=== PATIENT | female | born 1945 | race Caucasian/White ===

== ENCOUNTER → 2017-03-06 | Outpatient (CLI) | payer BC ==
[~2017-03-06] MED LIST: ACET-1256 PO; ACTONEL PO; ANT125 PO; ASPEC81 PO; CLTP PO; CULTURELLE; FAMO20TA11 PO; GLC5 PO; HYDR-5688 PO; LEVO75TA36 PO; LISI5TAB3 PO; PRAV20TA PO; PRLSR20 PO; VANC5CAP PO; ZOLP5TAB PO
--- NOTE | 2017-03-06 16:06 | MAMMOGRAPHY REPORT ---
BILATERAL DIGITAL SCREENING MAMMOGRAM WITH CAD: 03/06/2017 CLINICAL HISTORY: Routine screening. TECHNIQUE: Bilateral CC and MLO views were obtained. Current study was also evaluated with a Compute r Aided Detection (CAD) system. COMPARISON: Comparison is made to exams dated: 06/03/2015 mammogram, 05/20/2014 mammogram, 05/04/2012 ma mmogram, 05/10/2013 mammogram, 10/06/2009 mammogram - [facility], and 08/13/2008. BREAST COMPOSITION: There are scattered areas of fibroglandular density in both breasts. FINDINGS: There is a stable circumscribed 5.5 mm oval mass in the subareolar left breast, unchanged d ating back to at least 2007, therefore likely benign. There are mild vascular calcifications and a f ew benign rim calcifications in the breasts. No suspicious mass, architectural distortion or cluster of microcalcifications is seen. IMPRESSION: ACR BI-RADS CATEGORY 1: NEGATIVE There is no mammographic evidence of malignancy. A 1 year screening mammogram is recommended. The pa tient will receive written notification of the results. Approximately 10% of breast cancers are not detected with mammography. A negative mammographic report should not delay biopsy if a clinically suggestive mass is present. Gabriela Haider M.D. ay/:03/06/2017 14:46:32 Personal Assistant: Raiza ROBERTS(R)(M), [facility] letter sent: Normal 1/2 BI-RADS Code: ACR BI-RADS Category 1: Negative
== END | disposition home or self-care (01) ==
LOC: C.MAMM 12:48
PROVIDERS: ATTEND Family Medicine
DX: Z12.31 Encounter for screening mammogram for malignant neoplasm of breast (principal)

== ENCOUNTER 2017-06-10 17:57 | Emergency (ER) | payer BC ==
[~2017-06-10] VITALS: Ht 154.9 cm; Wt 57.5 kg
[2017-06-10 18:02] VITALS: TEMP 36.7; Ht 154.9 cm; Wt 57.5 kg
[2017-06-10] MEDS ORDERED: SODIUM CHLORIDE 0.9% 1000ML 1,000 ML IV STA (18:15)
[2017-06-10] MEDS ORDERED: ONDANSETRON INJ 2 MG/ML 2 ML VIAL IV STA (18:15)
[2017-06-10] MEDS ORDERED: SODIUM CHLORIDE 0.9% 1000ML 1,000 ML IV ONE (18:15)
[2017-06-10 18:46] LABS: BASO % 0.3 %; BASO ABS # 0.03 K/uL (0-0.2); COMPLETE YES; EOS % 2.5 %; HEMATOCRIT 41.8 % (37-47); IG% 0.3 %; LYMPH % 26.4 %; LYMPH ABS # 2.57 K/uL (1.2-3.4); MEAN CELL VOLUME 91.1 fL (80-100); MEAN CORPUSCULAR HEMOGLOBIN 31.8 pg (25-34); MEAN CORPUSCULAR HGB CONC 34.9 g/dl (32-36); MEAN PLATELET VOLUME 10.1 fL (7.4-10.4); MONO % 8.1 %; NEUT % 62.4 %; PLATELET COUNT 221 K/uL (130-400); RED BLOOD COUNT 4.59 M/uL (4.2-5.4); WHITE BLOOD COUNT 9.75 K/uL (4.8-10.8)
--- NOTE | 2017-06-10 18:49 | DIAGNOSTIC IMAGING REPORT ---
CT SCAN OF THE BRAIN WITHOUT IV CONTRAST CLINICAL HISTORY: Dizziness. Fall. COMPARISON STUDY: CT of the brain dated 11/26/2011. TECHNIQUE: Unenhanced axial CT scan of the brain is performed from the vertex to the skull base. CT DOSE: 655.73 mGy.cm FINDINGS: Brain parenchyma: There are age-related involutional changes noting mild subcortical and periventricular microangiopathic change. A focus of right parietal encephalomalacia is unchanged and consistent with a remote insult. A chronic appearing lacunar infarct is noted in the left cerebellar hemisphere. Chronic lacunar infarcts are also seen in the left caudate head and the left basal ganglia. There is no hemorrhage, mass effect, or evidence of acute territorial ischemia by CT criteria. Christianson-white matter is preserved. No extra-axial fluid collection is seen. Ventricles, sulci, cisterns: Prominent secondary to involutional change. Intracranial vasculature: There is atherosclerotic calcification of the cavernous carotid arteries. Calvarium: Skeletal structures are osteopenic. There is no depressed femoral fracture. Sinuses and mastoids: The visualized paranasal sinuses are clear. The mastoid air cells are well pneumatized. Orbits: The bony orbits are grossly intact. IMPRESSION: There is no hemorrhage, mass effect, or evidence of acute territorial ischemia by CT criteria. Electronically signed by: Eric Robles M.D. 06/10/2017 6:47 PM Dictated Date/Time: 06/10/2017 6:44 PM
[2017-06-10] MEDS ORDERED: DOCU100C31 PO (18:58)
[2017-06-10] MEDS ORDERED: MECL1TAB40 (18:58)
[2017-06-10] MEDS ORDERED: CHOL100027 PO (18:58)
[2017-06-10] MEDS ORDERED: LISI-729 PO (18:58)
[2017-06-10] MEDS ORDERED: LACT10CA3 PO (18:58)
[2017-06-10] MEDS ORDERED: DICY10CA12 PO (18:58)
[2017-06-10] MEDS ORDERED: GLIP10TA3 PO (18:58)
[2017-06-10] MEDS ORDERED: ASPI81TA28 PO (18:58)
[2017-06-10] MEDS ORDERED: LEVO75TA PO (18:58)
[2017-06-10] MEDS ORDERED: MULT-513 PO (18:58)
[2017-06-10 19:02] LABS: ALT/SGPT 25 U/L (12-78); BLOOD UREA NITROGEN 22 mg/dl (7-18); BUN/CREATININE RATIO 20.1 (10-20); CALCIUM 8.9 mg/dl (8.5-10.1); CARBON DIOXIDE 26 mmol/L (21-32); CHLORIDE 107 mmol/L (98-107); GLUCOSE 151 mg/dl (70-99); SODIUM 139 mmol/L (136-145)
--- NOTE | 2017-06-10 19:07 | DIAGNOSTIC IMAGING REPORT ---
SINGLE VIEW CHEST CLINICAL HISTORY: Atypical chest pain. FINDINGS: An AP, portable, upright chest radiograph is compared to study dated 01/08/2012 and correlated with chest CT dated 02/06/2009. The examination is degraded by portable technique and patient rotation. The cardiomediastinal silhouette is unremarkable. There is atherosclerotic calcification of the thoracic aorta. Chronic interstitial thickening is unchanged. There are bibasilar airspace opacities. Trace pleural effusions are suspected. Apical scarring is observed. No pneumothorax is seen. The skeletal structures are osteopenic. There are healed left-sided rib fractures. IMPRESSION: There are bibasilar airspace opacities and trace pleural effusions are suspected. This could be related to chronic lung disease/atelectasis. Correlate clinically for evidence of superimposed pneumonia/aspiration pneumonitis. Radiographic follow-up to resolution is recommended. Electronically signed by: Eric Robles M.D. 06/10/2017 7:06 PM Dictated Date/Time: 06/10/2017 7:04 PM
[2017-06-10 19:13] LABS: ALKALINE PHOSPHATASE 64 U/L (45-117); AST/SGOT 22 U/L (15-37); CKMB/CK RATIO 1.4 (0-3.0)
[2017-06-10 19:20] LABS: URINE APPEARANCE CLEAR (CLEAR); URINE BILIRUBIN NEG (NEG); URINE COLOR YELLOW; URINE EPITHELIAL CELL AUTO 0-5 /lpf (0-5); URINE NITRITE POS (NEG); URINE SPECIFIC GRAVITY 1.018 (1.000-1.030); UROBILINOGEN NEG (NEG)
[2017-06-10 19:22] LABS: MANUAL MICROSCOPIC REQUIRED? NO; REVIEW REQ? NO
[2017-06-10] MEDS ORDERED: SODIUM CHLORIDE 0.9% 1000ML 500 ML IV STA (19:34)
[2017-06-10] MEDS ORDERED: ONDA4TAB10 SL (19:53)
[2017-06-10 20:00] VITALS: BP 169/75; PULSE 82; O2SAT 97
[2017-06-10] MEDS ORDERED: ONDANSETRON HOME PACK 4MG OD TAB PO ONE (20:00)
--- NOTE | 2017-06-10 20:05 | EMERGENCY ROOM VISIT NOTE ---
History Report prepared by Yimi: Maday Sheth Under the Supervision of: Dr. Michael Ga M.D. First contact with patient: 18:06 Chief Complaint: DIZZY Stated Complaint: DIZZINESS, FALLING DOWN, NAUSEA History of Present Illness The patient is a 71 year old female who presents to the Emergency Room with complaints of worsening dizziness starting 4 days ago. Her symptoms started with nausea and lightheadedness. Her dizziness worsens with standing. She has been having difficulty standing up because she is lightheaded with standing and her balance has been off. Her dizziness is more lightheadedness and not room spinning. Tonight, she fell down to the ground. She is unsure if she passed out. She is nauseous with moving her head. She denies any ear pain, ear ringing , headache, fever, diarrhea, vomiting, numbness, weakness, chest pain, SOB, urinary symptoms, hematochezia, melena, or abdominal pain. She notes she had sore throat and ear pain a couple weeks ago. She denies any recent injury. She has a history of vertigo and is on meclizine. Her vertigo usually involves more room spinning than lightheadedness. She has been taking her meclizine which seemed to be helping until she fell today. She is on aspirin. She had a stroke in 2004. She has a history of diabetes. Her blood sugar was 195 yesterday. Source of History: patient Onset: 4 days ago Position: other (global) Quality: other (dizziness) Timing: worsening Modifying Factors (Worsening): other (standing) Associated Symptoms: + nausea, No fevers, No headache, No chest pain, No SOB , No vomiting, No melena, No hematochezia, No diarrhea, No urinary symptoms, No weakness, No numbness Note: Pt denies ear pain/ringing. Review of Systems See HPI for pertinent positives & negatives. A total of 10 systems reviewed and were otherwise negative. Past Medical & Surgical Medical Problems: (1) Diabetes (2) Stroke Old medical records were reviewed. Nurse's notes were reviewed and I agree with. Family History No pertinent family history stated. Social History Smoking Status: Never Smoker Alcohol Use: none Current/Historical Medications Scheduled Aspirin (Aspirin Ec), 81 MG PO DAILY Cholecalciferol (Vitamin D 1000 Unit), 1,000 INTER.UNIT PO DAILY Dicyclomine Hcl (Dicyclomine Hcl), 1 CAP PO BID Docusate Sodium (Docusate Sodium), 1 CAP PO BID Glipizide (Glucotrol), 10 MG PO BID Lactobacillus-Inulin (Culturelle), 1 CAP PO DAILY Levothyroxine Sodium (Synthroid), 75 MCG PO DAILY Lisinopril (Zestril), 5 MG PO DAILY Multivitamins/Minerals (Mvi With Minerals), 1 TAB PO DAILY Omeprazole (Prilosec), 20 MG PO DAILY Ondasetron Odt (Zofran Odt), 4 MG SL Q6H Scheduled PRN Meclizine Hcl (Meclizine Hcl), 12.5 MG TID PRN for Dizziness or Vertigo Allergies Coded Allergies: Simvastatin (Verified Allergy, Intermediate, MUSCLE PAIN, 06/10/17) Sulfa Drugs (Verified Allergy, Intermediate, HIVES,NAUSEA, 11/26/11) Acetaminophen (Verified Allergy, Unknown, RASH, 06/10/17) Codeine (Verified Allergy, Unknown, RASH, 06/10/17) Gabapentin (Verified Allergy, Unknown, NAUSEA, 06/10/17) Pravastatin (Verified Allergy, Unknown, ABD PAIN, 06/10/17) Uncoded Allergies: CONTRASTMEDIA (Allergy, Intermediate, NAUSEA,HIVES, 10/02/09) Physical Exam Vital Signs Date Time Temp Pulse Resp B/P (MAP) Pulse Ox O2 Delivery O2 Flow Rate FiO2 06/10/17 20:00 82 16 169/75 97 Room Air 06/10/17 18:02 36.7 93 18 176/91 97 Room Air Physical Exam General: Non-ill appearing older female in no acute distress. Alert and oriented x3. Normal speech. HEENT: Normal cephalic atraumatic. Pupils are equal round and reactive to light. Extraocular movements are intact. Tympanic membranes are normal. Oropharynx is pink with moist mucous membranes. No swelling of the mouth lips or tongue. Neck: Supple with a midline trachea. No meningeal signs or stiffness, no JVD or bruits. No Stridor. Healed incision from previous CEA. Chest: Clear to auscultation bilaterally. No wheezes or rhonchi. No increased work of breathing. Heart: regular rate and rhythm. Abdomen: Soft nontender, nondistended without rebound guarding or rigidity. Extremities: No cyanosis clubbing or edema. No calf tenderness or assymetry Spine/Back. Non tender to palpation. No CVA tenderness Skin: Good turgor without rashes. Neurologic exam: Cranial nerves two through 12 are intact. Motor and sensation are intact and symmetrical throughout. Finger to nose intact. No tremor or pronator drift. Medical Decision & Procedures ER Provider Diagnostic Interpretation: X-ray results as stated below per interpretation by me and the radiologist. Radiology results as stated below per my review and radiologist interpretation: SINGLE VIEW CHEST CLINICAL HISTORY: Atypical chest pain. FINDINGS: An AP, portable, upright chest radiograph is compared to study dated 01/08/2012 and correlated with chest CT dated 02/06/2009. The examination is degraded by portable technique and patient rotation. The cardiomediastinal silhouette is unremarkable. There is atherosclerotic calcification of the thoracic aorta. Chronic interstitial thickening is unchanged. There are bibasilar airspace opacities. Trace pleural effusions are suspected. Apical scarring is observed. No pneumothorax is seen. The skeletal structures are osteopenic. There are healed left-sided rib fractures. IMPRESSION: There are bibasilar airspace opacities and trace pleural effusions are suspected. This could be related to chronic lung disease/atelectasis. Correlate clinically for evidence of superimposed pneumonia/aspiration pneumonitis. Radiographic follow-up to resolution is recommended. Electronically signed by: Eric Robles M.D. 06/10/2017 7:06 PM Dictated Date/Time: 06/10/2017 7:[address] SCAN OF THE BRAIN WITHOUT IV CONTRAST CLINICAL HISTORY: Dizziness. Fall. COMPARISON STUDY: CT of the brain dated 11/26/2011. TECHNIQUE: Unenhanced axial CT scan of the brain is performed from the vertex to the skull base. CT DOSE: 655.73 mGy.cm FINDINGS: Brain parenchyma: There are age-related involutional changes noting mild subcortical and periventricular microangiopathic change. A focus of right parietal encephalomalacia is unchanged and consistent with a remote insult. A chronic appearing lacunar infarct is noted in the left cerebellar hemisphere. Chronic lacunar infarcts are also seen in the left caudate head and the left basal ganglia. There is no hemorrhage, mass effect, or evidence of acute territorial ischemia by CT criteria. Christianson-white matter is preserved. No extra-axial fluid collection is seen. Ventricles, sulci, cisterns: Prominent secondary to involutional change. Intracranial vasculature: There is atherosclerotic calcification of the cavernous carotid arteries. Calvarium: Skeletal structures are osteopenic. There is no depressed femoral fracture. Sinuses and mastoids: The visualized paranasal sinuses are clear. The mastoid air cells are well pneumatized. Orbits: The bony orbits are grossly intact. IMPRESSION: There is no hemorrhage, mass effect, or evidence of acute territorial ischemia by CT criteria. Electronically signed by: Eric Robles M.D. 06/10/2017 6:47 PM Dictated Date/Time: 06/10/2017 6:44 PM Laboratory Results 06/10/17 18:25 Red Blood Count 4.59, Mean Corpuscular Volume 91.1, Mean Corpuscular Hemoglobin 31.8, Mean Corpuscular Hemoglobin Concent 34.9, Mean Platelet Volume 10.1, Neutrophils (%) (Auto) 62.4, Lymphocytes (%) (Auto) 26.4, Monocytes (%) (Auto) 8.1, Eosinophils (%) (Auto) 2.5, Basophils (%) (Auto) 0.3, Neutrophils # (Auto) 6.09, Lymphocytes # (Auto) 2.57, Monocytes # (Auto) 0.79, Eosinophils # (Auto) 0.24, Basophils # (Auto) 0.03 06/10/17 18:25 Test 06/10/17 18:15 06/10/17 18:25 06/10/17 18:32 Urine Color YELLOW Urine Appearance CLEAR (CLEAR) Urine pH 5.0 (4.5-7.5) Urine Specific [place] 1.018 (1.000-1.030) Urine Protein NEG (NEG) Urine Glucose (UA) NEG (NEG) Urine Ketones NEG (NEG) Urine Occult Blood NEG (NEG) Urine Nitrite POS (NEG) Urine Bilirubin NEG (NEG) Urine Urobilinogen NEG (NEG) Urine Leukocyte Esterase SMALL (NEG) Urine WBC (Auto) 10-30 /hpf (0-5) Urine RBC (Auto) 0-4 /hpf (0-4) Urine Hyaline Casts (Auto) 0 /lpf (0-5) Urine Epithelial Cells (Auto) 0-5 /lpf (0-5) Urine Bacteria (Auto) 4+ (NEG) White Blood Count 9.75 K/uL (4.8-10.8) Red Blood Count 4.59 M/uL (4.2-5.4) Hemoglobin 14.6 g/dL (12.0-16.0) Hematocrit 41.8 % (37-47) Mean Corpuscular Volume 91.1 fL (80-100) Mean Corpuscular Hemoglobin 31.8 pg (25-34) Mean Corpuscular Hemoglobin Concent 34.9 g/dl (32-36) Platelet Count 221 K/uL (130-400) Mean Platelet Volume 10.1 fL (7.4-10.4) Neutrophils (%) (Auto) 62.4 % Lymphocytes (%) (Auto) 26.4 % Monocytes (%) (Auto) 8.1 % Eosinophils (%) (Auto) 2.5 % Basophils (%) (Auto) 0.3 % Neutrophils # (Auto) 6.09 K/uL (1.4-6.5) Lymphocytes # (Auto) 2.57 K/uL (1.2-3.4) Monocytes # (Auto) 0.79 K/uL (0.11-0.59) Eosinophils # (Auto) 0.24 K/uL (0-0.5) Basophils # (Auto) 0.03 K/uL (0-0.2) RDW Standard Deviation 40.7 fL (36.4-46.3) RDW Coefficient of Variation 12.1 % (11.5-14.5) Immature Granulocyte % (Auto) 0.3 % Immature Granulocyte # (Auto) 0.03 K/uL (0.00-0.02) Anion Gap 7.0 mmol/L (3-11) Est Creatinine Clear Calc Drug Dose 37.7 ml/min Estimated GFR () 58.1 Estimated GFR (Non- 50.1 BUN/Creatinine Ratio 20.1 (10-20) Calcium Level 8.9 mg/dl (8.5-10.1) Total Bilirubin 0.3 mg/dl (0.2-1) Direct Bilirubin < 0.1 mg/dl (0-0.2) Aspartate Amino Transf (AST/SGOT) 22 U/L (15-37) Alanine Aminotransferase (ALT/SGPT) 25 U/L (12-78) Alkaline Phosphatase 64 U/L (45-117) Total Creatine Kinase 71 U/L (26-192) Creatine Kinase MB 1.0 ng/ml (0.5-3.6) Creatine Kinase MB Ratio 1.4 (0-3.0) Total Protein 7.8 gm/dl (6.4-8.2) Albumin 4.1 gm/dl (3.4-5.0) Lipase 306 U/L (73-393) Thyroid Stimulating Hormone (TSH) 2.810 uIu/ml (0.300-4.500) Bedside Troponin I < 0.030 ng/ml (0-0.045) Laboratory studies as stated above per my review. Medications Administered Medications (Trade) Dose Ordered Sig/Jesus Route Start Time Stop Time Status Last Admin Dose Admin Sodium Chloride 1,000 ml @ 999 mls/hr Q1H1M STAT IV 06/10/17 18:15 06/10/17 19:15 DC 06/10/17 18:15 999 MLS/HR Sodium Chloride 1,000 ml @ 150 mls/hr Q6H40M ONCE IV 06/10/17 18:15 06/10/17 21:19 DC 06/10/17 18:15 150 MLS/HR Ondansetron HCl (Zofran Inj) 4 mg NOW STAT IV 06/10/17 18:15 06/10/17 18:16 DC 06/10/17 18:29 4 MG Sodium Chloride 500 ml @ 999 mls/hr Q31M STAT IV 06/10/17 19:34 06/10/17 20:04 DC 06/10/17 19:59 999 MLS/HR Ondansetron HCl (ZOFRAN ODT 4MG Home Pack) 1 homepack UD ONCE PO 06/10/17 20:00 06/10/17 20:01 DC 06/10/17 19:59 1 HOMEPACK ECG Indication: other (dizziness) Rate (beats per minute): 91 Rhythm: normal sinus Findings: PVC (occasional), no acute ischemic change Comparison ECG Date: 30-Jul-2015 Change: PVC now present, otherwise no change. ED Course 1806: Past medical records reviewed. The patient was evaluated in room A10, and a complete history and physical examination were performed. 1814: Ondansetron HCl 4 mg IV, NSS 1000 ml @ 150 mls/hr IV, NSS 1000 ml @ 999 mls/hr IV. 1924: I reevaluated the patient. She feels better. As she does not have any significant urinary symptoms, she does not want antibiotics because she has had severe C diff before. 1933: NSS 500 ml @ 999 mls/hr IV. 1956: Upon reevaluation, the patient is resting comfortably. I discussed the results and treatment plan with her. She verbalized agreement of the treatment plan. The patient was discharged home. 1999: Ondansetron HCl 1 homepack PO. Medical Decision Differentials include, but are not limited to; vertigo, dehydration, arrhythmia , electrolyte or metabolic abnormality. This patient comes in as described above. She comes in complaining of feeling dizzy and nauseated. It is definitely positional when she stands. She has no neurologic deficits. She has no chest pain or shortness breath. She denies any significant urinary symptoms. She's had no fever. IV access established hydrated with IV normal saline and received a liter of IV normal saline while she was here is feeling much better. She also received 4 mg IV Zofran. CAT scan of her head was unremarkable shows no acute intracranial process. EKG was unremarkable and there is nothing on her workup to suggest acute cardiac event. She has no acute electrolyte or metabolic abnormalities with exception BUN being mildly elevated. She could be somewhat dehydrated. Her urinalysis does suggest a UTI talked to the patient about that she really does not have any symptoms to suggest UTI otherwise and is very hesitant to be placed on antibiotics that she has had significant C. difficile this been difficult to treat in the past. I did a culture and she declines antibiotics at this point it is reasonable to observe her I told her though if she has any urinary symptoms or fever or back pain. she may need treatment and return to the ER as she may need for antibiotics at that time. She will follow up with her doctor Monday for recheck and return to the ER if: Worsening of symptoms, not tolerating fluids, any new problems or concerns. she is going to continue meclizine can also use Zofran if needed for nausea or vomiting. Medication Reconcilliation Current Medication List: was personally reviewed by me Blood Pressure Screening Patient's blood pressure: Elevated blood pressure Blood pressure disposition: Elevated BP felt to be situational Impression Primary Impression: Dizziness Additional Impression: Dehydration Scribe Attestation The scribe's documentation has been prepared under my direction and personally reviewed by me in its entirety. I confirm that the note above accurately reflects all work, treatment, procedures, and medical decision making performed by me. Departure Information Dispostion Home / Self-Care Prescriptions Ondasetron Odt (ZOFRAN ODT) 4 Mg Tab 4 MG SL Q6H for Nausea, #10 TAB Prov: Michael Ga M.D. 06/10/17 Referrals Dianna Robb D.O. (PCP) Forms HOME CARE DOCUMENTATION FORM, IMPORTANT VISIT INFORMATION Patient Instructions My [facility] Additional Instructions Rest. Drink plenty of fluids. Continue your meclizine. It may make you drowsy. For nausea may try Zofran 4 mg under the tongue every 6 hours Keep a close eye out for urinary symptoms if you have frequency of urination, burning on urination, back pain, fever you should return and may need to be started on antibiotics. Follow-up with your doctor for recheck on Monday. Problem Qualifiers
--- NOTE | 2017-06-12 13:31 | Pharmacy Progress Note ---
ED Pharmacist Culture FollowUp Date of Service: Jun 12, 2017. Called patient regarding urine culture with E. coli. Informed of positive result. Patient hesitant to initiate antibiotics due to history of C. diff. Patient denied urinary symptoms at this time. Counseled that symptoms of a UTI are not always urinary (could be dizziness, etc) but that we could continue to monitor off of antibiotics as she has no urinary symptoms at this time. Strongly encouraged her to follow-up with outpatient provider [facility] and to call/ return to ED if symptoms change. Patient acknowledged understanding.
== END 2017-06-10 20:24 | disposition home or self-care (01) ==
LOC: C.EDB 17:59 → C.EDA 20:24
DX: R42 Dizziness and giddiness (principal); E86.0 Dehydration; E11.9 Type 2 diabetes mellitus without complications; Z86.73 Personal history of transient ischemic attack (TIA), and cerebral infarction without residual deficits; Z91.81 History of falling; Z79.82 Long term (current) use of aspirin; Z79.84 Long term (current) use of oral hypoglycemic drugs; Z79.899 Other long term (current) drug therapy

== ENCOUNTER → 2018-03-14 | Outpatient (CLI) | payer BC ==
[~2018-03-14] MED LIST changes: -ACET-1256 PO; -ACTONEL PO; -ANT125 PO; -ASPEC81 PO; +ASPI81TA28 PO; +CHOL100027 PO; -CLTP PO; -CULTURELLE; +DICY10CA12 PO; +DOCU100C31 PO; -FAMO20TA11 PO; -GLC5 PO; +GLIP10TA3 PO; -HYDR-5688 PO; +LACT10CA3 PO; +LEVO75TA PO; -LEVO75TA36 PO; +LISI-729 PO; -LISI5TAB3 PO; +MECL1TAB40; +MULT-513 PO; -PRAV20TA PO; -VANC5CAP PO; -ZOLP5TAB PO
--- NOTE | 2018-03-15 08:10 | MAMMOGRAPHY REPORT ---
BILATERAL DIGITAL SCREENING MAMMOGRAM TOMOSYNTHESIS WITH CAD: 03/14/2018 CLINICAL HISTORY: Routine screening. Patient has no complaints. TECHNIQUE: The study was acquired using full field digital technology and interpreted from soft copy. Tomosynthesis (3D imaging) was done in the CC and MLO projections. A C-view reconstruction was then done. Current study was also evaluated with a Computer Aided Detection (CAD) system. COMPARISON: Comparison is made to exams dated: 03/06/2017 mammogram, 06/03/2015 mammogram, 05/20/2014 m ammogram, 05/16/2013 mammogram, 05/10/2013 mammogram, and 05/04/2012 mammogram - [facility] nter. BREAST COMPOSITION: There are scattered areas of fibroglandular density in both breasts. FINDINGS: No suspicious masses, calcifications, or areas of architectural distortion are noted in either breast . There has been no significant interval change compared to prior exams. IMPRESSION: ACR BI-RADS CATEGORY 1: NEGATIVE There is no mammographic evidence of malignancy. A 1 year screening mammogram is recommended.( 019) The patient will receive written notification of the results. Approximately 10% of breast cancers are not detected with mammography. A negative mammographic report should not delay biopsy if a clinically suggestive mass is present. Marnie Do M.D. /:03/14/2018 12:12:14 Edger Technician: RT Toñito(Rodger)(M)(BD), [facility] letter sent: Normal 1/2 BI-RADS Code: ACR BI-RADS Category 1: Negative
== END | disposition home or self-care (01) ==
LOC: C.MAMM 10:27
PROVIDERS: ATTEND Family Medicine
DX: Z12.31 Encounter for screening mammogram for malignant neoplasm of breast (principal)

== ENCOUNTER 2020-07-20 17:03 | Inpatient (IN) ==
--- OUTSIDE RECORDS SUMMARY | 2020-07-20 17:05 | External Medical Summary | Continuity of Care Document ---
:1945 Author Name Tamiko Emanuel, Provider Address Unavailable Unavailable , Care Team Providers Name Role Phone Unavailable Unavailable Unavailable Deborah Emanuel, Jhonatan Frankel Unavailable [email or web address] Bruce ARGUETA Unavailable Unavailable Unavailable Unavailable Unavailable Problems Carotid stenosis, symptomatic w/o infarct (433.10) (I65.29) Senile osteoporosis (733.01) (M81.0) Irritable bowel syndrome (564.1) (K58.9) Type 2 diabetes mellitus with hemoglobin A1c goal of less than 7.0% (250.00) (E11.9) Hypothyroidism due to acquired atrophy of thyroid (244.8) (E 03.4) Diabetes mellitus with stage 3 chronic kidney disease (250.4 0) (E11.22) Hypertensive renal disease, stage 1 thro ugh stage 4 or unspecified chronic kidney disease (403.90) (I12.9) Type 2 diabetes mellitus with peripheral vascular disease (2 50.70) (E11.51) 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) Gastroesophageal reflux disease, esophag itis presence not specified (530.81) (K21.9) Status post stroke due to cerebrovascular disease (V12.54) ( Z86.73) PAC (premature atrial contraction) (427.61) (I49.1) Hyperlipidemia (272.4) (E78.5) Benign essential hypertension (401.1) (I10) Allergies and Adverse Reactions acetaminophen-codeine (Allergy) Reaction : Rash gabapentin (Allergy) Reaction: Nausea pravastatin (Allergy) Reaction: Abdomina l pain simvastatin (Allergy) Reaction: Myalgia sulfa (Allergy) Reaction: Nausea Intravenous Dye (Allergy) Reaction: Hive s Medications glipiZIDE XL 10 MG Oral Tablet Extended Release 24 Hour; take 1 tablet by mouth once daily , M.D. Refills: 0 Lisinopril 5 MG Oral Tablet; take 1 tablet by mouth once keagan ly , M.D. 45 Tablet Bottle Refills: 0 Meclizine HCl - 12.5 MG Oral Tablet; DANIELA E 1 TABLET BY MOUTH EVERY 8 HOURS NEEDED , M.D. Refills: 0 Levothyroxine Sodium 75 MCG Oral Tablet; take 1 tablet by mouth once daily , M.D. Refills: 0 Omeprazole 20 MG Oral Tablet Delayed Rel ease; take 1 capsule by mouth once daily , M.D. Refills: 0 Colace 100 MG Oral Capsule; TAKE 1 CAPSULE TWICE DAILY. , M. D. Refills: 0 MiraLax 17 GM/SCOOP Oral Powder , M.D. Refills: 0 Fluticasone Propionate 50 MCG/ACT Nasal Suspension; instill 2 sprays into each nostril twice daily , M.D. 9.9 ML Bottle Refills: 0 Vitamin D 1000 UNIT TABS; TAKE 1 TABLET DAILY. , M.D. Refills: 0 Multi-Vitamin TABS; TAKE 1 TABLET DAILY. , M.D. Refills: 0 Culturelle 10 B CELL CAPS; TAKE 1 CAPSULE Daily , M.D. Refills: 0 Aspirin 81 MG TABS; TAKE 1 TABLET DAILY. , M.D. Refills: 0 Atorvastatin Calcium 10 MG Oral Tablet; TAKE 1 TABLET AT BEDTIME. Adelfo Cabrera Start: 24-Oct-2018 Quantity: 30 Refills: 11 Procedures Procedures not documented Immunizations Immunizations not documented Family History Unknown Family Member Family history of hip fracture (V19.8) Status: Active C omments: Family History (Z84.89) Social History - Smoking Status Never smoked tobacco Plan of Treatment Planned Observations Planned Goals not documented Results No Known Results Results not documented Encounters Appointment; Jhonatan Cabrera M.D. 22-Nov-2018 11:00 Encounter Diagnosis: Problem not documented Appointment; Echo/Stress, Echo/Stress 05-Nov-2018 11:45 Encounter Diagnosis: Problem not documented Appointment; [facility], Nursing Station 29-Oct-2018 10:30 Encounter Diagnosis: Problem not documented Appointment; [place] [id number], Nursing Station 25-Oct-2018 8:30 Encounter Diagnosis: Problem not documented Appointment; Jhonatan Cabrera M.D. 24-Oct-2018 11:30 Encounter Diagnosis: Problem not documented
--- OUTSIDE RECORDS SUMMARY | 2020-07-20 17:05 | External Medical Summary | Continuity of Care Document ---
:1945 Author Name Tamiko Emanuel, Provider Address Unavailable Unavailable , Care Team Providers Name Role Phone Unavailable Unavailable Unavailable Deborah Emanuel, Jhonatan Frankel Unavailable [email or web address] Bruce ARGUETA Unavailable Unavailable Unavailable Unavailable Unavailable [...] Intravenous Dye (Allergy) Reaction: Hive s Medications Atorvastatin Calcium 10 MG Oral Tablet; TAKE 1 TABLET AT BEDTIME. Adelfo Cabrera Start: 24-Oct-2018 Quantity: 30 Refills: 11 glipiZIDE XL 10 MG Oral Tablet Extended [...] 1 TABLET DAILY. , M.D. Refills: 0 Procedures Procedures not documented Immunizations Immunizations not documented Family History Unknown Family Member Family history of hip fracture (V19.8) Status: Active C omments: Family History (Z84.89) Social History - Smoking Status Never smoked tobacco Plan of Treatment Planned Observations Planned Goals not documented Results No Known Results Results not documented Encounters Appointment; Jhonatan Cabrera M.D. 22-Nov-2018 11:00 Encounter Diagnosis: Problem not documented Appointment; Nina/StressNina/Stress 05-Nov-2018 11:45 Encounter Diagnosis: Problem not documented Appointment; [facility], Nursing Station 29-Oct-2018 10:30 Encounter Diagnosis: Problem not documented Appointment; [place] [id number], Nursing Station 25-Oct-2018 8:30 Encounter Diagnosis: Problem not documented Appointment; Jhonatan Cabrera M.D. 24-Oct-2018 11:30 Encounter Diagnosis: Problem not documented
[2020-07-20] MEDS ORDERED: SODIUM CHLORIDE 0.9% 1000ML 1,000 ML IV ONE ×3 (18:22→20:58)
[2020-07-20] MEDS ORDERED: ONDANSETRON INJ 2 MG/ML 2 ML VIAL IV STA ×2 (18:22→19:50)
[2020-07-20] MEDS ORDERED: fentaNYL citrate 100 MCG/2 ML VIAL IV STA ×2 (18:23→19:50)
--- NOTE | 2020-07-20 18:26 | Emergency Department Note ---
Impression & Plan Calculus of ureterovesical junction (UVJ), Sepsis, Renal colic on left side, Pyelonephritis ED Provider Note NAME: SUSAN CREWS AGE: 75 SEX: F : 1945 ARRIVES VIA: Walk-In INFORMANT: Patient, ED PROVIDER(S): Yvan Pastrana MD Chief Complaint: Abdominal pain HPI: Patient does present with concern for abdominal pain that began around 1:30 PM today. Patient describes it is over the left side and does radiate front to back. Patient denies any recent trauma to the area. Patient describes it as occasionally sharp and achy. Patient did have improvement her symptoms around 230. Patient did take Tylenol without any relief. Patient has been having diarrheal symptoms. Patient denies any changes in diet or antibiotic use. Patient has fevers, chills, chest pains or shortness of breath. Patient has had associated nausea and vomiting. Patient denies any alcohol or tobacco use. Patient denies Covid contacts or loss of taste or smell. Patient denies any recent surgeries or procedures. ROS: See HPI for pertinent positives and negatives. A total of 10 systems were reviewed and otherwise negative. Past medical history: See below Surgical history: See below Social history: See below Physical Exam: GENERAL: Uncomfortable in appearance, wearing glasses and a mask. Rigors present. EYE EXAM: Normal conjunctiva. PERRL, no anisocoria and EOM's grossly intact w/o pain. NECK: Supple, no nuchal rigidity, no adenopathy, non-tender. No signs of meningismus. LUNGS: Clear to auscultation. Normal chest wall mechanics. HEART: NSR, no MRG. ABDOMEN: Abdomen soft, left-sided abdominal discomfort without peritonitis, normo-active bowel sounds, no masses, no rebound or guarding. BACK: No CVA TTP. SKIN: No rashes and no bruising. UPPER EXTREMITIES: Upper extremities are grossly normal. LOWER EXTREMITIES: Grossly normal, no edema. NEURO EXAM: A&O x3, cranial nerves II-XII grossly intact, normal speech, moves all 4 extremities on command w/o issue. Differential diagnoses: Appendicitis, ovarian cyst, ovarian torsion, ectopic , TOA, PID, infections, diverticulitis, UTI, obstruction, mesenteric ischemia, aortic pathology, inflammatory bowel disease, renal colic, PUD, pancreatitis, biliary pathology, hernia, volvulus, constipation, as well as other pathologies. Course: Patient was seen and evaluated the bedside. Full history physical exam was performed. EKG: Indication: Nausea vomiting Sinus tachycardia, rate of 116 normal axis, T wave inversion with slight depress ions in the lateral leads. Patient's ST changes appear to be old from comparison EKG June 10, 2017. Imaging Studies: Radiology results as stated below per my review in the radiologist's interpreta tion: CT ANGIOGRAM OF THE ABDOMEN AND PELVIS CLINICAL HISTORY: Left lower quadrant abdominal pain. Back pain. COMPARISON STUDY: Abdominal radiographs dated 01/08/2012. Chest CT dated 02/06/2009. TECHNIQUE: Following the IV administration of 120 cc of Optiray 320, CT angiogram of the abdomen and pelvis was performed from the lung bases the proximal femora. Images are reviewed in the axial, sagittal, and coronal planes. 3-D MIPS images are created and assessed. IV contrast was administered without complication. A dose lowering technique was utilized adhering to the principles of ALARA. CT DOSE: 276.97 mGy.cm FINDINGS: Lower chest: The heart is normal in size and without pericardial effusion. Fibrotic an groundglass change at both lung bases is similar to the [address] There is no clear evidence of superimposed airspace consolidation or pleural effusion. There is a small hiatal hernia. Liver: The contrast-enhanced liver is normal in size, contour, and attenuation. There is no intrahepatic or ductal dilatation. The main portal veins appear patent. Gallbladder: Unremarkable. Spleen: Normal in size and attenuation noting heterogeneous arterial phase enhancement. Pancreas: Moderately atrophic and grossly unremarkable. Adrenal glands: Unremarkable. Kidneys: The contrast enhanced kidneys demonstrate cortical atrophy. There is a 3 mm obstructing calculus at the left vesicoureteral junction seen on image #365. This causes mild to moderate left hydroureteronephrosis. There is associated left-sided perinephric and periureteric stranding as well as left sided perinephric fluid. Mild urothelial thickening and enhancement is seen in the left ureter. No hydronephrosis is seen on the right. The kidneys enhance symmetrically. No additional calculi are identified in either kidney on this contrast-enhanced examination. Abdominal aorta and iliac arteries: There is advanced atherosclerotic calcification of the abdominal aorta which is normal in caliber. No luminal narrowing is identified. No dissection is seen. The arteries are patent bilaterally noting atherosclerotic plaque and irregularity. 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 The celiac artery is otherwise patent, as are the superior and inferior mesenteric arteries. Hepatic arterial anatomy is conventional. The splenic artery is patent. There are 2 left renal arteries and a single right renal artery. The renal arteries are patent. Bowel: There is moderate sigmoid diverticulosis without CT evidence of acute diverticulitis. No bowel obstruction is identified. The appendix is well- visualized and normal. Peritoneum: There is no intraperitoneal free air or abdominal ascites. There is a fat-containing umbilical hernia. Lymphadenopathy: None. Pelvic viscera: The bladder is normal as visualized. The uterus is surgically absent. No adnexal lesion is seen. Skeletal structures: The skeletal structures are osteopenic. There is mild to moderate lumbosacral spondylosis. No lytic or blastic bony lesions are seen. IMPRESSION: 1. There is a 3 mm obstructing calculus at the left vesicoureteral junction. This causes mild to moderate left hydroureteronephrosis. 2. There is associated urothelial thickening in the left ureter, as well as left-sided perinephric and periureteric stranding and fluid. 3. Fibrotic and groundglass change is seen at both lung bases, and is similar to a [address] This is likely chronic. Correlate clinically for evidence of a superimposed acute infectious/inflammatory pneumonitis. 4. Moderate sigmoid diverticulosis without CT evidence of acute diverticulitis. 5. Unremarkable CT angiogram of the abdominal aorta and iliac arteries. 6. 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 7. Additional findings as above. ACT 112: Negative or not required by law. Electronically signed by: Eric Robles M.D. 07/20/2020 8:32 PM Dictated: 07/20/202020 Transcribed: 07/20/202020 Cardiac monitoring: An order was placed for continuous cardiac monitoring. The monitor shows a rate of 100 with sinus rhythm. MDM: Patient did present with concerns for back pain. Patient did a bladder completed along with a CT angio of the abdomen and pelvis was given IV fluids. Patient has a very mild white count of 11 with normal H&H and platelet count. Patient's kidney function is fairly unchanged prior to prior. The patient did have 7 oh magnesium 1.7 troponin is undetectable. Lipase unremarkable. Urinalysis does appear to be positive for infection. Covid negative. CT abdomen pelvis does show a 3 mm UVJ stone and the possibility of pyelonephritis with associated perinephric stranding and fluid but without abscess. Cipro was ordered given the pyelonephritis and DONTAE Cox the patient was admitted to Dr. Lacey of [facility] service. Given the size and location of the stone do not believe this or require emergent stenting, but given the patient's pain believe the patient would benefit from inpatient treatment. The patient did eventually spike a fever to 39.4. Inpatient service did order additional medications including antipyretics. Past Med/Surg History Medical History CKD (chronic kidney disease), stage III DM type 2 (diabetes mellitus, type 2) GERD (gastroesophageal reflux disease) History of CVA (cerebrovascular accident) HLD (hyperlipidemia) HTN (hypertension) Hypothyroidism Surgical History H/O dilation and curettage History of carotid endarterectomy Right History of hysterectomy History of tonsillectomy Family History Father Diabetes Mother Diabetes Social History (Updated 07/20/20 @ 22:48 by DONTAE Brown) Smoking Status: Never smoker Hx Alcohol Use: No Feels Safe at Home: Yes Allergies Allergies Allergy/AdvReac Type Severity Reaction Status Date / Time simvastatin Allergy Intermediate MUSCLE PAIN Verified 07/20/20 22:26 codeine Allergy Unknown RASH Verified 07/20/20 22:26 Iodinated Contrast Media Allergy Unknown Hives Verified 07/20/20 22:26 Sulfa (Sulfonamide AdvReac Intermediate HIVES,NAUSE Verified 07/20/20 22:29 Antibiotics) A gabapentin AdvReac Unknown NAUSEA Verified 07/20/20 22:29 pravastatin AdvReac Unknown Abdominal Verified 07/20/20 22:29 Pain Home Meds Home Medications Medication Instructions Recorded Confirmed Lactobacillus rhamnosus GG 1 cap PO BID 07/20/20 07/20/20 [Culturelle] aspirin [Aspir-81] 81 mg PO DAILY 07/20/20 07/20/20 atorvastatin 10 mg PO DAILY 07/20/20 07/20/20 cholecalciferol (vitamin D3) 25 mcg PO DAILY 07/20/20 07/20/20 docusate sodium [DOK] 100 mg PO BID 07/20/20 07/20/20 famotidine 20 mg PO DAILY 07/20/20 07/20/20 fluticasone propionate [Flonase] 1 spray INTRANASAL DAILY PRN 07/20/20 07/20/20 glipizide 5 mg PO BID 07/20/20 07/20/20 levothyroxine 75 mcg PO DAILY 07/20/20 07/20/20 lisinopril 5 mg PO DAILY 07/20/20 07/20/20 loratadine 10 mg PO DAILY PRN 07/20/20 07/20/20 meclizine 12.5 mg PO TID PRN 07/20/20 07/20/20 multivitamin 1 tab PO DAILY 07/20/20 07/20/20 omeprazole 20 mg PO DAILY 07/20/20 07/20/20 Results & Data (ED) Vital Signs Vital Signs - 24 hr 07/20/20 17:11 07/20/20 18:22 07/20/20 18:59 Temperature 36.5 C Temperature Source Oral Pulse Rate 100 H 120 H Respiratory Rate 20 26 H Respiratory Effort / Characteristics Non-Labored Respiratory Depth Normal Blood Pressure 157/82 H 172/110 H Blood Pressure Mean 107 127 Pulse Oximetry 94 95 Oxygen Delivery Method Room Air Room Air Oxygen Flow Rate Sepsis Recent Fever Within 48 Hours No Sepsis New/Unexplained Change in Mental Status N/A Sepsis Action Taken by Nursing No Action Required 07/20/20 19:30 07/20/20 20:00 07/20/20 20:54 Temperature 37.3 C Temperature Source Pulse Rate 115 H 120 H 148 H Respiratory Rate 20 16 28 H Respiratory Effort / Characteristics Respiratory Depth Blood Pressure 178/92 H 158/80 H 179/114 H Blood Pressure Mean 99 112 125 Pulse Oximetry 92 93 93 Oxygen Delivery Method Room Air Oxygen Flow Rate Sepsis Recent Fever Within 48 Hours Sepsis New/Unexplained Change in Mental Status Sepsis Action Taken by Nursing 07/20/20 21:00 07/20/20 21:30 07/20/20 21:56 Temperature 39.4 C H Temperature Source Rectal Pulse Rate 141 H 132 H Respiratory Rate 28 H 28 H Respiratory Effort / Characteristics Respiratory Depth Blood Pressure 190/114 H 165/93 H Blood Pressure Mean 133 95 Pulse Oximetry 89 L 96 Oxygen Delivery Method Nasal Cannula Oxygen Flow Rate 2 Sepsis Recent Fever Within 48 Hours Sepsis New/Unexplained Change in Mental Status Sepsis Action Taken by Nursing 07/20/20 22:00 07/20/20 22:26 07/20/20 22:30 Temperature Temperature Source Pulse Rate 134 H 137 H 137 H Respiratory Rate 32 H 28 H 28 H Respiratory Effort / Characteristics Respiratory Depth Blood Pressure 152/75 H 158/77 H 162/80 H Blood Pressure Mean 119 123 104 Pulse Oximetry 96 97 93 Oxygen Delivery Method Oxygen Flow Rate Sepsis Recent Fever Within 48 Hours Sepsis New/Unexplained Change in Mental Status Sepsis Action Taken by [facility] Medications Current Medication List: was personally reviewed by me Laboratory Data Attestation: I reviewed the patient's lab results. Result diagrams: 07/20/20 18:42 07/20/20 18:42 Lab Results 07/20/20 07/20/20 07/20/20 Range/Units 18:07 18:42 18:42 WBC 11.06 H (4.8-10.8) K/uL RBC 4.13 L (4.2-5.4) M/uL Hgb 12.8 (12.0-16.0) g/dL Hct 38.6 (37-47) % MCV 93.5 (80-100) fL MCH 31.0 (25-34) pg MCHC 33.2 (32-36) g/dL RDW Std Deviation 40.5 (36.4-46.3) fL RDW Coeff of Abebe 12.0 (11.5-14.5) % Plt Count 211 (130-400) K/uL MPV 10.0 (7.4-10.4) fL Immature Gran % (Auto) 0.5 % Neut % (Auto) 92.0 % Lymph % (Auto) 6.0 % Hall % (Auto) 1.2 % Eos % (Auto) 0.2 % Baso % (Auto) 0.1 % Neut # (Auto) 10.19 H (1.4-6.5) K/uL Lymph # (Auto) 0.66 L (1.2-3.4) K/uL Hall # (Auto) 0.13 (0.11-0.59) K/uL Eos # (Auto) 0.02 (0-0.5) K/uL Baso # (Auto) 0.01 (0-0.2) K/uL Immature Gran # (Auto) 0.05 H (0.00-0.02) K/uL Sodium 136 (136-145) mmol/L Potassium 4.1 (3.5-5.1) mmol/L Chloride 105 (98-107) mmol/L Carbon Dioxide 23 (21-32) mmol/L Anion Gap 8.0 (3-11) BUN 29 H (7-18) mg/dl Creatinine 1.50 H (0.6-1.2) mg/dl Est Cr Clr Drug Dosing 24.1 ml/min Est GFR ( Amer) 38.8 Est GFR (Non-Af Amer) 33.5 BUN/Creatinine Ratio 19.0 (10-20) Glucose 236 H (70-99) mg/dl POC Glucose 161 H (70-99) mg/dl Calcium 9.2 (8.5-10.1) mg/dl Magnesium 1.7 L (1.8-2.4) mg/dl Total Bilirubin 0.7 (0.2-1) mg/dl AST 22 (15-37) U/L ALT 28 (12-78) U/L Alkaline Phosphatase 70 (45-117) U/L Troponin I < 0.015 (0-0.045) ng/ml Total Protein 8.2 (6.4-8.2) gm/dl Albumin 4.2 (3.4-5.0) gm/dl Globulin 4.0 (2.5-4.0) gm/dl Albumin/Globulin Ratio 1.1 (0.9-2) Lipase 309 (73-393) U/L Urine Color Urine Appearance (Clear) Urine pH (4.5-7.5) Ur Specific Gambell (1.000-1.030) Urine Protein (Negative) Urine Glucose (UA) (Negative) Urine Ketones (Negative) Urine Blood (Negative) Urine Nitrite (Negative) Urine Bilirubin (Negative) Urine Urobilinogen (Negative) Ur Leukocyte Esterase (Negative) Urine WBC (Auto) (0-5) /hpf Urine RBC (Auto) (0-4) /hpf U Hyaline Cast (Auto) (0-5) /lpf U Epithel Cells (Auto) (0-5) /lpf Urine Bacteria (Auto) (Negative) SARS-CoV-2 Ag (Rapid) (Negative) 07/20/20 07/20/20 Range/Units 19:30 Unknown WBC (4.8-10.8) K/uL RBC (4.2-5.4) M/uL Hgb (12.0-16.0) g/dL Hct (37-47) % MCV (80-100) fL MCH (25-34) pg MCHC (32-36) g/dL RDW Std Deviation (36.4-46.3) fL RDW Coeff of Abebe (11.5-14.5) % Plt Count (130-400) K/uL MPV (7.4-10.4) fL Immature Gran % (Auto) % Neut % (Auto) % Lymph % (Auto) % Hall % (Auto) % Eos % (Auto) % Baso % (Auto) % Neut # (Auto) (1.4-6.5) K/uL Lymph # (Auto) (1.2-3.4) K/uL Hall # (Auto) (0.11-0.59) K/uL Eos # (Auto) (0-0.5) K/uL Baso # (Auto) (0-0.2) K/uL Immature Gran # (Auto) (0.00-0.02) K/uL Sodium (136-145) mmol/L Potassium (3.5-5.1) mmol/L Chloride (98-107) mmol/L Carbon Dioxide (21-32) mmol/L Anion Gap (3-11) BUN (7-18) mg/dl Creatinine (0.6-1.2) mg/dl Est Cr Clr Drug Dosing ml/min Est GFR ( Amer) Est GFR (Non-Af Amer) BUN/Creatinine Ratio (10-20) Glucose (70-99) mg/dl POC Glucose (70-99) mg/dl Calcium (8.5-10.1) mg/dl Magnesium (1.8-2.4) mg/dl Total Bilirubin (0.2-1) mg/dl AST (15-37) U/L ALT (12-78) U/L Alkaline Phosphatase (45-117) U/L Troponin I (0-0.045) ng/ml Total Protein (6.4-8.2) gm/dl Albumin (3.4-5.0) gm/dl Globulin (2.5-4.0) gm/dl Albumin/Globulin Ratio (0.9-2) Lipase (73-393) U/L Urine Color Yellow Urine Appearance Clear (Clear) Urine pH 5.5 (4.5-7.5) Ur Specific Gambell 1.019 (1.000-1.030) Urine Protein 1+ H (Negative) Urine Glucose (UA) 2+ H (Negative) Urine Ketones 1+ H (Negative) Urine Blood 3+ H (Negative) Urine Nitrite Positive A (Negative) Urine Bilirubin Negative (Negative) Urine Urobilinogen Negative (Negative) Ur Leukocyte Esterase Trace H (Negative) Urine WBC (Auto) 5-10 H (0-5) /hpf Urine RBC (Auto) 5-10 H (0-4) /hpf U Hyaline Cast (Auto) 1-5 (0-5) /lpf U Epithel Cells (Auto) 5-10 H (0-5) /lpf Urine Bacteria (Auto) 4+ H (Negative) SARS-CoV-2 Ag (Rapid) Negative (Negative) Administered Medications Ceftriaxone Sodium 1,000 mg/ (Dextrose) 50 mls @ 100 mls/hr IV Q24H [facility]; Protocol Stop: 07/30/20 22:19 Last Admin: 07/20/20 22:27 Dose: 100 mls/hr Documented by: [id number] Discontinued Medications Acetaminophen (Acetaminophen 1000 Mg/100 Ml Iv) 1,000 mg IV ONE STA Stop: 07/20/20 22:30 Last Admin: 07/20/20 22:32 Dose: Not Given Documented by: [id number] Acetaminophen (Acetaminophen 1000 Mg/100 Ml Iv) Confirm Administered Dose 1,000 mg IV .STK-MED ONE Stop: 07/20/20 22:12 Last Admin: 07/20/20 22:29 Dose: 1,000 mg Documented by: [id number] Ceftriaxone Sodium (Ceftriaxone Sodium 1000mg/50ml D5w) Confirm Administered Dose 1,000 mg IV .STK-MED ONE Stop: 07/20/20 22:27 Last Admin: 07/20/20 22:32 Dose: Not Given Documented by: [id number] Diphenhydramine HCl (Diphenhydramine 50 Mg/Ml Vial) 12.5 mg IV NOW STA Stop: 07/20/20 18:30 Last Admin: 07/20/20 18:49 Dose: 12.5 mg Documented by: [id number] Fentanyl Citrate (Fentanyl Citrate 100 Mcg/2 Ml Vial) 50 mcg IV NOW STA Stop: 07/20/20 18:24 Last Admin: 07/20/20 18:50 Dose: 50 mcg Documented by: [id number] Fentanyl Citrate (Fentanyl Citrate 100 Mcg/2 Ml Vial) 75 mcg IV NOW STA Stop: 07/20/20 19:51 Last Admin: 07/20/20 19:56 Dose: 75 mcg Documented by: [id number] Sodium Chloride (Nss 1000ml) 1,000 mls @ 999 mls/hr IV .Q1H1M ONE Stop: 07/20/20 19:22 Last Infusion: 07/20/20 20:00 Dose: 0 mls/hr Documented by: [id number] Admin: 07/20/20 18:49 Dose: 999 mls/hr Documented by: [id number] Ciprofloxacin (Cipro / D5w) 400 mg in 200 mls @ 100 mls/hr IV NOW STA; Protocol Stop: 07/20/20 22:40 Last Admin: 07/20/20 21:09 Dose: 100 mls/hr Documented by: [id number] Sodium Chloride (Nss 1000ml) 1,000 mls @ 999 mls/hr IV .Q1H1M ONE Stop: 07/20/20 21:56 Last Admin: 07/20/20 21:07 Dose: 999 mls/hr Documented by: [id number] Lorazepam (Ativan) 0.5 mg in 1 mls @ 1 mls/min IV NOW STA Stop: 07/20/20 20:59 Last Admin: 07/20/20 21:06 Dose: 1 mls/min Documented by: [id number] Ioversol (Optiray 320 125ml) 120 ml IV ONCE ONE Stop: 07/20/20 20:13 Last Admin: 07/20/20 20:13 Dose: 120 ml Documented by: [id number] Methylprednisolone (Methylprednisolone 40 Mg/Ml Vial) 40 mg IV NOW STA Stop: 07/20/20 18:30 Last Admin: 07/20/20 18:49 Dose: 40 mg Documented by: [id number] Ondansetron HCl (Ondansetron Inj 2 Mg/Ml 2 Ml Vial) 4 mg IV NOW STA Stop: 07/20/20 18:23 Last Admin: 07/20/20 18:49 Dose: 4 mg Documented by: [id number] Ondansetron HCl (Ondansetron Inj 2 Mg/Ml 2 Ml Vial) 4 mg IV NOW STA Stop: 07/20/20 19:51 Last Admin: 07/20/20 19:55 Dose: 4 mg Documented by: [id number] Discharge Plan Visit Data Chief Complaint: Abdominal Pain Stated Complaint: PAIN, VOMITTING, ABD PAIN ED Provider: Yvan Pastrana Discharge Problem: Calculus of ureterovesical junction (UVJ), Sepsis, Renal colic on left side, Pyelonephritis Patient Disposition: Still a Patient Discharge Problem: Sepsis Qualifiers: Sepsis type: sepsis due to unspecified organism Sepsis acute organ dysfunction status: without acute organ dysfunction Qualified Code(s): A41.9 - Sepsis, unspecified organism
[2020-07-20] MEDS ORDERED: diphenhydrAMINE 50 MG/ML VIAL IV STA (18:29)
[2020-07-20 19:06] LABS: Basophils # (auto) 0.01 K/uL (0-0.2); Basophils % (auto) 0.1 %; Eosinophils # (auto) 0.02 K/uL (0-0.5); Eosinophils % (auto) 0.2 %; Hematocrit (blood only) 38.6 % (37-47); Hemoglobin 12.8 g/dL (12.0-16.0); Immature Granulocytes # (auto) 0.05 K/uL (0.00-0.02); Immature Granulocytes % (auto) 0.5 %; Lymphocytes # (auto) 0.66 K/uL (1.2-3.4); Mean Corpuscular Hgb Conc 33.2 g/dL (32-36); Mean Corpuscular Volume 93.5 fL (80-100); Monocytes # (auto) 0.13 K/uL (0.11-0.59); Monocytes % (auto) 1.2 %; Neutrophils # (auto) 10.19 K/uL (1.4-6.5); Platelet Count 211 K/uL (130-400); RDW Standard Deviation 40.5 fL (36.4-46.3); Red Blood Count 4.13 M/uL (4.2-5.4); White Blood Count 11.06 K/uL (4.8-10.8)
[2020-07-20 19:28] LABS: Alanine Aminotransferase 28 U/L (12-78); Albumin Level 4.2 gm/dl (3.4-5.0); Aspartate Aminotransferase 22 U/L (15-37); Blood Urea Nitrogen 29 mg/dl (7-18); Calcium 9.2 mg/dl (8.5-10.1); Carbon Dioxide 23 mmol/L (21-32); Chloride 105 mmol/L (98-107); Creatinine Clr Calc Pharmacy 24.1 ml/min; Est GFR (African American) 38.8; Est GFR (Non-African American) 33.5; Glucose 236 mg/dl (70-99); Lipase 309 U/L (73-393); Magnesium 1.7 mg/dl (1.8-2.4); Potassium 4.1 mmol/L (3.5-5.1); Sodium 136 mmol/L (136-145)
[2020-07-20 19:33] LABS: Albumin Globulin Ratio 1.1 (0.9-2); Alkaline Phosphatase 70 U/L (45-117); Bilirubin,Total 0.7 mg/dl (0.2-1); Total Protein 8.2 gm/dl (6.4-8.2); Troponin I < 0.015 ng/ml (0-0.045)
[2020-07-20 19:46] LABS: Appearance Urine Clear (Clear); Bacteria Urine Automated 4+ (Negative); Bilirubin Urine Negative (Negative); Blood Urine 3+ (Negative); Color Urine Yellow; Glucose Urine UA 2+ (Negative); Ketones Urine 1+ (Negative); Leukocyte Esterase Urine Trace (Negative); Nitrite Urine Positive (Negative); Protein Urine 1+ (Negative); Specific Gravity Urine 1.019 (1.000-1.030); Urobilinogen Urine Negative (Negative); pH Urine 5.5 (4.5-7.5)
[2020-07-20] MEDS ORDERED: OPTIRAY 320 125ml IV ONE (20:12)
--- NOTE | 2020-07-20 20:34 | CT Scan Report ---
CT ANGIOGRAM OF THE ABDOMEN AND PELVIS CLINICAL HISTORY: Left lower quadrant abdominal pain. Back pain. COMPARISON STUDY: Abdominal radiographs dated 01/08/2012. Chest CT dated 02/06/2009. TECHNIQUE: Following the IV administration of 120 cc of Optiray 320, CT angiogram of the abdomen and pelvis was performed from the lung bases the proximal femora. Images are reviewed in the axial, sagit mirta, and coronal planes. 3-D MIPS images are created and assessed. IV contrast was administered witho ut complication. A dose lowering technique was utilized adhering to the principles of ALARA. CT DOSE: 276.97 mGy.cm FINDINGS: Lower chest: The heart is normal in size and without pericardial effusion. Fibrotic an groundglass ch vanita at both lung bases is similar to the [address] There is no clear evidence of superimposed a irspace consolidation or pleural effusion. There is a small hiatal hernia. Liver: The contrast-enhanced liver is normal in size, contour, and attenuation. There is no intrahepa tic or ductal dilatation. The main portal veins appear patent. Gallbladder: Unremarkable. Spleen: Normal in size and attenuation noting heterogeneous arterial phase enhancement. Pancreas: Moderately atrophic and grossly unremarkable. Adrenal glands: Unremarkable. Kidneys: The contrast enhanced kidneys demonstrate cortical atrophy. There is a 3 mm obstructing calc ulus at the left vesicoureteral junction seen on image #365. This causes mild to moderate left hydrou reteronephrosis. There is associated left-sided perinephric and periureteric stranding as well as lef t sided perinephric fluid. Mild urothelial thickening and enhancement is seen in the left ureter. No hydronephrosis is seen on the right. The kidneys enhance symmetrically. No additional calculi are argelia ntified in either kidney on this contrast-enhanced examination. Abdominal aorta and iliac arteries: There is advanced atherosclerotic calcification of the abdominal aorta which is normal in caliber. No luminal narrowing is identified. No dissection is seen. The dulce eugene are patent bilaterally noting atherosclerotic plaque and irregularity. 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 The celiac artery is otherwise patent, as are the superior and inferior mesenteric arteries. Hepatic arterial anatomy is conventional. The splenic artery is patent. There are 2 left renal arteri es and a single right renal artery. The renal arteries are patent. Bowel: There is moderate sigmoid diverticulosis without CT evidence of acute diverticulitis. No bowel obstruction is identified. The appendix is well-visualized and normal. Peritoneum: There is no intraperitoneal free air or abdominal ascites. There is a fat-containing umbi lical hernia. Lymphadenopathy: None. Pelvic viscera: The bladder is normal as visualized. The uterus is surgically absent. No adnexal lesi on is seen. Skeletal structures: The skeletal structures are osteopenic. There is mild to moderate lumbosacral sp ondylosis. No lytic or blastic bony lesions are seen. IMPRESSION: 1. There is a 3 mm obstructing calculus at the left vesicoureteral junction. This causes mild to mode rate left hydroureteronephrosis. 2. There is associated urothelial thickening in the left ureter, as well as left-sided perinephric an d periureteric stranding and fluid. 3. Fibrotic and groundglass change is seen at both lung bases, and is similar to a [address] Thi s is likely chronic. Correlate clinically for evidence of a superimposed acute infectious/inflammator y pneumonitis. 4. Moderate sigmoid diverticulosis without CT evidence of acute diverticulitis. 5. Unremarkable CT angiogram of the abdominal aorta and iliac arteries. 6. 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 7. Additional findings as above. ACT 112: Negative or not required by law. Electronically signed by: Eric Robles M.D. 07/20/2020 8:32 PM
[2020-07-20] MEDS ORDERED: CIPROFLOXACIN / D5W 400 MG/200 ML BAG IV STA (20:41)
[2020-07-20] MEDS ORDERED: LORazepam 0.5 MG/1 ML VIAL IV STA (20:58)
[2020-07-20] MEDS ORDERED: ACETAMINOPHEN 325 MG TAB PO STA (22:04)
[2020-07-20] MEDS ORDERED: ACETAMINOPHEN 1000 MG/100 ML IV IV ONE (22:11)
[2020-07-20] MEDS ORDERED: cefTRIAXone SODIUM 1,000 MG in DEXTROSE 5% 50 ML IV SCH (22:20)
--- NOTE | 2020-07-20 22:22 | Urology Consultation ---
Date of Consultation July 20, 2020 Assessment & Plan (1) Nephrolithiasis: (2) Sepsis: diabetic 75y/o female with sepsis - urine culture pending, but UA nit pos - obstructing distal left ureteral calc - clinical signs of sepsis and encephalopathy - plan for immediate intervention in the form of cystoscopy and left ureteral stent placement - broad spectrum abx - - hx of c. diff - will have to consider this when determining appropriate agent and course - IV resuscitation - close monitoring History of Present Illness History of Present Illness Called for emergent consultation regarding fevers, and obstructing stone, and tachycardia/tachypnea (sepsis) - upon my initial eval in the ER she was awake, and loosely responding to commands, but not lucid enough for formed responses - she reports mild right lower quadrant pain, but little else - she is tachycardic (137), febrile (39.4), borderline tachypneic on eval - she has a UA consistent with infection and a CT showing a distal left ureteral stone with some dilation of the ureter and notable stranding of the entire left collecting system/kidney - she meets sepsis criteria and needs emergent intervention Given her poor mental state, I had a phone conversation with her son - helping bring him up to speed withe current situation and our need to intervene emergently - he is very understanding of the situation, and also explained a 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 diff is substantial but unavoidable - pending response to treatment and culture results, we can hope for a rapid abx taper when clinically appropriate Allergies Allergy/AdvReac Type Severity Reaction Status Date / Time simvastatin Allergy Intermediate MUSCLE PAIN Verified 07/20/20 22:26 codeine Allergy Unknown RASH Verified 07/20/20 22:26 Iodinated Contrast Media Allergy Unknown Hives Verified 07/20/20 22:26 Sulfa (Sulfonamide AdvReac Intermediate HIVES,NAUSE Verified 07/20/20 22:29 Antibiotics) A gabapentin AdvReac Unknown NAUSEA Verified 07/20/20 22:29 pravastatin AdvReac Unknown Abdominal Verified 07/20/20 22:29 Pain Home Medications Medication Instructions Recorded Confirmed Type Lactobacillus rhamnosus GG 1 cap PO BID 07/20/20 07/20/20 History [Culturelle] aspirin [Aspir-81] 81 mg PO DAILY 07/20/20 07/20/20 History atorvastatin 10 mg PO DAILY 07/20/20 07/20/20 History cholecalciferol (vitamin D3) 25 mcg PO DAILY 07/20/20 07/20/20 History docusate sodium [DOK] 100 mg PO BID 07/20/20 07/20/20 History famotidine 20 mg PO DAILY 07/20/20 07/20/20 History fluticasone propionate [Flonase] 1 spray INTRANASAL DAILY PRN 07/20/20 07/20/20 History glipizide 5 mg PO BID 07/20/20 07/20/20 History levothyroxine 75 mcg PO DAILY 07/20/20 07/20/20 History lisinopril 5 mg PO DAILY 07/20/20 07/20/20 History loratadine 10 mg PO DAILY PRN 07/20/20 07/20/20 History meclizine 12.5 mg PO TID PRN 07/20/20 07/20/20 History multivitamin 1 tab PO DAILY 07/20/20 07/20/20 History omeprazole 20 mg PO DAILY 07/20/20 07/20/20 History Patient History Medical History CKD (chronic kidney disease), stage III DM type 2 (diabetes mellitus, type 2) GERD (gastroesophageal reflux disease) History of CVA (cerebrovascular accident) HLD (hyperlipidemia) HTN (hypertension) Hypothyroidism Surgical History H/O dilation and curettage History of carotid endarterectomy Right History of hysterectomy History of tonsillectomy Family History Father Diabetes Mother Diabetes Social History (Updated 07/20/20 @ 22:48 by DONTAE Brown) Smoking Status: Never smoker Hx Alcohol Use: No Feels Safe at Home: Yes Review of Systems Review of Systems: Unobtainable due to cognitive status Constitutional: + fever and + malaise Cardiovascular: no chest pain Gastrointestinal: + abdominal pain Genitourinary: + problem reported Musculoskeletal: + back pain Integumentary: no rash Neurologic: + confusion Psychiatric: encephalopathic on eval Physical Exam Constitutional: well developed, well nourished, + thin, + altered mental status and + lethargic Neck: neck nontender Respiratory: normal respiratory effort and + tachypneic; no respiratory distress and does not use accessory muscles Cardiovascular: Rate/Rhythm: + tachycardic Vessels: radial pulses present Extremities: no edema Gastrointestinal (Abdomen): Inspection/Auscultation: abdomen normal to inspection Percussion/Palpation: abdomen soft; abdomen nontender and no guarding Musculoskeletal: Head/Neck/Chest: normocephalic and head atraumatic Extremities: extremities normal to inspection Skin: no rashes and no lesions Trauma: no evidence of skin trauma Neurologic: awake; not obtunded Speech / Cognition: normal speech Motor/Sensory: no tremor Psychiatric: Orientation: alert and oriented x 3 Lymphatic: no lymphadenopathy Results & Data ([facility]) Vital Signs (Past 12 Hours) Vital Signs Temp Pulse Resp BP Pulse Ox 07/20/20 21:56 39.4 C H 07/20/20 21:30 132 H 28 H 165/93 H 96 07/20/20 21:00 141 H 28 H 190/114 H 89 L 07/20/20 20:54 37.3 C 148 H 28 H 179/114 H 93 07/20/20 20:00 120 H 16 158/80 H 93 07/20/20 19:30 115 H 20 178/92 H 92 07/20/20 18:59 120 H 26 H 172/110 H 07/20/20 18:22 95 07/20/20 17:11 36.5 C 100 H 20 157/82 H 94 PG Care Time/CCT Total # of Minutes Spent Total Time Spent with Patient: Total time spent is greater than 50% in coordination of care (as documented) at patient's floor/unit and/or counseling patient: Coding Level of Care Code 72742 Office/Outpt Visit, New Diagnoses Nephrolithiasis N20.0 Sepsis A41.9
[2020-07-20] MEDS ORDERED: cefTRIAXone SODIUM 1000MG/50ML D5W IV ONE (22:26)
--- NOTE | 2020-07-20 22:28 | Anesthesiology Consultation ---
Date of Service July 20, 2020 Assessment & Plan (1) Encounter for pre-operative examination: Chart Review Chart Review: Acceptable Risk for Surgery Consults Requested none ASA [id number] Proposed Anesthesia Anesthesia Type: MAC Risk / Benefits Reviewed With: PT / POA / Parent / Guardian, Accepts Plan and Informed Consent Obtained History Height/Weight Height: 5 ft 1 in Weight: 53.5 kg Allergies Allergy/AdvReac Type Severity Reaction Status Date / Time simvastatin Allergy Intermediate MUSCLE PAIN Verified 07/20/20 22:26 codeine Allergy Unknown RASH Verified 07/20/20 22:26 Iodinated Contrast Media Allergy Unknown Hives Verified 07/20/20 22:26 Sulfa (Sulfonamide AdvReac Intermediate HIVES,NAUSE Verified 07/20/20 22:29 Antibiotics) A gabapentin AdvReac Unknown NAUSEA Verified 07/20/20 22:29 pravastatin AdvReac Unknown Abdominal Verified 07/20/20 22:29 Pain Medications Home Medications Medication Instructions Recorded Confirmed Last Taken Lactobacillus rhamnosus GG 1 cap PO BID 07/20/20 07/20/20 Unknown [Culturelle] aspirin [Aspir-81] 81 mg PO DAILY 07/20/20 07/20/20 Unknown atorvastatin 10 mg PO DAILY 07/20/20 07/20/20 Unknown cholecalciferol (vitamin D3) 25 mcg PO DAILY 07/20/20 07/20/20 Unknown docusate sodium [DOK] 100 mg PO BID 07/20/20 07/20/20 Unknown famotidine 20 mg PO DAILY 07/20/20 07/20/20 Unknown fluticasone propionate [Flonase] 1 spray INTRANASAL DAILY PRN 07/20/20 07/20/20 Unknown glipizide 5 mg PO BID 07/20/20 07/20/20 Unknown levothyroxine 75 mcg PO DAILY 07/20/20 07/20/20 Unknown lisinopril 5 mg PO DAILY 07/20/20 07/20/20 Unknown loratadine 10 mg PO DAILY PRN 07/20/20 07/20/20 Unknown meclizine 12.5 mg PO TID PRN 07/20/20 07/20/20 Unknown multivitamin 1 tab PO DAILY 07/20/20 07/20/20 Unknown omeprazole 20 mg PO DAILY 07/20/20 07/20/20 Unknown Active Medications Generic Name Dose Route Start Last Admin Trade Name Freq PRN Reason Stop Dose Admin Ceftriaxone Sodium 1,000 mg/ 50 mls @ 100 mls/hr 07/20/20 22:20 07/20/20 22:27 Dextrose IV 07/30/20 22:19 100 mls/hr Q24H BEAU Administration Protocol NPO Date Last Intake of Fluids: 07/20/20 Time Last Intake of Fluids: 12:00 Date Last Intake of Solids: 07/20/20 Time Last Intake of Solids: 12:00 Past Medical History Medical History GERD (gastroesophageal reflux disease) H/O: HTN (hypertension) HLD (hyperlipidemia) Exercise / Class Metabolic Activity II 4-5 Yardwork/Stairs/Walk up hill Past Family History Family History (Updated 07/20/20 @ 22:47 by DONTAE Brown) Father Diabetes Mother Diabetes Past Surgical History Surgical History (Updated 07/20/20 @ 22:41 by DONTAE Brown) H/O dilation and curettage History of carotid endarterectomy Right History of hysterectomy History of tonsillectomy Past Anesthesia History No Hx of Anesthesia Complications and No Family Hx of Anesthesia Complications History of PONV No Hx of PONV and No Hx of Motion Sickness Social History Smoking Status: Never smoker Physical Exam Vital Signs Last Vital Signs Temp 102.9 F H 07/20/20 21:56 Pulse 137 H 07/20/20 22:30 Resp 28 H 07/20/20 22:30 BP 162/80 H 07/20/20 22:30 Pulse Ox 93 07/20/20 22:30 ENMT Mouth: no dentition abnormality Thyromental Distance: > or= 3.5 Finger Breadths Mallampati Class: II Neck normal visual inspection Respiratory normal respiratory effort Auscultation: lungs clear to auscultation bilaterally Cardiovascular Rate/Rhythm: regular rhythm and + tachycardic Testing Laboratory Results 07/20/20 18:42 07/20/20 18:42 Urine Color Yellow 07/20/20 19:30 Urine Appearance Clear (Clear) 07/20/20 19:30 Urine pH 5.5 (4.5-7.5) 07/20/20 19:30 Ur Specific [place] 1.019 (1.000-1.030) 07/20/20 19:30 Urine Protein 1+ (Negative) H 07/20/20 19:30 Urine Glucose (UA) 2+ (Negative) H 07/20/20 19:30 Urine Ketones 1+ (Negative) H 07/20/20 19:30 Urine Nitrite Positive (Negative) A 07/20/20 19:30 Ur Leukocyte Esterase Trace (Negative) H 07/20/20 19:30 Urine WBC (Auto) 5-10 /hpf (0-5) H 07/20/20 19:30 Urine RBC (Auto) 5-10 /hpf (0-4) H 07/20/20 19:30 U Hyaline Cast (Auto) 1-5 /lpf (0-5) 07/20/20 19:30 U Epithel Cells (Auto) 5-10 /lpf (0-5) H 07/20/20 19:30 Urine Bacteria (Auto) 4+ (Negative) H 07/20/20 19:30 07/20/20 18:07 POC Glucose 161 H Laboratory Tests 07/20/20 Unknown SARS-CoV-2 Ag (Rapid) Negative Electrocardiogram Date: 07/20/20 Sinus tachycardia with Premature supraventricular complexes, rate [address] abnormality Abnormal ECG When compared with ECG of 10-JUN-2017 18:20, Premature ventricular complexes are no longer Present
[2020-07-20] MEDS ORDERED: ACETAMINOPHEN 1000 MG/100 ML IV IV STA (22:29)
--- NOTE | 2020-07-20 22:49 | History & Physical Report ---
Date of Service July 20, 2020 Assessment & Plan (1) Sepsis: (2) UTI (urinary tract infection): (3) Nephrolithiasis: -Admit to telemetry -Patient presenting from home with reports of sudden onset abdominal and back pain -In the ED, UA suggestive of UTI. CTA abdomen pelvis showing obstructing left distal ureteral stone. -During my exam, patient spiked fever of 39.4, tachycardic, altered mental status. BP stable. -Case discussed with Dr. Haider -patient will go for urgent cystoscopy tonight -Check lactate and blood cultures -Received IV Cipro in ED, will broaden to IV ceftriaxone, giving a dose now -Received 2 L NSS in ED, continue with maintenance fluids (4) Metabolic encephalopathy: -Likely multifactorial secondary to sepsis, medication induced from fentanyl, Benadryl, Ativan (5) Acute kidney injury superimposed on chronic kidney disease: (6) CKD (chronic kidney disease), stage III: -Baseline creatinine ~1.1 -Creatinine 1.5 today -Likely prerenal in nature secondary to sepsis -Hold lisinopril -IVF -Monitor renal functions (7) HTN (hypertension): -BP mildly elevated likely secondary to pain/anxiety -Holding lisinopril as above -Monitor BP, provide alternative agent if needed (8) DM type 2 (diabetes mellitus, type 2): -Hgb A1c 7.1 04/2020 -Hold oral agents and utilize NovoLog per protocol while hospitalized (9) History of CVA (cerebrovascular accident): -Continue aspirin and statin (10) Hypothyroidism: -Continue levothyroxine (11) DVT prophylaxis: -SQ heparin History of Present Illness Chief Complaint: Abdominal and back pain Primary Care Provider: Dianna Robb DO 75-year-old female with PMH DM type II, HTN, CKD stage III, history of CVA, hypothyroidism, and other problems listed below who presents to the ED for evaluation of sudden onset abdominal and back pain. History is currently unobtainable from the patient. Patient's son reports that the patient woke up this morning feeling in her usual state of health and then suddenly around 130, she developed severe, sudden onset abdominal and back pain. Patient was then brought to the ED for further evaluation. In the ED, UA suggest UTI. CTA ABD/pelvis shows a 3 mm obstructing calculus at the left vesicoureteral junction causing mild to moderate left hydroureteronephrosis. There is associated urothelial thickening in the left ureter, as well as left-sided perinephric and periureteric stranding and fluid. Patient received IV Cipro, IVF, IV fentanyl x2, IV lorazepam, IV Zofran x2, and IV Benadryl and IV methylprednisone for premedication for CTA. At the time my exam, patient spiked temperature 39.4. She is tachycardic and has altered mental status. Stat lactate and blood cultures were ordered. Broad-spectrum antibiotics including IV ceftriaxone was ordered as well. Dr. Haider with urology was notified and patient will be taken for urgent cystoscopy tonight. Allergies Allergy/AdvReac Type Severity Reaction Status Date / Time simvastatin Allergy Intermediate MUSCLE PAIN Verified 07/20/20 22:26 codeine Allergy Unknown RASH Verified 07/20/20 22:26 Iodinated Contrast Media Allergy Unknown Hives Verified 07/20/20 22:26 Sulfa (Sulfonamide AdvReac Intermediate HIVES,NAUSE Verified 07/20/20 22:29 Antibiotics) A gabapentin AdvReac Unknown NAUSEA Verified 07/20/20 22:29 pravastatin AdvReac Unknown Abdominal Verified 07/20/20 22:29 Pain Home Medications Medication Instructions Recorded Confirmed Type Lactobacillus rhamnosus GG 1 cap PO BID 07/20/20 07/20/20 History [Culturelle] aspirin [Aspir-81] 81 mg PO DAILY 07/20/20 07/20/20 History atorvastatin 10 mg PO DAILY 07/20/20 07/20/20 History cholecalciferol (vitamin D3) 25 mcg PO DAILY 07/20/20 07/20/20 History docusate sodium [DOK] 100 mg PO BID 07/20/20 07/20/20 History famotidine 20 mg PO DAILY 07/20/20 07/20/20 History fluticasone propionate [Flonase] 1 spray INTRANASAL DAILY PRN 07/20/20 07/20/20 History glipizide 5 mg PO BID 07/20/20 07/20/20 History levothyroxine 75 mcg PO DAILY 07/20/20 07/20/20 History lisinopril 5 mg PO DAILY 07/20/20 07/20/20 History loratadine 10 mg PO DAILY PRN 07/20/20 07/20/20 History meclizine 12.5 mg PO TID PRN 07/20/20 07/20/20 History multivitamin 1 tab PO DAILY 07/20/20 07/20/20 History omeprazole 20 mg PO DAILY 07/20/20 07/20/20 History Past Med/Surg History Medical History CKD (chronic kidney disease), stage III DM type 2 (diabetes mellitus, type 2) GERD (gastroesophageal reflux disease) History of CVA (cerebrovascular accident) HLD (hyperlipidemia) HTN (hypertension) Hypothyroidism Surgical History H/O dilation and curettage History of carotid endarterectomy Right History of hysterectomy History of tonsillectomy Family History Father Diabetes Mother Diabetes Social History (Updated 07/20/20 @ 22:48 by DONTAE Brown) Smoking Status: Never smoker Hx Alcohol Use: No Feels Safe at Home: Yes Review of Systems Review of Systems: Unobtainable due to reduced consciousness Physical Exam Physical Exam: please refer to Dr. Sanchez's addendum for physical exam Results & Data Results & Data ([facility]) Vital Signs (Past 12 Hours) Vital Signs Temp Pulse Resp BP Pulse Ox 07/20/20 22:30 137 H 28 H 162/80 H 93 07/20/20 22:26 137 H 28 H 158/77 H 97 07/20/20 22:00 134 H 32 H 152/75 H 96 07/20/20 21:56 39.4 C H 07/20/20 21:30 132 H 28 H 165/93 H 96 07/20/20 21:00 141 H 28 H 190/114 H 89 L 07/20/20 20:54 37.3 C 148 H 28 H 179/114 H 93 07/20/20 20:00 120 H 16 158/80 H 93 07/20/20 19:30 115 H 20 178/92 H 92 07/20/20 18:59 120 H 26 H 172/110 H 07/20/20 18:22 95 07/20/20 17:11 36.5 C 100 H 20 157/82 H 94 Laboratory Results Short CBC 07/20/20 Range/Units 18:42 WBC 11.06 H (4.8-10.8) K/uL Hgb 12.8 (12.0-16.0) g/dL Hct 38.6 (37-47) % Plt Count 211 (130-400) K/uL BMP 07/20/20 18:42 Sodium 136 Potassium 4.1 Chloride 105 Carbon Dioxide 23 BUN 29 H Creatinine 1.50 H Glucose 236 H Calcium 9.2 Cardiac Enzymes 07/20/20 Range/Units 18:42 Troponin I < 0.015 (0-0.045) ng/ml Liver Function 07/20/20 Range/Units 18:42 Total Bilirubin 0.7 (0.2-1) mg/dl AST 22 (15-37) U/L ALT 28 (12-78) U/L Alkaline Phosphatase 70 (45-117) U/L Albumin 4.2 (3.4-5.0) gm/dl Urine 07/20/20 Range/Units 19:30 Urine Color Yellow Urine Appearance Clear (Clear) Urine pH 5.5 (4.5-7.5) Ur Specific [place] 1.019 (1.000-1.030) Urine Protein 1+ H (Negative) Urine Glucose (UA) 2+ H (Negative) Diagnostic Findings CTA ABD/PELVIS IMPRESSION: 1. There is a 3 mm obstructing calculus at the left vesicoureteral junction. This causes mild to moderate left hydroureteronephrosis. 2. There is associated urothelial thickening in the left ureter, as well as left-sided perinephric and periureteric stranding and fluid. 3. Fibrotic and groundglass change is seen at both lung bases, and is similar to a [address] This is likely chronic. Correlate clinically for evidence of a superimposed acute infectious/inflammatory pneumonitis. 4. Moderate sigmoid diverticulosis without CT evidence of acute diverticulitis. 5. Unremarkable CT angiogram of the abdominal aorta and iliac arteries. 6. 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 7. Additional findings as above. Code Status & VTE Plan Code Status Patient is a DNR as per review of living will in patient's [facility] chart. This was also confirmed with patient's son via telephone. VTE Prophylaxis Plan VTE Prophylaxis will be ordered: Yes Supervising Physician Co-Signing Physician Notes Patient is a 75-year-old female with history of diabetes, hypertension CKD, CVA and other medical problems presents with history of sudden onset of abdominal, flank pain. Unable to obtain history as currently patient is very sedated secondary to pain medications. Please review HPI for complete details of presentation. CT abdomen showed 3 mm obstructing calculus at the left vesicoureteral junction, mild to moderate left hydroureteronephrosis. Also noted findings suggestive of urothelial thickening in the left ureter, left- sided perinephric and periureteral stranding. She was noted to be febrile, tachycardic, leukocytosis 11K. Urologist on-call was updated, patient is plan to get urgent ureteral stent. Physical Exam: Vitals signs as noted above General Appearance: Thin, ill-appearing, distress secondary to pain, drowsy Head: normocephalic, Atraumatic Eyes: normal inspection, EOMI Neck: supple, Trachea midline Respiratory/Chest: Coarse breath sounds, No accessory muscle use Cardiovascular: S1, S2, No murmur Abdomen/GI:Soft, left tender,, Left flank tender, Bowel sounds present Extremities/Musculoskelatal:normal inspection, Trace edema Neurologic/Psych:Sedates, drowsy, grossly moves all extremities Skin: normal color, warm Sepsis Obstructive uropathy Ureteral stone Complicated urinary tract infection ? Bacteremia Acute kidney injury Hypomagnesemia Lactic acidosis Acute metabolic encephalopathy Start on broad-spectrum IV antibiotics--Zosyn Agree with aggressive IV fluids Trend lactate levels Blood, urine cultures Urology consulted for stent placement Consider adding Flomax when patient more awake Agree with insulin therapy while hospitalized Replace magnesium Monitor electrolytes, renal function Chest x-ray currently pending Bladder Scan as needed I personally reviewed the record. Patient is interviewed and examined at bedside. Patient's care is coordinated with Freda Smith [employer]. Please refer to the documentation above for details of patient's presentation and for discussion of other issues.
[2020-07-20] MEDS ORDERED: PROPOFOL IV EMULSION 10 MG/ML 20 ML VIAL IV ONE (23:01)
--- NOTE | 2020-07-20 23:25 | Operative Report ---
PG Post Operative Report Pre & Post Diagnosis Operation Date: 07/20/20 23:15 <No data on this case meets the specified criteria> PreOp: Urosepsis with obstructing left ureteral stone PostOp: Urosepsis with obstructing left ureteral stone I identified the patient and participated in the time-out.: Yes Procedure Operation Date: 07/20/20 23:15 <No data on this case meets the specified criteria> Procedure: cystoscopy, left ureteral stent placement Surgeon Gurpreet Haider MD Cath Lab Tech none Estimated Blood Loss 0 Findings Consistent with Post-Op Diagnosis Specimens none Description of Procedure The patient was identified in the preoperative holding area, appropriate informed consents were reviewed and completed and the patient was transferred to the operative suite. Upon arrival, appropriate antibiotics and anesthesia were administered and the patient was placed in dorsal lithotomy position and prepped and draped in sterile fashion. To begin the case I passed a 22 Micronesian cystoscope per urethra. Inspection of the bladder was unremarkable. Mucosa was healthy. Ureteral orifices were in orthotopic position. I then cannulated the left UO with a sensor wire which was advanced to the kidney. Immediately after cannulating the UO there was a discharge of purulent urine. I subsequently placed a 6 Micronesian by 24 cm double-J ureteral stent seeing a good curl in the kidney as well as the bladder. A Yee catheter was replaced and she was reversed from anesthesia and taken to the recovery room in stable condition. There were no complications. I attest to the content of the Intraoperative Record and any orders documented therein. Any exceptions are noted below.
[2020-07-20] MEDS ORDERED: ePHEDrine sulfate 50 MG/ML AMP IV PRN (23:29)
[2020-07-20] MEDS ORDERED: ATROPINE SULFATE 0.1 MG/ML 10ML SYR IV PRN (23:29)
--- NOTE | 2020-07-20 23:33 | Anesthesiology Progress Note ---
Date of Service July 20, 2020 Anesthesia Post Procedure Vital Signs Vital Signs: Temp Pulse Resp BP Pulse Ox 07/20/20 22:49 24 140/75 96 07/20/20 22:30 137 H 28 H 162/80 H 93 07/20/20 22:26 137 H 28 H 158/77 H 97 07/20/20 22:00 134 H 32 H 152/75 H 96 07/20/20 21:56 102.9 F H 07/20/20 21:30 132 H 28 H 165/93 H 96 07/20/20 21:00 141 H 28 H 190/114 H 89 L 07/20/20 20:54 99.1 F 148 H 28 H 179/114 H 93 07/20/20 20:00 120 H 16 158/80 H 93 07/20/20 19:30 115 H 20 178/92 H 92 07/20/20 18:59 120 H 26 H 172/110 H 07/20/20 18:22 95 07/20/20 17:11 97.7 F 100 H 20 157/82 H 94 Transfer of Care Handoff Completed per policy Notes Mental Status: alert / awake / arousable and participated in evaluation Patient Amnestic to Procedure: Yes Nausea / Vomiting: adequately controlled Pain: adequately controlled Airway Patency, RR, SpO2: stable & adequate BP & HR: stable & adequate Hydration State: stable & adequate Anesthetic Complications: no major complications apparent and Pt Satisfied with anesthetic care
[2020-07-21] MEDS ORDERED: GLUCAGON FOR INJ 1 MG VIAL SQ PRN (00:50)
[2020-07-21] MEDS ORDERED: CARBOHYDRATES FOR HYPOGLYCEMIA PO PRN (00:50)
[2020-07-21] MEDS ORDERED: GLUCOSE 40% GEL 15 GM TUBE PO PRN (00:50)
[2020-07-21] MEDS ORDERED: DEXTROSE 50% 50 ML SYRINGE IV PRN (00:50)
[2020-07-21] MEDS ORDERED: GLUCOSE 10 TABS/TUBE PO PRN (00:50)
[2020-07-21] MEDS ORDERED: PIPERACILL/TAZOBAC CONSULT ACTIVE PRN (00:52)
[2020-07-21] MEDS ORDERED: SODIUM CHLORIDE 0.9% 1000ML 1,000 ML IV SCH (01:00)
[2020-07-21] MEDS ORDERED: MAGNESIUM SULFATE / D5W 1 GM/100 ML BAG IV SCH ×2 (01:00→03:00)
[2020-07-21] MEDS ORDERED: PIPERACILLIN/TAZOBACTAM 4.5 GM in DEXTROSE 5% 100 ML IV ONE (01:15)
[2020-07-21] MEDS: INSULIN ASPART 100 UNITS/ML 3 ML PEN SC SCH ×5 (01:29→19:57)
[2020-07-21] MEDS ORDERED: LACTATED RINGER'S 1,000 ML IV ONE ×2 (02:06→04:45)
[2020-07-21] MEDS ORDERED: ACETAMINOPHEN 1,000 MG/100 ML VIAL IV STA (02:37)
[2020-07-21] MEDS ORDERED: INSULIN GLARGINE SOLOSTAR 100 UNITS/ML 3 ML PEN SC STA (02:40)
[2020-07-21] MEDS ORDERED: ACETAMINOPHEN 1000 MG/100 ML IV IV ONE (02:41)
[2020-07-21] MEDS ORDERED: SODIUM CHLORIDE 0.9% 1000ML 1,000 ML IV ONE (04:59)
[2020-07-21] MEDS ORDERED: LACTATED RINGER'S 1,000 ML IV SCH ×3 (05:00→06:45)
[2020-07-21] MEDS ORDERED: traMADol HCL 50 MG TABLET ONE (05:21)
[2020-07-21] MEDS: LEVOTHYROXINE SODIUM 75 MCG TABLET PO SCH (05:32)
[2020-07-21] MEDS: HEPARIN SOD 5,000 UNIT/0.5 ML VIAL SQ SCH ×3 (05:32→21:27)
[2020-07-21] MEDS: PIPERACILLIN/TAZOBACTAM 4.5 GM in DEXTROSE 5% 100 ML IV SCH ×3 (05:32→21:29)
[2020-07-21 05:46] LABS: BUN Creatinine Ratio 13.8 (10-20); Calcium 6.8 mg/dl (8.5-10.1); Creatinine Clr Calc Pharmacy 20.3 ml/min; Est GFR (African American) 31.6; Est GFR (Non-African American) 27.2; Magnesium 2.1 mg/dl (1.8-2.4); Potassium 3.5 mmol/L (3.5-5.1)
[2020-07-21 05:55] LABS: Thyroid Stimulating Hormone 0.226 uIu/ml (0.300-4.500)
[2020-07-21] MEDS ORDERED: ICU PROTOCOL FOR HYPERGLYCEMIA PRN ×2 (05:57→06:04)
[2020-07-21] MEDS ORDERED: STAT IV Infusion **Titration per Protocol STA (05:57)
--- NOTE | 2020-07-21 06:06 | Communication Note ---
Date of Service: July 21, 2020 Persistent hypotension and worsening lactic acidosis despite multiple IVF boluses. AP Septic shock ICU transfer to facilitate pressor therapy. Will relay to AM provider.
[2020-07-21 06:09] LABS: Hematocrit (blood only) 30.1 % (37-47); Hemoglobin 9.6 g/dL (12.0-16.0); Mean Corpuscular Hemoglobin 30.2 pg (25-34); Mean Corpuscular Hgb Conc 31.9 g/dL (32-36); Mean Corpuscular Volume 94.7 fL (80-100); Mean Platelet Volume 9.7 fL (7.4-10.4); Platelet Count 90 K/uL (130-400); RDW Coefficient of Variation 12.2 % (11.5-14.5); RDW Standard Deviation 41.6 fL (36.4-46.3); Red Blood Count 3.18 M/uL (4.2-5.4); White Blood Count 16.59 K/uL (4.8-10.8)
[2020-07-21 06:10] LABS: Basophils # (auto) 0.01 K/uL (0-0.2); Basophils % (auto) 0.1 %; Immature Granulocytes # (auto) 0.14 K/uL (0.00-0.02); Immature Granulocytes % (auto) 0.8 %; Lymphocytes # (auto) 0.76 K/uL (1.2-3.4); Lymphocytes % (auto) 4.6 %; Monocytes # (auto) 0.76 K/uL (0.11-0.59); Monocytes % (auto) 4.6 %; Neutrophils # (auto) 14.92 K/uL (1.4-6.5); Neutrophils % (auto) 89.9 %; Platelet Estimate Decreased (Normal); Toxic Vacuolation 1+
[2020-07-21] MEDS: NOREPINEPHRINE/D5W 8 MG/508 ML BAG IV SCH (06:11)
--- NOTE | 2020-07-21 06:33 | Critical Care Consultation ---
Date of Consultation July 21, 2020 Assessment & Plan (1) S/P admission to ICU (intensive care unit): Reason Critically Ill: 75-year-old female here with a PMHx significant for Dm2, CVA, CKD 3, HTN, who presented with low back back, nausea and vomiting and who was admitted for refractory hypotension due to sepsis s/p ureteral stent placement 2/2 obstructing calculus and L hydronephrosis. Neuro - Metabolic Encephalopathy CAM ICU: NEGATIVE Sedation: none Analgesia: tramadol 25-50 PO Q4 PRN - mild confusion, doesn't remember anything after coming to ER - likely secondary to MAP being low for an extended period of time last night, sepsis - A&Ox3 - delirium precautions - expect to resolve with clearance of sepsis Cardiac - HTN - holding hypertensive medications at this time - initially hypertensive on admission, hypotensive after surgical intervention - No hx echo on records Hypotension secondary to sepsis - levo 0.1 mcg/kg/min - titrate to MAP >65 - s/p total of 4L in fluid boluses, mixture of NS and LR - CXR showing fluffy infiltrates, pt likely third spacing fluid - Hold maintenance fluid Respiratory - Acute hypoxic resp failure - desaturated to 89% yesterday, improved with 2L NC - not on oxygen at home - CT abd noted fibrotic and groundglass change at both lung bases is similar to the [address] no evidence of superimposing consolidation or pleural effusion GI - none, hx Cdiff Diet - NPO RENAL/LYTES - Lactic Acidosis - initial Lactate 4 - 5.7, likely secondary to ischemia with hypoperfusion overnight - trending lactates, repeat due at 10 AM EMILIE on CKD - baseline GFR in 2017 50.1 with Cr 1.1 - 33.5 on admission, down to 27.2 this AM - Cr 1.78 this am, up from 1.5 on admission. Likely secondary to stenting procedure, purulent urine, pylonephritis Pyelonephritis - ascending UTI with obstructing calculus, hydronephrosis, perinephric stranding on CT abd - UA : 3+ blood, +nitrite,trace LE, 5-10 WC, 4+ bacteria - zosyn for empiric extended spectrum gram negative coverage - Coelho in place ENDO - DM2 - on glipizide 2.5 mg at home - Lantus 5 U HS, SSI - increasing lantus today with sugars elevated in 200s multiple times - random cortisol check to assess cortical response HEME - Normocytic Anemia - Hg 12.8 on admission, likely concentrated. Down to 9.6 s/p fluid resuscitation - no evidence of bleeding on hx - recheck in PM ID - Sepsis secondary to Pyelonephritis - zosyn for empiric coverage - bcx pending - ucx pending Hx Cdiff - continue probiotic INTEGUMENTARY - no issues LINES/IV ACCESS - 3 PIVs intact, L IJ CVC DVT PROPHYLAXIS - Heparin 5000 Sq Thank you for allowing us to be part of this patient's care. Please refer to Dr. Bhardwaj's documentation for any further recommendations. (2) Calculus of ureterovesical junction (UVJ): (3) Pyelonephritis: (4) CKD (chronic kidney disease), stage III: (5) DM type 2 (diabetes mellitus, type 2): (6) Hypothyroidism: (7) HTN (hypertension): (8) History of CVA (cerebrovascular accident): (9) Acute kidney injury superimposed on chronic kidney disease: History of Present Illness Reason for Consultation: severe sepsis Attending Physician: Rickey Sanchez MD History of Present Illness 75 yo F hx of CDiff, Dm2, HTN, CKD3 CVA, hypothyroidism, brought to the ER for N, V, low back pain, diarrhea. ED workup revealed 3 mm obstructing calculus at left vesicoureteral junction causing mild to moderate L hydroureteronephrosis. Taken urgently to OR for ureteral stent placement. Continued to be hypotensive after multiple fluid boluses at which point ICU was consulted for assistance with management. Allergies Allergy/AdvReac Type Severity Reaction Status Date / Time simvastatin Allergy Intermediate MUSCLE PAIN Verified 07/20/20 22:26 codeine Allergy Unknown RASH Verified 07/20/20 22:26 Iodinated Contrast Media Allergy Unknown Hives Verified 07/20/20 22:26 Sulfa (Sulfonamide AdvReac Intermediate HIVES,NAUSE Verified 07/20/20 22:29 Antibiotics) A gabapentin AdvReac Unknown NAUSEA Verified 07/20/20 22:29 pravastatin AdvReac Unknown Abdominal Verified 07/20/20 22:29 Pain Home Medications Medication Instructions Recorded Confirmed Type Lactobacillus rhamnosus GG 1 cap PO BID 07/20/20 07/20/20 History [Culturelle] aspirin [Aspir-81] 81 mg PO DAILY 07/20/20 07/20/20 History atorvastatin 10 mg PO DAILY 07/20/20 07/20/20 History cholecalciferol (vitamin D3) 25 mcg PO DAILY 07/20/20 07/20/20 History docusate sodium [DOK] 100 mg PO BID 07/20/20 07/20/20 History famotidine 20 mg PO DAILY 07/20/20 07/20/20 History fluticasone propionate [Flonase] 1 spray INTRANASAL DAILY PRN 07/20/20 07/20/20 History glipizide 5 mg PO BID 07/20/20 07/20/20 History levothyroxine 75 mcg PO DAILY 07/20/20 07/20/20 History lisinopril 5 mg PO DAILY 07/20/20 07/20/20 History loratadine 10 mg PO DAILY PRN 07/20/20 07/20/20 History meclizine 12.5 mg PO TID PRN 07/20/20 07/20/20 History multivitamin 1 tab PO DAILY 07/20/20 07/20/20 History omeprazole 20 mg PO DAILY 07/20/20 07/20/20 History Patient History Medical History CKD (chronic kidney disease), stage III DM type 2 (diabetes mellitus, type 2) GERD (gastroesophageal reflux disease) History of CVA (cerebrovascular accident) HLD (hyperlipidemia) HTN (hypertension) Hypothyroidism Surgical History H/O dilation and curettage History of carotid endarterectomy Right History of hysterectomy History of tonsillectomy Family History Father Diabetes Mother Diabetes Social History (Updated 07/20/20 @ 22:48 by DONTAE Brown) Smoking Status: Never smoker Hx Alcohol Use: No Hx Substance Use: No Preferred Language: Kyrgyz Communication Ability: Effective Certified Addiction Counselor Required: No Beliefs That Will Affect Care: None Current Living Situation: Alone Feels Safe at Home: Yes Assistive Devices: Glasses Review of Systems Constitutional: + chills and + fatigue; no fever and no body aches Respiratory: no cough and no dyspnea Cardiovascular: no chest pain, no dyspnea and no edema Gastrointestinal: no abdominal pain, no nausea, no vomiting, no constipation and no diarrhea/loose stools Genitourinary: discomfort due to coelho Musculoskeletal: + back pain Physical Exam Physical Exam: VITAL SIGNS - Vital signs and nursing notes were reviewed. GENERAL - 75-year-old female, lethargic laying in bed SKIN - Without rashes. HEAD - NC/AT. EYES - PERRL. Sclera anicteric. Palpebral conjunctiva pink and moist with no injection noted. EARS - No deformities of external structures noted on gross examination bilaterally. NOSE - Midline and without cyanosis. No epistaxis or purulent drainage noted. MOUTH/OROPHARYNX - Without perioral cyanosis. NECK - Supple to palpation. No nuchal rigidity. LUNGS - CTA BL, no wheezes, rhonchi, rales CARDIAC - RRR. No murmur, rubs, or gallops appreciated. ABDOMEN -soft nontender nondistended with normal bowel sounds. BACK - no CVA tenderness BL EXTREMITIES - No clubbing or peripheral cyanosis. No pretibial edema present. radial and dorsalis pedis pulses palpated bilaterally. NEUROLOGIC - No focal neurological deficits noted on exam. Results & Data Results & Data ([facility]) Vital Signs (Past 12 Hours) Vital Signs Temp Pulse Pulse Resp BP BP BP 07/21/20 06:17 89/51 L 07/21/20 06:06 96 H 26 H 77/44 L 07/21/20 05:57 72/41 L 07/21/20 05:41 83/46 L 07/21/20 05:26 71/41 L 07/21/20 05:11 75/44 L 07/21/20 04:58 70/40 L 07/21/20 04:52 64/39 L 07/21/20 04:37 37.3 C 94 H 18 82/45 L 07/21/20 04:22 89 17 81/44 L 07/21/20 04:00 37.9 C H 101 H 23 76/42 L 07/21/20 03:10 37.9 C H 108 H 18 81/45 L 07/21/20 02:33 38.2 C H 101 H 22 85/48 L 07/21/20 02:02 35.8 C L 111 H 26 H 92/48 L 07/21/20 01:33 36.6 C 112 H 22 92/49 L 07/21/20 00:51 112 H 21 90/51 L 07/21/20 00:36 123 H 27 H 101/61 07/21/20 00:31 36.9 C 120 H 27 H 97/58 L 07/21/20 00:16 124 H 27 H 110/59 L 07/21/20 00:00 118 H 27 H 105/59 L 07/20/20 23:55 115 H 27 H 106/72 07/20/20 23:45 123 H 28 H 111/59 L 07/20/20 23:40 37.3 C 124 H 27 H 116/60 07/20/20 23:35 125 H 22 118/61 07/20/20 23:25 36.7 C 124 H 18 132/66 07/20/20 22:49 24 140/75 07/20/20 22:30 137 H 28 H 162/80 H 07/20/20 22:26 137 H 28 H 158/77 H 07/20/20 22:00 134 H 32 H 152/75 H 07/20/20 21:56 39.4 C H 07/20/20 21:30 132 H 28 H 165/93 H 07/20/20 21:00 141 H 28 H 190/114 H 07/20/20 20:54 37.3 C 148 H 28 H 179/114 H 07/20/20 20:00 120 H 16 158/80 H 07/20/20 19:30 115 H 20 178/92 H 07/20/20 18:59 120 H 26 H 172/110 H Pulse Ox 07/21/20 06:17 07/21/20 06:06 94 07/21/20 05:57 07/21/20 05:41 07/21/20 05:26 07/21/20 05:11 07/21/20 04:58 07/21/20 04:52 07/21/20 04:37 92 07/21/20 04:22 93 07/21/20 04:00 92 07/21/20 03:10 92 07/21/20 02:33 93 07/21/20 02:02 94 07/21/20 01:33 93 07/21/20 00:51 95 07/21/20 00:36 92 07/21/20 00:31 92 07/21/20 00:16 91 07/21/20 00:00 91 07/20/20 23:55 93 07/20/20 23:45 93 07/20/20 23:40 93 07/20/20 23:35 92 07/20/20 23:25 92 07/20/20 22:49 96 07/20/20 22:30 93 07/20/20 22:26 97 07/20/20 22:00 96 07/20/20 21:56 07/20/20 21:30 96 07/20/20 21:00 89 L 07/20/20 20:54 93 07/20/20 20:00 93 07/20/20 19:30 92 07/20/20 18:59 Laboratory Results WBC 16.59 K/uL (4.8-10.8) H 07/21/20 05:06 RBC 3.18 M/uL (4.2-5.4) L 07/21/20 05:06 Hgb 9.6 g/dL (12.0-16.0) L D 07/21/20 05:06 Hct 30.1 % (37-47) L 07/21/20 05:06 MCV 94.7 fL (80-100) 07/21/20 05:06 MCH 30.2 pg (25-34) 07/21/20 05:06 MCHC 31.9 g/dL (32-36) L 07/21/20 05:06 RDW Std Deviation 41.6 fL (36.4-46.3) 07/21/20 05:06 RDW Coeff of Abebe 12.2 % (11.5-14.5) 07/21/20 05:06 Plt Count 90 K/uL (130-400) L D 07/21/20 05:06 MPV 9.7 fL (7.4-10.4) 07/21/20 05:06 Immature Gran % (Auto) 0.8 % 07/21/20 05:06 Neut % (Auto) 89.9 % 07/21/20 05:06 Lymph % (Auto) 4.6 % 07/21/20 05:06 Hernando % (Auto) 4.6 % 07/21/20 05:06 Eos % (Auto) 0.0 % 07/21/20 05:06 Baso % (Auto) 0.1 % 07/21/20 05:06 Neut # (Auto) 14.92 K/uL (1.4-6.5) H 07/21/20 05:06 Lymph # (Auto) 0.76 K/uL (1.2-3.4) L 07/21/20 05:06 Hernando # (Auto) 0.76 K/uL (0.11-0.59) H 07/21/20 05:06 Eos # (Auto) 0.00 K/uL (0-0.5) 07/21/20 05:06 Baso # (Auto) 0.01 K/uL (0-0.2) 07/21/20 05:06 Immature Gran # (Auto) 0.14 K/uL (0.00-0.02) H 07/21/20 05:06 Toxic Vacuolation 1+ 07/21/20 05:06 Platelet Estimate Decreased (Normal) L 07/21/20 05:06 Sodium 140 mmol/L (136-145) 07/21/20 05:05 Potassium 3.5 mmol/L (3.5-5.1) 07/21/20 05:05 Chloride 112 mmol/L (98-107) H 07/21/20 05:05 Carbon Dioxide 18 mmol/L (21-32) L 07/21/20 05:05 Anion Gap 10.0 (3-11) 07/21/20 05:05 BUN 25 mg/dl (7-18) H 07/21/20 05:05 Creatinine 1.78 mg/dl (0.6-1.2) H 07/21/20 05:05 Est Cr Clr Drug Dosing 20.3 ml/min 07/21/20 05:05 Est GFR ( Amer) 31.6 07/21/20 05:05 Est GFR (Non-Af Amer) 27.2 07/21/20 05:05 BUN/Creatinine Ratio 13.8 (10-20) 07/21/20 05:05 Glucose 234 mg/dl (70-99) H 07/21/20 05:05 POC Glucose 226 mg/dl (70-99) H 07/21/20 05:29 Lactate 5.7 mmol/L (0.4-2.0) H* 07/21/20 05:06 Calcium 6.8 mg/dl (8.5-10.1) L D 07/21/20 05:05 Magnesium 2.1 mg/dl (1.8-2.4) 07/21/20 05:05 Total Bilirubin 0.7 mg/dl (0.2-1) 07/20/20 18:42 AST 22 U/L (15-37) 07/20/20 18:42 ALT 28 U/L (12-78) 07/20/20 18:42 Alkaline Phosphatase 70 U/L (45-117) 07/20/20 18:42 Troponin I < 0.015 ng/ml (0-0.045) 07/20/20 18:42 Total Protein 8.2 gm/dl (6.4-8.2) 07/20/20 18:42 Albumin 2.2 gm/dl (3.4-5.0) L 07/21/20 06:32 Globulin 4.0 gm/dl (2.5-4.0) 07/20/20 18:42 Albumin/Globulin Ratio 1.1 (0.9-2) 07/20/20 18:42 Lipase 309 U/L (73-393) 07/20/20 18:42 TSH 0.226 uIu/ml (0.300-4.500) L 07/21/20 05:05 Urine Color Yellow 07/20/20 19:30 Urine Appearance Clear (Clear) 07/20/20 19:30 Urine pH 5.5 (4.5-7.5) 07/20/20 19:30 Ur Specific [place] 1.019 (1.000-1.030) 07/20/20 19:30 Urine Protein 1+ (Negative) H 07/20/20 19:30 Urine Glucose (UA) 2+ (Negative) H 07/20/20 19:30 Urine Ketones 1+ (Negative) H 07/20/20 19: Urine Blood 3+ (Negative) H 07/20/20 19:30 Urine Nitrite Positive (Negative) A 07/20/20 19:30 Urine Bilirubin Negative (Negative) 07/20/20 19:30 Urine Urobilinogen Negative (Negative) 07/20/20 19: Ur Leukocyte Esterase Trace (Negative) H 07/20/20 19:30 Urine WBC (Auto) 5-10 /hpf (0-5) H 07/20/20 19:30 Urine RBC (Auto) 5-10 /hpf (0-4) H 07/20/20 19:30 U Hyaline Cast (Auto) 1-5 /lpf (0-5) 07/20/20 19:30 U Epithel Cells (Auto) 5-10 /lpf (0-5) H 07/20/20 19:30 Urine Bacteria (Auto) 4+ (Negative) H 07/20/20 19:30 Nasal Screen MRSA (PCR) Negative (Negative) 07/21/20 06:00 SARS-CoV-2 Ag (Rapid) Negative (Negative) 07/20/20 Unknown Resident Activity Tracking Resident Involvement: Resident Care Provided Care Provided: Adult Hospital Medicine
--- NOTE | 2020-07-21 06:41 | XRay Report ---
XR chest 1V portable HISTORY: 75 years-old Female shortness of breath acute shortness of breath COMPARISON: CTA abdomen and pelvis 07/20/2020, chest radiograph 06/10/2017 TECHNIQUE: Portable AP view of the chest FINDINGS: Cardiac silhouette is upper limits of normal in size. Mediastinal contours are unchanged. Blunting of the costophrenic angles. Pleural thickening of the lung apices. Bilateral reticular opacities are mo st pronounced in the lung bases and lateral aspect of the right midlung. No overt pulmonary edema or lobar airspace consolidation. Degenerative changes of the shoulders and spine. IMPRESSION: Bilateral reticular opacities, most pronounced in the lung bases and lateral right midlun g. These findings have progressively worsened from 2017 and may be secondary to progressively worsene d chronic interstitial lung disease. Correlate clinically to exclude superimposed pneumonitis. ACT 112: Negative or not required by law. The above report was generated using voice recognition software. It may contain grammatical, syntax o r spelling errors. Electronically signed by: Malik Javier M.D. 07/21/2020 6:39 AM
--- NOTE | 2020-07-21 07:44 | Fluoroscopy Report ---
FL KUB CLINICAL HISTORY: LT CYSTO/RETROGRADE/STENT PLACEMENT COMPARISON STUDY: CT scan dated 07/20/2020 FLUOROSCOPY TIME: 7 seconds. NUMBER OF FLUOROSCOPIC IMAGES: 2 FINDINGS: 2 intraprocedural fluoroscopic spot images demonstrating a double pigtail left sided nephro ureteral stent. IMPRESSION: A double pigtail left sided nephroureteral stent is visualized. There is only faint cont rast opacification of the left renal pelvis. ACT 112: Negative or not required by law. Electronically signed by: Subhash Rajput M.D. 07/21/2020 7:42 AM
--- NOTE | 2020-07-21 07:52 | XRay Report ---
XR chest 1V portable HISTORY: 75 years-old Female central line status post placement of a left IJ central venous catheter COMPARISON: Chest radiograph 07/20/2020, CT abdomen and pelvis 07/20/2020 TECHNIQUE: Portable AP view of the chest FINDINGS: Cardiac silhouette is upper limits of normal in size. Interval development of small pleural effusions with mild pulmonary edema on a background of bilateral reticular opacities. Pleural thickening of th e lung apices with pleural calcifications. No pneumothorax. Status post placement of a left IJ centra l venous catheter, distal tip terminating in the expected location of the brachiocephalic SVC conflue nce. Degenerative changes of the shoulders and spine. Left ureteral stent is partially imaged. IMPRESSION: 1. Interval development of pulmonary edema with small pleural effusions. 2. Status post placement of a left IJ central venous catheter distal tip terminating in the expected location of the brachiocephalic SVC confluence. No postprocedural pneumothorax. 3. Background chronic interstitial lung disease. ACT 112: Negative or not required by law. The above report was generated using voice recognition software. It may contain grammatical, syntax o r spelling errors. Electronically signed by: Malik Javier M.D. 07/21/2020 7:51 AM
--- NOTE | 2020-07-21 08:07 | Procedure Note ---
Procedure Note Date of Service July 21, 2020 Note INTERNAL JUGULAR CENTRAL LINE PROCEDURE NOTE: Procedure: Internal Jugular Central Line Placement Attending: Dr. Terrence Bhardwaj Provider: DONTAE Escalante Indication: Central Drug Administration Anesthesia: Lidocaine 1% Consent was signed and placed on the chart prior to procedure. Indication, risks, and benefits were explained at length. A time-out was completed verifying correct patient, procedure, site, positioning, and implants(s) or special equipment if applicable. Patients left neck was cleansed and draped in the typical sterile fashion using Chloraprep. The Internal Jugular Vein and Carotid Artery were identified using ultrasound. The superficial tissue was anesthetized using 3 mL of 1% lidocaine without epinephrine under direct visualization with the ultrasound. After adequate anesthetization was achieved, the Internal Jugular vein was cannulated under direct ultrasound guidance using an introducer needle on a syringe. Good venous blood return was maintained prior to removal of syringe from introducer needle. Using Seldinger Technique, a guide wire was advanced through the introducer needle without resistance. The introducer needle was removed and ultrasound images were obtained of the guide wire within the Internal Jugular Vein and saved to the patients medical record. A small incision was made in penetrating fashion at the guide wire insertion site utilizing an 11 blade scalpel. The dilator was advanced to the vessel without resistance. The dilator was exchanged for the triple lumen catheter which was advanced into the vessel without resistance. The guide wire was removed intact from the catheter without issue. Claves were placed on each catheter tip with confirmation of good blood flow from each lumen. Each port was easily flushed with sterile saline. The catheter was placed at 16 cm and sut[address] in place. BioPatch was applied to the catheter and a sterile Tegaderm dressing was applied over the catheter with careful attention to sterility. Patient tolerated procedure well. No immediate complications were met. Post procedure x-ray was completed, placement was appropriate and no pneumothorax was noted. Images obtained are saved for permanent record Procedural Ultrasound Guidance: Procedure Date: 07/21/2020 Indication: Central venous catheter insertion Attending: Dr. Terrence Bhardwaj Provider: DONTAE Escalante Artery AND Vein visualized: Yes Compressible Vein: Yes Guidewire or Short Catheter seen in vein prior to dilation: Yes Line confirmed in Vein with ultrasound: Yes Images obtained are saved for permanent record. Coding CPT Codes Tubes, Drains, and Vasc Access - Tubes, Drains, and Vasc Access: [id number] Place catheter in vein superior or inferior vena cava ([id number]) Tubes, Drains, and Vasc Access - Tubes, Drains, and Vasc Access: [id number] Ultrasound Guidance For Vascular ([id number]) [facility] [place]Charges) Tubes, Drains, and Vasc Access Procedure 1: Tubes, Drains, and Vasc Access: [id number] Place catheter in vein superior or inferior vena cava Procedure 2: Tubes, Drains, and Vasc Access: [id number] Ultrasound Guidance For Vascular
--- NOTE | 2020-07-21 08:07 | Procedure Note ---
Procedure Note Date of Service July 21, 2020 Note ARTERIAL LINE PROCEDURE NOTE: Procedure: Arterial Line Placement Attending: Dr. Terrence Bhardwaj Provider: DONTAE Escalante Indication: Monitoring on Pressors Anesthesia:Lidocaine 1% Consent was signed and placed on the chart prior to procedure. Indication, risks, and benefits were explained at length. A time-out was completed verifying correct patient, procedure, site, positioning, and implant(s) or special equipment if applicable. Allens test was performed to ensure adequate perfusion. Patients left wrist was prepped and draped in the usual sterile fashion. Ultrasound guidance was used to aid needle placement. A 20g Arrow arterial line was introduced into the left radial artery. Catheter was threaded, and the needle was removed with appropriate blood return. Good waveform was observed. The patient tolerated the procedure well. Confirmation of placement with ultrasound. Blood Loss: Minimal Complications: None Procedural Ultrasound Guidance: Procedure Date: 07/21/2020 Indication: Arterial line insertion Attending: Dr. Terrence Bhardwaj Provider: DONTAE Escalante Artery Identified: YES Line confirmed in Artery with ultrasound: Yes Complications: NONE Patient tolerated procedure: WELL Coding CPT Codes Tubes, Drains, and Vasc Access - Tubes, Drains, and Vasc Access: [id number] Place Catheter In Artery ([id number]) Tubes, Drains, and Vasc Access - Tubes, Drains, and Vasc Access: [id number] Ultrasound Guidance For Vascular ([id number]) [facility] [place] Procedure Codes (Charges) Tubes, Drains, and Vasc Access Procedure 1: Tubes, Drains, and Vasc Access: [id number] Place Catheter In Artery Procedure 2: Tubes, Drains, and Vasc Access: [id number] Ultrasound Guidance For Vascular
--- NOTE | 2020-07-21 08:49 | Urology Progress Note ---
Date of Service July 21, 2020 Assessment & Plan (1) Calculus of ureterovesical junction (UVJ): Urosepsis 2/2 distal left ureteral stone - stent placed emergently overnight - pressors cont this AM - overall, she does seem improved from last night (mentating better, more interactive) - broad spectrum abx now (zosyn) - hx of c. diff - no further interventions needed now, we will continue to follow from the periphery as she improves Admission and Anticipated Discharge Date Admission Date: July 20, 2020 Subjective more interactive this am than she was last night denies severe pain remains on norepinephrine zosyn now HR ~100 clear urine Physical Exam Physical Exam: Supplemental O2 norepinephrine running still borderline hypotensive (96 systolic) borderline tachy no resp distress abd soft urine clear (coelho) minimal/no edema Results & Data ([facility]) Vital Signs (Past 12 Hours) Vital Signs Temp Pulse Pulse Resp BP BP BP 07/21/20 06:42 89/51 L 07/21/20 06:32 100 H 21 82/47 L 07/21/20 06:17 89/51 L 07/21/20 06:06 96 H 26 H 77/44 L 07/21/20 05:57 72/41 L 07/21/20 05:41 83/46 L 07/21/20 05:26 71/41 L 07/21/20 05:11 75/44 L 07/21/20 04:58 70/40 L 07/21/20 04:52 64/39 L 07/21/20 04:37 37.3 C 94 H 18 82/45 L 07/21/20 04:22 89 17 81/44 L 07/21/20 04:00 37.9 C H 101 H 23 76/42 L 07/21/20 03:10 37.9 C H 108 H 18 81/45 L 07/21/20 02:33 38.2 C H 101 H 22 85/48 L 07/21/20 02:02 35.8 C L 111 H 26 H 92/48 L 07/21/20 01:33 36.6 C 112 H 22 92/49 L 07/21/20 00:51 112 H 21 90/51 L 07/21/20 00:36 123 H 27 H 101/61 07/21/20 00:31 36.9 C 120 H 27 H 97/58 L 07/21/20 00:16 124 H 27 H 110/59 L 07/21/20 00:00 118 H 27 H 105/59 L 07/20/20 23:55 115 H 27 H 106/72 07/20/20 23:45 123 H 28 H 111/59 L 07/20/20 23:40 37.3 C 124 H 27 H 116/60 07/20/20 23:35 125 H 22 118/61 07/20/20 23:25 36.7 C 124 H 18 132/66 07/20/20 22:49 24 140/75 07/20/20 22:30 137 H 28 H 162/80 H 07/20/20 22:26 137 H 28 H 158/77 H 07/20/20 22:00 134 H 32 H 152/75 H 07/20/20 21:56 39.4 C H 07/20/20 21:30 132 H 28 H 165/93 H 07/20/20 21:00 141 H 28 H 190/114 H 07/20/20 20:54 37.3 C 148 H 28 H 179/114 H Pulse Ox 07/21/20 06:42 07/21/20 06:32 91 07/21/20 06:17 07/21/20 06:06 94 07/21/20 05:57 07/21/20 05:41 07/21/20 05:26 07/21/20 05:11 07/21/20 04:58 07/21/20 04:52 07/21/20 04:37 92 07/21/20 04:22 93 07/21/20 04:00 92 07/21/20 03:10 92 07/21/20 02:33 93 07/21/20 02:02 94 07/21/20 01:33 93 07/21/20 00:51 95 07/21/20 00:36 92 07/21/20 00:31 92 07/21/20 00:16 91 07/21/20 00:00 91 07/20/20 23:55 93 07/20/20 23:45 93 07/20/20 23:40 93 07/20/20 23:35 92 07/20/20 23:25 92 07/20/20 22:49 96 07/20/20 22:30 93 07/20/20 22:26 97 07/20/20 22:00 96 07/20/20 21:56 07/20/20 21:30 96 07/20/20 21:00 89 L 07/20/20 20:54 93 PG Care Time/CCT Total # of Minutes Spent Total Time Spent with Patient: Total time spent is greater than 50% in coordination of care (as documented) at patient's floor/unit and/or counseling patient: Coding Level of Care Code 76777 Subseq Hosp Care Lvl 2 Diagnoses Calculus of ureterovesical junction (UVJ) N20.1
[2020-07-21] MEDS ORDERED: FAMOTIDINE 20 MG TAB PO SCH (09:00)
[2020-07-21] MEDS ORDERED: PANTOprazole 40 MG TAB PO SCH (09:00)
[2020-07-21] MEDS ORDERED: CALCIUM GLUCONATE 10% 2,000 MG in SODIUM CHLORIDE 0.9% 50 ML IV ONE (10:30)
[2020-07-21] MEDS: INSULIN GLARGINE SOLOSTAR 100 UNITS/ML 3 ML PEN SC SCH (10:46)
[2020-07-21] MEDS: ATORVASTATIN 10 MG TAB PO SCH (10:59)
[2020-07-21] MEDS: ADVANCED PROBIOTIC 1250 MG CAPSULE PO SCH (11:00)
[2020-07-21] MEDS ORDERED: PANTOprazole 40 MG in SYRINGE 0 ML IV SCH (11:00)
[2020-07-21] MEDS: ASPIRIN 81 MG ECTAB PO SCH (11:02)
[2020-07-21 11:56] LABS: iSTAT Art Bld Gas pCO2 Correct 35 mmHg (35-46); iSTAT Art Bld Gas pH Corrected 7.327 (7.35-7.45); iSTAT Arterial Blood Gas HCO3 18 meg/L (19-24); iSTAT Arterial Blood Gas pCO2 35 mmHg (35-46); iSTAT Arterial Blood Gas pH 7.32 (7.35-7.45); iSTAT Arterial Blood Gas pO2 80 mmHg (80-95); iSTAT Arterial Blood Gas pO2 C 77; iSTAT Carbon Dioxide 19 mmol/L (24-31); iSTAT Hematocrit 30 % (37-47); iSTAT Hemoglobin 10.2 g/dl (12.0-16.0); iSTAT Potassium 4.2 mmol/L (3.3-5.0); iSTAT Site Art Line; iSTAT Sodium 136 mmol/L (135-144)
--- NOTE | 2020-07-21 12:31 | Billing Data ---
Date of Service July 21, 2020 75-year-old female with urosepsis due to infected stone status post cystoscopy and stent placement. She is on broad-spectrum antibiotics but is remained hypotensive requiring initiation of pressors.Patient seen and examined. Discussed with critical care nurse at bedside as well as the overnight critical care ANA CRISTINA and with the family practice resident. Patient was reviewed on multidisciplinary rounds She is on broad-spectrum antibiotics. Central lines and arterial lines were placed this morning. Patient remains critically ill. Blood gas demonstrates metabolic acidosis and bicarb will be administered especially in light of the patient's renal failure. Her lactate had been increasing and will continue to be trended. Calcium will be repleted. Continue antibiotics pending culture results. Random cortisol appears appropriate at 32. Albumin may be beneficial. We will continue to monitor in ICU pending improvement in her hemodynamics. Coding Level of Care Code Critical Care 1st 30-74 mins Time Spent (min) 39 Comment 39 minutes critical care time exclusive of procedures managing critically ill patient with
[2020-07-21] MEDS: traMADol HCL 50 MG TABLET PO PRN ×2 (12:45→19:57)
[2020-07-21] MEDS ORDERED: SODIUM BICARB 8.4% INJ 50 MEQ/50 ML SYR IV ONE (12:45)
[2020-07-21] MEDS: ALBUMIN 25% 12.5 GM/50 ML VIAL IV SCH ×4 (12:46→16:16)
[2020-07-21 13:21] LABS: Hemoglobin 10.3 g/dL (12.0-16.0); Mean Corpuscular Hemoglobin 30.5 pg (25-34); Mean Corpuscular Hgb Conc 33.2 g/dL (32-36); Mean Corpuscular Volume 91.7 fL (80-100); Mean Platelet Volume 9.7 fL (7.4-10.4); Platelet Count 90 K/uL (130-400); RDW Coefficient of Variation 12.4 % (11.5-14.5); RDW Standard Deviation 41.8 fL (36.4-46.3); Red Blood Count 3.38 M/uL (4.2-5.4); White Blood Count 29.23 K/uL (4.8-10.8)
[2020-07-21 13:45] LABS: Basophils # (auto) 0.01 K/uL (0-0.2); Eosinophils # (auto) 0.01 K/uL (0-0.5); Immature Granulocytes # (auto) 1.46 K/uL (0.00-0.02); Lymphocytes # (auto) 1.64 K/uL (1.2-3.4); Lymphocytes % (auto) 5.6 %; Monocytes # (auto) 1.38 K/uL (0.11-0.59); Monocytes % (auto) 4.7 %; Neutrophils # (auto) 24.73 K/uL (1.4-6.5); Neutrophils % (auto) 84.7 %
--- NOTE | 2020-07-21 15:31 | Hospitalist Progress Note ---
Date of Service July 21, 2020 Assessment & Plan (1) Severe sepsis: Source was controlled with emergent cystoscopy by urology overnight and removal of the stone. Continue Zosyn and Levophed for blood pressure support. Continue IV fluids as needed. (2) UTI (urinary tract infection): Zosyn pending urine cultures. (3) Metabolic encephalopathy: -Likely multifactorial secondary to sepsis, medication induced from fentanyl, Benadryl, Ativan-resolved (4) Acute kidney injury superimposed on chronic kidney disease: Persistent, possibly secondary to EMILIE versus ATN and sepsis. Monitor daily BMP. (5) DM type 2 (diabetes mellitus, type 2): Chronic, stable, controlled-Hgb A1c 7.1 04/2020 -Hold oral agents and utilize NovoLog per protocol while hospitalized (6) History of CVA (cerebrovascular accident): -Continue aspirin and statin (7) Hypothyroidism: Chronic, stable, controlled,-Continue levothyroxine per home regimen. (8) DVT prophylaxis: -SQ heparin Admission and Anticipated Discharge Date Admission Date: July 20, 2020 Subjective cc: ureteral stone with obstruction and sepsis s/p emergent cystoscopy overnight. Urosepsis secondary to distal left ureteral stone. Stent placed emergently overnight with resulting need for pressors continued in the ICU. She has a known history of C. difficile and is emotional and tearful because she is on antibiotics despite understanding the necessity of this. Currently n.p.o. secondary to being on pressors. Continue Zosyn Review of Systems Review of Systems: All systems reviewed & are unremarkable except as noted in Subjective Physical Exam Physical Exam: CONSTITUTIONAL: WNWD, vitals as above, generally well- appearing, tearful EYES: normal conjunctivae, no scleral icterus ENT: external ear and nose normal, oropharynx clear,MMM RESPIRATORY: clear to auscultation bilaterally, no crackles, rales or wheezes, normal respiratory effort CARDIOVASCULAR: regular rate and rhythm, S1 and 2 heard without murmurs, gallops or rubs, no JVD, no peripheral edema GASTROINTESTINAL: soft, nontender, nondistended, no guarding. MUSCULOSKELETAL: strength 5/5 throughout, head is normocephalic and atraumatic, neck supple, normal palpation of chest wall without tenderness SKIN: warm and dry, no rashes NEUROLOGIC: No facial palsy, no dysarthria. CN 2-12 grossly intact, normal cognition, normal speech, no tremor Results & Data Results & Data ([facility]) Vital Signs (Past 12 Hours) Vital Signs Temp Pulse Pulse Resp BP BP BP 07/21/20 10:15 87 18 07/21/20 10:10 98 H 18 93/52 L 07/21/20 10:00 90 22 07/21/20 09:45 88 17 07/21/20 09:40 89 20 90/49 L 07/21/20 09:30 88 24 07/21/20 09:15 89 17 07/21/20 09:10 85 18 88/47 L 07/21/20 09:00 88 18 07/21/20 08:45 87 19 07/21/20 08:30 36.4 C L 86 16 07/21/20 08:15 86 18 07/21/20 08:09 92 H 23 92/50 L 07/21/20 08:00 91 H 24 07/21/20 07:52 93 H 23 75/45 L 07/21/20 07:45 98 H 20 07/21/20 07:37 87 21 84/46 L 07/21/20 07:30 90 23 07/21/20 07:22 90 20 91/47 L 07/21/20 07:15 93 H 23 07/21/20 06:42 89/51 L 07/21/20 06:32 100 H 21 82/47 L 07/21/20 06:17 89/51 L 07/21/20 06:06 96 H 26 H 77/44 L 07/21/20 05:57 72/41 L 07/21/20 05:41 83/46 L 07/21/20 05:26 71/41 L 07/21/20 05:11 75/44 L 07/21/20 04:58 70/40 L 07/21/20 04:52 64/39 L 07/21/20 04:37 37.3 C 94 H 18 82/45 L 07/21/20 04:22 89 17 81/44 L 07/21/20 04:00 37.9 C H 101 H 23 76/42 L Pulse Ox 07/21/20 10:15 95 07/21/20 10:10 95 07/21/20 10:00 95 07/21/20 09:45 95 07/21/20 09:40 95 07/21/20 09:30 95 07/21/20 09:15 95 07/21/20 09:10 95 07/21/20 09:00 95 07/21/20 08:45 95 07/21/20 08:30 96 07/21/20 08:15 94 07/21/20 08:09 95 07/21/20 08:00 95 07/21/20 07:52 94 07/21/20 07:45 94 07/21/20 07:37 95 07/21/20 07:30 96 07/21/20 07:22 93 07/21/20 07:15 92 07/21/20 06:42 07/21/20 06:32 91 07/21/20 06:17 07/21/20 06:06 94 07/21/20 05:57 07/21/20 05:41 07/21/20 05:26 07/21/20 05:11 07/21/20 04:58 07/21/20 04:52 07/21/20 04:37 92 07/21/20 04:22 93 07/21/20 04:00 92 Laboratory Results Short CBC 07/20/20 07/21/20 07/21/20 Range/Units 18:42 05:06 13:10 WBC 11.06 H 16.59 H 29.23 H D (4.8-10.8) K/uL Hgb 12.8 9.6 L D 10.3 L (12.0-16.0) g/dL Hct 38.6 30.1 L 31.0 L (37-47) % Plt Count 211 90 L D 90 L (130-400) K/uL BMP 07/20/20 07/21/20 18:42 05:05 Sodium 136 140 Potassium 4.1 3.5 Chloride 105 112 H Carbon Dioxide 23 18 L BUN 29 H 25 H Creatinine 1.50 H 1.78 H Glucose 236 H 234 H Calcium 9.2 6.8 L D Cardiac Enzymes 07/20/20 Range/Units 18:42 Troponin I < 0.015 (0-0.045) ng/ml Liver Function 07/20/20 07/21/20 Range/Units 18:42 06:32 Total Bilirubin 0.7 (0.2-1) mg/dl AST 22 (15-37) U/L ALT 28 (12-78) U/L Alkaline Phosphatase 70 (45-117) U/L Albumin 4.2 2.2 L (3.4-5.0) gm/dl Urine 07/20/20 Range/Units 19:30 Urine Color Yellow Urine Appearance Clear (Clear) Urine pH 5.5 (4.5-7.5) Ur Specific [place] 1.019 (1.000-1.030) Urine Protein 1+ H (Negative) Urine Glucose (UA) 2+ H (Negative) Medications Administered Current Inpatient Medications Acetaminophen (Acetaminophen 325 Mg Tab) 650 mg PO Q6H PRN PRN Reason: Fever Stop: 08/20/20 02:37 Aspirin (Aspirin 81 Mg Ectab) 81 mg PO DAILY [facility]AU Stop: 08/20/20 08:59 Last Admin: 07/21/20 11:02 Dose: Not Given Documented by: Atorvastatin Calcium (Atorvastatin 10 Mg Tab) 10 mg PO DAILY BEAU Stop: 08/20/20 08:59 Last Admin: 07/21/20 10:59 Dose: Not Given Documented by: Dextrose (Dextrose 50% 50 Ml Syringe) 25 - 50 ml IV UD PRN; Protocol PRN Reason: Hypoglycemia Protocol Stop: 08/20/20 00:49 Glucagon (Glucagon For Inj 1 Mg Vial) 1 mg SQ UD PRN; Protocol PRN Reason: Hypoglycemia Protocol Stop: 08/20/20 00:49 Glucose (Glucose 10 Tabs/Tube) 4 - 8 tabs PO UD PRN; Protocol PRN Reason: Hypoglycemia Protocol Stop: 08/20/20 00:49 Glucose (Glucose 40% Gel 15 Gm Tube) 15 - 30 gm PO UD PRN; Protocol PRN Reason: Hypoglycemia Protocol Stop: 08/20/20 00:49 Heparin Sodium (Porcine) (Heparin Sod 5,000 Unit/0.5 Ml Vial) 5,000 units SQ Q8 [facility] Stop: 08/20/20 05:59 Last Admin: 07/21/20 13:41 Dose: 5,000 units Documented by: Piperacillin Sod/Tazobactam (Sod 4.5 gm/ Dextrose) 120 mls @ 30 mls/hr IV Q8H BEAU; Protocol Stop: 07/31/20 05:59 Last Admin: 07/21/20 13:44 Dose: 30 mls/hr Documented by: Norepinephrine Bitartrate (Levophed/D5w) 8 mg in 508 mls @ 10.649 mls/hr IV .Q24H BEAU; Protocol Stop: 08/20/20 05:59 Last Titration: 07/21/20 13:51 Dose: 0.12 mcg/kg/min, 25.6 mls/hr Documented by: Pantoprazole Sodium 40 mg/ (Syringe) 10 mls @ 5 mls/min IV DAILY@1100 [facility] Stop: 08/20/20 10:59 Last Admin: 07/21/20 10:49 Dose: 5 mls/min Documented by: Albumin Human (Albumin 25%) 12.5 gm in 50 mls @ 50 mls/hr IV Q1H [facility] Stop: 07/21/20 16:59 Last Admin: 07/21/20 14:49 Dose: 50 mls/hr Documented by: Insulin Aspart (Insulin Aspart 100 Units/Ml 3 Ml Pen) 0 units SC Q4 [facility] Stop: 08/20/20 01:14 Last Admin: 07/21/20 12:40 Dose: 4 units Documented by: Insulin Glargine (Insulin Glargine Solostar 100 Units/Ml 3 Ml Pen) 10 units SC QAM [facility] Stop: 08/20/20 10:44 Last Admin: 07/21/20 10:46 Dose: 10 units Documented by: Insulin Glargine (Insulin Glargine Solostar 100 Units/Ml 3 Ml Pen) 0 units SC HS [facility]; Protocol Stop: 08/20/20 20:59 Lactobacillus Acidoph/Casei/Rhamnos (Advanced Probiotic 1250 Mg Capsule) 2 cap PO DAILY BEAU Stop: 08/20/20 08:59 Last Admin: 07/21/20 11:00 Dose: Not Given Documented by: Levothyroxine Sodium (Levothyroxine Sodium 75 Mcg Tablet) 75 mcg PO DAILYBB [facility] Stop: 08/20/20 06:29 Last Admin: 07/21/20 05:32 Dose: 75 mcg Documented by: Miscellaneous (Carbohydrates For Hypoglycemia ) 15 - 30 gm PO UD PRN PRN Reason: Hypoglycemia Protocol Stop: 08/20/20 00:49 Miscellaneous (Icu Protocol For Hyperglycemia) 1 ea N/A PRN PRN; Protocol PRN Reason: Hyperglycemia Protocol Stop: 07/23/20 05:56 Miscellaneous Information (Piperacill/Tazobac Consult Active) 1 ea N/A UD PRN PRN Reason: Consult Stop: 08/20/20 00:51 Tramadol HCl (Tramadol Hcl 50 Mg Tablet) 25 - 50 mg PO Q4H PRN PRN Reason: Pain Stop: 08/20/20 05:18 Last Admin: 07/21/20 12:45 Dose: 50 mg Documented by:
[2020-07-21 16:09] LABS: Potassium Random Urine 56.4 mmol/L
[2020-07-21] MEDS ORDERED: INSULIN GLARGINE SOLOSTAR 100 UNITS/ML 3 ML PEN SC SCH ×2 (21:00)
[2020-07-22] MEDS: INSULIN ASPART 100 UNITS/ML 3 ML PEN SC SCH ×6 (01:04→20:09)
--- NOTE | 2020-07-22 04:41 | Electrocardiogram Report ---
Test Reason : Blood Pressure : / mmHG Vent. Rate : 116 BPM Atrial Rate : 116 BPM P-R Int : 134 ms QRS Dur : 066 ms QT Int : 322 ms P-R-T Axes : 069 050 064 degrees QTc Int : 447 ms Poor data quality, interpretation may be adversely affected Sinus tachycardia with Premature supraventricular complexes Nonspecific ST abnormality Abnormal ECG When compared with ECG of 10-JUN-2017 18:20, Premature ventricular complexes are no longer Present Confirmed by Mannie Guerra ([id number]) on 07/22/2020 4:40:29 AM Referred By: REFERRED SELF Confirmed By:Mannie Guerra
--- NOTE | 2020-07-22 04:56 | Electrocardiogram Report ---
Test Reason : Blood Pressure : / mmHG Vent. Rate : 088 BPM Atrial Rate : 088 BPM P-R Int : 144 ms QRS Dur : 070 ms QT Int : 388 ms P-R-T Axes : 060 043 051 degrees QTc Int : 469 ms Normal sinus rhythm Nonspecific ST abnormality Abnormal ECG When compared with ECG of 20-JUL-2020 18:35, Premature supraventricular complexes are no longer Present Confirmed by Mannie Guerra ([id number]) on 07/22/2020 4:55:36 AM Referred By: REFERRED SELF Confirmed By:Mannie Guerra
[2020-07-22] MEDS: HEPARIN SOD 5,000 UNIT/0.5 ML VIAL SQ SCH ×2 (05:01→20:04)
[2020-07-22] MEDS: PIPERACILLIN/TAZOBACTAM 4.5 GM in DEXTROSE 5% 100 ML IV SCH (05:01)
[2020-07-22] MEDS: LEVOTHYROXINE SODIUM 75 MCG TABLET PO SCH (05:02)
[2020-07-22 05:07] LABS: Hematocrit (blood only) 28.4 % (37-47); Hemoglobin 9.3 g/dL (12.0-16.0); Mean Corpuscular Hemoglobin 30.5 pg (25-34); Mean Corpuscular Hgb Conc 32.7 g/dL (32-36); Mean Corpuscular Volume 93.1 fL (80-100); RDW Coefficient of Variation 12.7 % (11.5-14.5); RDW Standard Deviation 43.1 fL (36.4-46.3); Red Blood Count 3.05 M/uL (4.2-5.4); White Blood Count 20.69 K/uL (4.8-10.8)
[2020-07-22 05:14] LABS: Mean Platelet Volume 10.5 fL (7.4-10.4); Platelet Count 67 K/uL (130-400)
[2020-07-22 05:36] LABS: Basophils # (auto) 0.02 K/uL (0-0.2); Basophils % (auto) 0.1 %; Dohle Bodies 1+; Eosinophils # (auto) 0.01 K/uL (0-0.5); Immature Granulocytes # (auto) 1.62 K/uL (0.00-0.02); Immature Granulocytes % (auto) 7.8 %; Lymphocytes # (auto) 1.75 K/uL (1.2-3.4); Lymphocytes % (auto) 8.5 %; Monocytes # (auto) 1.14 K/uL (0.11-0.59); Monocytes % (auto) 5.5 %; Neutrophils # (auto) 16.15 K/uL (1.4-6.5); Neutrophils % (auto) 78.1 %; Toxic Vacuolation 1+
[2020-07-22 05:48] LABS: BUN Creatinine Ratio 17.9 (10-20); Bilirubin,Total 0.7 mg/dl (0.2-1); Calcium 7.9 mg/dl (8.5-10.1); Est GFR (African American) 34.8; Est GFR (Non-African American) 30.1; Magnesium 2.2 mg/dl (1.8-2.4); Phosphorus 3.9 mg/dl (2.5-4.9); Potassium 4.2 mmol/L (3.5-5.1)
[2020-07-22] MEDS: traMADol HCL 50 MG TABLET PO PRN (06:49)
[2020-07-22] MEDS ORDERED: CALCIUM GLUCONATE 10% 2,000 MG in SODIUM CHLORIDE 0.9% 50 ML IV ONE (07:45)
--- NOTE | 2020-07-22 08:14 | Critical Care Progress Note ---
Date of Service July 22, 2020 Assessment & Plan (1) S/P admission to ICU (intensive care unit): Reason Critically Ill: 75-year-old female here with a PMHx significant for Dm2, CVA, CKD 3, HTN, who presented with low back back, nausea and vomiting and who was admitted for refractory hypotension due to sepsis s/p ureteral stent placement 2/2 obstructing calculus and L hydronephrosis. Neuro - Metabolic Encephalopathy : Resolved CAM ICU: NEGATIVE Sedation: none Analgesia: tramadol 25-50 PO Q4 PRN - A&Ox3 - delirium precautions, avoid narcotics, benzos - expect to resolve with clearance of sepsis Cardiac - HTN - holding hypertensive medications at this time - initially hypertensive on admission, hypotensive after surgical intervention - No hx echo on records Hypotension secondary to sepsis : resolved - s/p total of 4L in fluid boluses, mixture of NS and LR - CXR showing fluffy infiltrates, pt likely third spacing fluid - Hold maintenance fluid, encourage PO fluid intake - off levophed Respiratory - Acute hypoxic resp failure - up to 5L NC satting 93% - likely secondary to third spaced fluid in chest - would hold on diuretics at this time given recent hypovolemia, can consider when BP is higher/more stable - not on oxygen at home - CT abd noted fibrotic and groundglass change at both lung bases is similar to the [address] no evidence of superimposing consolidation or pleural effusio n GI - none, hx Cdiff Diet - regular diet Zofran 4mg IV PRN Q6H for nausea IV protonix 40 mg for GI ppx, can be switched to PO when able to tolerate orals well RENAL/LYTES - Non-Anion Gap Metabolic Acidosis - ABG showing 7.2/35/80/18 - UAG: +64, RTA failure to appropriately excrete NH4+, however measured after bicarb given Lactic Acidosis : improving - 5.7 -> 2.4 EMILIE on CKD - baseline GFR in 2017 50.1 with Cr 1.1 - Cr down to 1.64 this am, up from 1.5 on admission. Likely secondary to stenting procedure, purulent urine, pylonephritis Pyelonephritis - ascending UTI with obstructing calculus, hydronephrosis, perinephric stranding on CT abd - UA : 3+ blood, +nitrite,trace LE, 5-10 WC, 4+ bacteria - WBC decreasing - zosyn stepped down to ceftriaxone today : See ID - urology following Electrolyte Abnormalities - Ca low at 7.9 after repletion of 2g Ca Gluc yesterday, 2g reordered today - Coelho in place - remove today vs. tomorrow when able to ambulate with assistance to toilet ENDO - DM2 - on glipizide 2.5 mg at home - Lantus 10 U AM, SSI - normal random cortisol, no concern for adrenal insufficiency HEME - Normocytic Anemia : stable - Hg ~ 9.5 - 10.5 - likely secondary to dilution + blood loss into urine + septic thrombocytopenia ID - Sepsis secondary to Pyelonephritis - decreasing WBC - zosyn stepped down to ceftriaxone - bcx negative at 24 hours - ucx gram negative bacilli, pansensitive Hx Cdiff - continue probiotic INTEGUMENTARY - no issues LINES/IV ACCESS - 3 PIVs intact, L IJ CVC, OK to pull CVC later today DVT PROPHYLAXIS - Heparin 5000 Sq BID Thank you for allowing us to be part of this patient's care. Please refer to Dr. Bhardwaj's documentation for any further recommendations. (2) Calculus of ureterovesical junction (UVJ): (3) Pyelonephritis: (4) CKD (chronic kidney disease), stage III: (5) DM type 2 (diabetes mellitus, type 2): (6) Hypothyroidism: (7) HTN (hypertension): (8) History of CVA (cerebrovascular accident): (9) Acute kidney injury superimposed on chronic kidney disease: Admission and Anticipated Discharge Date Admission Date: July 20, 2020 Supervising Physician Co-Signing Physician Notes Patient seen and examined. Discussed on multidisciplinary rounds and with bedside ICU nurse as well as with family practice resident. Agree with assessment and plan as noted. Patient is shown hemodynamic improvement and is now off vasopressor agents. Her mental status is appropriate. Her acute kidney injury is showing trend towards improvement. Her urine culture has grown a pansensitive E. coli and antibiotics have been deescalated to Rocephin. Okay to discontinue arterial line, central line, and Coelho catheter. PT and OT consultations and out of bed to chair as tolerated. Long-term management of stent per urology. The patient appears appropriate to transfer out of the ICU to the floor. We will sign off. Feel free to contact us if we can be of additional critical care assistance. Subjective No acute events overnight. Feeling globally weak and tired this morning. visibly teary from frustration of being weak. Mostly has pain in the L neck exacerbated when she tries to lean her neck forward. Spoke to her son Albert on the phone this morning, updated him on progress of care in the right direction, and that depending on PT/OT recommendations, patient may need home PT/rehab at discharge. Review of Systems Constitutional: + fatigue and + weakness; no fever and no chills Respiratory: no cough and no pain on inspiration Cardiovascular: no chest pain, no dyspnea, no palpitations and no lightheadedness Gastrointestinal: + nausea; no vomiting lack of appetite Musculoskeletal: + neck pain, + stiffness and + muscle weakness Physical Exam Physical Exam: VITAL SIGNS - Vital signs and nursing notes were reviewed. GENERAL - 75-year-old female,sitting up in bed, SKIN - Without rashes. HEAD - NC/AT. EYES - PERRL. Sclera anicteric. Palpebral conjunctiva pink and moist with no injection noted. EARS - No deformities of external structures noted on gross examination bilaterally. NOSE - Midline and without cyanosis. No epistaxis or purulent drainage noted. MOUTH/OROPHARYNX - Without perioral cyanosis. NECK - L IJ in place. LUNGS - CTA BL, mild crackles on mid and lower right lobe, CARDIAC - tachycardic. No murmur, rubs, or gallops appreciated. ABDOMEN -soft nontender nondistended with normal bowel sounds. : reddish brown output in coelho bag EXTREMITIES - No clubbing or peripheral cyanosis. No pretibial edema present. radial and dorsalis pedis pulses palpated bilaterally. NEUROLOGIC - No focal neurological deficits noted on exam. Results & Data Results & Data ([facility]) Vital Signs (Past 12 Hours) Vital Signs Temp Pulse Resp BP Pulse Ox 07/22/20 07:00 99 H 18 110/50 L 93 07/22/20 06:00 64 16 107/54 L 91 07/22/20 05:00 62 17 122/60 94 07/22/20 04:00 36.8 C 102 H 21 101/51 L 91 07/22/20 03:00 95 H 17 99/42 L 94 07/22/20 02:00 90 17 95/45 L 95 07/22/20 01:00 96 H 20 90/45 L 94 07/22/20 00:00 36.6 C 93 H 17 97/43 L 95 07/21/20 23:00 88 15 101/51 L 96 07/21/20 22:04 86 17 99/46 L 89 L 07/21/20 21:41 88 25 H 89/49 L 96 07/21/20 21:11 87 20 101/51 L 97 07/21/20 20:41 88 18 94/48 L 98 07/21/20 20:38 88 16 105/51 L 98 Laboratory Results WBC 20.69 K/uL (4.8-10.8) H 07/22/20 04:44 RBC 3.05 M/uL (4.2-5.4) L 07/22/20 04:44 Hgb 9.3 g/dL (12.0-16.0) L 07/22/20 04:44 POC Hgb 10.2 g/dl (12.0-16.0) L 07/21/20 11:43 Hct 28.4 % (37-47) L 07/22/20 04:44 POC Hct 30 % (37-47) L 07/21/20 11:43 MCV 93.1 fL (80-100) 07/22/20 04:44 MCH 30.5 pg (25-34) 07/22/20 04:44 MCHC 32.7 g/dL (32-36) 07/22/20 04:44 RDW Std Deviation 43.1 fL (36.4-46.3) 07/22/20 04:44 RDW Coeff of Abebe 12.7 % (11.5-14.5) 07/22/20 04:44 Plt Count 67 K/uL (130-400) L 07/22/20 04:44 MPV 10.5 fL (7.4-10.4) H 07/22/20 04:44 Immature Gran % (Auto) 7.8 % 07/22/20 04:44 Neut % (Auto) 78.1 % 07/22/20 04:44 Lymph % (Auto) 8.5 % 07/22/20 04:44 Sunflower % (Auto) 5.5 % 07/22/20 04:44 Eos % (Auto) 0.0 % 07/22/20 04:44 Baso % (Auto) 0.1 % 07/22/20 04:44 Neut # (Auto) 16.15 K/uL (1.4-6.5) H 07/22/20 04:44 Lymph # (Auto) 1.75 K/uL (1.2-3.4) 07/22/20 04:44 Sunflower # (Auto) 1.14 K/uL (0.11-0.59) H 07/22/20 04:44 Eos # (Auto) 0.01 K/uL (0-0.5) 07/22/20 04:44 Baso # (Auto) 0.02 K/uL (0-0.2) 07/22/20 04:44 Immature Gran # (Auto) 1.62 K/uL (0.00-0.02) H 07/22/20 04:44 Toxic Vacuolation 1+ 07/22/20 04:44 Dohle Bodies 1+ 07/22/20 04:44 Platelet Estimate Decreased (Normal) L 07/21/20 05:06 Sample Site Art Line 07/21/20 11:43 POC pH 7.32 (7.35-7.45) L 07/21/20 11:43 POC pCO2 35 mmHg (35-46) 07/21/20 11:43 POC pO2 80 mmHg (80-95) 07/21/20 11:43 POC HCO3 18 jaylin/L (19-24) L 07/21/20 11:43 POC Total CO2 19 mmol/L (24-31) L 07/21/20 11:43 POC Base Excess -8.0 jaylin/L (-9-1.8) 07/21/20 11:43 ABG pH (Temp Correct) 7.327 (7.35-7.45) L 07/21/20 11:43 ABG pCO2 (Temp Corrct 35 mmHg (35-46) 07/21/20 11:43 POC ABG pO2 at Pt Temp 77 07/21/20 11:43 POC ABG O2 Sat 95.0 % (90-95) 07/21/20 11:43 Warren Test NA 07/21/20 11:43 O2 Delivery Device Cannula 07/21/20 11:43 POC Sodium 136 mmol/L (135-144) 07/21/20 11:43 Sodium 139 mmol/L (136-145) 07/22/20 04:44 POC Potassium 4.2 mmol/L (3.3-5.0) 07/21/20 11:43 Potassium 4.2 mmol/L (3.5-5.1) D 07/22/20 04:44 Chloride 110 mmol/L (98-107) H 07/22/20 04:44 Carbon Dioxide 25 mmol/L (21-32) 07/22/20 04:44 Anion Gap 4.0 (3-11) 07/22/20 04:44 BUN 29 mg/dl (7-18) H 07/22/20 04:44 Creatinine 1.64 mg/dl (0.6-1.2) H 07/22/20 04:44 Est Cr Clr Drug Dosing 22.0 ml/min 07/22/20 04:44 Est GFR ( Amer) 34.8 07/22/20 04:44 Est GFR (Non-Af Amer) 30.1 07/22/20 04:44 BUN/Creatinine Ratio 17.9 (-20) 07/22/20 04:44 Glucose 75 mg/dl (70-99) 07/22/20 04:44 POC Glucose 90 mg/dl (70-99) 07/22/20 08:35 Lactate 2.4 mmol/L (0.4-2.0) H* 07/21/20 09:59 Calcium 7.9 mg/dl (8.5-10.1) L D 07/22/20 04:44 Phosphorus 3.9 mg/dl (2.5-4.9) 07/22/20 04:44 Magnesium 2.2 mg/dl (1.8-2.4) 07/22/20 04:44 Total Bilirubin 0.7 mg/dl (0.2-1) 07/22/20 04:44 AST 27 U/L (15-37) 07/22/20 04:44 ALT 32 U/L (12-78) 07/22/20 04:44 Alkaline Phosphatase 32 U/L (45-117) L 07/22/20 04:44 Lactate Dehydrogenase 171 U/L (84-246) 07/22/20 04:44 Troponin I < 0.015 ng/ml (0-0.045) 07/20/20 18:42 Total Protein 6.0 gm/dl (6.4-8.2) L D 07/22/20 04:44 Albumin 3.0 gm/dl (3.4-5.0) L 07/22/20 04:44 Globulin 3.0 gm/dl (2.5-4.0) 07/22/20 04:44 Albumin/Globulin Ratio 1.0 (0.9-2) 07/22/20 04:44 Lipase 309 U/L (73-393) 07/20/20 18:42 TSH 0.226 uIu/ml (0.300-4.500) L 07/21/20 05:05 Random Cortisol 32.35 mcg/dl 07/21/20 10:00 Urine Color Yellow 07/20/20 19:30 Urine Appearance Clear (Clear) 07/20/20 19:30 Urine pH 5.5 (4.5-7.5) 07/20/20 19:30 Ur Specific Concan 1.019 (1.000-1.030) 07/20/20 19:30 Urine Protein 1+ (Negative) H 07/20/20 19:30 Urine Glucose (UA) 2+ (Negative) H 07/20/20 19:30 Urine Ketones 1+ (Negative) H 07/20/20 19:30 Urine Blood 3+ (Negative) H 07/20/20 19:30 Urine Nitrite Positive (Negative) A 07/20/20 19:30 Urine Bilirubin Negative (Negative) 07/20/20 19:30 Urine Urobilinogen Negative (Negative) 07/20/20 19:30 Ur Leukocyte Esterase Trace (Negative) H 07/20/20 19:30 Urine WBC (Auto) 5-10 /hpf (0-5) H 07/20/20 19:30 Urine RBC (Auto) 5-10 /hpf (0-4) H 07/20/20 19:30 U Hyaline Cast (Auto) 1-5 /lpf (0-5) 07/20/20 19:30 U Epithel Cells (Auto) 5-10 /lpf (0-5) H 07/20/20 19:30 Urine Bacteria (Auto) 4+ (Negative) H 07/20/20 19:30 Ur Random Sodium 31 mmol/L 07/21/20 15:20 Ur Random Potassium 56.4 mmol/L 07/21/20 15:20 Ur Random Chloride 25 mmol/L 07/21/20 15:20 Nasal Screen MRSA (PCR) Negative (Negative) 07/21/20 06:00 SARS-CoV-2 Ag (Rapid) Negative (Negative) 07/20/20 Unknown cx: gram negative bacilli w/o specificities bcx: negative at 24 hours Coelho output: hematuria Urine lytes: Na 31, K 56.4, Cl 25 UAG: +62.4 Resident Activity Tracking Resident Involvement: Resident Care Provided Care Provided: Adult Hospital Medicine
[2020-07-22] MEDS: cefTRIAXone SODIUM 1,000 MG in DEXTROSE 5% 50 ML IV SCH (09:38)
[2020-07-22] MEDS: ADVANCED PROBIOTIC 1250 MG CAPSULE PO SCH (09:43)
[2020-07-22] MEDS: ATORVASTATIN 10 MG TAB PO SCH (09:46)
[2020-07-22] MEDS: ASPIRIN 81 MG ECTAB PO SCH (09:46)
[2020-07-22] MEDS: INSULIN GLARGINE SOLOSTAR 100 UNITS/ML 3 ML PEN SC SCH (10:34)
[2020-07-22] MEDS: PANTOprazole 40 MG TAB PO SCH (11:02)
--- NOTE | 2020-07-22 11:02 | Billing Data ---
Date of Service July 22, 2020 Coding Level of Care Code 56592 Subseq Hosp Care Lvl 3
--- NOTE | 2020-07-22 13:08 | Hospitalist Progress Note ---
Date of Service July 22, 2020 Assessment & Plan (1) Severe sepsis: Secondary to complicated UTI with left vesicoureteral stone with mild to moderate left hydroureteronephrosis Source was controlled with emergent cystoscopy by urology overnight and removal of the stone and placement of stent Started on intravenous Zosyn Zosyn and Levophed for blood pressure support and IV fluids as needed. Levophed has been stopped and the blood pressure is maintained systolic more than 100 since this morning Remains afebrile and her white count is improving (2) UTI (urinary tract infection): Zosyn pending urine cultures. Culture grew E. coli and is pansensitive Has been getting intravenous ceftriaxone which will be continued for now (3) Metabolic encephalopathy: -Likely multifactorial secondary to sepsis, medication induced from fentanyl, Benadryl, Ativan-resolved -Seems to be improving (4) Acute kidney injury superimposed on chronic kidney disease: Persistent, possibly secondary to EMILIE versus ATN and sepsis. Monitor daily BMP. Creatinine has gone down to 1.6 Advised more fluid intake and monitor PRP (5) DM type 2 (diabetes mellitus, type 2): Chronic, stable, controlled-Hgb A1c 7.1 04/2020 -Hold oral agents and utilize NovoLog per protocol while hospitalized (6) History of CVA (cerebrovascular accident): -Continue aspirin and statin (7) Hypothyroidism: Chronic, stable, controlled,-Continue levothyroxine per home regimen. (8) DVT prophylaxis: -SQ heparin We will discuss with the son Admission and Anticipated Discharge Date Admission Date: July 20, 2020 Subjective 07/22/2020 The patient was seen and examined in ICU She has been complaining of some neck pain specially at the site of central line Denies any fever and/or chills Complains to have nausea but no vomiting Review of Systems Review of Systems: All systems reviewed and are unremarkable except as noted below Respiratory: no dyspnea Cardiovascular: no chest pain and no palpitations Gastrointestinal: + nausea; no abdominal pain and no vomiting Neurologic: Alert, awake and oriented x3 Physical Exam Physical Exam: Lying in bed with some discomfort in the neck Constitutional: well developed, well nourished, + acute distress (Due to neck pain but no shortness of breath) and + ill appearing Eyes: PERRL, conjunctivae normal, anicteric sclerae ENMT: external ear and nose normal, oropharynx normal Neck: trachea midline, no thyromegaly Respiratory: no respiratory distress Auscultation: lungs clear to auscultation bilaterally Cardiovascular: Rate/Rhythm: regular rate and regular rhythm Heart Sounds: no murmur Gastrointestinal (Abdomen): Inspection/Auscultation: normal bowel sounds; abdomen not distended Percussion/Palpation: abdomen soft; abdomen nontender Musculoskeletal: No acute arthritis in any joint Neurologic: Alert, awake and oriented x3. Psychiatric: A+Ox3, euthymic affect Lymphatic: no cervical or axillary lymphadenopathy Results & Data Results & Data ([facility]) Vital Signs (Past 12 Hours) Vital Signs Temp Pulse Resp BP Pulse Ox 07/22/20 12:00 97 H 15 106/50 L 92 07/22/20 11:00 106 H 23 119/45 L 92 07/22/20 10:02 102 H 21 91 07/22/20 10:01 100 H 21 103/68 91 07/22/20 10:00 99 H 16 92 07/22/20 09:00 103 H 15 120/48 L 90 07/22/20 08:00 100 H 16 109/52 L 92 07/22/20 07:00 99 H 18 110/50 L 93 07/22/20 06:00 64 16 107/54 L 91 07/22/20 05:00 62 17 122/60 94 07/22/20 04:00 36.8 C 102 H 21 101/51 L 91 07/22/20 03:00 95 H 17 99/42 L 94 07/22/20 02:00 90 17 95/45 L 95 07/22/20 01:00 96 H 20 90/45 L 94 Laboratory Results Short CBC 07/21/20 07/22/20 Range/Units 13:10 04:44 WBC 29.23 H D 20.69 H (4.8-10.8) K/uL Hgb 10.3 L 9.3 L (12.0-16.0) g/dL Hct 31.0 L 28.4 L (37-47) % Plt Count 90 L 67 L (130-400) K/uL BMP 07/22/20 04:44 Sodium 139 Potassium 4.2 D Chloride 110 H Carbon Dioxide 25 BUN 29 H Creatinine 1.64 H Glucose 75 Calcium 7.9 L D Liver Function 07/22/20 Range/Units 04:44 Total Bilirubin 0.7 (0.2-1) mg/dl AST 27 (15-37) U/L ALT 32 (12-78) U/L Alkaline Phosphatase 32 L (45-117) U/L Albumin 3.0 L (3.4-5.0) gm/dl Medications Administered Current Inpatient Medications Acetaminophen (Acetaminophen 325 Mg Tab) 650 mg PO Q6H PRN PRN Reason: Fever Stop: 08/20/20 02:37 Aspirin (Aspirin 81 Mg Ectab) 81 mg PO DAILY BEAU Stop: 08/20/20 08:59 Last Admin: 07/22/20 09:46 Dose: 81 mg Documented by: Atorvastatin Calcium (Atorvastatin 10 Mg Tab) 10 mg PO DAILY BEAU Stop: 08/20/20 08:59 Last Admin: 07/22/20 09:46 Dose: 10 mg Documented by: Dextrose (Dextrose 50% 50 Ml Syringe) 25 - 50 ml IV UD PRN; Protocol PRN Reason: Hypoglycemia Protocol Stop: 08/20/20 00:49 Glucagon (Glucagon For Inj 1 Mg Vial) 1 mg SQ UD PRN; Protocol PRN Reason: Hypoglycemia Protocol Stop: 08/20/20 00:49 Glucose (Glucose 10 Tabs/Tube) 4 - 8 tabs PO UD PRN; Protocol PRN Reason: Hypoglycemia Protocol Stop: 08/20/20 00:49 Glucose (Glucose 40% Gel 15 Gm Tube) 15 - 30 gm PO UD PRN; Protocol PRN Reason: Hypoglycemia Protocol Stop: 08/20/20 00:49 Heparin Sodium (Beef Lung) (Heparin 10 Unit/Ml 5 Ml Flush) 5 ml FLUSH PRN PRN PRN Reason: Flush Stop: 08/21/20 00:01 Heparin Sodium (Porcine) (Heparin Sod 5,000 Unit/0.5 Ml Vial) 5,000 units SQ Q12 BEAU Stop: 08/21/20 20:59 Ceftriaxone Sodium 1,000 mg/ (Dextrose) 50 mls @ 100 mls/hr IV Q24H BEAU; Protocol Stop: 08/01/20 09:59 Last Admin: 07/22/20 09:38 Dose: 100 mls/hr Documented by: Insulin Aspart (Insulin Aspart 100 Units/Ml 3 Ml Pen) 0 units SC Q4 BEAU Stop: 08/20/20 01:14 Last Admin: 07/22/20 12:38 Dose: Not Given Documented by: Insulin Glargine (Insulin Glargine Solostar 100 Units/Ml 3 Ml Pen) 10 units SC QAM BEAU Stop: 08/20/20 10:44 Last Admin: 07/22/20 10:34 Dose: 10 units Documented by: Lactobacillus Acidoph/Casei/Rhamnos (Advanced Probiotic 1250 Mg Capsule) 2 cap PO DAILY BEAU Stop: 08/20/20 08:59 Last Admin: 07/22/20 09:43 Dose: 2 cap Documented by: Levothyroxine Sodium (Levothyroxine Sodium 75 Mcg Tablet) 75 mcg PO DAILYBB BEAU Stop: 08/20/20 06:29 Last Admin: 07/22/20 05:02 Dose: 75 mcg Documented by: Miscellaneous (Carbohydrates For Hypoglycemia ) 15 - 30 gm PO UD PRN PRN Reason: Hypoglycemia Protocol Stop: 08/20/20 00:49 Miscellaneous (Icu Protocol For Hyperglycemia) 1 ea N/A PRN PRN; Protocol PRN Reason: Hyperglycemia Protocol Stop: 07/23/20 05:56 Ondansetron HCl (Ondansetron Inj 2 Mg/Ml 2 Ml Vial) 4 mg IV Q6H PRN PRN Reason: Nausea Stop: 08/21/20 07:49 Pantoprazole Sodium (Pantoprazole 40 Mg Tab) 40 mg PO DAILY BEAU Stop: 08/21/20 10:59 Last Admin: 07/22/20 11:02 Dose: 40 mg Documented by:
[2020-07-22] MEDS: NOREPINEPHRINE/D5W 8 MG/508 ML BAG IV SCH (19:08)
[2020-07-22] MEDS: ACETAMINOPHEN 325 MG TAB PO PRN (20:03)
[2020-07-22] MEDS ORDERED: XOPENEX/ATROVENT 1.25mg/0.5MG NEB COMBO NEB PRN (20:23)
[2020-07-22] MEDS ORDERED: LEVALBUTEROL 1.25MG/0.5ML NEB INH PRN (20:30)
[2020-07-22] MEDS ORDERED: IPRATROPIUM BROMIDE NEB SOLN 0.02% 2.5 ML VIAL INH PRN (20:30)
--- NOTE | 2020-07-22 21:28 | Electrocardiogram Report ---
Test Reason : Blood Pressure : / mmHG Vent. Rate : 103 BPM Atrial Rate : 103 BPM P-R Int : 178 ms QRS Dur : 074 ms QT Int : 374 ms P-R-T Axes : 063 029 039 degrees QTc Int : 489 ms Sinus tachycardia with frequent Premature atrial complexes in a trigeminal pattern Low voltage QRS Borderline ECG When compared with ECG of 21-JUL-2020 08:52, Premature atrial complexes are now Present Confirmed by Mannie Guerra ([id number]) on 07/22/2020 9:27:50 PM Referred By: REFERRED SELF Confirmed By:Mannie Guerra
[2020-07-22] MEDS ORDERED: FUROSEMIDE 20 MG in SYRINGE 0 ML IV ONE (22:45)
[2020-07-22] MEDS: CHLORASEPTIC 1.4% SOLN 180 ML BTL MT PRN (23:01)
[2020-07-23] MEDS: INSULIN ASPART 100 UNITS/ML 3 ML PEN SC SCH ×6 (00:42→21:24)
[2020-07-23] MEDS: CHLORASEPTIC 1.4% SOLN 180 ML BTL MT PRN ×3 (02:00→15:52)
[2020-07-23] MEDS: ACETAMINOPHEN 325 MG TAB PO PRN ×3 (05:06→21:27)
[2020-07-23] MEDS ORDERED: PHARMACY GLYCEMIC MGMT CONSULT PRN (05:52)
[2020-07-23] MEDS: LEVOTHYROXINE SODIUM 75 MCG TABLET PO SCH (06:35)
[2020-07-23] MEDS: ATORVASTATIN 10 MG TAB PO SCH (07:33)
[2020-07-23] MEDS: ASPIRIN 81 MG ECTAB PO SCH (07:33)
[2020-07-23] MEDS: ADVANCED PROBIOTIC 1250 MG CAPSULE PO SCH (07:33)
[2020-07-23] MEDS: PANTOprazole 40 MG TAB PO SCH (07:34)
--- NOTE | 2020-07-23 07:53 | XRay Report ---
XR chest 1V portable CLINICAL HISTORY: hypoxia COMPARISON STUDY: 07/21/2020 FINDINGS: The cardiac and mediastinal contours remain stable. There are persistent bilateral pleural effusions with slight interval increase in the size the right pleural effusion. There is radiographic evidence of congestive failure/fluid overload. There are bibasilar opacities, atelectatic versus inf ectious/inflammatory. The left internal jugular central venous catheter has been removed.[ IMPRESSION: 1. Interval removal of the left internal jugular central venous catheter 2. Radiographic evidence of persistent congestive failure/fluid overload with bilateral pleural effus ions, slightly increased on the right. There are associated bibasilar opacities, atelectatic versus i nfectious/inflammatory ACT 112: Negative or not required by law. Electronically signed by: Subhash Rajput M.D. 07/23/2020 7:52 AM
[2020-07-23 09:01] LABS: Hematocrit (blood only) 32.7 % (37-47); Hemoglobin 10.6 g/dL (12.0-16.0); Mean Corpuscular Hemoglobin 30.3 pg (25-34); Mean Corpuscular Hgb Conc 32.4 g/dL (32-36); Mean Corpuscular Volume 93.4 fL (80-100); Mean Platelet Volume 11.7 fL (7.4-10.4); Platelet Count 87 K/uL (130-400); RDW Coefficient of Variation 12.9 % (11.5-14.5); RDW Standard Deviation 43.9 fL (36.4-46.3)
[2020-07-23 09:26] LABS: BUN Creatinine Ratio 19.1 (10-20); Calcium 9.1 mg/dl (8.5-10.1); Creatinine Clr Calc Pharmacy 20.1 ml/min; Est GFR (African American) 31.1; Est GFR (Non-African American) 26.9; Magnesium 2.3 mg/dl (1.8-2.4)
[2020-07-23 09:30] LABS: Basophils # (auto) 0.02 K/uL (0-0.2); Basophils % (auto) 0.1 %; Dohle Bodies 1+; Eosinophils # (auto) 0.01 K/uL (0-0.5); Immature Granulocytes % (auto) 0.6 %; Lymphocytes # (auto) 1.55 K/uL (1.2-3.4); Lymphocytes % (auto) 4.9 %; Monocytes # (auto) 1.09 K/uL (0.11-0.59); Monocytes % (auto) 3.4 %; Neutrophils # (auto) 28.93 K/uL (1.4-6.5)
[2020-07-23 09:40] LABS: Phosphorus 2.8 mg/dl (2.5-4.9)
[2020-07-23] MEDS: HEPARIN SOD 5,000 UNIT/0.5 ML VIAL SQ SCH ×2 (10:22→21:24)
[2020-07-23] MEDS: cefTRIAXone SODIUM 1,000 MG in DEXTROSE 5% 50 ML IV SCH (10:23)
--- NOTE | 2020-07-23 13:10 | Hospitalist Progress Note ---
Date of Service July 23, 2020 Assessment & Plan (1) Severe sepsis: Secondary to complicated UTI with left vesicoureteral stone with mild to moderate left hydroureteronephrosis Source was controlled with emergent cystoscopy by urology overnight and removal of the stone and placement of stent Started on intravenous Zosyn Zosyn and Levophed for blood pressure support and IV fluids as needed. Levophed has been stopped and the blood pressure is maintained systolic more than 100 since this morning Remains afebrile but white count went up to 30 K today-will monitor Remains weak and lethargic and complains of neck pain Congestive heart failure with a bilateral pleural effusion Likely secondary to administration of fluid due to hypotension Got short of breath last night Received 20 mg of Lasix intravenously Condition has been improving since this morning (2) UTI (urinary tract infection): Zosyn pending urine cultures. Culture grew E. coli and is pansensitive Has been getting intravenous ceftriaxone which will be continued for now We will continue ceftriaxone for now Increasing white count likely secondary to ongoing infection and is contributed by hemoconcentration (3) Metabolic encephalopathy: -Likely multifactorial secondary to sepsis, medication induced from fentanyl, Benadryl, Ativan-resolved -Seems to be improving (4) Acute kidney injury superimposed on chronic kidney disease: Persistent, possibly secondary to EMILIE versus ATN and sepsis. Monitor daily BMP. Creatinine has gone down to 1.6 Advised more fluid intake and monitor PRP Kidney function is slightly worse with creatinine went up to 1.80 (5) DM type 2 (diabetes mellitus, type 2): Chronic, stable, controlled-Hgb A1c 7.1 04/2020 -Hold oral agents and utilize NovoLog per protocol while hospitalized (6) History of CVA (cerebrovascular accident): -Continue aspirin and statin (7) Hypothyroidism: Chronic, stable, controlled,-Continue levothyroxine per home regimen. (8) DVT prophylaxis: -SQ heparin We will discuss with the son Admission and Anticipated Discharge Date Admission Date: July 20, 2020 Subjective 07/22/2020 The patient was seen and examined in ICU She has been complaining of some neck pain specially at the site of central line Denies any fever and/or chills Complains to have nausea but no vomiting 07/23/2020 The patient was seen and examined in medical telemetry unit She was noted to have some shortness of breath last night and received a small dose of Lasix She has been feeling a lot better this morning Complains today of some neck pain mostly on the left side where she had that intravenous line Denies any fever and/or chills Review of Systems Review of Systems: All systems reviewed and are unremarkable except as noted below Gastrointestinal: + nausea; no abdominal pain and no vomiting Neurologic: Alert, awake and oriented x3 Physical Exam Physical Exam: Lying in bed with some discomfort in the neck Constitutional: well developed, well nourished, + acute distress (Due to neck pain but no shortness of breath) and + ill appearing Eyes: PERRL, conjunctivae normal, anicteric sclerae ENMT: external ear and nose normal, oropharynx normal Neck: trachea midline, no thyromegaly Respiratory: no respiratory distress Auscultation: lungs clear to auscultation bilaterally Cardiovascular: Rate/Rhythm: regular rate and regular rhythm Heart Sounds: no murmur Gastrointestinal (Abdomen): Inspection/Auscultation: normal bowel sounds; abdomen not distended Percussion/Palpation: abdomen soft; abdomen nontender Musculoskeletal: No acute arthritis in any joints Neurologic: Alert, awake and oriented x3. Generally very weak and lethargic Psychiatric: A+Ox3, euthymic affect Lymphatic: no cervical or axillary lymphadenopathy Results & Data Results & Data ([facility]) Vital Signs (Past 12 Hours) Vital Signs Temp Pulse Pulse Resp BP Pulse Ox 07/23/20 12:00 97 H 07/23/20 10:50 36.8 C 89 20 148/74 H 91 07/23/20 07:11 36.7 C 95 H 20 128/64 93 07/23/20 04:00 36.6 C 86 18 140/73 92 Laboratory Results Short CBC 07/23/20 Range/Units 08:26 WBC 31.80 H* (4.8-10.8) K/uL Hgb 10.6 L (12.0-16.0) g/dL Hct 32.7 L (37-47) % Plt Count 87 L (130-400) K/uL BMP 07/23/20 08:26 Sodium 139 Potassium 4.0 Chloride 110 H Carbon Dioxide 24 BUN 34 H Creatinine 1.80 H Glucose 102 H Calcium 9.1 D Medications Administered Current Inpatient Medications Acetaminophen (Acetaminophen 325 Mg Tab) 650 mg PO Q6H PRN PRN Reason: Fever Stop: 08/20/20 02:37 Last Admin: 07/23/20 11:05 Dose: 650 mg Documented by: Aspirin (Aspirin 81 Mg Ectab) 81 mg PO DAILY [facility] Stop: 08/20/20 08:59 Last Admin: 07/23/20 07:33 Dose: 81 mg Documented by: Atorvastatin Calcium (Atorvastatin 10 Mg Tab) 10 mg PO DAILY [facility] Stop: 08/20/20 08:59 Last Admin: 07/23/20 07:33 Dose: 10 mg Documented by: Dextrose (Dextrose 50% 50 Ml Syringe) 25 - 50 ml IV UD PRN; Protocol PRN Reason: Hypoglycemia Protocol Stop: 08/20/20 00:49 Glucagon (Glucagon For Inj 1 Mg Vial) 1 mg SQ UD PRN; Protocol PRN Reason: Hypoglycemia Protocol Stop: 08/20/20 00:49 Glucose (Glucose 10 Tabs/Tube) 4 - 8 tabs PO UD PRN; Protocol PRN Reason: Hypoglycemia Protocol Stop: 08/20/20 00:49 Glucose (Glucose 40% Gel 15 Gm Tube) 15 - 30 gm PO UD PRN; Protocol PRN Reason: Hypoglycemia Protocol Stop: 08/20/20 00:49 Heparin Sodium (Beef Lung) (Heparin 10 Unit/Ml 5 Ml Flush) 5 ml FLUSH PRN PRN PRN Reason: Flush Stop: 08/21/20 00:01 Heparin Sodium (Porcine) (Heparin Sod 5,000 Unit/0.5 Ml Vial) 5,000 units SQ Q12 [facility] Stop: 08/21/20 20:59 Last Admin: 07/23/20 10:22 Dose: 5,000 units Documented by: Ceftriaxone Sodium 1,000 mg/ (Dextrose) 50 mls @ 100 mls/hr IV Q24H [facility]; Protocol Stop: 08/01/20 09:59 Last Infusion: 07/23/20 11:01 Dose: Infused Documented by: Insulin Aspart (Insulin Aspart 100 Units/Ml 3 Ml Pen) 0 units SC Q4 [facility] Stop: 08/20/20 01:14 Last Admin: 07/23/20 12:55 Dose: Not Given Documented by: Ipratropium [place] (Ipratropium [place] Neb Soln 0.02% 2.5 Ml Vial) 0.5 mg INH Q4H PRN PRN Reason: Shortness Of Breath Or Wheezing Stop: 08/21/20 20:29 Lactobacillus Acidoph/Casei/Rhamnos (Advanced Probiotic 1250 Mg Capsule) 2 cap PO DAILY [facility] Stop: 08/20/20 08:59 Last Admin: 07/23/20 07:33 Dose: 2 cap Documented by: Levalbuterol HCl (Levalbuterol 1.25mg/0.5ml Neb) 1.25 mg INH Q4H PRN PRN Reason: Shortness Of Breath Or Wheezing Stop: 08/21/20 20:29 Levothyroxine Sodium (Levothyroxine Sodium 75 Mcg Tablet) 75 mcg PO DAILYBB [facility] Stop: 08/20/20 06:29 Last Admin: 07/23/20 06:35 Dose: 75 mcg Documented by: Miscellaneous (Carbohydrates For Hypoglycemia ) 15 - 30 gm PO UD PRN PRN Reason: Hypoglycemia Protocol Stop: 08/20/20 00:49 Miscellaneous Information (Pharmacy Glycemic Mgmt Consult) 1 ea N/A UD PRN PRN Reason: Consult Stop: 08/22/20 05:51 Ondansetron HCl (Ondansetron Inj 2 Mg/Ml 2 Ml Vial) 4 mg IV Q6H PRN PRN Reason: Nausea Stop: 08/21/20 07:49 Pantoprazole Sodium (Pantoprazole 40 Mg Tab) 40 mg PO DAILY [facility] Stop: 08/21/20 10:59 Last Admin: 07/23/20 07:34 Dose: 40 mg Documented by: Phenol (Chloraseptic 1.4% Soln 180 Ml Btl) 1 sprays MT Q2H PRN PRN Reason: Sore Throat Stop: 08/21/20 20:23 Last Admin: 07/23/20 05:07 Dose: 1 sprays Documented by:
--- NOTE | 2020-07-23 14:21 | Pharmacy Report ---
Pharmacy Glycemic Short Note 2 - Date of Service July 23, 2020 - Glycemic Short BSG Results (Last 24 hours): 07/22/20 07/22/20 07/22/20 16:41 20:08 23:58 Glucose POC Glucose 82 101 H 91 07/23/20 07/23/20 07/23/20 05:08 05:08 05:34 Glucose POC Glucose 59 L* 58 L* 102 H 07/23/20 07/23/20 07/23/20 07:36 08:26 11:45 Glucose 102 H POC Glucose 96 127 H OUTPATIENT ANTIDIABETIC REGIMEN: * glipizide 5mg PO BIDM * A1c = ? ordered for 07/24/20 ASSESSMENT: * 75yo T2DM female with unknown degree of outpatient control - A1c ordered for tomorrow with AM labs * Pt is maintained on oral antidiabetic agents as an outpatient * Oral agents are not recommended for inpatient use d/t drug interactions, changing PO intake, and difficulty titrating for acute hyper/hypoglycemia. ADA recommends re-initiating outpatient oral agents 1-2 days prior to discharge if/when appropriate if they were held on admission. * Will hold oral agents for admission and utilize SQ basal bolus insulin regimen which is the recommended regimen for inpatient glycemic control. * Will initiate weight based insulin dosing for insulin mirella patient and titrate based on BSG trends. * Pt with LOW BSG this AM after receiving 10 units of Lantus yesterday. Will dc basal insulin and just utilize bolus insulin monotherapy. PLAN FOR INPATIENT GLYCEMIC CONTROL: * Hold outpatient oral diabetes medications * Basal insulin * DC Lantus secondary to hypo * Bolus insulin * NovoLog per scale ACHS or Q6hrs while NPO * Goal Range: Low 110 mg/dL - High 140 mg/dL * Correction Factor: 30 mg/dL/unit * Nutritional / Prandial insulin per carb ratio of 1 unit per 14 grams CHO consumed PLAN FOR DISCHARGE: * pending based on A1c
[2020-07-23] MEDS ORDERED: NURSING DECISION MEDICATION ONE (16:49)
[2020-07-23] MEDS ORDERED: COUGH DROP (SUGAR FREE) LOZ 24 LOZ/1 BOX BUCCAL PRN (16:59)
[2020-07-24] MEDS: LEVOTHYROXINE SODIUM 75 MCG TABLET PO SCH (06:05)
[2020-07-24 06:44] LABS: Hematocrit (blood only) 31.8 % (37-47); Hemoglobin 10.5 g/dL (12.0-16.0); Mean Corpuscular Hemoglobin 30.8 pg (25-34); Mean Corpuscular Volume 93.3 fL (80-100); Mean Platelet Volume 11.7 fL (7.4-10.4); Platelet Count 121 K/uL (130-400); RDW Coefficient of Variation 12.7 % (11.5-14.5); RDW Standard Deviation 43.4 fL (36.4-46.3); Red Blood Count 3.41 M/uL (4.2-5.4); White Blood Count 32.02 K/uL (4.8-10.8)
[2020-07-24 06:59] LABS: Estimated Average Glucose 169 mg/dl; Hemoglobin A1C 7.5 % (4.5-5.6)
[2020-07-24 07:04] LABS: Basophils # (auto) 0.02 K/uL (0-0.2); Basophils % (auto) 0.1 %; Dohle Bodies 1+; Immature Granulocytes # (auto) 0.26 K/uL (0.00-0.02); Immature Granulocytes % (auto) 0.8 %; Lymphocytes # (auto) 1.26 K/uL (1.2-3.4); Lymphocytes % (auto) 3.9 %; Monocytes # (auto) 1.49 K/uL (0.11-0.59); Monocytes % (auto) 4.7 %; Neutrophils # (auto) 28.99 K/uL (1.4-6.5); Neutrophils % (auto) 90.5 %
[2020-07-24 07:19] LABS: BUN Creatinine Ratio 24.8 (10-20); Calcium 9.1 mg/dl (8.5-10.1); Creatinine Clr Calc Pharmacy 32.2 ml/min; Est GFR (African American) 55.3; Est GFR (Non-African American) 47.7; Magnesium 1.9 mg/dl (1.8-2.4); Potassium 3.6 mmol/L (3.5-5.1)
[2020-07-24] MEDS ORDERED: PIPERACILL/TAZOBAC CONSULT ACTIVE PRN (07:59)
[2020-07-24] MEDS: HEPARIN SOD 5,000 UNIT/0.5 ML VIAL SQ SCH ×2 (08:01→19:41)
[2020-07-24] MEDS: ACETAMINOPHEN 325 MG TAB PO PRN ×3 (08:01→22:26)
[2020-07-24] MEDS: ASPIRIN 81 MG ECTAB PO SCH (08:02)
[2020-07-24] MEDS: CHLORASEPTIC 1.4% SOLN 180 ML BTL MT PRN (08:02)
[2020-07-24] MEDS: ATORVASTATIN 10 MG TAB PO SCH (08:02)
[2020-07-24] MEDS: ADVANCED PROBIOTIC 1250 MG CAPSULE PO SCH (08:02)
[2020-07-24] MEDS: PANTOprazole 40 MG TAB PO SCH (08:02)
[2020-07-24] MEDS ORDERED: PIPERACILLIN/TAZOBACTAM 4.5 GM in DEXTROSE 5% 100 ML IV ONE (08:30)
[2020-07-24] MEDS: INSULIN ASPART 100 UNITS/ML 3 ML PEN SC SCH ×4 (08:57→21:12)
[2020-07-24] MEDS: DOXYCYCLINE HYCLATE 100 MG in DEXTROSE 5% 100 ML IV SCH ×2 (09:05→21:10)
[2020-07-24] MEDS ORDERED: POTASSIUM PHOS 3 MMOL/1 ML INFUSION IV STA (11:24)
--- NOTE | 2020-07-24 11:24 | Hospitalist Progress Note ---
Date of Service July 24, 2020 Assessment & Plan (1) Severe sepsis: Secondary to complicated UTI with left vesicoureteral stone with mild to moderate left hydroureteronephrosis Source was controlled with emergent cystoscopy by urology overnight and removal of the stone and placement of stent Started on intravenous Zosyn Zosyn and Levophed for blood pressure support and IV fluids as needed. Levophed has been stopped and the blood pressure is maintained systolic more than 100 since this morning Remains afebrile but white count went up to 30 K today-will monitor Remains weak and lethargic and complains of pain at the infusion site Leukocytosis Has been going up Has UTI with E. coli which is pansensitive Chest x-ray showed bibasilar atelectasis/infiltration with pleural effusion We will discontinue IV ceftriaxone Add intravenous Zosyn and IV doxycycline for now Congestive heart failure with a bilateral pleural effusion Likely secondary to administration of fluid due to hypotension Got short of breath last night Received 20 mg of Lasix intravenously Condition has been improving since this morning (2) UTI (urinary tract infection): Zosyn pending urine cultures. Culture grew E. coli and is pansensitive Has been getting intravenous ceftriaxone which will be continued for now We will continue ceftriaxone for now Increasing white count likely secondary to ongoing infection and is contributed by hemoconcentration We will discontinue intravenous ceftriaxone and add Zosyn to cover respiratory pathogens as well (3) Metabolic encephalopathy: -Likely multifactorial secondary to sepsis, medication induced from fentanyl, Benadryl, Ativan-resolved -Seems to be improving (4) Acute kidney injury superimposed on chronic kidney disease: Persistent, possibly secondary to EMILIE versus ATN and sepsis. Monitor daily BMP. Creatinine has gone down to 1.6 Advised more fluid intake and monitor PRP Kidney function is slightly worse with creatinine went up to 1.80 Creatinine has been normalized (5) DM type 2 (diabetes mellitus, type 2): Chronic, stable, controlled-Hgb A1c 7.1 04/2020 -Hold oral agents and utilize NovoLog per protocol while hospitalized (6) History of CVA (cerebrovascular accident): -Continue aspirin and statin (7) Hypothyroidism: Chronic, stable, controlled,-Continue levothyroxine per home regimen. (8) DVT prophylaxis: -SQ heparin We will discuss with the son Admission and Anticipated Discharge Date Admission Date: July 20, 2020 Subjective 07/22/2020 The patient was seen and examined in ICU She has been complaining of some neck pain specially at the site of central line Denies any fever and/or chills Complains to have nausea but no vomiting 07/23/2020 The patient was seen and examined in medical telemetry unit She was noted to have some shortness of breath last night and received a small dose of Lasix She has been feeling a lot better this morning Complains today of some neck pain mostly on the left side where she had that intravenous line Denies any fever and/or chills 07/24/2020 The patient was seen and examined in medical telemetry unit She has been very lethargic and complains of pain at the infusion site Her neck pain is better Complains today of some nausea but no fever and/or chills Review of Systems Review of Systems: All systems reviewed and are unremarkable except as noted below Constitutional: + fatigue and + weakness Gastrointestinal: + nausea; no abdominal pain and no vomiting Neurologic: Alert, awake and oriented x3. Remains very lethargic Physical Exam Physical Exam: Lying in bed with some discomfort in the neck Constitutional: well developed, well nourished, + acute distress (Due to neck pain but no shortness of breath) and + ill appearing Eyes: PERRL, conjunctivae normal, anicteric sclerae ENMT: external ear and nose normal, oropharynx normal Neck: trachea midline, no thyromegaly Respiratory: no respiratory distress Auscultation: + diminished lung sounds and + crackles (Minimal bibasilar crackles) Cardiovascular: Rate/Rhythm: regular rate and regular rhythm Heart Sounds: no murmur Gastrointestinal (Abdomen): Inspection/Auscultation: normal bowel sounds; abdomen not distended Percussion/Palpation: abdomen soft; abdomen nontender Musculoskeletal: No acute arthritis in any joint Psychiatric: A+Ox3, euthymic affect Lymphatic: no cervical or axillary lymphadenopathy Results & Data Results & Data ([facility]) Vital Signs (Past 12 Hours) Vital Signs Temp Pulse Pulse Pulse Resp BP Pulse Ox 07/24/20 07:38 102 H 07/24/20 07:10 36.8 C 108 H 16 171/73 H 96 07/24/20 03:15 36.8 C 102 H 20 162/72 H 94 07/23/20 23:43 36.8 C 107 H 20 162/64 H 92 Laboratory Results Short CBC 07/24/20 Range/Units 06:03 WBC 32.02 H* (4.8-10.8) K/uL Hgb 10.5 L (12.0-16.0) g/dL Hct 31.8 L (37-47) % Plt Count 121 L (130-400) K/uL BMP 07/24/20 06:03 Sodium 139 Potassium 3.6 Chloride 109 H Carbon Dioxide 22 BUN 28 H Creatinine 1.12 D Glucose 133 H Calcium 9.1 Medications Administered Current Inpatient Medications Acetaminophen (Acetaminophen 325 Mg Tab) 650 mg PO Q6H PRN PRN Reason: Fever Stop: 08/20/20 02:37 Last Admin: 07/24/20 08:01 Dose: 650 mg Documented by: Aspirin (Aspirin 81 Mg Ectab) 81 mg PO DAILY [facility] Stop: 08/20/20 08:59 Last Admin: 07/24/20 08:02 Dose: 81 mg Documented by: Atorvastatin Calcium (Atorvastatin 10 Mg Tab) 10 mg PO DAILY [facility] Stop: 08/20/20 08:59 Last Admin: 07/24/20 08:02 Dose: 10 mg Documented by: Dextrose (Dextrose 50% 50 Ml Syringe) 25 - 50 ml IV UD PRN; Protocol PRN Reason: Hypoglycemia Protocol Stop: 08/20/20 00:49 Glucagon (Glucagon For Inj 1 Mg Vial) 1 mg SQ UD PRN; Protocol PRN Reason: Hypoglycemia Protocol Stop: 08/20/20 00:49 Glucose (Glucose 10 Tabs/Tube) 4 - 8 tabs PO UD PRN; Protocol PRN Reason: Hypoglycemia Protocol Stop: 08/20/20 00:49 Glucose (Glucose 40% Gel 15 Gm Tube) 15 - 30 gm PO UD PRN; Protocol PRN Reason: Hypoglycemia Protocol Stop: 08/20/20 00:49 Heparin Sodium (Beef Lung) (Heparin 10 Unit/Ml 5 Ml Flush) 5 ml FLUSH PRN PRN PRN Reason: Flush Stop: 08/21/20 00:01 Heparin Sodium (Porcine) (Heparin Sod 5,000 Unit/0.5 Ml Vial) 5,000 units SQ Q12 [facility] Stop: 08/21/20 20:59 Last Admin: 07/24/20 08:01 Dose: 5,000 units Documented by: Piperacillin Sod/Tazobactam (Sod 3.375 gm/ Dextrose) 115 mls @ 28.75 mls/hr IV Q8H [facility]; Protocol Stop: 08/03/20 13:59 Doxycycline Hyclate 100 mg/ (Dextrose) 110 mls @ 50 mls/hr IV Q12H [facility] Stop: 07/31/20 08:59 Last Infusion: 07/24/20 11:13 Dose: Infused Documented by: Insulin Aspart (Insulin Aspart 100 Units/Ml 3 Ml Pen) 0 units SC ACHS [facility] Stop: 08/22/20 16:29 Last Admin: 07/24/20 08:57 Dose: Not Given Documented by: Ipratropium [place] (Ipratropium [place] Neb Soln 0.02% 2.5 Ml Vial) 0.5 mg INH Q4H PRN PRN Reason: Shortness Of Breath Or Wheezing Stop: 08/21/20 20:29 Lactobacillus Acidoph/Casei/Rhamnos (Advanced Probiotic 1250 Mg Capsule) 2 cap PO DAILY [facility] Stop: 08/20/20 08:59 Last Admin: 07/24/20 08:02 Dose: 2 cap Documented by: Levalbuterol HCl (Levalbuterol 1.25mg/0.5ml Neb) 1.25 mg INH Q4H PRN PRN Reason: Shortness Of Breath Or Wheezing Stop: 08/21/20 20:29 Levothyroxine Sodium (Levothyroxine Sodium 75 Mcg Tablet) 75 mcg PO DAILYBB [facility] Stop: 08/20/20 06:29 Last Admin: 07/24/20 06:05 Dose: 75 mcg Documented by: Menthol (Cough Drop (Sugar Free) Teresita 24 Teresita/1 Box) 1 teresita [place] Q1H PRN PRN Reason: SORE THROAT Stop: 08/22/20 16:58 Last Admin: 07/23/20 17:38 Dose: 1 teresita Documented by: Miscellaneous (Carbohydrates For Hypoglycemia ) 15 - 30 gm PO UD PRN PRN Reason: Hypoglycemia Protocol Stop: 08/20/20 00:49 Miscellaneous Information (Pharmacy Glycemic Mgmt Consult) 1 ea N/A UD PRN PRN Reason: Consult Stop: 08/22/20 05:51 Miscellaneous Information (Piperacill/Tazobac Consult Active) 1 ea N/A UD PRN PRN Reason: Consult Stop: 08/23/20 07:58 Ondansetron HCl (Ondansetron Inj 2 Mg/Ml 2 Ml Vial) 4 mg IV Q6H PRN PRN Reason: Nausea Stop: 08/21/20 07:49 Pantoprazole Sodium (Pantoprazole 40 Mg Tab) 40 mg PO DAILY [facility] Stop: 08/21/20 10:59 Last Admin: 07/24/20 08:02 Dose: 40 mg Documented by: Phenol (Chloraseptic 1.4% Soln 180 Ml Btl) 1 sprays MT Q2H PRN PRN Reason: Sore Throat Stop: 08/21/20 20:23 Last Admin: 07/24/20 08:02 Dose: 1 sprays Documented by:
[2020-07-24] MEDS ORDERED: POTASSIUM PHOSPHATE 21 MMOL in SODIUM CHLORIDE 0.9% 500 ML IV ONE (12:00)
[2020-07-24] MEDS: NYSTATIN SUSP 500,000 U/5 ML UDC PO SCH ×2 (16:02→19:39)
[2020-07-24] MEDS: PIPERACILLIN/TAZOBACTAM 3.375 GM in DEXTROSE 5% 100 ML IV SCH (16:03)
[2020-07-24] MEDS ORDERED: ZOLPIDEM TARTRATE 5 MG TAB PO STA (21:15)
[2020-07-25] MEDS: PIPERACILLIN/TAZOBACTAM 3.375 GM in DEXTROSE 5% 100 ML IV SCH ×4 (00:35→23:59)
[2020-07-25 06:19] LABS: Basophils # (auto) 0.03 K/uL (0-0.2); Basophils % (auto) 0.2 %; Eosinophils # (auto) 0.06 K/uL (0-0.5); Eosinophils % (auto) 0.3 %; Hematocrit (blood only) 35.8 % (37-47); Hemoglobin 11.8 g/dL (12.0-16.0); Immature Granulocytes # (auto) 0.46 K/uL (0.00-0.02); Immature Granulocytes % (auto) 2.4 %; Lymphocytes # (auto) 1.59 K/uL (1.2-3.4); Lymphocytes % (auto) 8.4 %; Mean Corpuscular Hemoglobin 30.4 pg (25-34); Mean Corpuscular Volume 92.3 fL (80-100); Mean Platelet Volume 11.2 fL (7.4-10.4); Monocytes # (auto) 2.34 K/uL (0.11-0.59); Monocytes % (auto) 12.4 %; Neutrophils # (auto) 14.43 K/uL (1.4-6.5); Neutrophils % (auto) 76.3 %; Platelet Count 143 K/uL (130-400); RDW Coefficient of Variation 12.8 % (11.5-14.5); RDW Standard Deviation 43.2 fL (36.4-46.3); Red Blood Count 3.88 M/uL (4.2-5.4); White Blood Count 18.91 K/uL (4.8-10.8)
[2020-07-25 06:45] LABS: BUN Creatinine Ratio 18.2 (10-20); Calcium 8.8 mg/dl (8.5-10.1); Creatinine Clr Calc Pharmacy 32.5 ml/min; Est GFR (African American) 55.9; Est GFR (Non-African American) 48.2; Phosphorus 1.9 mg/dl (2.5-4.9); Potassium 3.4 mmol/L (3.5-5.1)
[2020-07-25] MEDS: LEVOTHYROXINE SODIUM 75 MCG TABLET PO SCH (07:15)
[2020-07-25] MEDS ORDERED: POTASSIUM PHOS 3 MMOL/1 ML INFUSION IV STA (08:04)
[2020-07-25] MEDS: LOPERAMIDE HCL 2 MG CAP PO PRN ×2 (08:12→17:43)
[2020-07-25] MEDS: ACETAMINOPHEN 325 MG TAB PO PRN ×2 (08:12→17:43)
[2020-07-25] MEDS: DOXYCYCLINE HYCLATE 100 MG in DEXTROSE 5% 100 ML IV SCH ×2 (08:12→20:46)
[2020-07-25] MEDS: ATORVASTATIN 10 MG TAB PO SCH (08:14)
[2020-07-25] MEDS: INSULIN ASPART 100 UNITS/ML 3 ML PEN SC SCH ×4 (08:14→20:43)
[2020-07-25] MEDS: ADVANCED PROBIOTIC 1250 MG CAPSULE PO SCH (08:15)
[2020-07-25] MEDS: HEPARIN SOD 5,000 UNIT/0.5 ML VIAL SQ SCH (08:15)
[2020-07-25] MEDS: ASPIRIN 81 MG ECTAB PO SCH (08:15)
[2020-07-25] MEDS: PANTOprazole 40 MG TAB PO SCH (08:15)
[2020-07-25] MEDS: NYSTATIN SUSP 500,000 U/5 ML UDC PO SCH ×3 (08:16→20:44)
[2020-07-25] MEDS ORDERED: POTASSIUM PHOSPHATE 24 MMOL in SODIUM CHLORIDE 0.9% 500 ML IV ONE (08:30)
--- NOTE | 2020-07-25 10:19 | CT Scan Report ---
ABDOMEN AND PELVIS CT WITHOUT CONTRAST CT DOSE: 269.50 mGy.cm HISTORY: Acute generalized abdominal pain R/O obstruction/bleed TECHNIQUE: Multiaxial CT images of the abdomen and pelvis were performed without contrast. A dose lo wering technique was utilized adhering to the principles of ALARA. COMPARISON STUDY: CTA abdomen and pelvis 07/20/2020 FINDINGS: Cardiomegaly. Increased size of the bilateral pleural effusions, now [id number] in s ize. 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 There is no pneumatosis or pneumoperitoneum. The spleen, mildly atrophic pancreas, and adrenal glands are unremarkable. Hepatic steatosis. Increas ed attenuation layering within the gallbladder lumen is suggestive of vicarious excretion of IV contr ast. Mild gallbladder wall thickening. Unremarkable right kidney. Mild left-sided hydroureteronephrosis. Satisfactory positioning of a left ureteral stent. Previously noted 3 mm calculus of the left ureterovesicular junction is no longer argelia ntified. Yee catheter noted within the decompressed urinary bladder. Air within the bladder lumen i s likely secondary to instrumentation. Hysterectomy. Calcified plaque of the abdominal aorta without aneurysm. No adenopathy or retroperitoneal hematoma. No bowel obstruction. Trace dependent free fluid within the pelvis, likely secondary to fluid overloa d. Colonic diverticulosis without acute diverticulitis. Scattered colonic air-fluid levels. The visua lized appendix is noninflamed. There is mild generalized body wall edema. Degenerative changes of the spine, pelvis and hips. Demineralized appearance of the bones. IMPRESSION: 1. No bowel obstruction or bowel wall thickening. 2. Mild persistent left-sided hydroureteronephrosis with satisfactory positioning of the left uretera l stent. The previously noted 3 mm calculus of the left ureterovesicular junction is no longer identi fied. 3. Colonic diverticulosis without acute diverticulitis. 4. Fluid overload with small to moderate pleural effusions, trace free fluid within the pelvis and mi ld generalized body wall edema. 5. Mild gallbladder wall thickening is likely secondary to fluid overload. 6. Progressively worsened bilateral alveolar and groundglass opacities of the lung bases may be relat ed to pulmonary edema and atelectasis however a superimposed pneumonia would be impossible to exclude . 7. Additional findings as above. ACT 112: Negative or not required by law. The above report was generated using voice recognition software. It may contain grammatical, syntax o r spelling errors. Electronically signed by: Malik Javier M.D. 07/25/2020 10:17 AM
[2020-07-25] MEDS ORDERED: SUCRALFATE 1 GM TAB PO STA (15:12)
--- NOTE | 2020-07-25 16:59 | Hospitalist Progress Note ---
Date of Service July 25, 2020 Assessment & Plan (1) Severe sepsis: Secondary to complicated UTI with left vesicoureteral stone with mild to moderate left hydroureteronephrosis Source was controlled with emergent cystoscopy by urology overnight and removal of the stone and placement of stent Started on intravenous Zosyn Zosyn and Levophed for blood pressure support and IV fluids as needed. Levophed has been stopped and the blood pressure is maintained systolic more than 100 since this morning Remains afebrile but white count went up to 30 K today-will monitor Remains weak and lethargic and complains of pain at the infusion site Has a CT of the abdomen and pelvis which was unremarkable except possible gastritis We will try sucralfate twice daily Clinically a little better today Leukocytosis Has been going up Has UTI with E. coli which is pansensitive Chest x-ray showed bibasilar atelectasis/infiltration with pleural effusion We will discontinue IV ceftriaxone Add intravenous Zosyn and IV doxycycline for now Leukocytosis has been improving with white count down to 18 K Congestive heart failure with a bilateral pleural effusion Likely secondary to administration of fluid due to hypotension Got short of breath last night Received 20 mg of Lasix intravenously Condition has been improving since this morning (2) UTI (urinary tract infection): Zosyn pending urine cultures. Culture grew E. coli and is pansensitive Has been getting intravenous ceftriaxone which will be continued for now We will continue ceftriaxone for now Increasing white count likely secondary to ongoing infection and is contributed by hemoconcentration We will discontinue intravenous ceftriaxone and add Zosyn to cover respiratory pathogens as well (3) Metabolic encephalopathy: -Likely multifactorial secondary to sepsis, medication induced from fentanyl, Benadryl, Ativan-resolved -Seems to be improving (4) Acute kidney injury superimposed on chronic kidney disease: Persistent, possibly secondary to EMILIE versus ATN and sepsis. Monitor daily BMP. Creatinine has gone down to 1.6 Advised more fluid intake and monitor PRP Kidney function is slightly worse with creatinine went up to 1.80 Creatinine has been normalized We will monitor kidney function (5) DM type 2 (diabetes mellitus, type 2): Chronic, stable, controlled-Hgb A1c 7.1 04/2020 -Hold oral agents and utilize NovoLog per protocol while hospitalized (6) History of CVA (cerebrovascular accident): -Continue aspirin and statin (7) Hypothyroidism: Chronic, stable, controlled,-Continue levothyroxine per home regimen. (8) DVT prophylaxis: -SQ heparin We will discuss with the son Admission and Anticipated Discharge Date Admission Date: July 20, 2020 Subjective 07/22/2020 The patient was seen and examined in ICU She has been complaining of some neck pain specially at the site of central line Denies any fever and/or chills Complains to have nausea but no vomiting 07/23/2020 The patient was seen and examined in medical telemetry unit She was noted to have some shortness of breath last night and received a small dose of Lasix She has been feeling a lot better this morning Complains today of some neck pain mostly on the left side where she had that intravenous line Denies any fever and/or chills 07/24/2020 The patient was seen and examined in medical telemetry unit She has been very lethargic and complains of pain at the infusion site Her neck pain is better Complains today of some nausea but no fever and/or chills 07/25/2020 The patient was seen and examined in medical telemetry unit She complains today of some throat pain and pain in the epigastrium with some nausea Has been feeling a little better compared to yesterday Review of Systems Review of Systems: All systems reviewed and are unremarkable except as noted below Gastrointestinal: + abdominal pain and + nausea Genitourinary: Fullness of the urinary bladder Physical Exam Physical Exam: Lying in bed with some discomfort in the neck Constitutional: well developed, well nourished, + acute distress (Due to neck pain but no shortness of breath) and + ill appearing Eyes: PERRL, conjunctivae normal, anicteric sclerae ENMT: external ear and nose normal, oropharynx normal Neck: trachea midline, no thyromegaly Respiratory: no respiratory distress Auscultation: + diminished lung sounds and + crackles (Minimal bibasilar crackles) Cardiovascular: Rate/Rhythm: regular rate and regular rhythm Heart Sounds: no murmur Gastrointestinal (Abdomen): Inspection/Auscultation: normal bowel sounds; abdomen not distended Percussion/Palpation: + abdomen tender (In the epigastrium) and abdomen soft Musculoskeletal: No acute arthritis in any joint Psychiatric: A+Ox3, euthymic affect Lymphatic: no cervical or axillary lymphadenopathy Results & Data Results & Data ([facility]) Vital Signs (Past 12 Hours) Vital Signs Temp Pulse Pulse Resp BP Pulse Ox 07/25/20 16:00 88 07/25/20 15:19 36.8 C 79 18 148/71 H 96 07/25/20 11:23 36.6 C 87 18 139/69 94 07/25/20 07:21 90 07/25/20 07:10 36.9 C 80 18 164/87 H 92 Laboratory Results Short CBC 07/25/20 Range/Units 05:57 WBC 18.91 H D (4.8-10.8) K/uL Hgb 11.8 L (12.0-16.0) g/dL Hct 35.8 L (37-47) % Plt Count 143 (130-400) K/uL BMP 07/25/20 05:57 Sodium 141 Potassium 3.4 L Chloride 110 H Carbon Dioxide 24 BUN 20 H Creatinine 1.11 Glucose 157 H Calcium 8.8 Medications Administered Current Inpatient Medications Acetaminophen (Acetaminophen 325 Mg Tab) 650 mg PO Q6H PRN PRN Reason: Fever Stop: 08/20/20 02:37 Last Admin: 07/25/20 08:12 Dose: 650 mg Documented by: Aspirin (Aspirin 81 Mg Ectab) 81 mg PO DAILY [facility] Stop: 08/20/20 08:59 Last Admin: 07/25/20 08:15 Dose: 81 mg Documented by: Atorvastatin Calcium (Atorvastatin 10 Mg Tab) 10 mg PO DAILY [facility] Stop: 08/20/20 08:59 Last Admin: 07/25/20 08:14 Dose: 10 mg Documented by: Nystatin 30 ml/ Dexamethasone 3.75 mg/ Diphenhydramine HCl 300 mg/ Sucrose 45 ml/Microcrystalline Cellulose 45 ml/ BARCODE IDENTIFIER 1 ea 0 ml PO Q4H PRN PRN Reason: Dyspepsia Stop: 08/23/20 16:22 Last Admin: 07/25/20 08:13 Dose: 5 ml Documented by: Dextrose (Dextrose 50% 50 Ml Syringe) 25 - 50 ml IV UD PRN; Protocol PRN Reason: Hypoglycemia Protocol Stop: 08/20/20 00:49 Glucagon (Glucagon For Inj 1 Mg Vial) 1 mg SQ UD PRN; Protocol PRN Reason: Hypoglycemia Protocol Stop: 08/20/20 00:49 Glucose (Glucose 10 Tabs/Tube) 4 - 8 tabs PO UD PRN; Protocol PRN Reason: Hypoglycemia Protocol Stop: 08/20/20 00:49 Glucose (Glucose 40% Gel 15 Gm Tube) 15 - 30 gm PO UD PRN; Protocol PRN Reason: Hypoglycemia Protocol Stop: 08/20/20 00:49 Heparin Sodium (Beef Lung) (Heparin 10 Unit/Ml 5 Ml Flush) 5 ml FLUSH PRN PRN PRN Reason: Flush Stop: 08/21/20 00:01 Heparin Sodium (Porcine) (Heparin Sod 5,000 Unit/0.5 Ml Vial) 5,000 units SQ Q12 [facility] Stop: 08/21/20 20:59 Last Admin: 07/25/20 08:15 Dose: 5,000 units Documented by: Piperacillin Sod/Tazobactam (Sod 3.375 gm/ Dextrose) 115 mls @ 28.75 mls/hr IV Q8H [facility]; Protocol Stop: 08/03/20 13:59 Last Admin: 07/25/20 13:59 Dose: 28.8 mls/hr Documented by: Doxycycline Hyclate 100 mg/ (Dextrose) 110 mls @ 50 mls/hr IV Q12H [facility] Stop: 07/31/20 08:59 Last Infusion: 07/25/20 10:27 Dose: Infused Documented by: Insulin Aspart (Insulin Aspart 100 Units/Ml 3 Ml Pen) 0 units SC ACHS [facility] Stop: 08/22/20 16:29 Last Admin: 07/25/20 13:54 Dose: 2 units Documented by: Ipratropium [place] (Ipratropium [place] Neb Soln 0.02% 2.5 Ml Vial) 0.5 mg INH Q4H PRN PRN Reason: Shortness Of Breath Or Wheezing Stop: 08/21/20 20:29 Lactobacillus Acidoph/Casei/Rhamnos (Advanced Probiotic 1250 Mg Capsule) 2 cap PO DAILY [facility] Stop: 08/20/20 08:59 Last Admin: 07/25/20 08:15 Dose: 2 cap Documented by: Levalbuterol HCl (Levalbuterol 1.25mg/0.5ml Neb) 1.25 mg INH Q4H PRN PRN Reason: Shortness Of Breath Or Wheezing Stop: 08/21/20 20:29 Levothyroxine Sodium (Levothyroxine Sodium 75 Mcg Tablet) 75 mcg PO DAILYBB [facility] Stop: 08/20/20 06:29 Last Admin: 07/25/20 07:15 Dose: 75 mcg Documented by: Loperamide HCl (Loperamide Hcl 2 Mg Cap) 2 mg PO Q2H PRN PRN Reason: Diarrhea Stop: 08/23/20 16:24 Last Admin: 07/25/20 08:12 Dose: 2 mg Documented by: Menthol (Cough Drop (Sugar Free) Teresita 24 Teresita/1 Box) 1 teresita BUCCAL Q1H PRN PRN Reason: SORE THROAT Stop: 08/22/20 16:58 Last Admin: 07/23/20 17:38 Dose: 1 teresita Documented by: Miscellaneous (Carbohydrates For Hypoglycemia ) 15 - 30 gm PO UD PRN PRN Reason: Hypoglycemia Protocol Stop: 08/20/20 00:49 Miscellaneous Information (Pharmacy Glycemic Mgmt Consult) 1 ea N/A UD PRN PRN Reason: Consult Stop: 08/22/20 05:51 Miscellaneous Information (Piperacill/Tazobac Consult Active) 1 ea N/A UD PRN PRN Reason: Consult Stop: 08/23/20 07:58 Nystatin (Nystatin Susp 500,000 U/5 Ml Udc) 10 ml PO TID [facility] Stop: 08/23/20 13:59 Last Admin: 07/25/20 13:54 Dose: 10 ml Documented by: Ondansetron HCl (Ondansetron Inj 2 Mg/Ml 2 Ml Vial) 4 mg IV Q6H PRN PRN Reason: Nausea Stop: 08/21/20 07:49 Pantoprazole Sodium (Pantoprazole 40 Mg Tab) 40 mg PO DAILY [facility] Stop: 08/21/20 10:59 Last Admin: 07/25/20 08:15 Dose: 40 mg Documented by: Phenol (Chloraseptic 1.4% Soln 180 Ml Btl) 1 sprays MT Q2H PRN PRN Reason: Sore Throat Stop: 08/21/20 20:23 Last Admin: 07/24/20 08:02 Dose: 1 sprays Documented by: Sucralfate (Sucralfate 1 Gm Tab) 1 gm PO BID@9830,4730 [facility] Stop: 08/25/20 07:29
[2020-07-25] MEDS: ZOLPIDEM TARTRATE 5 MG TAB PO PRN (21:10)
[2020-07-26] MEDS: LEVOTHYROXINE SODIUM 75 MCG TABLET PO SCH (06:41)
[2020-07-26] MEDS: PIPERACILLIN/TAZOBACTAM 3.375 GM in DEXTROSE 5% 100 ML IV SCH ×3 (06:41→23:08)
[2020-07-26 07:01] LABS: Hematocrit (blood only) 32.8 % (37-47); Hemoglobin 10.8 g/dL (12.0-16.0); Mean Corpuscular Hemoglobin 30.8 pg (25-34); Mean Corpuscular Hgb Conc 32.9 g/dL (32-36); Mean Corpuscular Volume 93.4 fL (80-100); Mean Platelet Volume 11.2 fL (7.4-10.4); Platelet Count 167 K/uL (130-400); RDW Coefficient of Variation 13.2 % (11.5-14.5); RDW Standard Deviation 45.2 fL (36.4-46.3); Red Blood Count 3.51 M/uL (4.2-5.4)
[2020-07-26 07:32] LABS: BUN Creatinine Ratio 16.4 (10-20); Calcium 8.2 mg/dl (8.5-10.1); Creatinine Clr Calc Pharmacy 35.8 ml/min; Est GFR (African American) 62.6; Magnesium 1.7 mg/dl (1.8-2.4); Potassium 3.5 mmol/L (3.5-5.1)
[2020-07-26 07:36] LABS: Phosphorus 2.6 mg/dl (2.5-4.9)
[2020-07-26 07:41] LABS: Basophils # (auto) 0.04 K/uL (0-0.2); Basophils % (auto) 0.2 %; Eosinophils # (auto) 0.14 K/uL (0-0.5); Eosinophils % (auto) 0.8 %; Immature Granulocytes % (auto) 4.2 %; Lymphocytes # (auto) 2.12 K/uL (1.2-3.4); Lymphocytes % (auto) 12.8 %; Monocytes # (auto) 1.39 K/uL (0.11-0.59); Monocytes % (auto) 8.4 %; Neutrophils # (auto) 12.11 K/uL (1.4-6.5); Neutrophils % (auto) 73.6 %
[2020-07-26] MEDS: LOPERAMIDE HCL 2 MG CAP PO PRN (09:08)
[2020-07-26] MEDS: ACETAMINOPHEN 325 MG TAB PO PRN ×2 (09:08→21:14)
[2020-07-26] MEDS: ATORVASTATIN 10 MG TAB PO SCH (09:09)
[2020-07-26] MEDS: DOXYCYCLINE HYCLATE 100 MG in DEXTROSE 5% 100 ML IV SCH ×2 (09:09→20:55)
[2020-07-26] MEDS: NYSTATIN SUSP 500,000 U/5 ML UDC PO SCH ×3 (09:09→20:55)
[2020-07-26] MEDS: SUCRALFATE 1 GM TAB PO SCH ×2 (09:09→17:18)
[2020-07-26] MEDS: INSULIN ASPART 100 UNITS/ML 3 ML PEN SC SCH ×4 (09:10→20:54)
[2020-07-26] MEDS: ADVANCED PROBIOTIC 1250 MG CAPSULE PO SCH (09:10)
[2020-07-26] MEDS: ASPIRIN 81 MG ECTAB PO SCH (09:10)
[2020-07-26] MEDS: PANTOprazole 40 MG TAB PO SCH (09:10)
--- NOTE | 2020-07-26 12:53 | Hospitalist Progress Note ---
Date of Service July 26, 2020 Assessment & Plan (1) Severe sepsis: Secondary to complicated UTI with left vesicoureteral stone with mild to moderate left hydroureteronephrosis Source was controlled with emergent cystoscopy by urology overnight and removal of the stone and placement of stent Started on intravenous Zosyn Zosyn and Levophed for blood pressure support and IV fluids as needed. Levophed has been stopped and the blood pressure is maintained systolic more than 100 since this morning Remains afebrile but white count went up to 30 K today-will monitor Remains weak and lethargic and complains of pain at the infusion site Has a CT of the abdomen and pelvis which was unremarkable except possible gastritis We will try sucralfate twice daily Clinically much better today Has been in eating a little bit and drinking enough Leukocytosis Has been going up Has UTI with E. coli which is pansensitive Chest x-ray showed bibasilar atelectasis/infiltration with pleural effusion We will discontinue IV ceftriaxone Add intravenous Zosyn and IV doxycycline for now Leukocytosis has been improving with white count down to 18 K White count has improved Congestive heart failure with a bilateral pleural effusion Likely secondary to administration of fluid due to hypotension Got short of breath last night Received 20 mg of Lasix intravenously on the other day Denies any acute symptoms (2) UTI (urinary tract infection): Zosyn pending urine cultures. Culture grew E. coli and is pansensitive Has been getting intravenous ceftriaxone which will be continued for now We will continue ceftriaxone for now Increasing white count likely secondary to ongoing infection and is contributed by hemoconcentration We will discontinue intravenous ceftriaxone and add Zosyn to cover respiratory pathogens as well (3) Metabolic encephalopathy: -Likely multifactorial secondary to sepsis, medication induced from fentanyl, Benadryl, Ativan-resolved -Seems to be improving (4) Acute kidney injury superimposed on chronic kidney disease: Persistent, possibly secondary to EMILIE versus ATN and sepsis. Monitor daily BMP. Creatinine has gone down to 1.6 Advised more fluid intake and monitor PRP Kidney function is slightly worse with creatinine went up to 1.80 Creatinine has been normalized We will monitor kidney function-kidney function has been normalized (5) DM type 2 (diabetes mellitus, type 2): Chronic, stable, controlled-Hgb A1c 7.1 04/2020 -Hold oral agents and utilize NovoLog per protocol while hospitalized (6) History of CVA (cerebrovascular accident): -Continue aspirin and statin (7) Hypothyroidism: Chronic, stable, controlled,-Continue levothyroxine per home regimen. (8) DVT prophylaxis: -SQ heparin We will discuss with the son Continue PT and OT Likely discharge on Monday Admission and Anticipated Discharge Date Admission Date: July 20, 2020 Subjective 07/22/2020 The patient was seen and examined in ICU She has been complaining of some neck pain specially at the site of central line Denies any fever and/or chills Complains to have nausea but no vomiting 07/23/2020 The patient was seen and examined in medical telemetry unit She was noted to have some shortness of breath last night and received a small dose of Lasix She has been feeling a lot better this morning Complains today of some neck pain mostly on the left side where she had that intravenous line Denies any fever and/or chills 07/24/2020 The patient was seen and examined in medical telemetry unit She has been very lethargic and complains of pain at the infusion site Her neck pain is better Complains today of some nausea but no fever and/or chills 07/25/2020 The patient was seen and examined in medical telemetry unit She complains today of some throat pain and pain in the epigastrium with some nausea Has been feeling a little better compared to yesterday 07/26/2020 The patient was seen and examined in medical telemetry unit She has been feeling a little bit better today Complains to have some back pain and she was on lidocaine patch at the back at home Denies any abdominal discomfort, nausea and/or vomiting Review of Systems Review of Systems: All systems reviewed and are unremarkable except as noted below Constitutional: + fatigue and + weakness Gastrointestinal: + nausea; no abdominal pain Genitourinary: Fullness of the urinary bladder Neurologic: Alert, awake and oriented x3. Remains very lethargic Physical Exam Physical Exam: Lying in bed with minimal discomfort due to back pain Constitutional: well developed, well nourished, + acute distress (Due to neck pain but no shortness of breath) and + ill appearing Eyes: PERRL, conjunctivae normal, anicteric sclerae ENMT: external ear and nose normal, oropharynx normal Neck: trachea midline, no thyromegaly Respiratory: no respiratory distress Auscultation: + diminished lung sounds and + crackles (Minimal bibasilar crackles) Cardiovascular: Rate/Rhythm: regular rate and regular rhythm Heart Sounds: no murmur Gastrointestinal (Abdomen): Inspection/Auscultation: normal bowel sounds; abdomen not distended Percussion/Palpation: + abdomen tender (In the epigastrium) and abdomen soft Musculoskeletal: No acute arthritis in any joint Neurologic: Alert, awake and oriented x3. Generally very weak and lethargic Psychiatric: A+Ox3, euthymic affect Lymphatic: no cervical or axillary lymphadenopathy Results & Data Results & Data ([facility]) Vital Signs (Past 12 Hours) Vital Signs Temp Pulse Pulse Resp BP Pulse Ox 07/26/20 11:16 37 C 100 H 18 126/71 97 07/26/20 08:00 106 H 07/26/20 06:33 36.8 C 102 H 18 176/69 H 91 Laboratory Results Short CBC 07/26/20 Range/Units 06:48 WBC 16.50 H (4.8-10.8) K/uL Hgb 10.8 L (12.0-16.0) g/dL Hct 32.8 L (37-47) % Plt Count 167 (130-400) K/uL BMP 07/26/20 06:48 Sodium 140 Potassium 3.5 Chloride 110 H Carbon Dioxide 25 BUN 17 Creatinine 1.01 Glucose 136 H Calcium 8.2 L Medications Administered Current Inpatient Medications Acetaminophen (Acetaminophen 325 Mg Tab) 650 mg PO Q6H PRN PRN Reason: Fever Stop: 08/20/20 02:37 Last Admin: 07/26/20 09:08 Dose: 650 mg Documented by: Aspirin (Aspirin 81 Mg Ectab) 81 mg PO DAILY [facility] Stop: 08/20/20 08:59 Last Admin: 07/26/20 09:10 Dose: 81 mg Documented by: Atorvastatin Calcium (Atorvastatin 10 Mg Tab) 10 mg PO DAILY [facility] Stop: 08/20/20 08:59 Last Admin: 07/26/20 09:09 Dose: 10 mg Documented by: Nystatin 30 ml/ Dexamethasone 3.75 mg/ Diphenhydramine HCl 300 mg/ Sucrose 45 ml/Microcrystalline Cellulose 45 ml/ BARCODE IDENTIFIER 1 ea 0 ml PO Q4H PRN PRN Reason: Dyspepsia Stop: 08/23/20 16:22 Last Admin: 07/26/20 09:09 Dose: 5 ml Documented by: Dextrose (Dextrose 50% 50 Ml Syringe) 25 - 50 ml IV UD PRN; Protocol PRN Reason: Hypoglycemia Protocol Stop: 08/20/20 00:49 Glucagon (Glucagon For Inj 1 Mg Vial) 1 mg SQ UD PRN; Protocol PRN Reason: Hypoglycemia Protocol Stop: 08/20/20 00:49 Glucose (Glucose 10 Tabs/Tube) 4 - 8 tabs PO UD PRN; Protocol PRN Reason: Hypoglycemia Protocol Stop: 08/20/20 00:49 Glucose (Glucose 40% Gel 15 Gm Tube) 15 - 30 gm PO UD PRN; Protocol PRN Reason: Hypoglycemia Protocol Stop: 08/20/20 00:49 Heparin Sodium (Beef Lung) (Heparin 10 Unit/Ml 5 Ml Flush) 5 ml FLUSH PRN PRN PRN Reason: Flush Stop: 08/21/20 00:01 Heparin Sodium (Porcine) (Heparin Sod 5,000 Unit/0.5 Ml Vial) 5,000 units SQ Q12 [facility] Stop: 08/21/20 20:59 Last Admin: 07/25/20 08:15 Dose: 5,000 units Documented by: Piperacillin Sod/Tazobactam (Sod 3.375 gm/ Dextrose) 115 mls @ 28.75 mls/hr IV Q8H [facility]; Protocol Stop: 08/03/20 13:59 Last Infusion: 07/26/20 11:13 Dose: Infused Documented by: Doxycycline Hyclate 100 mg/ (Dextrose) 110 mls @ 50 mls/hr IV Q12H [facility] Stop: 07/31/20 08:59 Last Infusion: 07/26/20 11:13 Dose: Infused Documented by: Insulin Aspart (Insulin Aspart 100 Units/Ml 3 Ml Pen) 0 units SC ACHS [facility] Stop: 08/22/20 16:29 Last Admin: 07/26/20 09:10 Dose: 2 units Documented by: Ipratropium [place] (Ipratropium [place] Neb Soln 0.02% 2.5 Ml Vial) 0.5 mg INH Q4H PRN PRN Reason: Shortness Of Breath Or Wheezing Stop: 08/21/20 20:29 Lactobacillus Acidoph/Casei/Rhamnos (Advanced Probiotic 1250 Mg Capsule) 2 cap PO DAILY [facility] Stop: 08/20/20 08:59 Last Admin: 07/26/20 09:10 Dose: 2 cap Documented by: Levalbuterol HCl (Levalbuterol 1.25mg/0.5ml Neb) 1.25 mg INH Q4H PRN PRN Reason: Shortness Of Breath Or Wheezing Stop: 08/21/20 20:29 Levothyroxine Sodium (Levothyroxine Sodium 75 Mcg Tablet) 75 mcg PO DAILYBB [facility] Stop: 08/20/20 06:29 Last Admin: 07/26/20 06:41 Dose: 75 mcg Documented by: Lidocaine (Lidocaine 5% 1 Patch) 1 patch TD QAM [facility] Stop: 08/25/20 08:59 Loperamide HCl (Loperamide Hcl 2 Mg Cap) 2 mg PO Q2H PRN PRN Reason: Diarrhea Stop: 08/23/20 16:24 Last Admin: 07/26/20 09:08 Dose: 2 mg Documented by: Menthol (Cough Drop (Sugar Free) Teresita 24 Teresita/1 Box) 1 teresita BUCCAL Q1H PRN PRN Reason: SORE THROAT Stop: 08/22/20 16:58 Last Admin: 07/23/20 17:38 Dose: 1 teresita Documented by: Miscellaneous (Carbohydrates For Hypoglycemia ) 15 - 30 gm PO UD PRN PRN Reason: Hypoglycemia Protocol Stop: 08/20/20 00:49 Miscellaneous (Remove Lidoderm Patch) 1 ea N/A DAILY@2100 [facility] Stop: 08/25/20 20:59 Miscellaneous Information (Pharmacy Glycemic Mgmt Consult) 1 ea N/A UD PRN PRN Reason: Consult Stop: 08/22/20 05:51 Miscellaneous Information (Piperacill/Tazobac Consult Active) 1 ea N/A UD PRN PRN Reason: Consult Stop: 08/23/20 07:58 Nystatin (Nystatin Susp 500,000 U/5 Ml Udc) 10 ml PO TID [facility] Stop: 08/23/20 13:59 Last Admin: 07/26/20 09:09 Dose: 10 ml Documented by: Ondansetron HCl (Ondansetron Inj 2 Mg/Ml 2 Ml Vial) 4 mg IV Q6H PRN PRN Reason: Nausea Stop: 08/21/20 07:49 Pantoprazole Sodium (Pantoprazole 40 Mg Tab) 40 mg PO DAILY [facility] Stop: 08/21/20 10:59 Last Admin: 07/26/20 09:10 Dose: 40 mg Documented by: Phenol (Chloraseptic 1.4% Soln 180 Ml Btl) 1 sprays MT Q2H PRN PRN Reason: Sore Throat Stop: 08/21/20 20:23 Last Admin: 07/24/20 08:02 Dose: 1 sprays Documented by: Sucralfate (Sucralfate 1 Gm Tab) 1 gm PO BID@4530,9780 [facility] Stop: 08/25/20 07:29 Last Admin: 07/26/20 09:09 Dose: 1 gm Documented by: Zolpidem Tartrate (Zolpidem Tartrate 5 Mg Tab) 5 mg PO HS PRN PRN Reason: Sleep Stop: 08/24/20 20:44 Last Admin: 07/25/20 21:10 Dose: 5 mg Documented by:
[2020-07-26] MEDS: LIDOCAINE 5% 1 PATCH TD SCH (12:54)
[2020-07-26] MEDS ORDERED: POTASSIUM CHLORIDE CRTAB 20 MEQ TABCR PO STA (12:59)
[2020-07-26] MEDS: ZOLPIDEM TARTRATE 5 MG TAB PO PRN (20:54)
[2020-07-27] MEDS: PIPERACILLIN/TAZOBACTAM 3.375 GM in DEXTROSE 5% 100 ML IV SCH ×3 (06:22→21:00)
[2020-07-27] MEDS: LEVOTHYROXINE SODIUM 75 MCG TABLET PO SCH (06:23)
[2020-07-27 08:47] LABS: Basophils # (auto) 0.02 K/uL (0-0.2); Basophils % (auto) 0.1 %; Eosinophils # (auto) 0.21 K/uL (0-0.5); Eosinophils % (auto) 1.3 %; Hematocrit (blood only) 32.3 % (37-47); Hemoglobin 10.6 g/dL (12.0-16.0); Immature Granulocytes # (auto) 0.61 K/uL (0.00-0.02); Immature Granulocytes % (auto) 3.8 %; Lymphocytes # (auto) 2.04 K/uL (1.2-3.4); Lymphocytes % (auto) 12.8 %; Mean Corpuscular Hemoglobin 30.6 pg (25-34); Mean Corpuscular Hgb Conc 32.8 g/dL (32-36); Mean Corpuscular Volume 93.4 fL (80-100); Mean Platelet Volume 10.9 fL (7.4-10.4); Monocytes # (auto) 1.11 K/uL (0.11-0.59); Neutrophils # (auto) 11.96 K/uL (1.4-6.5); Platelet Count 197 K/uL (130-400); RDW Standard Deviation 43.8 fL (36.4-46.3); Red Blood Count 3.46 M/uL (4.2-5.4); White Blood Count 15.95 K/uL (4.8-10.8)
[2020-07-27 09:05] LABS: BUN Creatinine Ratio 16.5 (10-20); Calcium 8.8 mg/dl (8.5-10.1); Est GFR (African American) 70.1; Est GFR (Non-African American) 60.5; Potassium 3.8 mmol/L (3.5-5.1)
[2020-07-27] MEDS: ACETAMINOPHEN 325 MG TAB PO PRN (09:08)
[2020-07-27] MEDS: ASPIRIN 81 MG ECTAB PO SCH (09:09)
[2020-07-27] MEDS: SUCRALFATE 1 GM TAB PO SCH ×2 (09:09→17:40)
[2020-07-27] MEDS: ADVANCED PROBIOTIC 1250 MG CAPSULE PO SCH (09:09)
[2020-07-27] MEDS: ATORVASTATIN 10 MG TAB PO SCH (09:09)
--- NOTE | 2020-07-27 09:09 | Pharmacy Report ---
Pharmacy Glycemic Short Note 2 - Date of Service July 27, 2020 - Glycemic Short BSG Results (Last 24 hours): 07/26/20 07/26/20 07/26/20 11:30 16:49 20:35 POC Glucose 165 H 121 H 158 H 07/27/20 07:11 POC Glucose 164 H OUTPATIENT ANTIDIABETIC REGIMEN: * glipizide 5mg PO BIDM * A1c = 7.5% (07/24/20) ASSESSMENT: 07/27: * BSGs of 154, 165, 121, and 158 mg/dL * Patient received 5 units of prandial/correctional insulin yesterday (no basal) * Fasting BSG this morning of 164 mg/dL * Will initiate Lantus 5 units SC daily (patient previously had hypoglycemic episode following 10 units of basal) * Continues on Zosyn and doxycycline for UTI/pneumonia * EMILIE has resolved (SCr now 0.92 mg/dL) 07/23: * 75yo T2DM female with unknown degree of outpatient control - A1c ordered for tomorrow with AM labs * Pt is maintained on oral antidiabetic agents as an outpatient * Oral agents are not recommended for inpatient use d/t drug interactions, changing PO intake, and difficulty titrating for acute hyper/hypoglycemia. ADA recommends re-initiating outpatient oral agents 1-2 days prior to discharge if/when appropriate if they were held on admission. * Will hold oral agents for admission and utilize SQ basal bolus insulin regimen which is the recommended regimen for inpatient glycemic control. * Will initiate weight based insulin dosing for insulin mirella patient and titrate based on BSG trends. * Pt with LOW BSG this AM after receiving 10 units of Lantus yesterday. Will dc basal insulin and just utilize bolus insulin monotherapy. PLAN FOR INPATIENT GLYCEMIC CONTROL: * Hold outpatient oral diabetes medications * Basal insulin - initiate basal * Initiate Lantus 5 units SC daily * Bolus insulin - continue * NovoLog per scale ACHS or Q6hrs while NPO * Goal Range: Low 110 mg/dL - High 140 mg/dL * Correction Factor: 30 mg/dL/unit * Nutritional / Prandial insulin per carb ratio of 1 unit per 14 grams CHO consumed PLAN FOR DISCHARGE: * A reasonable A1C goal for many non- adults is A1c less than 7% * Current HbA1c of 7.5% * Reasonable to initiate metformin in this patient. Metformin is effective and safe, is inexpensive, and may reduce risk of cardiovascular events and . * B12 supplementation may be necessary with long term acute care registered nurse metformin use * FDA has revised the label for metformin to reflect its safety in patients with eGFR 30 mL/min or above * Recommend starting: Metformin XR 500mg PO daily with evening meal. Typically the XR formulation of metformin is better tolerated than the immediate release formulation. Continue to titrate metformin dosing upwards as recommended. Dosage increases should be made in increments of 500 mg weekly. Would exercise caution with dose increases given borderline renal function. * Support Patient Self-Management * Healthy Lifestyle (diet, exercise, and smoking cessation) * Disease self-management (SMBG) * Prevention of complications (BP, Lipid goals, Immunizations) * Consider outpatient Diabetes Self-Management Education & Support
[2020-07-27] MEDS: NYSTATIN SUSP 500,000 U/5 ML UDC PO SCH ×3 (09:10→20:49)
[2020-07-27] MEDS: PANTOprazole 40 MG TAB PO SCH (09:10)
[2020-07-27] MEDS: LIDOCAINE 5% 1 PATCH TD SCH (09:10)
[2020-07-27] MEDS: INSULIN GLARGINE SOLOSTAR 100 UNITS/ML 3 ML PEN SC SCH (09:11)
[2020-07-27] MEDS: INSULIN ASPART 100 UNITS/ML 3 ML PEN SC SCH ×4 (09:13→21:20)
[2020-07-27] MEDS: DOXYCYCLINE HYCLATE 100 MG in DEXTROSE 5% 100 ML IV SCH ×2 (09:14→20:57)
--- NOTE | 2020-07-27 13:13 | Hospitalist Progress Note ---
Date of Service July 27, 2020 Assessment & Plan (1) Severe sepsis: Secondary to complicated UTI with left vesicoureteral stone with mild to moderate left hydroureteronephrosis Source was controlled with emergent cystoscopy by urology overnight and removal of the stone and placement of stent Started on intravenous Zosyn Zosyn and Levophed for blood pressure support and IV fluids as needed. Levophed has been stopped and the blood pressure is maintained systolic more than 100 since this morning Remains afebrile but white count went up to 30 K today-will monitor Remains weak and lethargic and complains of pain at the infusion site Has a CT of the abdomen and pelvis which was unremarkable except possible gastritis We will try sucralfate twice daily Has been feeling much better today and trying to eat and drink No more fever and no chills Leukocytosis Has been going up Has UTI with E. coli which is pansensitive Chest x-ray showed bibasilar atelectasis/infiltration with pleural effusion We will discontinue IV ceftriaxone Add intravenous Zosyn and IV doxycycline for now Leukocytosis has been improving with white count down to 18 K White count has improved Remains afebrile Congestive heart failure with a bilateral pleural effusion Likely secondary to administration of fluid due to hypotension Got short of breath last night Received 20 mg of Lasix intravenously on the other day Denies any acute symptoms (2) UTI (urinary tract infection): Zosyn pending urine cultures. Culture grew E. coli and is pansensitive Has been getting intravenous ceftriaxone which will be continued for now We will continue ceftriaxone for now Increasing white count likely secondary to ongoing infection and is contributed by hemoconcentration We will discontinue intravenous ceftriaxone and add Zosyn to cover respiratory pathogens as well We will continue current intravenous medications (3) Metabolic encephalopathy: -Likely multifactorial secondary to sepsis, medication induced from fentanyl, Benadryl, Ativan-resolved -Seems to be improving (4) Acute kidney injury superimposed on chronic kidney disease: Persistent, possibly secondary to EMILIE versus ATN and sepsis. Monitor daily BMP. Creatinine has gone down to 1.6 Advised more fluid intake and monitor PRP Kidney function is slightly worse with creatinine went up to 1.80 Creatinine has been normalized We will monitor kidney function-kidney function has been normalized (5) DM type 2 (diabetes mellitus, type 2): Chronic, stable, controlled-Hgb A1c 7.1 04/2020 -Hold oral agents and utilize NovoLog per protocol while hospitalized (6) History of CVA (cerebrovascular accident): -Continue aspirin and statin (7) Hypothyroidism: Chronic, stable, controlled,-Continue levothyroxine per home regimen. (8) DVT prophylaxis: -SQ heparin We will discuss with the son Continue PT and OT Likely discharge on Monday Admission and Anticipated Discharge Date Admission Date: July 20, 2020 Subjective 07/22/2020 The patient was seen and examined in ICU She has been complaining of some neck pain specially at the site of central line Denies any fever and/or chills Complains to have nausea but no vomiting 07/23/2020 The patient was seen and examined in medical telemetry unit She was noted to have some shortness of breath last night and received a small dose of Lasix She has been feeling a lot better this morning Complains today of some neck pain mostly on the left side where she had that intravenous line Denies any fever and/or chills 07/24/2020 The patient was seen and examined in medical telemetry unit She has been very lethargic and complains of pain at the infusion site Her neck pain is better Complains today of some nausea but no fever and/or chills 07/25/2020 The patient was seen and examined in medical telemetry unit She complains today of some throat pain and pain in the epigastrium with some nausea Has been feeling a little better compared to yesterday 07/26/2020 The patient was seen and examined in medical telemetry unit She has been feeling a little bit better today Complains to have some back pain and she was on lidocaine patch at the back at home Denies any abdominal discomfort, nausea and/or vomiting 07/27/2020 The patient was seen and examined in medical telemetry unit She remains generally weak and lethargic with some aches and pains involving multiple areas No fever and/or chills Has been eating and drinking more Review of Systems Review of Systems: All systems reviewed and are unremarkable except as noted below Constitutional: + fatigue and + weakness Gastrointestinal: + nausea; no abdominal pain Genitourinary: Fullness of the urinary bladder Neurologic: Alert, awake and oriented x3. Remains very lethargic Physical Exam Physical Exam: Lying in bed with minimal discomfort Constitutional: well developed, well nourished, + acute distress (Due to neck pain but no shortness of breath) and + ill appearing Eyes: PERRL, conjunctivae normal, anicteric sclerae ENMT: external ear and nose normal, oropharynx normal Neck: trachea midline, no thyromegaly Respiratory: no respiratory distress Auscultation: + diminished lung sounds and + crackles (Minimal bibasilar crackles) Cardiovascular: Rate/Rhythm: regular rate and regular rhythm Heart Sounds: no murmur Extremities: + edema (Trace edema bilaterally) Gastrointestinal (Abdomen): Inspection/Auscultation: normal bowel sounds; abdomen not distended Percussion/Palpation: + abdomen tender (In the epigastrium) and abdomen soft Musculoskeletal: No acute arthritis involving any joint Neurologic: Alert, awake and oriented. Generally weak and lethargic without any focal sensory and motor deficit Psychiatric: A+Ox3, euthymic affect Affect: + depressed affect Mood: + depressed mood Lymphatic: no cervical or axillary lymphadenopathy Results & Data Results & Data ([facility]) Vital Signs (Past 12 Hours) Vital Signs Temp Pulse Pulse Resp BP Pulse Ox 07/27/20 11:40 36.9 C 93 H 20 165/96 H 97 07/27/20 08:12 37.1 C 96 H 20 162/72 H 96 07/27/20 07:47 103 H 07/27/20 04:00 36.7 C 96 H 20 137/71 91 Laboratory Results Short CBC 07/27/20 Range/Units 08:13 WBC 15.95 H (4.8-10.8) K/uL Hgb 10.6 L (12.0-16.0) g/dL Hct 32.3 L (37-47) % Plt Count 197 (130-400) K/uL [facility] 07/27/20 08:13 Sodium 141 Potassium 3.8 Chloride 109 H Carbon Dioxide 24 BUN 15 Creatinine 0.92 Glucose 143 H Calcium 8.8 Medications Administered Current Inpatient Medications Acetaminophen (Acetaminophen 325 Mg Tab) 650 mg PO Q6H PRN PRN Reason: Fever Stop: 08/20/20 02:37 Last Admin: 07/27/20 09:08 Dose: 650 mg Documented by: Aspirin (Aspirin 81 Mg Ectab) 81 mg PO DAILY BEAU Stop: 08/20/20 08:59 Last Admin: 07/27/20 09:09 Dose: 81 mg Documented by: Atorvastatin Calcium (Atorvastatin 10 Mg Tab) 10 mg PO DAILY BEAU Stop: 08/20/20 08:59 Last Admin: 07/27/20 09:09 Dose: 10 mg Documented by: Nystatin 30 ml/ Dexamethasone 3.75 mg/ Diphenhydramine HCl 300 mg/ Sucrose 45 ml/Microcrystalline Cellulose 45 ml/ [employer]IER 1 ea 0 ml PO Q4H PRN PRN Reason: Dyspepsia Stop: 08/23/20 16:22 Last Admin: 07/27/20 05:03 Dose: 5 ml Documented by: Dextrose (Dextrose 50% 50 Ml Syringe) 25 - 50 ml IV UD PRN; Protocol PRN Reason: Hypoglycemia Protocol Stop: 08/20/20 00:49 Glucagon (Glucagon For Inj 1 Mg Vial) 1 mg SQ UD PRN; Protocol PRN Reason: Hypoglycemia Protocol Stop: 08/20/20 00:49 Glucose (Glucose 10 Tabs/Tube) 4 - 8 tabs PO UD PRN; Protocol PRN Reason: Hypoglycemia Protocol Stop: 08/20/20 00:49 Glucose (Glucose 40% Gel 15 Gm Tube) 15 - 30 gm PO UD PRN; Protocol PRN Reason: Hypoglycemia Protocol Stop: 08/20/20 00:49 Heparin Sodium (Beef Lung) (Heparin 10 Unit/Ml 5 Ml Flush) 5 ml FLUSH PRN PRN PRN Reason: Flush Stop: 08/21/20 00:01 Heparin Sodium (Porcine) (Heparin Sod 5,000 Unit/0.5 Ml Vial) 5,000 units SQ Q12 BEAU Stop: 08/21/20 20:59 Last Admin: 07/25/20 08:15 Dose: 5,000 units Documented by: Piperacillin Sod/Tazobactam (Sod 3.375 gm/ Dextrose) 115 mls @ 28.75 mls/hr IV Q8H [facility]; Protocol Stop: 08/03/20 13:59 Last Infusion: 07/27/20 10:34 Dose: Infused Documented by: Doxycycline Hyclate 100 mg/ (Dextrose) 110 mls @ 50 mls/hr IV Q12H [facility] Stop: 07/31/20 08:59 Last Infusion: 07/27/20 11:30 Dose: Infused Documented by: Insulin Aspart (Insulin Aspart 100 Units/Ml 3 Ml Pen) 0 units SC ACHS [facility] Stop: 08/22/20 16:29 Last Admin: 07/27/20 12:30 Dose: 4 units Documented by: Insulin Glargine (Insulin Glargine Solostar 100 Units/Ml 3 Ml Pen) 5 units SC DAILY [facility] Stop: 08/26/20 08:59 Last Admin: 07/27/20 09:11 Dose: 5 units Documented by: Ipratropium [place] (Ipratropium [place] Neb Soln 0.02% 2.5 Ml Vial) 0.5 mg INH Q4H PRN PRN Reason: Shortness Of Breath Or Wheezing Stop: 08/21/20 20:29 Lactobacillus Acidoph/Casei/Rhamnos (Advanced Probiotic 1250 Mg Capsule) 2 cap PO DAILY BEAU Stop: 08/20/20 08:59 Last Admin: 07/27/20 09:09 Dose: 2 cap Documented by: Levalbuterol HCl (Levalbuterol 1.25mg/0.5ml Neb) 1.25 mg INH Q4H PRN PRN Reason: Shortness Of Breath Or Wheezing Stop: 08/21/20 20:29 Levothyroxine Sodium (Levothyroxine Sodium 75 Mcg Tablet) 75 mcg PO DAILYBB [facility] Stop: 08/20/20 06:29 Last Admin: 07/27/20 06:23 Dose: 75 mcg Documented by: Lidocaine (Lidocaine 5% 1 Patch) 1 patch TD QAM [facility] Stop: 08/25/20 08:59 Last Admin: 07/27/20 09:10 Dose: 1 patch Documented by: Loperamide HCl (Loperamide Hcl 2 Mg Cap) 2 mg PO Q2H PRN PRN Reason: Diarrhea Stop: 08/23/20 16:24 Last Admin: 07/26/20 09:08 Dose: 2 mg Documented by: Menthol (Cough Drop (Sugar Free) Teresita 24 Teresita/1 Box) 1 teresita BUCCAL Q1H PRN PRN Reason: SORE THROAT Stop: 08/22/20 16:58 Last Admin: 07/23/20 17:38 Dose: 1 teresita Documented by: Miscellaneous (Carbohydrates For Hypoglycemia ) 15 - 30 gm PO UD PRN PRN Reason: Hypoglycemia Protocol Stop: 08/20/20 00:49 Miscellaneous (Remove Lidoderm Patch) 1 ea N/A DAILY@2100 [facility] Stop: 08/25/20 20:59 Last Admin: 07/26/20 20:55 Dose: 1 ea Documented by: Miscellaneous Information (Pharmacy Glycemic Mgmt Consult) 1 ea N/A UD PRN PRN Reason: Consult Stop: 08/22/20 05:51 Miscellaneous Information (Piperacill/Tazobac Consult Active) 1 ea N/A UD PRN PRN Reason: Consult Stop: 08/23/20 07:58 Nystatin (Nystatin Susp 500,000 U/5 Ml Ud) 10 ml PO TID [facility] Stop: 08/23/20 13:59 Last Admin: 07/27/20 09:10 Dose: 10 ml Documented by: Ondansetron HCl (Ondansetron Inj 2 Mg/Ml 2 Ml Vial) 4 mg IV Q6H PRN PRN Reason: Nausea Stop: 08/21/20 07:49 Pantoprazole Sodium (Pantoprazole 40 Mg Tab) 40 mg PO DAILY [facility] Stop: 08/21/20 10:59 Last Admin: 07/27/20 09:10 Dose: 40 mg Documented by: Phenol (Chloraseptic 1.4% Soln 180 Ml Btl) 1 sprays MT Q2H PRN PRN Reason: Sore Throat Stop: 08/21/20 20:23 Last Admin: 07/24/20 08:02 Dose: 1 sprays Documented by: Sucralfate (Sucralfate 1 Gm Tab) 1 gm PO BID@6330,6760 [facility] Stop: 08/25/20 07:29 Last Admin: 07/27/20 09:09 Dose: 1 gm Documented by: Zolpidem Tartrate (Zolpidem Tartrate 5 Mg Tab) 5 mg PO HS PRN PRN Reason: Sleep Stop: 08/24/20 20:44 Last Admin: 07/26/20 20:54 Dose: 5 mg Documented by:
[2020-07-27] MEDS: ZOLPIDEM TARTRATE 5 MG TAB PO PRN (20:51)
[2020-07-28] MEDS: ACETAMINOPHEN 325 MG TAB PO PRN ×3 (02:19→21:37)
[2020-07-28] MEDS: LEVOTHYROXINE SODIUM 75 MCG TABLET PO SCH (05:51)
[2020-07-28] MEDS: PIPERACILLIN/TAZOBACTAM 3.375 GM in DEXTROSE 5% 100 ML IV SCH ×3 (05:54→22:14)
[2020-07-28 08:02] LABS: Basophils # (auto) 0.05 K/uL (0-0.2); Basophils % (auto) 0.3 %; Eosinophils # (auto) 0.39 K/uL (0-0.5); Eosinophils % (auto) 2.4 %; Hematocrit (blood only) 34.4 % (37-47); Hemoglobin 11.4 g/dL (12.0-16.0); Immature Granulocytes # (auto) 0.46 K/uL (0.00-0.02); Immature Granulocytes % (auto) 2.8 %; Lymphocytes # (auto) 2.78 K/uL (1.2-3.4); Lymphocytes % (auto) 16.9 %; Mean Corpuscular Hemoglobin 30.4 pg (25-34); Mean Corpuscular Hgb Conc 33.1 g/dL (32-36); Mean Corpuscular Volume 91.7 fL (80-100); Mean Platelet Volume 10.7 fL (7.4-10.4); Monocytes # (auto) 0.79 K/uL (0.11-0.59); Monocytes % (auto) 4.8 %; Neutrophils # (auto) 11.97 K/uL (1.4-6.5); Neutrophils % (auto) 72.8 %; Platelet Count 271 K/uL (130-400); RDW Coefficient of Variation 12.8 % (11.5-14.5); RDW Standard Deviation 42.9 fL (36.4-46.3); Red Blood Count 3.75 M/uL (4.2-5.4); White Blood Count 16.44 K/uL (4.8-10.8)
[2020-07-28 08:38] LABS: BUN Creatinine Ratio 11.8 (10-20); Calcium 9.1 mg/dl (8.5-10.1); Creatinine Clr Calc Pharmacy 36.5 ml/min; Est GFR (African American) 64.2; Est GFR (Non-African American) 55.4; Magnesium 1.7 mg/dl (1.8-2.4); Phosphorus 2.4 mg/dl (2.5-4.9); Potassium 3.6 mmol/L (3.5-5.1)
[2020-07-28] MEDS: ATORVASTATIN 10 MG TAB PO SCH ×2 (08:53→09:55)
[2020-07-28] MEDS: SUCRALFATE 1 GM TAB PO SCH ×2 (08:53→16:11)
[2020-07-28] MEDS: PANTOprazole 40 MG TAB PO SCH (08:54)
[2020-07-28] MEDS: NYSTATIN SUSP 500,000 U/5 ML UDC PO SCH ×3 (08:55→20:52)
[2020-07-28] MEDS: ADVANCED PROBIOTIC 1250 MG CAPSULE PO SCH (08:55)
[2020-07-28] MEDS: ASPIRIN 81 MG ECTAB PO SCH (08:55)
[2020-07-28] MEDS: LIDOCAINE 5% 1 PATCH TD SCH ×2 (08:56→09:56)
[2020-07-28] MEDS: INSULIN GLARGINE SOLOSTAR 100 UNITS/ML 3 ML PEN SC SCH (08:57)
[2020-07-28] MEDS: INSULIN ASPART 100 UNITS/ML 3 ML PEN SC SCH ×4 (08:58→20:51)
[2020-07-28] MEDS: DOXYCYCLINE HYCLATE 100 MG in DEXTROSE 5% 100 ML IV SCH ×2 (08:59→21:44)
[2020-07-28] MEDS: HEPARIN SOD 5,000 UNIT/0.5 ML VIAL SQ SCH ×2 (09:56→20:53)
[2020-07-28] MEDS: MECLIZINE 12.5 MG TAB PO PRN ×2 (11:52→21:44)
--- NOTE | 2020-07-28 13:18 | XRay Report ---
TWO VIEW CHEST CLINICAL HISTORY: Pneumonia. CHF.. FINDINGS: PA and lateral chest radiographs are compared to study dated 07/22/2020. Correlation is mad e with chest CT dated 02/06/[address] dated 07/25/2020. The cardiomediastinal silhouette i s unremarkable. Chronic interstitial thickening is similar to previous. Foci of peripheral groundglas s consolidation are seen throughout both lungs, right greater than left. There are small pleural effu sions with bibasilar consolidation. These have decreased from 07/22/2020. Apical scarring is observed . There is no pneumothorax. The bony skeletal structures are osteopenic. The thorax appears intact. A ureteral stent is partially visualized in the left upper quadrant. IMPRESSION: 1. There are bilateral pleural effusions with dependent consolidation. These have decreased in size a s compared to 07/22/2020. 2. The pulmonary vasculature is noncongested. 3. Foci of subpleural groundglass consolidation are seen throughout both lungs. This is similar to pr ior examinations and may be chronic. Clinical correlation will be required.. ACT 112: Negative or not required by law. Electronically signed by: Eric Robles M.D. 07/28/2020 1:16 PM
[2020-07-28] MEDS: lisinopril 5 MG TAB PO SCH (14:32)
--- NOTE | 2020-07-28 15:42 | Hospitalist Progress Note ---
Date of Service July 28, 2020 Assessment & Plan (1) Severe sepsis: Secondary to complicated UTI with left vesicoureteral stone with mild to moderate left hydroureteronephrosis Source was controlled with emergent cystoscopy by urology overnight and removal of the stone and placement of stent Started on intravenous Zosyn Required Levophed for blood pressure support and IV fluids as needed. Levophed has been stopped and the blood pressure is maintained systolic more than 100 Remains afebrile but white count went up to 30 K -will monitor Remains weak and lethargic and complains of pain at the infusion site Has a CT of the abdomen and pelvis which was unremarkable except possible gas tritis We will try sucralfate twice daily Has been feeling much better today and trying to eat and drink No more fever and no chills Has been getting PT and OT Leukocytosis Has been going up Has UTI with E. coli which is pansensitive Chest x-ray showed bibasilar atelectasis/infiltration with pleural effusion We will discontinue IV ceftriaxone Add intravenous Zosyn and IV doxycycline Leukocytosis has been improving with white count down to 18 K White count has been improving Remains afebrile Repeat chest x-ray did show improvement Congestive heart failure with a bilateral pleural effusion Likely secondary to administration of fluid due to hypotension Got short of breath last night Received 20 mg of Lasix intravenously on the other day Denies any acute symptoms Repeat chest x-ray did not show any CHF (2) UTI (urinary tract infection): Zosyn pending urine cultures. Culture grew E. coli and is pansensitive Has been getting intravenous ceftriaxone which will be continued for now We will continue ceftriaxone for now Increasing white count likely secondary to ongoing infection and is contributed by hemoconcentration We will discontinue intravenous ceftriaxone and add Zosyn to cover respiratory pathogens as well We will continue current intravenous medications Has had minimal hematuria following catheter administration-cleared later on Yee catheter has been discontinued (3) Metabolic encephalopathy: -Likely multifactorial secondary to sepsis, medication induced from fentanyl, Benadryl, Ativan-resolved -Seems to be improving (4) Acute kidney injury superimposed on chronic kidney disease: Persistent, possibly secondary to EMILIE versus ATN and sepsis. Monitor daily BMP. Creatinine has gone down to 1.6 Advised more fluid intake and monitor PRP Kidney function is slightly worse with creatinine went up to 1.80 Creatinine has been normalized We will monitor kidney function-kidney function has been normalized (5) DM type 2 (diabetes mellitus, type 2): Chronic, stable, controlled-Hgb A1c 7.1 04/2020 -Hold oral agents and utilize NovoLog per protocol while hospitalized (6) History of CVA (cerebrovascular accident): -Continue aspirin and statin (7) Hypothyroidism: Chronic, stable, controlled,-Continue levothyroxine per home regimen. (8) DVT prophylaxis: -SQ heparin We will discuss with the son Continue PT and OT Likely discharge in a day or 2 Admission and Anticipated Discharge Date Admission Date: July 20, 2020 Subjective 07/22/2020 The patient was seen and examined in ICU She has been complaining of some neck pain specially at the site of central line Denies any fever and/or chills Complains to have nausea but no vomiting 07/23/2020 The patient was seen and examined in medical telemetry unit She was noted to have some shortness of breath last night and received a small dose of Lasix She has been feeling a lot better this morning Complains today of some neck pain mostly on the left side where she had that intravenous line Denies any fever and/or chills 07/24/2020 The patient was seen and examined in medical telemetry unit She has been very lethargic and complains of pain at the infusion site Her neck pain is better Complains today of some nausea but no fever and/or chills 07/25/2020 The patient was seen and examined in medical telemetry unit She complains today of some throat pain and pain in the epigastrium with some nausea Has been feeling a little better compared to yesterday 07/26/2020 The patient was seen and examined in medical telemetry unit She has been feeling a little bit better today Complains to have some back pain and she was on lidocaine patch at the back at home Denies any abdominal discomfort, nausea and/or vomiting 07/27/2020 The patient was seen and examined in medical telemetry unit She remains generally weak and lethargic with some aches and pains involving multiple areas No fever and/or chills Has been eating and drinking more 07/28/2020 The patient was seen and examined in medical telemetry unit She has been feeling much better today She has had an assisted fall this morning without any injury Her only complaint always weakness Review of Systems Review of Systems: All systems reviewed and are unremarkable except as noted below Constitutional: + fatigue and + weakness Gastrointestinal: no abdominal pain Neurologic: Alert, awake and oriented x3. Remains very lethargic Physical Exam Physical Exam: Lying in bed without any distress Constitutional: well developed, well nourished, + acute distress (Due to neck pain but no shortness of breath) and + ill appearing Eyes: PERRL, conjunctivae normal, anicteric sclerae ENMT: external ear and nose normal, oropharynx normal Neck: trachea midline, no thyromegaly Respiratory: no respiratory distress Auscultation: + diminished lung sounds and + crackles (Minimal bibasilar crackles) Cardiovascular: Rate/Rhythm: regular rate and regular rhythm Heart Sounds: no murmur Extremities: + edema (Trace edema bilaterally) Gastrointestinal (Abdomen): Inspection/Auscultation: normal bowel sounds; abdomen not distended Percussion/Palpation: abdomen soft; abdomen nontender Musculoskeletal: No acute arthritis in any joint Neurologic: Alert, awake and oriented x3. Generally weak and lethargic Psychiatric: A+Ox3, euthymic affect Affect: + depressed affect Mood: + depressed mood Lymphatic: no cervical or axillary lymphadenopathy Results & Data Results & Data ([facility]) Vital Signs (Past 12 Hours) Vital Signs Temp Pulse Pulse Resp BP BP Pulse Ox 07/28/20 11:13 36.6 C 74 20 178/64 H 91 07/28/20 08:11 36.7 C 99 H 20 173/75 H 92 07/28/20 07:40 84 07/28/20 04:00 36.7 C 79 18 170/61 H 90 Laboratory Results Short CBC 07/28/20 Range/Units 07:40 WBC 16.44 H (4.8-10.8) K/uL Hgb 11.4 L (12.0-16.0) g/dL Hct 34.4 L (37-47) % Plt Count 271 (130-400) K/uL BMP 07/28/20 07:40 Sodium 141 Potassium 3.6 Chloride 108 H Carbon Dioxide 23 BUN 12 Creatinine 0.99 Glucose 143 H Calcium 9.1 Medications Administered Current Inpatient Medications Acetaminophen (Acetaminophen 325 Mg Tab) 650 mg PO Q6H PRN PRN Reason: Fever Stop: 08/20/20 02:37 Last Admin: 07/28/20 08:52 Dose: 650 mg Documented by: Aspirin (Aspirin 81 Mg Ectab) 81 mg PO DAILY BEAU Stop: 08/20/20 08:59 Last Admin: 07/28/20 08:55 Dose: 81 mg Documented by: Atorvastatin Calcium (Atorvastatin 10 Mg Tab) 10 mg PO DAILY BEAU Stop: 08/20/20 08:59 Last Admin: 07/28/20 09:55 Dose: 10 mg Documented by: Nystatin 30 ml/ Dexamethasone 3.75 mg/ Diphenhydramine HCl 300 mg/ Sucrose 45 ml/Microcrystalline Cellulose 45 ml/ BARCODE IDENTIFIER 1 ea 0 ml PO Q4H PRN PRN Reason: Dyspepsia Stop: 08/23/20 16:22 Last Admin: 07/27/20 17:45 Dose: 5 ml Documented by: Dextrose (Dextrose 50% 50 Ml Syringe) 25 - 50 ml IV UD PRN; Protocol PRN Reason: Hypoglycemia Protocol Stop: 08/20/20 00:49 Glucagon (Glucagon For Inj 1 Mg Vial) 1 mg SQ UD PRN; Protocol PRN Reason: Hypoglycemia Protocol Stop: 08/20/20 00:49 Glucose (Glucose 10 Tabs/Tube) 4 - 8 tabs PO UD PRN; Protocol PRN Reason: Hypoglycemia Protocol Stop: 08/20/20 00:49 Glucose (Glucose 40% Gel 15 Gm Tube) 15 - 30 gm PO UD PRN; Protocol PRN Reason: Hypoglycemia Protocol Stop: 08/20/20 00:49 Heparin Sodium (Beef Lung) (Heparin 10 Unit/Ml 5 Ml Flush) 5 ml FLUSH PRN PRN PRN Reason: Flush Stop: 08/21/20 00:01 Heparin Sodium (Porcine) (Heparin Sod 5,000 Unit/0.5 Ml Vial) 5,000 units SQ Q12 BEAU Stop: 08/21/20 20:59 Last Admin: 07/28/20 09:56 Dose: 5,000 units Documented by: Piperacillin Sod/Tazobactam (Sod 3.375 gm/ Dextrose) 115 mls @ 28.75 mls/hr IV Q8H BEAU; Protocol Stop: 08/03/20 13:59 Last Admin: 07/28/20 14:32 Dose: 28.8 mls/hr Documented by: Doxycycline Hyclate 100 mg/ (Dextrose) 110 mls @ 50 mls/hr IV Q12H BEAU Stop: 07/31/20 08:59 Last Infusion: 07/28/20 10:54 Dose: Infused Documented by: Insulin Aspart (Insulin Aspart 100 Units/Ml 3 Ml Pen) 0 units SC ACHS [facility] Stop: 08/22/20 16:29 Last Admin: 07/28/20 12:11 Dose: 1 units Documented by: Insulin Glargine (Insulin Glargine Solostar 100 Units/Ml 3 Ml Pen) 5 units SC DAILY [facility] Stop: 08/26/20 08:59 Last Admin: 07/28/20 08:57 Dose: 5 units Documented by: Ipratropium Hadley (Ipratropium Hadley Neb Soln 0.02% 2.5 Ml Vial) 0.5 mg INH Q4H PRN PRN Reason: Shortness Of Breath Or Wheezing Stop: 08/21/20 20:29 Lactobacillus Acidoph/Casei/Rhamnos (Advanced Probiotic 1250 Mg Capsule) 2 cap PO DAILY [facility] Stop: 08/20/20 08:59 Last Admin: 07/28/20 08:55 Dose: 2 cap Documented by: Levalbuterol HCl (Levalbuterol 1.25mg/0.5ml Neb) 1.25 mg INH Q4H PRN PRN Reason: Shortness Of Breath Or Wheezing Stop: 08/21/20 20:29 Levothyroxine Sodium (Levothyroxine Sodium 75 Mcg Tablet) 75 mcg PO DAILYBB [facility] Stop: 08/20/20 06:29 Last Admin: 07/28/20 05:51 Dose: 75 mcg Documented by: Lidocaine (Lidocaine 5% 1 Patch) 1 patch TD QAM [facility] Stop: 08/25/20 08:59 Last Admin: 07/28/20 09:56 Dose: Not Given Documented by: Lisinopril (Lisinopril 5 Mg Tab) 5 mg PO QAM [facility] Stop: 08/27/20 12:44 Last Admin: 07/28/20 14:32 Dose: 5 mg Documented by: Loperamide HCl (Loperamide Hcl 2 Mg Cap) 2 mg PO Q2H PRN PRN Reason: Diarrhea Stop: 08/23/20 16:24 Last Admin: 07/26/20 09:08 Dose: 2 mg Documented by: Meclizine HCl (Meclizine 12.5 Mg Tab) 12.5 mg PO TID PRN PRN Reason: Dizziness or Vertigo Stop: 08/27/20 11:06 Last Admin: 07/28/20 11:52 Dose: 12.5 mg Documented by: Menthol (Cough Drop (Sugar Free) Teresita 24 Teresita/1 Box) 1 teresita BUCCAL Q1H PRN PRN Reason: SORE THROAT Stop: 08/22/20 16:58 Last Admin: 07/23/20 17:38 Dose: 1 teresita Documented by: Miscellaneous (Carbohydrates For Hypoglycemia ) 15 - 30 gm PO UD PRN PRN Reason: Hypoglycemia Protocol Stop: 08/20/20 00:49 Miscellaneous (Remove Lidoderm Patch) 1 ea N/A DAILY@2100 [facility] Stop: 08/25/20 20:59 Last Admin: 07/27/20 20:50 Dose: 1 ea Documented by: Miscellaneous Information (Pharmacy Glycemic Mgmt Consult) 1 ea N/A UD PRN PRN Reason: Consult Stop: 08/22/20 05:51 Miscellaneous Information (Piperacill/Tazobac Consult Active) 1 ea N/A UD PRN PRN Reason: Consult Stop: 08/23/20 07:58 Nystatin (Nystatin Susp 500,000 U/5 Ml Udc) 10 ml PO TID [facility] Stop: 08/23/20 13:59 Last Admin: 07/28/20 14:32 Dose: Not Given Documented by: Ondansetron HCl (Ondansetron Inj 2 Mg/Ml 2 Ml Vial) 4 mg IV Q6H PRN PRN Reason: Nausea Stop: 08/21/20 07:49 Pantoprazole Sodium (Pantoprazole 40 Mg Tab) 40 mg PO DAILY [facility] Stop: 08/21/20 10:59 Last Admin: 07/28/20 08:54 Dose: 40 mg Documented by: Phenol (Chloraseptic 1.4% Soln 180 Ml Btl) 1 sprays MT Q2H PRN PRN Reason: Sore Throat Stop: 08/21/20 20:23 Last Admin: 07/24/20 08:02 Dose: 1 sprays Documented by: Sucralfate (Sucralfate 1 Gm Tab) 1 gm PO BID@7530,1630 [facility] Stop: 08/25/20 07:29 Last Admin: 07/28/20 08:53 Dose: 1 gm Documented by: Zolpidem Tartrate (Zolpidem Tartrate 5 Mg Tab) 5 mg PO HS PRN PRN Reason: Sleep Stop: 08/24/20 20:44 Last Admin: 07/27/20 20:51 Dose: 5 mg Documented by:
[2020-07-28] MEDS ORDERED: POTASSIUM PHOS 3 MMOL/1 ML INFUSION IV STA (15:57)
[2020-07-28] MEDS: ONDANSETRON INJ 2 MG/ML 2 ML VIAL IV PRN (16:10)
[2020-07-28] MEDS ORDERED: MAGNESIUM SULFATE / D5W 1 GM/100 ML BAG IV ONE (16:15)
[2020-07-28] MEDS ORDERED: POTASSIUM PHOSPHATE 21 MMOL in SODIUM CHLORIDE 0.9% 500 ML IV ONE (16:30)
[2020-07-28] MEDS: ZOLPIDEM TARTRATE 5 MG TAB PO PRN (21:44)
[2020-07-29] MEDS: PIPERACILLIN/TAZOBACTAM 3.375 GM in DEXTROSE 5% 100 ML IV SCH ×2 (05:33→13:49)
[2020-07-29] MEDS: LEVOTHYROXINE SODIUM 75 MCG TABLET PO SCH (05:35)
[2020-07-29] MEDS: NYSTATIN SUSP 500,000 U/5 ML UDC PO SCH ×3 (08:09→21:15)
[2020-07-29] MEDS: lisinopril 5 MG TAB PO SCH (08:09)
[2020-07-29] MEDS: PANTOprazole 40 MG TAB PO SCH (08:10)
[2020-07-29] MEDS: ASPIRIN 81 MG ECTAB PO SCH (08:10)
[2020-07-29] MEDS: ADVANCED PROBIOTIC 1250 MG CAPSULE PO SCH (08:10)
[2020-07-29] MEDS: ATORVASTATIN 10 MG TAB PO SCH (08:10)
[2020-07-29] MEDS: SUCRALFATE 1 GM TAB PO SCH ×2 (08:11→16:59)
[2020-07-29] MEDS: INSULIN ASPART 100 UNITS/ML 3 ML PEN SC SCH ×4 (08:11→21:00)
[2020-07-29] MEDS: HEPARIN SOD 5,000 UNIT/0.5 ML VIAL SQ SCH ×2 (08:13→21:17)
[2020-07-29] MEDS: INSULIN GLARGINE SOLOSTAR 100 UNITS/ML 3 ML PEN SC SCH ×2 (08:13→08:16)
[2020-07-29] MEDS: LIDOCAINE 5% 1 PATCH TD SCH (08:15)
--- NOTE | 2020-07-29 08:33 | Pharmacy Report ---
Pharmacy Glycemic Short Note 2 - Date of Service July 29, 2020 - Glycemic Short BSG Results (Last 24 hours): 07/28/20 07/28/20 07/28/20 07:40 11:19 16:31 Glucose 143 H POC Glucose 161 H 129 H 07/28/20 07/29/20 20:41 07:38 Glucose POC Glucose 141 H 148 H OUTPATIENT ANTIDIABETIC REGIMEN: * glipizide 5mg PO BIDM * A1c = 7.5% (07/24/20) ASSESSMENT: 07/29/20: * BSGs well-controlled yesterday at 132, 161, 129, and 141 mg/dL * Patient received 8 units of insulin (5 units of Lantus and 3 units of prandial/correctional) * Fasting BSG of 148 mg/dL this morning * Will increase Lantus this morning to 7 units SC daily 07/27: * BSGs of 154, 165, 121, and 158 mg/dL * Patient received 5 units of prandial/correctional insulin yesterday (no basal) * Fasting BSG this morning of 164 mg/dL * Will initiate Lantus 5 units SC daily (patient previously had hypoglycemic episode following 10 units of basal) * Continues on Zosyn and doxycycline for UTI/pneumonia * EMILIE has resolved (SCr now 0.92 mg/dL) 07/23: * 75yo T2DM female with unknown degree of outpatient control - A1c ordered for tomorrow with AM labs * Pt is maintained on oral antidiabetic agents as an outpatient * Oral agents are not recommended for inpatient use d/t drug interactions, changing PO intake, and difficulty titrating for acute hyper/hypoglycemia. ADA recommends re-initiating outpatient oral agents 1-2 days prior to discharge if/when appropriate if they were held on admission. * Will hold oral agents for admission and utilize SQ basal bolus insulin regimen which is the recommended regimen for inpatient glycemic control. * Will initiate weight based insulin dosing for insulin mirella patient and titrate based on BSG trends. * Pt with LOW BSG this AM after receiving 10 units of Lantus yesterday. Will dc basal insulin and just utilize bolus insulin monotherapy. PLAN FOR INPATIENT GLYCEMIC CONTROL: * Hold outpatient oral diabetes medications * Basal insulin - increase * Lantus 7 units SC daily * Bolus insulin - continue * NovoLog per scale ACHS or Q6hrs while NPO * Goal Range: Low 110 mg/dL - High 140 mg/dL * Correction Factor: 30 mg/dL/unit * Nutritional / Prandial insulin per carb ratio of 1 unit per 14 grams CHO consumed PLAN FOR DISCHARGE: * A reasonable A1C goal for many non- adults is A1c less than 7% * Current HbA1c of 7.5% * Patient should probably be started on oral medication at discharge. Unfortunately, patient is not an ideal candidate for metformin given worsening renal function and borderline at baseline. * Could consider addition of glipizide 2.5 mg PO daily 30 minutes before breakfast * Preferred sulfonylurea in patient's with renal impairment * Subsequent upward titration in 2.5 mg increments at ~weekly intervals as tolerated * Support Patient Self-Management * Healthy Lifestyle (diet, exercise, and smoking cessation) * Disease self-management (SMBG) * Prevention of complications (BP, Lipid goals, Immunizations) * Consider outpatient Diabetes Self-Management Education & Support
[2020-07-29 08:35] LABS: Basophils # (auto) 0.03 K/uL (0-0.2); Basophils % (auto) 0.3 %; Eosinophils # (auto) 0.45 K/uL (0-0.5); Eosinophils % (auto) 3.8 %; Hematocrit (blood only) 33.3 % (37-47); Hemoglobin 10.8 g/dL (12.0-16.0); Immature Granulocytes # (auto) 0.38 K/uL (0.00-0.02); Immature Granulocytes % (auto) 3.2 %; Lymphocytes # (auto) 2.26 K/uL (1.2-3.4); Lymphocytes % (auto) 19.1 %; Mean Corpuscular Hemoglobin 30.3 pg (25-34); Mean Corpuscular Hgb Conc 32.4 g/dL (32-36); Mean Corpuscular Volume 93.3 fL (80-100); Mean Platelet Volume 10.7 fL (7.4-10.4); Monocytes % (auto) 4.2 %; Neutrophils # (auto) 8.24 K/uL (1.4-6.5); Neutrophils % (auto) 69.4 %; Platelet Count 297 K/uL (130-400); RDW Coefficient of Variation 12.9 % (11.5-14.5); RDW Standard Deviation 43.5 fL (36.4-46.3); Red Blood Count 3.57 M/uL (4.2-5.4); White Blood Count 11.86 K/uL (4.8-10.8)
[2020-07-29] MEDS: DOXYCYCLINE HYCLATE 100 MG in DEXTROSE 5% 100 ML IV SCH (08:36)
[2020-07-29] MEDS ORDERED: INSULIN GLARGINE SOLOSTAR 100 UNITS/ML 3 ML PEN SC SCH (09:00)
[2020-07-29 09:02] LABS: BUN Creatinine Ratio 9.7 (10-20); Calcium 8.7 mg/dl (8.5-10.1); Creatinine Clr Calc Pharmacy 35.8 ml/min; Est GFR (African American) 62.6; Phosphorus 2.8 mg/dl (2.5-4.9); Potassium 3.6 mmol/L (3.5-5.1)
[2020-07-29] MEDS: ACETAMINOPHEN 325 MG TAB PO PRN ×2 (10:52→19:14)
[2020-07-29] MEDS: ONDANSETRON INJ 2 MG/ML 2 ML VIAL IV PRN (13:49)
--- NOTE | 2020-07-29 16:29 | Hospitalist Progress Note ---
Date of Service July 29, 2020 Assessment & Plan (1) Severe sepsis: Presented with severe sepsis 2/2/ ureteral stone s/p stent placement. Required pressor support for one day in the ICU. Resuscitated. (2) Calculus of ureterovesical junction (UVJ): Followup with Urology as outpatient for ureteral stent removal. (3) Pneumonia: Sepsis may have also been related to a pneumonia as leukocytosis and clin ical picture worsened on ceftriaxone monotherapy and she improved once treatment was expanded to Zosyn and doxycycline. Although she can't recall coughing or other tim respiratory symptoms, imaging suggested worsening infiltrates and possible interstitial lung disease. At this point she has been clinically improving for several days, and has been afebrile with leukocytosis resolving. As she is describing some nausea and soft stools and has a h/o c-diff, will stop abx at this time. Repeat CXR yesterday shows improvement. She also had some volume overload after resuscitation which was improved with one dose of intravenous Lasix. (4) UTI (urinary tract infection): She has received a complete antibiotic course and will need urology followup for stent removal as outpatient. (5) CKD (chronic kidney disease), stage III: At her baseline. Acute renal failure 2/2 sepsis and obstructive uropathy has resolved. (6) Metabolic encephalopathy: Initially had acute metabolic encephalopathy that is now resolved. (7) DM type 2 (diabetes mellitus, type 2): Chronic, stable, controlled-Hgb A1c 7.1 04/2020 -Hold oral agents and utilize NovoLog per protocol while hospitalized (8) History of CVA (cerebrovascular accident): -Continue aspirin and statin (9) Hypothyroidism: Chronic, stable, controlled,-Continue levothyroxine per home regimen (10) DVT prophylaxis: Heparin DNR/DNI Dispo-pt states that she is going home. May be good to do this tomorrow. Will need to touch base with CM and son. Marissa Donis DO [facility] Hospitalist Admission and Anticipated Discharge Date Admission Date: July 20, 2020 Subjective 75-year-old female who presented with severe sepsis secondary to a distal left ureteral stone status post stent placed emergently overnight initially on admission, requiring pressors in the ICU postoperatively. She was placed on Zosyn which was later deescalated to ceftriaxone for acute pyelonephritis secondary to pansensitive E. coli. 2 days later this was switched back to Zosyn and IV doxycycline based on an elevated white blood cell count that was trending up and a chest x-ray revealing bibasilar atelectasis/infiltration with pleural effusion. Some nausea reported she thinks secondary to antibiotic use Still tolerating p.o. Soft stool reported but no tim diarrhea, noted history of C. difficile No fevers or chills No coughing noted the entire hospitalization by patient Patient denies any shortness of breath, chest pain or other issues. Patient does report she had total body muscle aches from the time she was admitted that gradually improved Review of Systems Review of Systems: All systems reviewed & are unremarkable except as noted in Subjective Physical Exam Physical Exam: CONSTITUTIONAL: WNWD, vitals as above, generally well- appearing EYES: normal conjunctivae, no scleral icterus ENT: external ear and nose normal, oropharynx clear, MMM RESPIRATORY: crackles at right base+, no rales or wheezes, normal respiratory effort CARDIOVASCULAR: regular rate and rhythm, S1 and 2 heard without murmurs, gallops or rubs, no JVD, no peripheral edema GASTROINTESTINAL: soft, nontender, nondistended, no guarding MUSCULOSKELETAL: strength 5/5 throughout, head is normocephalic and atraumatic, neck supple, normal palpation of chest wall without tenderness SKIN: warm and dry NEUROLOGIC: No facial palsy, no dysarthria. CN 2-12 grossly intact, no sensory deficit, normal cognition, normal speech, no tremor. PSYCHIATRIC: alert cooperative and oriented Results & Data Results & Data ([facility]) Vital Signs (Past 12 Hours) Vital Signs Temp Pulse Pulse Resp BP BP Pulse Ox 07/29/20 15:22 36.5 C 82 18 137/66 92 07/29/20 11:36 36.5 C 83 18 149/76 H 93 07/29/20 07:20 36.8 C 91 H 20 132/67 98 07/29/20 07:19 80 Laboratory Results Short CBC 07/29/20 Range/Units 08:08 WBC 11.86 H (4.8-10.8) K/uL Hgb 10.8 L (12.0-16.0) g/dL Hct 33.3 L (37-47) % Plt Count 297 (130-400) K/uL BMP 07/29/20 08:08 Sodium 140 Potassium 3.6 Chloride 108 H Carbon Dioxide 27 BUN 10 Creatinine 1.01 Glucose 147 H Calcium 8.7 Medications Administered Current Inpatient Medications Acetaminophen (Acetaminophen 325 Mg Tab) 650 mg PO Q6H PRN PRN Reason: Fever Stop: 08/20/20 02:37 Last Admin: 07/29/20 10:52 Dose: 650 mg Documented by: Aspirin (Aspirin 81 Mg Ectab) 81 mg PO DAILY BEAU Stop: 08/20/20 08:59 Last Admin: 07/29/20 08:10 Dose: 81 mg Documented by: Atorvastatin Calcium (Atorvastatin 10 Mg Tab) 10 mg PO DAILY BEAU Stop: 08/20/20 08:59 Last Admin: 07/29/20 08:10 Dose: 10 mg Documented by: Nystatin 30 ml/ Dexamethasone 3.75 mg/ Diphenhydramine HCl 300 mg/ Sucrose 45 ml/Microcrystalline Cellulose 45 ml/ BARCODE IDENTIFIER 1 ea 0 ml PO Q4H PRN PRN Reason: Dyspepsia Stop: 08/23/20 16:22 Last Admin: 07/27/20 17:45 Dose: 5 ml Documented by: Dextrose (Dextrose 50% 50 Ml Syringe) 25 - 50 ml IV UD PRN; Protocol PRN Reason: Hypoglycemia Protocol Stop: 08/20/20 00:49 Glucagon (Glucagon For Inj 1 Mg Vial) 1 mg SQ UD PRN; Protocol PRN Reason: Hypoglycemia Protocol Stop: 08/20/20 00:49 Glucose (Glucose 10 Tabs/Tube) 4 - 8 tabs PO UD PRN; Protocol PRN Reason: Hypoglycemia Protocol Stop: 08/20/20 00:49 Glucose (Glucose 40% Gel 15 Gm Tube) 15 - 30 gm PO UD PRN; Protocol PRN Reason: Hypoglycemia Protocol Stop: 08/20/20 00:49 Heparin Sodium (Beef Lung) (Heparin 10 Unit/Ml 5 Ml Flush) 5 ml FLUSH PRN PRN PRN Reason: Flush Stop: 08/21/20 00:01 Heparin Sodium (Porcine) (Heparin Sod 5,000 Unit/0.5 Ml Vial) 5,000 units SQ Q12 [facility] Stop: 08/21/20 20:59 Last Admin: 07/29/20 08:13 Dose: 5,000 units Documented by: Piperacillin Sod/Tazobactam (Sod 3.375 gm/ Dextrose) 115 mls @ 28.75 mls/hr IV Q8H [facility]; Protocol Stop: 08/03/20 13:59 Last Admin: 07/29/20 13:49 Dose: 28.8 mls/hr Documented by: Doxycycline Hyclate 100 mg/ (Dextrose) 110 mls @ 50 mls/hr IV Q12H [facility] Stop: 07/31/20 08:59 Last Infusion: 07/29/20 10:48 Dose: Infused Documented by: Insulin Aspart (Insulin Aspart 100 Units/Ml 3 Ml Pen) 0 units SC ACHS [facility] Stop: 08/22/20 16:29 Last Admin: 07/29/20 12:30 Dose: 2 units Documented by: Insulin Glargine (Insulin Glargine Solostar 100 Units/Ml 3 Ml Pen) 7 units SC DAILY [facility] Stop: 08/26/20 08:59 Last Admin: 07/29/20 08:16 Dose: 7 units Documented by: Ipratropium Bomont (Ipratropium Bomont Neb Soln 0.02% 2.5 Ml Vial) 0.5 mg INH Q4H PRN PRN Reason: Shortness Of Breath Or Wheezing Stop: 08/21/20 20:29 Lactobacillus Acidoph/Casei/Rhamnos (Advanced Probiotic 1250 Mg Capsule) 2 cap PO DAILY [facility] Stop: 08/20/20 08:59 Last Admin: 07/29/20 08:10 Dose: 2 cap Documented by: Levalbuterol HCl (Levalbuterol 1.25mg/0.5ml Neb) 1.25 mg INH Q4H PRN PRN Reason: Shortness Of Breath Or Wheezing Stop: 08/21/20 20:29 Levothyroxine Sodium (Levothyroxine Sodium 75 Mcg Tablet) 75 mcg PO DAILYBB [facility] Stop: 08/20/20 06:29 Last Admin: 07/29/20 05:35 Dose: 75 mcg Documented by: Lidocaine (Lidocaine 5% 1 Patch) [facility] Stop: 08/25/20 08:59 Last Admin: 07/29/20 08:15 Dose: Not Given Documented by: Lisinopril (Lisinopril 5 Mg Tab) 5 mg PO QAM [facility] Stop: 08/27/20 12:44 Last Admin: 07/29/20 08:09 Dose: 5 mg Documented by: Loperamide HCl (Loperamide Hcl 2 Mg Cap) 2 mg PO Q2H PRN PRN Reason: Diarrhea Stop: 08/23/20 16:24 Last Admin: 07/26/20 09:08 Dose: 2 mg Documented by: Meclizine HCl (Meclizine 12.5 Mg Tab) 12.5 mg PO TID PRN PRN Reason: Dizziness or Vertigo Stop: 08/27/20 11:06 Last Admin: 07/28/20 21:44 Dose: 12.5 mg Documented by: Menthol (Cough Drop (Sugar Free) Teresita 24 Teresita/1 Box) 1 teresita BUCCAL Q1H PRN PRN Reason: SORE THROAT Stop: 08/22/20 16:58 Last Admin: 07/23/20 17:38 Dose: 1 teresita Documented by: Miscellaneous (Carbohydrates For Hypoglycemia ) 15 - 30 gm PO UD PRN PRN Reason: Hypoglycemia Protocol Stop: 08/20/20 00:49 Miscellaneous (Remove Lidoderm Patch) 1 ea N/A DAILY@2100 [facility] Stop: 08/25/20 20:59 Last Admin: 07/28/20 20:35 Dose: Not Given Documented by: Miscellaneous Information (Pharmacy Glycemic Mgmt Consult) 1 ea N/A UD PRN PRN Reason: Consult Stop: 08/22/20 05:51 Miscellaneous Information (Piperacill/Tazobac Consult Active) 1 ea N/A UD PRN PRN Reason: Consult Stop: 08/23/20 07:58 Nystatin (Nystatin Susp 500,000 U/5 Ml Ud) 10 ml PO TID [facility] Stop: 08/23/20 13:59 Last Admin: 07/29/20 14:58 Dose: 10 ml Documented by: Ondansetron HCl (Ondansetron Inj 2 Mg/Ml 2 Ml Vial) 4 mg IV Q6H PRN PRN Reason: Nausea Stop: 08/21/20 07:49 Last Admin: 07/29/20 13:49 Dose: 4 mg Documented by: Pantoprazole Sodium (Pantoprazole 40 Mg Tab) 40 mg PO DAILY [facility] Stop: 08/21/20 10:59 Last Admin: 07/29/20 08:10 Dose: 40 mg Documented by: Phenol (Chloraseptic 1.4% Soln 180 Ml Btl) 1 sprays MT Q2H PRN PRN Reason: Sore Throat Stop: 08/21/20 20:23 Last Admin: 07/24/20 08:02 Dose: 1 sprays Documented by: Sucralfate (Sucralfate 1 Gm Tab) 1 gm PO BID@7130,6840 [facility] Stop: 08/25/20 07:29 Last Admin: 07/29/20 08:11 Dose: 1 gm Documented by: Zolpidem Tartrate (Zolpidem Tartrate 5 Mg Tab) 5 mg PO HS PRN PRN Reason: Sleep Stop: 08/24/20 20:44 Last Admin: 07/28/20 21:44 Dose: 5 mg Documented by:
[2020-07-29] MEDS: ZOLPIDEM TARTRATE 5 MG TAB PO PRN (21:15)
[2020-07-30] MEDS: ACETAMINOPHEN 325 MG TAB PO PRN ×2 (05:07→14:18)
[2020-07-30] MEDS: LEVOTHYROXINE SODIUM 75 MCG TABLET PO SCH (05:36)
[2020-07-30 07:34] LABS: Hematocrit (blood only) 33.4 % (37-47); Hemoglobin 10.7 g/dL (12.0-16.0); Mean Corpuscular Volume 93.6 fL (80-100); Mean Platelet Volume 10.6 fL (7.4-10.4); Platelet Count 345 K/uL (130-400); RDW Coefficient of Variation 12.9 % (11.5-14.5); RDW Standard Deviation 43.3 fL (36.4-46.3); Red Blood Count 3.57 M/uL (4.2-5.4)
[2020-07-30 08:02] LABS: BUN Creatinine Ratio 9.5 (10-20); Calcium 8.8 mg/dl (8.5-10.1); Creatinine Clr Calc Pharmacy 37.6 ml/min; Est GFR (African American) 66.6; Est GFR (Non-African American) 57.4; Potassium 3.5 mmol/L (3.5-5.1)
[2020-07-30] MEDS: lisinopril 5 MG TAB PO SCH (08:14)
[2020-07-30] MEDS: ASPIRIN 81 MG ECTAB PO SCH (08:14)
[2020-07-30] MEDS: PANTOprazole 40 MG TAB PO SCH (08:14)
[2020-07-30] MEDS: ADVANCED PROBIOTIC 1250 MG CAPSULE PO SCH (08:14)
[2020-07-30] MEDS: INSULIN GLARGINE SOLOSTAR 100 UNITS/ML 3 ML PEN SC SCH (08:15)
[2020-07-30] MEDS: LIDOCAINE 5% 1 PATCH TD SCH (08:15)
[2020-07-30] MEDS: ATORVASTATIN 10 MG TAB PO SCH (08:15)
[2020-07-30] MEDS: INSULIN ASPART 100 UNITS/ML 3 ML PEN SC SCH ×2 (08:16→12:46)
[2020-07-30] MEDS: HEPARIN SOD 5,000 UNIT/0.5 ML VIAL SQ SCH (08:19)
[2020-07-30] MEDS ORDERED: CHOLECALCIFEROL 1,000 UNITS 25 MCG TAB PO SCH (09:00)
[2020-07-30] MEDS: NYSTATIN SUSP 500,000 U/5 ML UDC PO SCH ×2 (12:46→14:15)
--- NOTE | 2020-07-30 14:40 | Discharge Summary ---
Date of Service July 30, 2020 Admission HPI Per Admitting Provider 75-year-old female with PMH DM type II, HTN, CKD stage III, history of CVA, hypothyroidism, and other problems listed below who presents to the ED for evaluation of sudden onset abdominal and back pain. History is currently unobtainable from the patient. Patient's son reports that the patient woke up this morning feeling in her usual state of health and then suddenly around 130, she developed severe, sudden onset abdominal and back pain. Patient was then brought to the ED for further evaluation. In the ED, UA suggest UTI. CTA ABD/pelvis shows a 3 mm obstructing calculus at the left vesicoureteral junction causing mild to moderate left hydroureteronephrosis. There is associated urothelial thickening in the left ureter, as well as left-sided perinephric and periureteric stranding and fluid. Patient received IV Cipro, IVF, IV fentanyl x2, IV lorazepam, IV Zofran x2, and IV Benadryl and IV methylprednisone for premedication for CTA. At the time my exam, patient spiked temperature 39.4. She is tachycardic and has altered mental status. Stat lactate and blood cultures were ordered. Broad-spectrum antibiotics including IV ceftriaxone was ordered as well. Dr. Haider with urology was notified and patient will be taken for urgent cystoscopy tonight. Principal Diagnosis Severe sepsis Complicated UTI 2/2 pansensitive E coli Ureteral calculus s/p L ureteral stent placement Pneumonia Discharge Data Allergies Allergy/AdvReac Type Severity Reaction Status Date / Time simvastatin Allergy Intermediate MUSCLE PAIN Verified 07/20/20 22:26 codeine Allergy Unknown RASH Verified 07/20/20 22:26 Iodinated Contrast Media Allergy Unknown Hives Verified 07/20/20 22:26 Sulfa (Sulfonamide AdvReac Intermediate HIVES,NAUSE Verified 07/20/20 22:29 Antibiotics) A gabapentin AdvReac Unknown NAUSEA Verified 07/20/20 22:29 pravastatin AdvReac Unknown Abdominal Verified 07/20/20 22:29 Pain Consultations 07/20/20 20:52 ED Decision to Admit Stat 07/21/20 00:50 Consult Urology Routine 07/21/20 05:57 Consult Case Management - Discharge Planning Routine 07/21/20 06:04 Consult Electronic [employer]sembler [employer] Leader Routine Procedures Performed Operation Date: 11/23/20 23:15 Actual Procedures p Cystoscopy, Left Ureteral Stent Placement(Left) - Benson Haider MD Ordered Studies 07/20/20 FL KUB Routine FL fluoroscopy <1hr Routine 07/20/20 19:46 CT angio abdomen pelvis w con Stat 07/21/20 07:29 US point of care ultrasound Stat 07/25/20 08:44 CT abd pelvis wo con Routine Hospital Course (1) Severe sepsis: Presented with severe sepsis 2/2/ ureteral stone s/p stent placement. Required pressor support for one day in the ICU. Resuscitated. (2) Calculus of ureterovesical junction (UVJ): Followup with Urology as outpatient for ureteral stent removal. (3) Pneumonia: Sepsis may have also been related to a pneumonia as leukocytosis and clinical picture worsened on ceftriaxone monotherapy and she improved once treatment was expanded to Zosyn and doxycycline. Although she can't recall coughing or other tim respiratory symptoms, imaging suggested worsening infiltrates and possible interstitial lung disease. At this point she has been clinically improving for several days, and has been afebrile with leukocytosis resolving. As she is describing some nausea and soft stools and has a h/o c- diff, will stop abx at this time. Repeat CXR yesterday shows improvement. She also had some volume overload after resuscitation which was improved with one dose of intravenous Lasix. (4) UTI (urinary tract infection): She has received a complete antibiotic course and will need urology followup for stent removal as outpatient. (5) CKD (chronic kidney disease), stage III: At her baseline. Acute renal failure 2/2 sepsis and obstructive uropathy has resolved. (6) Metabolic encephalopathy: Initially had acute metabolic encephalopathy that is now resolved. (7) DM type 2 (diabetes mellitus, type 2): Chronic, stable, controlled-Hgb A1c 7.1 04/2020 -Hold oral agents and utilize NovoLog per protocol while hospitalized (8) History of CVA (cerebrovascular accident): -Continue aspirin and statin (9) Hypothyroidism: Chronic, stable, controlled,-Continue levothyroxine per home regimen (10) DVT prophylaxis: Heparin DNR/DNI Dispo-pt states that she is going home. May be good to do this tomorrow. Will need to touch base with CM and son. Marissa Donis DO [facility] Hospitalist Discharge Plan Discharge Items Patient Disposition: Home - Home Health Services Reason For Visit: UTI, RENAL CALCULI Discharge Diagnosis: Severe sepsis Complicated UTI 2/2 pansensitive E coli Ureteral calculus s/p L ureteral stent placement Pneumonia Condition on Discharge: Good Activity: Resume your previous activity Non-emergency contact: Primary Care Provider Call non-emergency contact if: you have any medication questions, your symptoms worsen, your pain is not controlled, your pain is worsening, your pain is unusual for you, your pain is concerning for you and you have a fever Follow-up/Referrals: Angela Cheek DO [Outside Practitioners] - (Date & Time 08/04/2020 11:00 AM Provider Angela Cheek DO Department [facility] ) Diet: Carb Consistent or DM2 Addtl Attending Provider Instructions: Please take all medications as instructed on discharge list below. Staff at [facility] will be contacting you to schedule your stent removal. It you don't hear from someone please contact the office at . It appears you had not only a urinary tract infection with a stone, but also a case of pneumonia. You have completed a course of antibiotics in the hospital. Please monitor closely for any signs/symptoms of c-diff infection per your history. It is fine to continue probiotics. A repeat chest x-ray is recommended in 4 weeks time to ensure complete resolution of your pneumonia. Of note, the radiology reading considered the possibility of interstitial lung disease. A referral to a automotive instructor to investigate this further is recommended over the next couple of months. It was a pleasure taking care of you! Please call if you have any questions or problems. You can reach a [facility] hospitalist on duty at [facility] 24 hours a day by calling [phone]. Take care of yourself. Marissa Donis DO [facility] Hospitalist Pending Studies at Discharge: No Stand-Alone Forms: My [facility] Medications and DC Order Prescriptions: Continued multivitamin Tablet 1 tab PO DAILY RF: 0 atorvastatin 10 mg tablet 10 mg PO DAILY RF: 0 glipizide 5 mg tablet extended release 24hr 5 mg PO BID RF: 0 meclizine 12.5 mg tablet 12.5 mg PO TID PRN (Reason: Dizziness) RF: 0 aspirin [Aspir-81] 81 mg Tablet,Delayed Release (Dr/Ec) 81 mg PO DAILY RF: 0 levothyroxine 75 mcg tablet 75 mcg PO DAILY RF: 0 famotidine 20 mg tablet 20 mg PO DAILY RF: 0 docusate sodium [DOK] 100 mg capsule 100 mg PO BID RF: 0 omeprazole 20 mg capsule,delayed release(DR/EC) 20 mg PO DAILY RF: 0 lisinopril 5 mg tablet 5 mg PO DAILY RF: 0 Culturelle 10 billion cell Capsule 1 cap PO BID RF: 0 fluticasone propionate [Flonase] 50 mcg/actuation [place],Suspension 1 spray INTRANASAL DAILY PRN (Reason: Nasal Congestion) RF: 0 cholecalciferol (vitamin D3) 25 mcg (1,000 unit) Tablet 25 mcg PO DAILY RF: 0 loratadine 10 mg Capsule 10 mg PO DAILY PRN (Reason: Allergic Symptoms) RF: 0 Discharge Orders: Discharge Order (Routine); Ordered 07/30/20 Ordered By: Marissa Ferrera/Other Patient Handouts: High Blood Sugar (Hyperglycemia), Hypoglycemia (Low Blood Sugar), Managing Type 2 Diabetes Admission Data Admit Date/Time: 07/20/20 21:50 Attending Provider: Marissa Donis Admit Provider: Rickey Sanchez Primary Care Provider: Dianna Robb Other Providers: Marissa Donis ; Michael Lacey ; Benson Haider ; Lyndon Bhardwaj ; Leon[facility] Other Interventions: Discharge Summary Assessment (RN) Last Done: 07/30/20 13:40
== END 2020-07-30 17:17 | disposition home health service (06) | DRG 853 ==
LOC: ED 17:03 → SUATTDRO 21:50 → ASU 22:53 → SUATTDRO 22:54 → 1E 22:54 → 2N 07-22 16:32

== ENCOUNTER 2021-07-23 07:10 | Inpatient (IN) ==
[2021-07-23] MEDS ORDERED: SODIUM CHLORIDE 0.9% 1000ML 500 ML IV ONE (07:27)
--- NOTE | 2021-07-23 07:30 | Emergency Department Note ---
Impression & Plan Acute kidney injury superimposed on chronic kidney disease, Hypertension, Elevated troponin, Metabolic acidosis with normal anion gap and bicarbonate losses ED Provider Note NAME: SUSAN CREWS AGE: 76 SEX: F : 1945 ARRIVES VIA: Ambulance INFORMANT: Patient ED PROVIDER(S): Jay Felix DO CHIEF COMPLAINT: Weakness HPI: Patient is a 76-year-old female who presents the ER for weakness. She notes that this started about 3 days ago with diffuse myalgias and arthralgias. She feels very weak. She does have some nausea. She admits to a headache which has been present since May when she had her right tooth pulled. The headache is still present on that side and unchanged in any way. Is worse when the dental pain gets worse. No recorded fevers above 100.4. She denies any chest pain or shortness of breath. She does have some nausea. No dysuria, urgency, or frequency. No other exacerbating or remitting factors. ROS: See above HPI for pertinent positives & negatives. A total of 10 systems reviewed and were otherwise negative. PAST MEDICAL HISTORY:See Below PAST SURGICAL HISTORY:See Below FAMILY HISTORY:See Below SOCIAL HISTORY:See Below HOME MEDICATIONS:See Below ALLERGIES:See Below VITALS:See Below PHYSICAL EXAMINATION: GENERAL: Sitting up in bed, alert, malnourished and cachectic, no acute distress EYE EXAM: normal conjunctiva. PERRL and EOM's grossly intact. OROPHARYNX: no exudate, no erythema, lips, buccal mucosa, and tongue normal and mucous membranes are moist NECK: supple, no nuchal rigidity, no adenopathy, non-tender LUNGS: Clear to auscultation. Normal chest wall mechanics HEART: no murmurs, S1 normal and S2 normal ABDOMEN: abdomen soft, non-tender, normo-active bowel sounds, no masses, no rebound or guarding. UPPER EXTREMITIES: upper extremities are grossly normal. LOWER EXTREMITIES: No pitting edema. NEURO EXAM: Normal sensorium, cranial nerves II-XII grossly intact, normal speech, no gross weakness of arms, no gross weakness of legs. MEDICAL DECISION MAKING: Patient is a 76-year-old female who presents ER for weakness, chills as well as diffuse myalgias and arthralgias and some nausea and one episode of vomiting. IV was established blood was obtained. Labs show mild leukocytosis 12,000. Mild anemia 11.1. Patient has mild hyperkalemia 5.3 with metabolic acidosis which is nongapped likely secondary to the uremia with a creatinine of 2.8 up from a baseline of 1. LFTs bilirubin was unremarkable. Troponin was 4. Lipase was slightly elevated at 582. TSH was unremarkable. UA was contaminated but not consistent with infection with only 1-5 whites[address] Cov[address] was negative. CT abdomen pelvis was Noncon negative. Chest x-ray was unremarkable. Patient was given 2 L IV fluids. Updated bedside. She was given aspirin as well. Held on heparin as she has no chest pain or shortness of breath. Discussed the hospitalist for further evaluation. Triage Nursing notes reviewed. Limited review of prior medical records performed Vital Signs: reviewed and remarkable for tachy Differential diagnosis: Infection, dehydration, metabolic abnormality, hypo/hyperglycemia, electrolyte disturbance, anemia, hypoxia, cardiac sources, intracerebral event, toxicologic, neurologic, as well as other pathologies. ER treatment provided: See below Diagnostics interpreted by me: ECG: Sinus tachycardia rate of 114 Normal axis T wave inversions in the inferior leads Nonspecific ST wave changes in the lateral leads Septal Q waves PACs present T wave inversions in the inferior leads are new from previous Jun 2020 Cardiac Monitoring: An order was placed for continuous cardiac monitoring. The monitor shows a rate of 110 with sinus rhythm. Laboratory studies: As stated above and show below. Imaging studies: CT abdomen pelvis is unremarkable Portable AP upright 1 view the chest was unremarkable Consultation(s): Discussed with hospitalist for further evaluation Procedures: none Critical Care: None Past Med/Surg History Medical History (Updated 07/23/21 @ 13:14 by Jay Felix DO) Carotid stenosis S/p right CEA in 2004 CKD (chronic kidney disease) stage 3, GFR 30-59 ml/min Diabetes mellitus, type 2 NIDDM> GLUCOSE HAS BEEN RUNNING LOW IN AM > LOW 57 TO 68 GERD (gastroesophageal reflux disease) HLD (hyperlipidemia) Hypertension Hypothyroidism Kidney stones Osteoarthritis Pyelonephritis Recently admitted and treated with abxs Stroke 2004> RESULTED IN CAROTID ENDARTERECTOMY> NO RESIDUAL EFFECTS> DOESN'T FOLLOW NEURO Urinary incontinence JUST OCCASIONALLY Surgical History H/O dilation and curettage History of carotid endarterectomy Right> 2004> FOLLOWS PCP History of colonoscopy History of hysterectomy History of tonsillectomy History of tooth extraction Family History Father Diabetes Mother Diabetes Sister Colon cancer Social History Smoking Status: Never smoker Second Hand Exposure: No; Hx Alcohol Use: No Hx Substance Use: No Preferred Language: Urdu Communication Ability: Effective Visual Impairment: No Limitations [employer] And Coremaking Machines Required: No Beliefs That Will Affect Care: None Current Living Situation: Alone Feels Safe at Home: Yes Assistive Devices: Glasses Allergies Allergies Allergy/AdvReac Type Severity Reaction Status Date / Time simvastatin Allergy Intermediate MUSCLE PAIN Verified 07/23/21 09:50 codeine Allergy Unknown RASH Verified 07/23/21 09:50 Iodinated Contrast Media Allergy Unknown Hives Verified 07/23/21 09:50 Sulfa (Sulfonamide AdvReac Intermediate HIVES,NAUSE Verified 07/23/21 09:50 Antibiotics) A gabapentin AdvReac Unknown NAUSEA Verified 07/23/21 09:50 pravastatin AdvReac Unknown Abdominal Verified 07/23/21 09:50 Pain Home Meds Home Medications Medication Instructions Recorded Confirmed Lactobacillus rhamnosus GG 10 2 cap PO QAM 07/20/20 07/23/21 billion cell capsule (Culturelle) aspirin 81 mg tablet,delayed 81 mg PO QAM 07/20/20 07/23/21 release cholecalciferol (vitamin D3) 25 25 mcg PO QAM 07/20/20 07/23/21 mcg (1,000 unit) tablet docusate sodium 100 mg capsule 100 mg PO PM 07/20/20 07/23/21 (DOK) famotidine 20 mg tablet 20 mg PO PM 07/20/20 07/23/21 glipizide 5 mg tablet, extended 5 mg PO QAM 07/20/20 07/23/21 release 24 hr levothyroxine 75 mcg tablet 75 mcg PO QAM 07/20/20 07/23/21 lisinopril 5 mg tablet 5 mg PO QAM 07/20/20 07/23/21 meclizine 12.5 mg tablet 12.5 mg PO TID PRN 07/20/20 07/23/21 multivitamin 1 tab PO QAM 07/20/20 07/23/21 omeprazole 20 mg capsule,delayed 20 mg PO QAM 07/20/20 07/23/21 release diphenhydramine 25 1 tab PO HS PRN #0 08/13/20 07/23/21 mg-acetaminophen 500 mg tablet (Tylenol PM Extra Strength) acetaminophen 500 mg tablet 500 mg PO Q6H PRN 07/23/21 07/23/21 (Tylenol Extra Strength) metformin 500 mg tablet,extended 500 mg PO BIDM 07/23/21 07/23/21 release 24 hr Results & Data (ED) Vital Signs Vital Signs - 24 hr 07/23/21 07:22 07/23/21 07:25 07/23/21 08:00 Temperature 37 C Temperature Source Oral Pulse Rate 108 H 108 H 121 H Pulse Rate from SpO2 Sensor 151 H Pulse Rhythm Irregular Respiratory Rate 20 20 22 Respiratory Effort / Characteristics Non-Labored Spontaneous Respiratory Depth Normal Respiratory Pattern Regular Blood Pressure 147/114 H 171/91 H Blood Pressure Mean 125 117 Blood Pressure Position Sitting Pulse Oximetry 96 96 94 Oxygen Delivery Method Room Air Room Air Room Air Sepsis Recent Fever Within 48 Hours No Sepsis New/Unexplained Change in Mental Status No Sepsis Action Taken by Nursing No Action Required 07/23/21 09:00 Temperature Temperature Source Pulse Rate 113 H Pulse Rate from SpO2 Sensor Pulse Rhythm Respiratory Rate 19 Respiratory Effort / Characteristics Respiratory Depth Respiratory Pattern Blood Pressure 160/73 H Blood Pressure Mean 102 Blood Pressure Position Pulse Oximetry 97 Oxygen Delivery Method Room Air Sepsis Recent Fever Within 48 Hours Sepsis New/Unexplained Change in Mental Status Sepsis Action Taken by Nursing Laboratory Data Result diagrams: 07/23/21 07:51 07/23/21 07:51 Lab Results 07/23/21 07/23/21 07/23/21 Range/Units 07:46 07:46 07:46 WBC (4.8-10.8) K/uL RBC (4.2-5.4) M/uL Hgb (12.0-16.0) g/dL Hct (37-47) % MCV (80-100) fL MCH (25-34) pg MCHC (32-36) g/dL RDW Std Deviation (36.4-46.3) fL RDW Coeff of Abebe (11.5-14.5) % Plt Count (130-400) K/uL MPV (7.4-10.4) fL Immature Gran % (Auto) % Neut % (Auto) % Lymph % (Auto) % Hale % (Auto) % Eos % (Auto) % Baso % (Auto) % Neut # (Auto) (1.4-6.5) K/uL Lymph # (Auto) (1.2-3.4) K/uL Hale # (Auto) (0.11-0.59) K/uL Eos # (Auto) (0-0.5) K/uL Baso # (Auto) (0-0.2) K/uL Immature Gran # (Auto) (0.00-0.02) K/uL Peripher Smr Path Cons Sodium (136-145) mmol/L Potassium (3.5-5.1) mmol/L Chloride (98-107) mmol/L Carbon Dioxide (21-32) mmol/L Anion Gap (3-11) BUN (7-18) mg/dl Creatinine (0.6-1.2) mg/dl Est Cr Clr Drug Dosing ml/min Est GFR ( Amer) ml/min Est GFR (Non-Af Amer) ml/min BUN/Creatinine Ratio (10-20) Glucose (70-99) mg/dl Calcium (8.5-10.1) mg/dl Total Bilirubin (0.2-1) mg/dl AST (15-37) U/L ALT (12-78) U/L Alkaline Phosphatase (45-117) U/L Troponin I (0-0.045) ng/ml C-Reactive Protein Total Protein (6.4-8.2) gm/dl Albumin (3.4-5.0) gm/dl Globulin (2.5-4.0) gm/dl Albumin/Globulin Ratio (0.9-2) Lipase (73-393) U/L TSH (0.300-4.500) uIu/ml Urine Color Yellow Urine Appearance Clear (Clear) Urine pH 5.0 (4.5-7.5) Ur Specific Hartman 1.016 (1.000-1.030) Urine Protein 3+ H (Negative) Urine Glucose (UA) Negative (Negative) Urine Ketones Negative (Negative) Urine Blood 3+ H (Negative) Urine Nitrite Negative (Negative) Urine Bilirubin Negative (Negative) Urine Urobilinogen Negative (Negative) Ur Leukocyte Esterase Negative (Negative) Urine WBC (Auto) 1-5 (0-5) /hpf Urine RBC (Auto) 10-30 H (0-4) /hpf U Hyaline Cast (Auto) 5-10 H (0-5) /lpf U Epithel Cells (Auto) 20-30 H (0-5) /lpf Urine Bacteria (Auto) Negative (Negative) Anaplasma Smear SARS-CoV-2 (PCR) NEGATIVE (Negative) Influ A Molecular Assay Negative (Negative) Influ B Molecular Assay Negative (Negative) 07/23/21 07/23/21 07/23/21 Range/Units 07:51 07:51 07:51 WBC 12.41 H (4.8-10.8) K/uL RBC 3.72 L (4.2-5.4) M/uL Hgb 11.1 L (12.0-16.0) g/dL Hct 34.7 L (37-47) % MCV 93.3 (80-100) fL MCH 29.8 (25-34) pg MCHC 32.0 (32-36) g/dL RDW Std Deviation 45.4 (36.4-46.3) fL RDW Coeff of Abebe 13.3 (11.5-14.5) % Plt Count 305 (130-400) K/uL MPV 10.7 H (7.4-10.4) fL Immature Gran % (Auto) 0.2 % Neut % (Auto) 78.8 % Lymph % (Auto) 15.9 % Hale % (Auto) 3.9 % Eos % (Auto) 1.0 % Baso % (Auto) 0.2 % Neut # (Auto) 9.78 H (1.4-6.5) K/uL Lymph # (Auto) 1.97 (1.2-3.4) K/uL Hale # (Auto) 0.49 (0.11-0.59) K/uL Eos # (Auto) 0.13 (0-0.5) K/uL Baso # (Auto) 0.02 (0-0.2) K/uL Immature Gran # (Auto) 0.02 (0.00-0.02) K/uL Peripher Smr Path Cons Cancelled Sodium 140 (136-145) mmol/L Potassium 5.3 H (3.5-5.1) mmol/L Chloride 115 H (98-107) mmol/L Carbon Dioxide 15 L (21-32) mmol/L Anion Gap 10.0 (3-11) BUN 48 H (7-18) mg/dl Creatinine 2.83 H (0.6-1.2) mg/dl Est Cr Clr Drug Dosing 12.4 ml/min Est GFR ( Amer) 17.9 ml/min Est GFR (Non-Af Amer) 15.4 ml/min BUN/Creatinine Ratio 16.8 (10-20) Glucose 111 H (70-99) mg/dl Calcium 9.7 (8.5-10.1) mg/dl Total Bilirubin 0.3 (0.2-1) mg/dl AST 38 H (15-37) U/L ALT 18 (12-78) U/L Alkaline Phosphatase 60 (45-117) U/L Troponin I 4.010 H* (0-0.045) ng/ml C-Reactive Protein Total Protein 8.2 (6.4-8.2) gm/dl Albumin 3.5 (3.4-5.0) gm/dl Globulin 4.7 H (2.5-4.0) gm/dl Albumin/Globulin Ratio 0.8 L (0.9-2) Lipase 582 H (73-393) U/L TSH 0.687 (0.300-4.500) uIu/ml Urine Color Urine Appearance (Clear) Urine pH (4.5-7.5) Ur Specific Hartman (1.000-1.030) Urine Protein (Negative) Urine Glucose (UA) (Negative) Urine Ketones (Negative) Urine Blood (Negative) Urine Nitrite (Negative) Urine Bilirubin (Negative) Urine Urobilinogen (Negative) Ur Leukocyte Esterase (Negative) Urine WBC (Auto) (0-5) /hpf Urine RBC (Auto) (0-4) /hpf U Hyaline Cast (Auto) (0-5) /lpf U Epithel Cells (Auto) (0-5) /lpf Urine Bacteria (Auto) (Negative) Anaplasma Smear See Comment SARS-CoV-2 (PCR) (Negative) Influ A Molecular Assay (Negative) Influ B Molecular Assay (Negative) 07/23/21 Range/Units 07:51 WBC (4.8-10.8) K/uL RBC (4.2-5.4) M/uL Hgb (12.0-16.0) g/dL Hct (37-47) % MCV (80-100) fL MCH (25-34) pg MCHC (32-36) g/dL RDW Std Deviation (36.4-46.3) fL RDW Coeff of Abebe (11.5-14.5) % Plt Count (130-400) K/uL MPV (7.4-10.4) fL Immature Gran % (Auto) % Neut % (Auto) % Lymph % (Auto) % Hale % (Auto) % Eos % (Auto) % Baso % (Auto) % Neut # (Auto) (1.4-6.5) K/uL Lymph # (Auto) (1.2-3.4) K/uL Hale # (Auto) (0.11-0.59) K/uL Eos # (Auto) (0-0.5) K/uL Baso # (Auto) (0-0.2) K/uL Immature Gran # (Auto) (0.00-0.02) K/uL Peripher Smr Path Cons Sodium (136-145) mmol/L Potassium (3.5-5.1) mmol/L Chloride (98-107) mmol/L Carbon Dioxide (21-32) mmol/L Anion Gap (3-11) BUN (7-18) mg/dl Creatinine (0.6-1.2) mg/dl Est Cr Clr Drug Dosing ml/min Est GFR ( Amer) ml/min Est GFR (Non-Af Amer) ml/min BUN/Creatinine Ratio (10-20) Glucose (70-99) mg/dl Calcium (8.5-10.1) mg/dl Total Bilirubin (0.2-1) mg/dl AST (15-37) U/L ALT (12-78) U/L Alkaline Phosphatase (45-117) U/L Troponin I (0-0.045) ng/ml C-Reactive Protein Cancelled Total Protein (6.4-8.2) gm/dl Albumin (3.4-5.0) gm/dl Globulin (2.5-4.0) gm/dl Albumin/Globulin Ratio (0.9-2) Lipase (73-393) U/L TSH (0.300-4.500) uIu/ml Urine Color Urine Appearance (Clear) Urine pH (4.5-7.5) Ur Specific Hartman (1.000-1.030) Urine Protein (Negative) Urine Glucose (UA) (Negative) Urine Ketones (Negative) Urine Blood (Negative) Urine Nitrite (Negative) Urine Bilirubin (Negative) Urine Urobilinogen (Negative) Ur Leukocyte Esterase (Negative) Urine WBC (Auto) (0-5) /hpf Urine RBC (Auto) (0-4) /hpf U Hyaline Cast (Auto) (0-5) /lpf U Epithel Cells (Auto) (0-5) /lpf Urine Bacteria (Auto) (Negative) Anaplasma Smear SARS-CoV-2 (PCR) (Negative) Influ A Molecular Assay (Negative) Influ B Molecular Assay (Negative) Administered Medications Discontinued Medications Acetaminophen (Acetaminophen 325 Mg Tab) 650 mg PO NOW STA Stop: 07/23/21 08:39 Last Admin: 07/23/21 09:05 Dose: 650 mg Documented by: [id number] Sodium Chloride (Nss 1000ml) 500 mls @ 999 mls/hr IV .Q31M ONE Stop: 07/23/21 07:57 Last Infusion: 07/23/21 09:12 Dose: 0 mls/hr Documented by: [id number] Admin: 07/23/21 08:36 Dose: 999 mls/hr Documented by: [id number] Sodium Chloride (Nss 1000ml) 1,000 mls @ 999 mls/hr IV .Q1H1M ONE Stop: 07/23/21 09:56 Last Admin: 07/23/21 09:12 Dose: 999 mls/hr Documented by: [id number] Ceftriaxone Sodium (Rocephin) 1,000 mg in 50 mls @ 100 mls/hr IV NOW STA Stop: 07/23/21 09:31 Last Admin: 07/23/21 09:12 Dose: 100 mls/hr Documented by: [id number] Ondansetron HCl (Ondansetron Inj 2 Mg/Ml 2 Ml Vial) 4 mg IV NOW STA Stop: 07/23/21 08:39 Last Admin: 07/23/21 09:06 Dose: 4 mg Documented by: [id number] Imaging Data Radiologist's Impression: Chest X-Ray 07/23/21 07:27 XR chest 1V portable HISTORY: 76 years-old Female weak acute weakness COMPARISON: Chest radiograph 07/28/2020 TECHNIQUE: Portable AP view of the chest FINDINGS: The cardiomediastinal and hilar silhouettes are unchanged. Unchanged blunting of the costophrenic angles with mild bibasilar ill-defined opacities. Pleural parenchymal scarring of the lung apices. No pneumothorax or overt pulmonary edema. Degenerative changes of the shoulders and spine. IMPRESSION: Mild chronic bibasilar opacities suggestive of atelectasis/scarring. ACT 112: Negative or not required by law. The above report was generated using voice recognition software. It may contain grammatical, syntax or spelling errors. Electronically signed by: Daniel Javier M.D. 07/23/2021 7:49 AM Abdomen/Pelvis CT 07/23/21 07:[address] WITHOUT CONTRAST CT DOSE: 263.58 mGy.cm HISTORY: Acute tachycardia with weakness +N tachy and weak allergic to contrast TECHNIQUE: Multiaxial CT images of the abdomen and pelvis were performed without contrast. A dose lowering technique was utilized adhering to the principles of ALARA. COMPARISON STUDY: CT abdomen and pelvis 07/25/2020, chest radiograph 07/28/2020, chest CT 02/06/2009. FINDINGS: Bibasilar groundglass and irregular consolidative opacities appear similar to 02/06/2009 study. Respiratory motion artifact, upper extremity positioning and lack of contrast limits the study. No pneumatosis or pneumoperitoneum. Moderate cardiomegaly with coronary artery calcifications. Trace pericardial effusion. Unremarkable spleen, mildly atrophic pancreas, gallbladder, adrenal glands and liver. Mild right hemidiaphragmatic elevation. Unremarkable kidneys. No hydronephrosis. Unremarkable urinary bladder. Hysterectomy. Atherosclerosis of the aorta without aneurysm. No adenopathy. No bowel obstruction and or bowel wall thickening. Mild to moderate fecal retention. Colonic diverticulosis without acute diverticulitis. Noninflamed appendix. No ascites or mesenteric inflammation. Unremarkable soft tissues. Degenerative changes of the spine, pelvis and hips. IMPRESSION: 1. No acute intra-abdominal or intrapelvic abnormality. 2. No bowel obstruction or bowel wall thickening. Normal appendix. 3. Colonic diverticulosis without acute diverticulitis. 4. Bibasilar pulmonary fibrosis is stable compared to the 02/06/2009 exam 5. Additional findings as above. ACT 112: Negative or not required by law. The above report was generated using voice recognition software. It may contain grammatical, syntax or spelling errors. Electronically signed by: Daniel Javier M.D. 07/23/2021 8:39 AM Discharge Plan Visit Data Chief Complaint: Illness Stated Complaint: ILLNESS, HEADACHE, NAUSEA ED Provider: Jay Felix Discharge Problem: Acute kidney injury superimposed on chronic kidney disease, Hypertension, Cherise vated troponin, Metabolic acidosis with normal anion gap and bicarbonate losses Discharge Problem: Hypertension Qualifiers: Hypertension type: unspecified Qualified Code(s): I10 - Essential (primary) hypertension
--- NOTE | 2021-07-23 07:51 | XRay Report ---
XR chest 1V portable HISTORY: 76 years-old Female weak acute weakness COMPARISON: Chest radiograph 07/28/2020 TECHNIQUE: Portable AP view of the chest FINDINGS: The cardiomediastinal and hilar silhouettes are unchanged. Unchanged blunting of the costophrenic ang les with mild bibasilar ill-defined opacities. Pleural parenchymal scarring of the lung apices. No pn eumothorax or overt pulmonary edema. Degenerative changes of the shoulders and spine. IMPRESSION: Mild chronic bibasilar opacities suggestive of atelectasis/scarring. ACT 112: Negative or not required by law. The above report was generated using voice recognition software. It may contain grammatical, syntax o r spelling errors. Electronically signed by: Daniel Javier M.D. 07/23/2021 7:49 AM
[2021-07-23 08:25] LABS: Appearance Urine Clear (Clear); Bacteria Urine Automated Negative (Negative); Bilirubin Urine Negative (Negative); Blood Urine 3+ (Negative); Color Urine Yellow; Epithelial Cell Urine Auto 20-30 /lpf (0-5); Glucose Urine UA Negative (Negative); Ketones Urine Negative (Negative); Leukocyte Esterase Urine Negative (Negative); Nitrite Urine Negative (Negative); Protein Urine 3+ (Negative); Specific Gravity Urine 1.016 (1.000-1.030); Urobilinogen Urine Negative (Negative)
[2021-07-23 08:29] LABS: Basophils # (auto) 0.02 K/uL (0-0.2); Basophils % (auto) 0.2 %; Eosinophils # (auto) 0.13 K/uL (0-0.5); Hematocrit (blood only) 34.7 % (37-47); Hemoglobin 11.1 g/dL (12.0-16.0); Immature Granulocytes # (auto) 0.02 K/uL (0.00-0.02); Immature Granulocytes % (auto) 0.2 %; Lymphocytes # (auto) 1.97 K/uL (1.2-3.4); Lymphocytes % (auto) 15.9 %; Mean Corpuscular Hemoglobin 29.8 pg (25-34); Mean Corpuscular Volume 93.3 fL (80-100); Mean Platelet Volume 10.7 fL (7.4-10.4); Monocytes # (auto) 0.49 K/uL (0.11-0.59); Monocytes % (auto) 3.9 %; Neutrophils # (auto) 9.78 K/uL (1.4-6.5); Neutrophils % (auto) 78.8 %; Platelet Count 305 K/uL (130-400); RDW Coefficient of Variation 13.3 % (11.5-14.5); RDW Standard Deviation 45.4 fL (36.4-46.3); Red Blood Count 3.72 M/uL (4.2-5.4); White Blood Count 12.41 K/uL (4.8-10.8)
[2021-07-23] MEDS ORDERED: ONDANSETRON INJ 2 MG/ML 2 ML VIAL IV STA (08:38)
[2021-07-23] MEDS ORDERED: ACETAMINOPHEN 325 MG TAB PO STA (08:38)
[2021-07-23 08:40] LABS: Influenza A virus by PCR Negative (Negative); Influenza B virus by PCR Negative (Negative)
[2021-07-23 08:41] LABS: Albumin Level 3.5 gm/dl (3.4-5.0); BUN Creatinine Ratio 16.8 (10-20); Calcium 9.7 mg/dl (8.5-10.1); Creatinine Clr Calc Pharmacy 12.4 ml/min; Est GFR (African American) 17.9 ml/min; Est GFR (Non-African American) 15.4 ml/min; Potassium 5.3 mmol/L (3.5-5.1)
--- NOTE | 2021-07-23 08:41 | CT Scan Report ---
ABDOMEN AND PELVIS CT WITHOUT CONTRAST CT DOSE: 263.58 mGy.cm HISTORY: Acute tachycardia with weakness +N tachy and weak allergic to contrast TECHNIQUE: Multiaxial CT images of the abdomen and pelvis were performed without contrast. A dose lo wering technique was utilized adhering to the principles of ALARA. COMPARISON STUDY: CT abdomen and pelvis 07/25/2020, chest radiograph 07/28/2020, chest CT 02/06/2009. FINDINGS: Bibasilar groundglass and irregular consolidative opacities appear similar to 02/06/2009 roni dy. Respiratory motion artifact, upper extremity positioning and lack of contrast limits the study. N o pneumatosis or pneumoperitoneum. Moderate cardiomegaly with coronary artery calcifications. Trace p ericardial effusion. Unremarkable spleen, mildly atrophic pancreas, gallbladder, adrenal glands and l iver. Mild right hemidiaphragmatic elevation. Unremarkable kidneys. No hydronephrosis. Unremarkable urinary bladder. Hysterectomy. Atherosclerosis of the aorta without aneurysm. No adenopathy. No bowel obstruction and or bowel wall thickening. Mild to moderate fecal retention. Colonic diverticulosis without acute diverticulitis. Noninflamed append ix. No ascites or mesenteric inflammation. Unremarkable soft tissues. Degenerative changes of the spi ne, pelvis and hips. IMPRESSION: 1. No acute intra-abdominal or intrapelvic abnormality. 2. No bowel obstruction or bowel wall thickening. Normal appendix. 3. Colonic diverticulosis without acute diverticulitis. 4. Bibasilar pulmonary fibrosis is stable compared to the 02/06/2009 exam 5. Additional findings as above. ACT 112: Negative or not required by law. The above report was generated using voice recognition software. It may contain grammatical, syntax o r spelling errors. Electronically signed by: Daniel Javier M.D. 07/23/2021 8:39 AM
[2021-07-23] MEDS ORDERED: SODIUM CHLORIDE 0.9% 1000ML 1,000 ML IV ONE (08:56)
[2021-07-23 09:00] LABS: Albumin Globulin Ratio 0.8 (0.9-2); Bilirubin,Total 0.3 mg/dl (0.2-1); Globulin 4.7 gm/dl (2.5-4.0); Thyroid Stimulating Hormone 0.687 uIu/ml (0.300-4.500); Total Protein 8.2 gm/dl (6.4-8.2); Troponin I 4.01 ng/ml (0-0.045)
[2021-07-23] MEDS ORDERED: cefTRIAXone SODIUM 1,000 MG/50 ML BAG IV STA (09:02)
--- NOTE | 2021-07-23 10:10 | History & Physical Report ---
Date of Service July 23, 2021 Assessment & Plan (1) Acute kidney injury superimposed on chronic kidney disease: Plan: This is a 76-year-old female with PMH of DM II, HTN, CKD III, history of CVA, hypothyroidism and other medical problems listed below who presents with myalgias and nausea x3 days and was found to have EMILIE on CKD, non-anion gap metabolic acidosis and elevated troponin. Presenting with myalgias and generalized weakness x 3 days Cr elevated at 2.83 (baseline ~1) No uropathy or hydro noted on CT abd/pelvis Awaiting urine Na and Cr Received 1.5 L NSS in ED - repeat BMP at 1400 (2) Metabolic acidosis with normal anion gap and bicarbonate losses: Plan: Carbon dioxide 15, VBG pH 7.3, lactate wnl. No diarrhea, diuretic use or recent surgeries - RTA? Serum osm pending Plan to touch base with nephro, repeat BMP at 1400 (3) Elevated troponin: Plan: Troponin elevated at 4, no history of CAD. Does endorse recent exertional CP and SOB but asymptomatic at rest, EKG with sinus tachycardia at 111 with PACs, TWA in inferior leads In setting of significant EMILIE on CKD. No chest pain. No evidence of rhabdo without falls, no CK elevation Echo ordered, routine cardiology consult, trend troponin (4) Myalgia: Plan: Present for past 3 days, endorses pain in head from ongoing headache (CT head pending), back, chest and extremities Lyme serology negative, peripheral smear without evidence of inclusion bodies, anaplasma DNA pending. Covid PCR negative, flu A/B negative, CRP 1.34, ESR pending Non-toxic appearance, no evidence of infection on CXR, CT abd/pelvis or UA Fluids, correct acid base disturbance, consider OP rheum follow up. May benefit from steroids eventually but will avoid for now given trop elevation (5) Diabetes mellitus, type 2: Plan: No recent a1c on file. Will obtain in AM Hold home agents SSI while in-patient BSG AC HS (6) Hypertension: Plan: Holding lisinopril in setting of EMILIE. Optimize pain control but avoiding nsaids given EMILIE (7) Carotid stenosis: Plan: S/p CEA in 2004 (8) Hypothyroidism: Plan: Continue levothyroxine (9) HLD (hyperlipidemia): Plan: Not on statin, history of myalgias and abd pain on previously DVT Ppx: SQ heparin Code status: FULL PCP: [facility] Dispo: Admitted to PCU Patient seen in collaboration with Dr. Lewis. Please see addendum. History of Present Illness Chief Complaint: Myalgias, nausea Primary Care Provider: Dianna Robb DO This is a 76-year-old female with PMH of DM II, HTN, CKD III, history of CVA, hypothyroidism and other medical problems listed below who presents with myalgias and nausea x3 days. Patient was in normal state of health until a few days ago when she developed diffuse muscle and joint aches. Feels that skin is tender to touch. Son was over this morning helping her get out of bed and she was screaming with pain when he sat her up. Decided to bring her in for further evaluation. Denies any fever or chills. Has ongoing headache for the past 3 months that is unchanged. Endorsing some new nausea with 2 episodes of "gagging" clear material this morning but no tim vomiting. No hematemesis. Denies any abdominal pain or shortness of breath. No chest pain at rest but does endorse some discomfort if she walks around the block but this is not new and has been present for several months. Denies any urinary symptoms or diarrhea. Has been having normal bowel movements. Endorsing about 40 ounces of water intake daily and unchanged appetite, although does not seem to eat a lot at baseline per son at bedside. No medication changes. Has been taking Tylenol over the past few days for muscle aches with some relief. Denies any recent tick bites or new rashes. No focal neurological deficits. Allergies Allergy/AdvReac Type Severity Reaction Status Date / Time simvastatin Allergy Intermediate MUSCLE PAIN Verified 07/23/21 09:50 codeine Allergy Unknown RASH Verified 07/23/21 09:50 Iodinated Contrast Media Allergy Unknown Hives Verified 07/23/21 09:50 Sulfa (Sulfonamide AdvReac Intermediate HIVES,NAUSE Verified 07/23/21 09:50 Antibiotics) A gabapentin AdvReac Unknown NAUSEA Verified 07/23/21 09:50 pravastatin AdvReac Unknown Abdominal Verified 07/23/21 09:50 Pain Home Medications Medication Instructions Recorded Confirmed Type Lactobacillus rhamnosus GG 10 2 cap PO QAM 07/20/20 07/23/21 History billion cell capsule (Culturelle) aspirin 81 mg tablet,delayed 81 mg PO QAM 07/20/20 07/23/21 History release cholecalciferol (vitamin D3) 25 25 mcg PO QAM 07/20/20 07/23/21 History mcg (1,000 unit) tablet docusate sodium 100 mg capsule 100 mg PO PM 07/20/20 07/23/21 History (DOK) famotidine 20 mg tablet 20 mg PO PM 07/20/20 07/23/21 History glipizide 5 mg tablet, extended 5 mg PO QAM 07/20/20 07/23/21 History release 24 hr levothyroxine 75 mcg tablet 75 mcg PO QAM 07/20/20 07/23/21 History lisinopril 5 mg tablet 5 mg PO QAM 07/20/20 07/23/21 History meclizine 12.5 mg tablet 12.5 mg PO TID PRN 07/20/20 07/23/21 History multivitamin 1 tab PO QAM 07/20/20 07/23/21 History omeprazole 20 mg capsule,delayed 20 mg PO QAM 07/20/20 07/23/21 History release diphenhydramine 25 1 tab PO HS PRN #0 08/13/20 07/23/21 History mg-acetaminophen 500 mg tablet (Tylenol PM Extra Strength) acetaminophen 500 mg tablet 500 mg PO Q6H PRN 07/23/21 07/23/21 History (Tylenol Extra Strength) metformin 500 mg tablet,extended 500 mg PO BIDM 07/23/21 07/23/21 History release 24 hr Past Med/Surg History Medical History Carotid stenosis S/p right CEA in 2004 CKD (chronic kidney disease) stage 3, GFR 30-59 ml/min Diabetes mellitus, type 2 NIDDM> GLUCOSE HAS BEEN RUNNING LOW IN AM > LOW 57 TO 68 GERD (gastroesophageal reflux disease) HLD (hyperlipidemia) Hypertension Hypothyroidism Kidney stones Osteoarthritis Pyelonephritis Recently admitted and treated with abxs Stroke 2004> RESULTED IN CAROTID ENDARTERECTOMY> NO RESIDUAL EFFECTS> DOESN'T FOLLOW NEURO Urinary incontinence JUST OCCASIONALLY Surgical History H/O dilation and curettage History of carotid endarterectomy Right> 2005> FOLLOWS PCP History of colonoscopy History of hysterectomy History of tonsillectomy History of tooth extraction Family History Father Diabetes Mother Diabetes Sister Colon cancer Social History Smoking Status: Never smoker Second Hand Exposure: No; Hx Alcohol Use: No Hx Substance Use: No Preferred Language: Hungarian Communication Ability: Effective Visual Impairment: No Limitations Hand Screen Printer Required: No Beliefs That Will Affect Care: None Current Living Situation: Alone Feels Safe at Home: Yes Assistive Devices: Glasses Review of Systems Review of Systems: At least ten systems reviewed and negative except as noted in the HPI. Physical Exam Physical Exam: General Appearance: WD/WN, vitals as above, NAD, sitting up in bed, frail, crying intermittently during interview Head: normocephalic, atraumatic Eyes: normal inspection, PERRL, conjunctivae normal, anicteric sclerae ENT: external ear and nose normal, oropharynx normal Neck: normal visual inspection, trachea midline, no thyromegaly Respiratory: normal respiratory effort, coarse lung sounds at bilateral bases, no wheezing. No accessory muscle use Cardiovascular: tachycardic with ectopy, no murmur appreciated, normal peripheral pulses, no BLE edema. Vessels: no JVD Chest: normal inspection of chest Abdomen/GI: normal bowel sounds, soft, nontender, no hepatosplenomegaly Extremities/Musculoskeletal: no cyanosis or clubbing, extremities motor strength 5/5. Joints TTP, painful with all movement Neurologic: PERRL, EOMI, accommodation nl, no face palsy, no dysarthria, CN's II-XI intact bilaterally and moves all extremities Psychiatric: A+Ox3, anxious Skin: no rashes, normal color, warm/dry Results & Data Results & Data ([facility]) Vital Signs (Past 12 Hours) Vital Signs Temp Pulse Resp BP Pulse Ox 07/23/21 09:00 113 H 19 160/73 H 97 07/23/21 08:00 121 H 22 171/91 H 94 07/23/21 07:25 37 C 108 H 20 147/114 H 96 07/23/21 07:22 108 H 20 96 Laboratory Results Short CBC 07/23/21 Range/Units 07:51 WBC 12.41 H (4.8-10.8) K/uL Hgb 11.1 L (12.0-16.0) g/dL Hct 34.7 L (37-47) % Plt Count 305 (130-400) K/uL BMP 07/23/21 07:51 Sodium 140 Potassium 5.3 H Chloride 115 H Carbon Dioxide 15 L BUN 48 H Creatinine 2.83 H Glucose 111 H Calcium 9.7 Cardiac Enzymes 07/23/21 Range/Units 07:51 Troponin I 4.010 H* (0-0.045) ng/ml Liver Function 07/23/21 Range/Units 07:51 Total Bilirubin 0.3 (0.2-1) mg/dl AST 38 H (15-37) U/L ALT 18 (12-78) U/L Alkaline Phosphatase 60 (45-117) U/L Albumin 3.5 (3.4-5.0) gm/dl Urine 07/23/21 Range/Units 07:46 Urine Color Yellow Urine Appearance Clear (Clear) Urine pH 5.0 (4.5-7.5) Ur Specific [place] 1.016 (1.000-1.030) Urine Protein 3+ H (Negative) Urine Glucose (UA) Negative (Negative) Diagnostic Findings Chest X-Ray 07/23/21 07:27 XR chest 1V portable HISTORY: 76 years-old Female weak acute weakness COMPARISON: Chest radiograph 07/28/2020 TECHNIQUE: Portable AP view of the chest FINDINGS: The cardiomediastinal and hilar silhouettes are unchanged. Unchanged blunting of the costophrenic angles with mild bibasilar ill-defined opacities. Pleural parenchymal scarring of the lung apices. No pneumothorax or overt pulmonary edema. Degenerative changes of the shoulders and spine. IMPRESSION: Mild chronic bibasilar opacities suggestive of atelectasis/scarring. ACT 112: Negative or not required by law. The above report was generated using voice recognition software. It may contain grammatical, syntax or spelling errors. Electronically signed by: Daniel Javier M.D. 07/23/2021 7:49 AM Abdomen/Pelvis CT 07/23/21 07:[address] WITHOUT CONTRAST CT DOSE: 263.58 mGy.cm HISTORY: Acute tachycardia with weakness +N tachy and weak allergic to contrast TECHNIQUE: Multiaxial CT images of the abdomen and pelvis were performed without contrast. A dose lowering technique was utilized adhering to the principles of ALARA. COMPARISON STUDY: CT abdomen and pelvis 07/25/2020, chest radiograph 07/28/2020, chest CT 02/06/2009. FINDINGS: Bibasilar groundglass and irregular consolidative opacities appear similar to 02/06/2009 study. Respiratory motion artifact, upper extremity positioning and lack of contrast limits the study. No pneumatosis or pneumoperitoneum. Moderate cardiomegaly with coronary artery calcifications. Trace pericardial effusion. Unremarkable spleen, mildly atrophic pancreas, gallbladder, adrenal glands and liver. Mild right hemidiaphragmatic elevation. Unremarkable kidneys. No hydronephrosis. Unremarkable urinary bladder. Hysterectomy. Atherosclerosis of the aorta without aneurysm. No adenopathy. No bowel obstruction and or bowel wall thickening. Mild to moderate fecal retention. Colonic diverticulosis without acute diverticulitis. Noninflamed appendix. No ascites or mesenteric inflammation. Unremarkable soft tissues. Degenerative changes of the spine, pelvis and hips. IMPRESSION: 1. No acute intra-abdominal or intrapelvic abnormality. 2. No bowel obstruction or bowel wall thickening. Normal appendix. 3. Colonic diverticulosis without acute diverticulitis. 4. Bibasilar pulmonary fibrosis is stable compared to the 02/06/2009 exam 5. Additional findings as above. ACT 112: Negative or not required by law. The above report was generated using voice recognition software. It may contain grammatical, syntax or spelling errors. Electronically signed by: Daniel Javier M.D. 07/23/2021 8:39 AM ECG Additional Comments: Sinus tachycardia at 111 with PACs, t wave abnormalities in inferior leads Code Status & VTE Plan VTE Prophylaxis Plan VTE Prophylaxis will be ordered: Yes Supervising Physician Co-Signing Physician Notes 76-year-old female with PMH of DM II, HTN, CKD III, CVA, hypothyroidism and presented 07/23 to our ED with "Hurting all over" since last few days. Patient appears sad, emotionally labile and with frequent bouts of crying while at bedside exam. She reports having pain all over the body but when specifically asked she denies pain in her lower extremities, upper extremities, hip, back, belly. She reports exertional chest pain ongoing for few months associated with shortness of breath. She reports a frontal headache which is most bothersome to her with pain especially behind the eyes. She also reports being weak and off balance lately. She reports falling this morning. Did not hit her head but reports pulling on left shoulder. She is more worried about her similar kind of presentation last year when she ended up with urosepsis and in critical care unit. In the ED, she is found to have troponin elevation and EMILIE over CKD. Trend troponins, echo, cardio, nephro, gentle IV hydration.N.p.o. until evaluated by cardiology. PT/OT while inpatient. Tylenol for headache. Consider steroid if ESR elevated when adjusted for age and check with cardiology prior to starting steroid. We will get CT of the head, ESR and CRP for headache. Patient does not report any blurry vision at the moment. Might consider rheumatology or ophthalmology follow-up as an outpatient. Upon Exam GENERAL: Alert and oriented x3. NAD, on RA. Emotionally labile, sad, crying bouts. HEENT: No pallor, no icterus. Pupils equal, round and reactive to light. Oral mucosa moist. NECK: No JVD, no neck masses. HEART: S1 and S2 heard. Regular rate and rhythm. No murmur, no gallop. RESPIRATORY SYSTEM: Normal AP diameter. No accessory muscle use. No wheezing, no crackles. ABDOMEN: Soft, bowel sounds present, nontender, no distention. CENTRAL NERVOUS SYSTEM: Alert and oriented x3. No facial droop. Speech is clear. Obeys simple commands. Moves extremities. EXTREMITIES: No edema, no erythema seen. No hip pain/ calf pain. BLE varices noted. I have seen and examined the patient and have discussed the case with the provider above. I agree with the assessment and plan as stated.
[2021-07-23 11:36] LABS: Base Excess VBG -5.9 mEq/L; HCO3 VBG 20 mmol/L; PCO2 VBG 38 mmHg (38-50); PO2 VBG 33 mmHg; pH VBG 7.33 (7.36-7.41)
[2021-07-23 11:43] LABS: Oxygen Saturation VBG < 60.0 %
[2021-07-23 12:04] LABS: C Reactive Protein 1.34 mg/dl (0-0.29)
[2021-07-23 12:10] LABS: Lyme Ab IgG w/WB Rflx Negative (Negative); Lyme Ab IgM w/WB Rflx Negative (Negative)
--- NOTE | 2021-07-23 12:52 | CT Scan Report ---
CT head/brain wo con CLINICAL HISTORY: 76 years-old Female with headache x few months. Subacute headaches TECHNIQUE: Multiple axial CT images of the head were obtained without contrast. A dose lowering tech nique was utilized adhering to the principles of ALARA. CT DOSE: 537.48 mGy.cm COMPARISON: 06/10/[address] FINDINGS: No acute intracranial hemorrhage, midline shift, intracranial mass, hydrocephalus, territorial ischem ia or abnormal extra-axial collection. Encephalomalacia related to chronic infarct of the right parie mirta lobe. White matter hypodensities suggest chronic microvascular ischemic disease. Chronic lacunar infarcts of the left caudate and lentiform nuclei. Senescent calcifications of the basal ganglia with cerebral vascular calcifications. Chronic infarcts of the left cerebellar hemisphere. The calvarium is intact. The paranasal sinuses, mastoid air cells, and middle ear cavities are clear . IMPRESSION: Chronic findings as above without acute intracranial abnormality. ACT 112: Negative or not required by law. The above report was generated using voice recognition software. It may contain grammatical, syntax o r spelling errors. Electronically signed by: Daniel Javier M.D. 07/23/2021 12:50 PM
[2021-07-23] MEDS ORDERED: GLUCOSE 40% GEL 15 GM TUBE PO PRN (14:31)
[2021-07-23] MEDS ORDERED: GLUCOSE 10 TABS/TUBE PO PRN (14:31)
[2021-07-23] MEDS ORDERED: CARBOHYDRATES FOR HYPOGLYCEMIA PO PRN (14:31)
[2021-07-23] MEDS ORDERED: POLYETHYLENE (MIRALAX) 17 GM PACK PO PRN (14:31)
[2021-07-23] MEDS ORDERED: GLUCAGON FOR INJ 1 MG VIAL SQ PRN (14:31)
[2021-07-23] MEDS ORDERED: ONDANSETRON INJ 2 MG/ML 2 ML VIAL IV PRN (14:31)
[2021-07-23] MEDS ORDERED: DEXTROSE 50% 50 ML SYRINGE IV PRN (14:31)
[2021-07-23 15:38] LABS: BUN Creatinine Ratio 16.5 (10-20); Calcium 8.7 mg/dl (8.5-10.1); Creatinine Clr Calc Pharmacy 12.6 ml/min; Est GFR (African American) 18.1 ml/min; Est GFR (Non-African American) 15.6 ml/min; Potassium 5.3 mmol/L (3.5-5.1)
--- NOTE | 2021-07-23 15:50 | Cardiology Consultation ---
Date of Consultation July 23, 2021 Assessment & Plan (1) Myalgia: (2) Metabolic acidosis with normal anion gap and bicarbonate losses: (3) Stroke: (4) Carotid stenosis: (5) Diabetes mellitus, type 2: (6) Acute kidney injury superimposed on chronic kidney disease: (7) Elevated troponin: I believe the patient's troponin elevation is likely to be from dehydration and renal failure however, she will Be kept for observation and placed on the cafeteria monitor. Additional cardiac troponins and an echocardiogram have been ordered. History of Present Illness Attending Physician: Margarita Juarez MD History of Present Illness This is a 76-year-old female with a previous history of chronic kidney disease due to kidney stones. She presented to the emergency department with symptoms of myalgias and not feeling well. She was noted to have acute on chronic renal failure perhaps due to dehydration and was given IV fluids. She states she has had similar problems in the past when she has a UTI. She is a diabetic and over a decade ago she had a stroke followed by carotid endarterectomy. According the patient she has no significant cardiac history and has no recent symptoms of activity related chest pain or shortness of breath however, her cardiac troponin on admission is elevated at 4. This could be multifactorial including dehydration and renal failure. Additional markers are going to be drawn. Her EKG shows no acute changes. Allergies Allergy/AdvReac Type Severity Reaction Status Date / Time simvastatin Allergy Intermediate MUSCLE PAIN Verified 07/23/21 09:50 codeine Allergy Unknown RASH Verified 07/23/21 09:50 Iodinated Contrast Media Allergy Unknown Hives Verified 07/23/21 09:50 Sulfa (Sulfonamide AdvReac Intermediate HIVES,NAUSE Verified 07/23/21 09:50 Antibiotics) A gabapentin AdvReac Unknown NAUSEA Verified 07/23/21 09:50 pravastatin AdvReac Unknown Abdominal Verified 07/23/21 09:50 Pain Home Medications Medication Instructions Recorded Confirmed Type Lactobacillus rhamnosus GG 10 2 cap PO QAM 07/20/20 07/23/21 History billion cell capsule (Culturelle) aspirin 81 mg tablet,delayed 81 mg PO QAM 07/20/20 07/23/21 History release cholecalciferol (vitamin D3) 25 25 mcg PO QAM 07/20/20 07/23/21 History mcg (1,000 unit) tablet docusate sodium 100 mg capsule 100 mg PO PM 07/20/20 07/23/21 History (DOK) famotidine 20 mg tablet 20 mg PO PM 07/20/20 07/23/21 History glipizide 5 mg tablet, extended 5 mg PO QAM 07/20/20 07/23/21 History release 24 hr levothyroxine 75 mcg tablet 75 mcg PO QAM 07/20/20 07/23/21 History lisinopril 5 mg tablet 5 mg PO QAM 07/20/20 07/23/21 History meclizine 12.5 mg tablet 12.5 mg PO TID PRN 07/20/20 07/23/21 History multivitamin 1 tab PO QAM 07/20/20 07/23/21 History omeprazole 20 mg capsule,delayed 20 mg PO QAM 07/20/20 07/23/21 History release diphenhydramine 25 1 tab PO HS PRN #0 08/13/20 07/23/21 History mg-acetaminophen 500 mg tablet (Tylenol PM Extra Strength) acetaminophen 500 mg tablet 500 mg PO Q6H PRN 07/23/21 07/23/21 History (Tylenol Extra Strength) metformin 500 mg tablet,extended 500 mg PO BIDM 07/23/21 07/23/21 History release 24 hr Patient History Medical History Carotid stenosis S/p right CEA in 2004 CKD (chronic kidney disease) stage 3, GFR 30-59 ml/min Diabetes mellitus, type 2 NIDDM> GLUCOSE HAS BEEN RUNNING LOW IN AM > LOW 57 TO 68 GERD (gastroesophageal reflux disease) HLD (hyperlipidemia) Hypertension Hypothyroidism Kidney stones Osteoarthritis Pyelonephritis Recently admitted and treated with abxs Stroke 2004> RESULTED IN CAROTID ENDARTERECTOMY> NO RESIDUAL EFFECTS> DOESN'T FOLLOW NEURO Urinary incontinence JUST OCCASIONALLY Surgical History H/O dilation and curettage History of carotid endarterectomy Right> 2004> FOLLOWS PCP History of colonoscopy History of hysterectomy History of tonsillectomy History of tooth extraction Family History Father Diabetes Mother Diabetes Sister Colon cancer Social History Smoking Status: Never smoker Second Hand Exposure: No; Do You Dip or Chew Tobacco: No; Hx Alcohol Use: No Hx Substance Use: No Preferred Language: Martiniquais Communication Ability: Effective Visual Impairment: No Limitations Senior Staff Accountant Required: No Beliefs That Will Affect Care: None Current Living Situation: Alone Other Information That Helps Us Care for You: No Feels Safe at Home: Yes Safety Concerns: Feels Safe At This Time Assistive Devices: Cane and Glasses Review of Systems Review of Systems: Review of Systems: See HPI for pertinent positives. All other 10 point review of systems are negative. Physical Exam Physical Exam: General: no acute distress and stated age Head: normocephalic, no masses, lesions, tenderness or abnormalities Eyes: conjunctiva are pink and non-injected, sclera clear Neck: supple, no adenopathy, no bruits, normal jugular venous pulse, no hepatojugular reflux Chest: normal shape and normal respiratory effort Lungs: clear to auscultation and percussion Cardiac Exam: - regular rate & rhythm, no murmurs gallops or rubs - normal S1, normal S2 Pulses: 2(+) throughout Abdomen: abdomen soft, non-tender, no abnormal masses and no hepatosplenomegaly Musculoskeletal: no gait disturbance, no joint inflammation, no deforming arthritis Extremities: no edema and no cyanosis Neuro: grossly normal exam Results & Data ([facility]) Vital Signs (Past 12 Hours) Vital Signs Temp Pulse Resp BP Pulse Ox 07/23/21 14:32 94 H 16 154/107 H 95 07/23/21 14:00 93 H 23 154/107 H 07/23/21 13:00 102 H 28 H 131/93 98 07/23/21 10:00 104 H 23 151/91 H 94 07/23/21 09:00 113 H 19 160/73 H 97 07/23/21 08:00 121 H 22 171/91 H 94 07/23/21 07:25 37 C 108 H 20 147/114 H 96 07/23/21 07:22 108 H 20 96 Laboratory Results Laboratory Results - last 24 hr 07/23/21 07/23/21 07/23/21 07:46 07:46 07:46 WBC RBC Hgb Hct MCV MCH MCHC RDW Std Deviation RDW Coeff of Abebe Plt Count MPV Immature Gran % (Auto) Neut % (Auto) Lymph % (Auto) Smith % (Auto) Eos % (Auto) Baso % (Auto) Neut # (Auto) Lymph # (Auto) Smith # (Auto) Eos # (Auto) Baso # (Auto) Immature Gran # (Auto) Peripher Smr Path Cons ESR VBG pH VBG pCO2 VBG pO2 VBG HCO3 VBG O2 Saturation VBG Base Excess Barometric Pressure Sodium Potassium Chloride Carbon Dioxide Anion Gap BUN Creatinine Est Cr Clr Drug Dosing Est GFR ( Amer) Est GFR (Non-Af Amer) BUN/Creatinine Ratio Glucose POC Glucose Osmolality Lactate Calcium Total Bilirubin AST ALT Alkaline Phosphatase Total Creatine Kinase Troponin I C-Reactive Protein Total Protein Albumin Globulin Albumin/Globulin Ratio Lipase Procalcitonin TSH Urine Color Yellow Urine Appearance Clear Urine pH 5.0 Ur Specific [place] 1.016 Urine Protein 3+ H Urine Glucose (UA) Negative Urine Ketones Negative Urine Blood 3+ H Urine Nitrite Negative Urine Bilirubin Negative Urine Urobilinogen Negative Ur Leukocyte Esterase Negative Urine WBC (Auto) 1-5 Urine RBC (Auto) 10-30 H U Hyaline Cast (Auto) 5-10 H U Epithel Cells (Auto) 20-30 H Urine Bacteria (Auto) Negative Anaplasma Smear A. phagocytophilum DNA Lyme Disease IgG Ab Lyme Disease IgM Ab SARS-CoV-2 (PCR) NEGATIVE Influ A Molecular Assay Negative Influ B Molecular Assay Negative 07/23/21 07/23/21 07/23/21 07:51 07:51 07:51 WBC 12.41 H RBC 3.72 L Hgb 11.1 L Hct 34.7 L MCV 93.3 MCH 29.8 MCHC 32.0 RDW Std Deviation 45.4 RDW Coeff of Abebe 13.3 Plt Count 305 MPV 10.7 H Immature Gran % (Auto) 0.2 Neut % (Auto) 78.8 Lymph % (Auto) 15.9 Smith % (Auto) 3.9 Eos % (Auto) 1.0 Baso % (Auto) 0.2 Neut # (Auto) 9.78 H Lymph # (Auto) 1.97 Smith # (Auto) 0.49 Eos # (Auto) 0.13 Baso # (Auto) 0.02 Immature Gran # (Auto) 0.02 Peripher Smr Path Cons Cancelled ESR VBG pH VBG pCO2 VBG pO2 VBG HCO3 VBG O2 Saturation VBG Base Excess Barometric Pressure Sodium 140 Potassium 5.3 H Chloride 115 H Carbon Dioxide 15 L Anion Gap 10.0 BUN 48 H Creatinine 2.83 H Est Cr Clr Drug Dosing 12.4 Est GFR ( Amer) 17.9 Est GFR (Non-Af Amer) 15.4 BUN/Creatinine Ratio 16.8 Glucose 111 H POC Glucose Osmolality Lactate Calcium 9.7 Total Bilirubin 0.3 AST 38 H ALT 18 Alkaline Phosphatase 60 Total Creatine Kinase Troponin I 4.010 H* C-Reactive Protein Total Protein 8.2 Albumin 3.5 Globulin 4.7 H Albumin/Globulin Ratio 0.8 L Lipase 582 H Procalcitonin TSH 0.687 Urine Color Urine Appearance Urine pH Ur Specific [place] Urine Protein Urine Glucose (UA) Urine Ketones Urine Blood Urine Nitrite Urine Bilirubin Urine Urobilinogen Ur Leukocyte Esterase Urine WBC (Auto) Urine RBC (Auto) U Hyaline Cast (Auto) U Epithel Cells (Auto) Urine Bacteria (Auto) Anaplasma Smear See Comment A. phagocytophilum DNA Lyme Disease IgG Ab Lyme Disease IgM Ab SARS-CoV-2 (PCR) Influ A Molecular Assay Influ B Molecular Assay 07/23/21 07/23/21 07/23/21 07:51 07:51 07:51 WBC RBC Hgb Hct MCV MCH MCHC RDW Std Deviation RDW Coeff of Abebe Plt Count MPV Immature Gran % (Auto) Neut % (Auto) Lymph % (Auto) Smith % (Auto) Eos % (Auto) Baso % (Auto) Neut # (Auto) Lymph # (Auto) Smith # (Auto) Eos # (Auto) Baso # (Auto) Immature Gran # (Auto) Peripher Smr Path Cons ESR 59 H VBG pH VBG pCO2 VBG pO2 VBG HCO3 VBG O2 Saturation VBG Base Excess Barometric Pressure Sodium Potassium Chloride Carbon Dioxide Anion Gap BUN Creatinine Est Cr Clr Drug Dosing Est GFR ( Amer) Est GFR (Non-Af Amer) BUN/Creatinine Ratio Glucose POC Glucose Osmolality Lactate Calcium Total Bilirubin AST ALT Alkaline Phosphatase Total Creatine Kinase Troponin I C-Reactive Protein Cancelled Total Protein Albumin Globulin Albumin/Globulin Ratio Lipase Procalcitonin TSH Urine Color Urine Appearance Urine pH Ur Specific [place] Urine Protein Urine Glucose (UA) Urine Ketones Urine Blood Urine Nitrite Urine Bilirubin Urine Urobilinogen Ur Leukocyte Esterase Urine WBC (Auto) Urine RBC (Auto) U Hyaline Cast (Auto) U Epithel Cells (Auto) Urine Bacteria (Auto) Anaplasma Smear A. phagocytophilum DNA Pending Lyme Disease IgG Ab Lyme Disease IgM Ab SARS-CoV-2 (PCR) Influ A Molecular Assay Influ B Molecular Assay 07/23/21 07/23/21 07/23/21 11:16 11:16 11:16 WBC RBC Hgb Hct MCV MCH MCHC RDW Std Deviation RDW Coeff of Abebe Plt Count MPV Immature Gran % (Auto) Neut % (Auto) Lymph % (Auto) Smith % (Auto) Eos % (Auto) Baso % (Auto) Neut # (Auto) Lymph # (Auto) Smith # (Auto) Eos # (Auto) Baso # (Auto) Immature Gran # (Auto) Peripher Smr Path Cons ESR VBG pH VBG pCO2 VBG pO2 VBG HCO3 VBG O2 Saturation VBG Base Excess Barometric Pressure Sodium Potassium Chloride Carbon Dioxide Anion Gap BUN Creatinine Est Cr Clr Drug Dosing Est GFR ( Amer) Est GFR (Non-Af Amer) BUN/Creatinine Ratio Glucose POC Glucose Osmolality Lactate 1.7 Calcium Total Bilirubin AST ALT Alkaline Phosphatase Total Creatine Kinase Troponin I C-Reactive Protein Total Protein Albumin Globulin Albumin/Globulin Ratio Lipase Procalcitonin 0.08 TSH Urine Color Urine Appearance Urine pH Ur Specific [place] Urine Protein Urine Glucose (UA) Urine Ketones Urine Blood Urine Nitrite Urine Bilirubin Urine Urobilinogen Ur Leukocyte Esterase Urine WBC (Auto) Urine RBC (Auto) U Hyaline Cast (Auto) U Epithel Cells (Auto) Urine Bacteria (Auto) Anaplasma Smear A. phagocytophilum DNA Lyme Disease IgG Ab Negative Lyme Disease IgM Ab Negative SARS-CoV-2 (PCR) Influ A Molecular Assay Influ B Molecular Assay 07/23/21 07/23/21 07/23/21 11:16 11:16 11:16 WBC RBC Hgb Hct MCV MCH MCHC RDW Std Deviation RDW Coeff of Abebe Plt Count MPV Immature Gran % (Auto) Neut % (Auto) Lymph % (Auto) Smith % (Auto) Eos % (Auto) Baso % (Auto) Neut # (Auto) Lymph # (Auto) Smith # (Auto) Eos # (Auto) Baso # (Auto) Immature Gran # (Auto) Peripher Smr Path Cons ESR VBG pH 7.33 L VBG pCO2 38 VBG pO2 33 VBG HCO3 20 VBG O2 Saturation < 60.0 VBG Base Excess -5.9 Barometric Pressure 727.9 Sodium Potassium Chloride Carbon Dioxide Anion Gap BUN Creatinine Est Cr Clr Drug Dosing Est GFR ( Amer) Est GFR (Non-Af Amer) BUN/Creatinine Ratio Glucose POC Glucose Osmolality 310 H Lactate Calcium Total Bilirubin AST ALT Alkaline Phosphatase Total Creatine Kinase 117 Troponin I C-Reactive Protein 1.34 H Total Protein Albumin Globulin Albumin/Globulin Ratio Lipase Procalcitonin TSH Urine Color Urine Appearance Urine pH Ur Specific [place] Urine Protein Urine Glucose (UA) Urine Ketones Urine Blood Urine Nitrite Urine Bilirubin Urine Urobilinogen Ur Leukocyte Esterase Urine WBC (Auto) Urine RBC (Auto) U Hyaline Cast (Auto) U Epithel Cells (Auto) Urine Bacteria (Auto) Anaplasma Smear A. phagocytophilum DNA Lyme Disease IgG Ab Lyme Disease IgM Ab SARS-CoV-2 (PCR) Influ A Molecular Assay Influ B Molecular Assay 07/23/21 07/23/21 13:59 15:08 WBC RBC Hgb Hct MCV MCH MCHC RDW Std Deviation RDW Coeff of Abebe Plt Count MPV Immature Gran % (Auto) Neut % (Auto) Lymph % (Auto) Smith % (Auto) Eos % (Auto) Baso % (Auto) Neut # (Auto) Lymph # (Auto) Smith # (Auto) Eos # (Auto) Baso # (Auto) Immature Gran # (Auto) Peripher Smr Path Cons ESR VBG pH VBG pCO2 VBG pO2 VBG HCO3 VBG O2 Saturation VBG Base Excess Barometric Pressure Sodium 142 Potassium 5.3 H Chloride 117 H Carbon Dioxide 18 L Anion Gap 7.0 BUN 46 H Creatinine 2.80 H Est Cr Clr Drug Dosing 12.6 Est GFR ( Amer) 18.1 Est GFR (Non-Af Amer) 15.6 BUN/Creatinine Ratio 16.5 Glucose 102 H POC Glucose 72 Osmolality Lactate Calcium 8.7 Total Bilirubin AST ALT Alkaline Phosphatase Total Creatine Kinase Troponin I 4.370 H* C-Reactive Protein Total Protein Albumin Globulin Albumin/Globulin Ratio Lipase Procalcitonin TSH Urine Color Urine Appearance Urine pH Ur Specific [place] Urine Protein Urine Glucose (UA) Urine Ketones Urine Blood Urine Nitrite Urine Bilirubin Urine Urobilinogen Ur Leukocyte Esterase Urine WBC (Auto) Urine RBC (Auto) U Hyaline Cast (Auto) U Epithel Cells (Auto) Urine Bacteria (Auto) Anaplasma Smear A. phagocytophilum DNA Lyme Disease IgG Ab Lyme Disease IgM Ab SARS-CoV-2 (PCR) Influ A Molecular Assay Influ B Molecular Assay Medications Administered Current Inpatient Medications Acetaminophen (Acetaminophen 325 Mg Tab) 650 mg PO Q4H PRN PRN Reason: Pain or Fever Stop: 08/22/21 14:30 Aspirin (Aspirin 81 Mg Ectab) 81 mg PO QAM [facility] Stop: 08/23/21 08:59 Dextrose (Dextrose 50% 50 Ml Syringe) 25 - 50 ml IV UD PRN; Protocol PRN Reason: Hypoglycemia Protocol Stop: 08/22/21 14:30 Docusate Sodium (Docusate Sodium 100 Mg Cap) 100 mg PO PM [facility] Stop: 08/22/21 20:59 Famotidine (Famotidine 20 Mg Tab) 20 mg PO PM [facility] Stop: 08/22/21 20:59 Glucagon (Glucagon For Inj 1 Mg Vial) 1 mg SQ UD PRN; Protocol PRN Reason: Hypoglycemia Protocol Stop: 08/22/21 14:30 Glucose (Glucose 10 Tabs/Tube) 4 - 8 tabs PO UD PRN; Protocol PRN Reason: Hypoglycemia Protocol Stop: 08/22/21 14:30 Glucose (Glucose 40% Gel 15 Gm Tube) 15 - 30 gm PO UD PRN; Protocol PRN Reason: Hypoglycemia Protocol Stop: 08/22/21 14:30 Heparin Sodium (Porcine) (Heparin Sod 5,000 Unit/0.5 Ml Vial) 5,000 units SQ Q12 [facility] Stop: 08/22/21 20:59 Insulin Aspart (Insulin Aspart 100 Units/Ml 3 Ml Pen) 0 units SC ACHS [facility] Stop: 08/22/21 16:29 Lactobacillus Acidoph/Casei/Rhamnos (Advanced Probiotic 1250 Mg Capsule) 2 cap PO QAM [facility] Stop: 08/23/21 08:59 Levothyroxine Sodium (Levothyroxine Sodium 75 Mcg Tablet) 75 mcg PO DAILYBB [facility] Stop: 08/23/21 06:29 Meclizine HCl (Meclizine 12.5 Mg Tab) 12.5 mg PO TID PRN PRN Reason: Dizziness Stop: 08/22/21 14:30 Miscellaneous (Carbohydrates For Hypoglycemia ) 15 - 30 gm PO UD PRN PRN Reason: Hypoglycemia Protocol Stop: 08/22/21 14:30 Multivitamins (Multivitamin Tab) 1 tab PO QAM [facility] Stop: 08/23/21 08:59 Ondansetron HCl (Ondansetron Inj 2 Mg/Ml 2 Ml Vial) 4 mg IV Q6H PRN PRN Reason: Nausea Stop: 08/22/21 14:30 Pantoprazole Sodium (Pantoprazole 40 Mg Tab) 40 mg PO QAM [facility] Stop: 08/23/21 08:59 Polyethylene Glycol (Polyethylene (Miralax) 17 Gm Pack) 17 gm PO DAILY PRN PRN Reason: Constipation Stop: 08/22/21 14:30 Vitamin D (Cholecalciferol 1,000 Units 25 Mcg Tab) [facility] [place] Stop: 08/23/21 08:59
[2021-07-23 15:52] LABS: Troponin I 4.37 ng/ml (0-0.045)
[2021-07-23] MEDS: SODIUM BICARBONATE 8.4% 75 MEQ in DEXTROSE 5% 1,000 ML IV SCH (16:48)
[2021-07-23] MEDS: ACETAMINOPHEN 325 MG TAB PO PRN (16:56)
[2021-07-23] MEDS: INSULIN ASPART 100 UNITS/ML 3 ML PEN SC SCH ×2 (16:56→21:39)
--- NOTE | 2021-07-23 17:20 | Electrocardiogram Report ---
Test Reason : Blood Pressure : / mmHG Vent. Rate : 114 BPM Atrial Rate : 114 BPM P-R Int : 112 ms QRS Dur : 074 ms QT Int : 320 ms P-R-T Axes : 012 033 249 degrees QTc Int : 441 ms Sinus tachycardia with Premature atrial complexes Abnormal ECG When compared with ECG of 22-JUL-2020 06:55, Nonspecific T wave abnormality, worse in Inferior leads T wave inversion now evident in Lateral leads Confirmed by Gurpreet Mcdaniels ([id number]) on 07/23/2021 5:19:53 PM Referred By: REFERRED SELF Confirmed By:Wesly Mcdaniels
--- NOTE | 2021-07-23 20:38 | Nephrology Consultation ---
Date of Consultation July 23, 2021 Assessment & Plan (1) Acute kidney injury superimposed on chronic kidney disease: stage 2 nonoliguric EMILIE on CKD w/b aselien creatinine 1.0 and presenting creatinine 2.8. mild hyperkalemia; nagma as below. looks dry on exam. -change NS to D5W w/ 75 mEq /L -BMP in aM (2) Metabolic acidosis with normal anion gap and bicarbonate losses: CK wnl; no reported diarrhea; cause unclear; no indication at this point for aBG. ? relation to chronic pulmonary disease, to pulmonary fibrosis on imaging -bicarb rich fluid and monitor History of Present Illness Reason for Consultation: EMILIE on CKD, NAGMA Requesting Physician: Dr Lewis Attending Physician: Margarita Juarez MD History of Present Illness 76 y/o F whom I'm asked to see for EMILIE on CKD and NAGREDD was admitted for EMILIE and elevated troponin this evening after presenting seeking evaluation of significant pain, emesis, and worsening balance. PMH includes DM2, CKD3, HTN, stroke, hypothyroid, carotid stenosis. She had no pain when I evaluated her at about 1530; however this am and for the past 3 days she had severe pain prior to presentation - so bad that she screamed in pain when her son tried to help her earlier this am; pain going on over past 3 days. Also had significant dry heaves this am. She states that "my big problem is that I"m off balance," worsening over past month; she feels often that she will fall forward. She did also fall last evening but states has no residual pain or contusions from that-either slid out of bed or fell beside the bed. She twice denied having any current pain when I saw her not in her low back, chest, abdomen, flanks; also no sob, no new/worrisome voiding complaints. No nsaid use. Has been taking 500 mg qid tylenol for the past several days in part d/t worsening MADERA over the past 2 mos. Denies change in weight or po intake. No diarrhea. At her baseline per her son she walks 8/10 of a mile daily w/ her son and goes up and down the stairs w/ laundry. Her baseline creatinine is about 1. She was 2.8 on presentation. She had 1.5L NS in ER w/ no change to creatinine or presenting K 5.3; she did have some improvement of C02 from 15>18. Allergies Allergy/AdvReac Type Severity Reaction Status Date / Time simvastatin Allergy Intermediate MUSCLE PAIN Verified 07/23/21 09:50 codeine Allergy Unknown RASH Verified 07/23/21 09:50 Iodinated Contrast Media Allergy Unknown Hives Verified 07/23/21 09:50 Sulfa (Sulfonamide AdvReac Intermediate HIVES,NAUSE Verified 07/23/21 09:50 Antibiotics) A gabapentin AdvReac Unknown NAUSEA Verified 07/23/21 09:50 pravastatin AdvReac Unknown Abdominal Verified 07/23/21 09:50 Pain Home Medications Medication Instructions Recorded Confirmed Type Lactobacillus rhamnosus GG 10 2 cap PO QAM 07/20/20 07/23/21 History billion cell capsule (Culturelle) aspirin 81 mg tablet,delayed 81 mg PO QAM 07/20/20 07/23/21 History release cholecalciferol (vitamin D3) 25 25 mcg PO QAM 07/20/20 07/23/21 History mcg (1,000 unit) tablet docusate sodium 100 mg capsule 100 mg PO PM 07/20/20 07/23/21 History (DOK) famotidine 20 mg tablet 20 mg PO PM 07/20/20 07/23/21 History glipizide 5 mg tablet, extended 5 mg PO QAM 07/20/20 07/23/21 History release 24 hr levothyroxine 75 mcg tablet 75 mcg PO QAM 07/20/20 07/23/21 History lisinopril 5 mg tablet 5 mg PO QAM 07/20/20 07/23/21 History meclizine 12.5 mg tablet 12.5 mg PO TID PRN 07/20/20 07/23/21 History multivitamin 1 tab PO QAM 07/20/20 07/23/21 History omeprazole 20 mg capsule,delayed 20 mg PO QAM 07/20/20 07/23/21 History release diphenhydramine 25 1 tab PO HS PRN #0 08/13/20 07/23/21 History mg-acetaminophen 500 mg tablet (Tylenol PM Extra Strength) acetaminophen 500 mg tablet 500 mg PO Q6H PRN 07/23/21 07/23/21 History (Tylenol Extra Strength) metformin 500 mg tablet,extended 500 mg PO BIDM 07/23/21 07/23/21 History release 24 hr Patient History Medical History Carotid stenosis S/p right CEA in 2004 CKD (chronic kidney disease) stage 3, GFR 30-59 ml/min Diabetes mellitus, type 2 NIDDM> GLUCOSE HAS BEEN RUNNING LOW IN AM > LOW 57 TO 68 GERD (gastroesophageal reflux disease) HLD (hyperlipidemia) Hypertension Hypothyroidism Kidney stones Osteoarthritis Pyelonephritis Recently admitted and treated with abxs Stroke 2004> RESULTED IN CAROTID ENDARTERECTOMY> NO RESIDUAL EFFECTS> DOESN'T FOLLOW NEURO Urinary incontinence JUST OCCASIONALLY Surgical History H/O dilation and curettage History of carotid endarterectomy Right> 2004> FOLLOWS PCP History of colonoscopy History of hysterectomy History of tonsillectomy History of tooth extraction Family History Father Diabetes Mother Diabetes Sister Colon cancer Social History Smoking Status: Never smoker Second Hand Exposure: No; Hx Alcohol Use: No Hx Substance Use: No Preferred Language: [place] Irish Communication Ability: Effective Visual Impairment: No Limitations Operations And Maintenance Technican Required: No Beliefs That Will Affect Care: None Current Living Situation: Alone Feels Safe at Home: Yes Assistive Devices: Glasses Review of Systems Review of Systems: All systems reviewed & are unremarkable except as noted in HPI & below Physical Exam Constitutional: well developed, well nourished, cooperative and + lethargic (looks really tired); no acute distress Eyes: EOM intact bilaterally ENMT: Ears: no external ear abnormality Nose: no external nose abnormality Mouth: + dry oral mucous membranes Neck: no nuchal rigidity Respiratory: normal respiratory effort Auscultation: + diminished lung sounds and + crackles Cardiovascular: Rate/Rhythm: + tachycardic and + irregularly irregular Extremities: no edema Gastrointestinal (Abdomen): Inspection/Auscultation: normal bowel sounds Percussion/Palpation: abdomen soft; abdomen nontender Musculoskeletal: Extremities: strength 5/5 throughout Skin: no rashes, warm and dry Neurologic: tran, fluent speech, no tremor Psychiatric: Orientation: oriented x 3 Results & Data ([facility]) Vital Signs (Past 12 Hours) Vital Signs Temp Pulse Pulse Resp BP BP Pulse Ox 07/23/21 17:00 37 C 94 H 16 136/73 94 07/23/21 15:50 100 H 16 136/73 97 07/23/21 14:32 94 H 16 154/107 H 95 07/23/21 14:00 93 H 23 154/107 H 07/23/21 13:00 102 H 28 H 131/93 98 07/23/21 10:00 104 H 23 151/91 H 94 07/23/21 09:00 113 H 19 160/73 H 97 Pulse Ox 07/23/21 17:00 97 07/23/21 15:50 07/23/21 14:32 07/23/21 14:00 07/23/21 13:00 07/23/21 10:00 07/23/21 09:00 Laboratory Results 07/23/21 07:51 07/23/21 15:[address] No acute intracranial hemorrhage, midline shift, intracranial mass, hydrocephalus, territorial ischemia or abnormal extra-axial collection. Encephalomalacia related to chronic infarct of the right parietal lobe. White matter hypodensities suggest chronic microvascular ischemic disease. Chronic lacunar infarcts of the left caudate and lentiform nuclei. Senescent calcifications of the basal ganglia with cerebral vascular calcifications. Chronic infarcts of the left cerebellar hemisphere. The calvarium is intact. The paranasal sinuses, mastoid air cells, and middle ear cavities are clear. IMPRESSION: Chronic findings as above without acute intracranial abnormality. CT abd/pelvis noncon Bibasilar groundglass and irregular consolidative opacities appear similar to 02/06/2009 study. Respiratory motion artifact, upper extremity positioning and lack of contrast limits the study. No pneumatosis or pneumoperitoneum. Moderate cardiomegaly with coronary artery calcifications. Trace pericardial effusion. Unremarkable spleen, mildly atrophic pancreas, gallbladder, adrenal glands and liver. Mild right hemidiaphragmatic elevation. Unremarkable kidneys. No hydronephrosis. Unremarkable urinary bladder. Hysterectomy. Atherosclerosis of the aorta without aneurysm. No adenopathy. No bowel obstruction and or bowel wall thickening. Mild to moderate fecal retention. Colonic diverticulosis without acute diverticulitis. Noninflamed ap pendix. No ascites or mesenteric inflammation. Unremarkable soft tissues. Degenerative changes of the spine, pelvis and hips. IMPRESSION: 1. No acute intra-abdominal or intrapelvic abnormality. 2. No bowel obstruction or bowel wall thickening. Normal appendix. 3. Colonic diverticulosis without acute diverticulitis. 4. Bibasilar pulmonary fibrosis is stable compared to the 02/06/2009 exam 5. Additional findings as above. CXR: MPRESSION: Mild chronic bibasilar opacities suggestive of atelectasis/s carring.
[2021-07-23] MEDS: FAMOTIDINE 20 MG TAB PO SCH (21:54)
[2021-07-23] MEDS: HEPARIN SOD 5,000 UNIT/0.5 ML VIAL SQ SCH (21:54)
[2021-07-23] MEDS: DOCUSATE SODIUM 100 MG CAP PO SCH (21:54)
[2021-07-24] MEDS: ACETAMINOPHEN 325 MG TAB PO PRN ×3 (05:05→22:39)
[2021-07-24] MEDS: LEVOTHYROXINE SODIUM 75 MCG TABLET PO SCH (06:10)
[2021-07-24 06:25] LABS: Hematocrit (blood only) 29.6 % (37-47); Hemoglobin 9.6 g/dL (12.0-16.0); Mean Corpuscular Hemoglobin 30.1 pg (25-34); Mean Corpuscular Hgb Conc 32.4 g/dL (32-36); Mean Corpuscular Volume 92.8 fL (80-100); Mean Platelet Volume 10.1 fL (7.4-10.4); Platelet Count 221 K/uL (130-400); RDW Coefficient of Variation 13.2 % (11.5-14.5); RDW Standard Deviation 44.5 fL (36.4-46.3); Red Blood Count 3.19 M/uL (4.2-5.4); White Blood Count 8.57 K/uL (4.8-10.8)
[2021-07-24 06:53] LABS: BUN Creatinine Ratio 16.4 (10-20); Creatinine Clr Calc Pharmacy 13.1 ml/min; Est GFR (African American) 18.9 ml/min; Est GFR (Non-African American) 16.3 ml/min; Potassium 4.8 mmol/L (3.5-5.1)
--- NOTE | 2021-07-24 07:34 | Electrocardiogram Report ---
Test Reason : Blood Pressure : / mmHG Vent. Rate : 078 BPM Atrial Rate : 078 BPM P-R Int : 124 ms QRS Dur : 070 ms QT Int : 412 ms P-R-T Axes : 021 019 242 degrees QTc Int : 469 ms Sinus rhythm with Premature atrial complexes T wave abnormality, consider inferolateral ischemia Abnormal ECG When compared with ECG of 23-JUL-2021 07:22, No significant change was found Confirmed by Gurpreet Mcdaniels ([id number]) on 07/24/2021 7:34:34 AM Referred By: REFERRED SELF Confirmed By:Wesly Mcdaniels
[2021-07-24] MEDS: SODIUM BICARBONATE 8.4% 75 MEQ in DEXTROSE 5% 1,000 ML IV SCH (08:11)
[2021-07-24] MEDS: ADVANCED PROBIOTIC 1250 MG CAPSULE PO SCH (08:12)
[2021-07-24] MEDS: PANTOprazole 40 MG TAB PO SCH (08:12)
[2021-07-24] MEDS: CHOLECALCIFEROL 1,000 UNITS 25 MCG TAB PO SCH (08:12)
[2021-07-24] MEDS: ASPIRIN 81 MG ECTAB PO SCH (08:12)
[2021-07-24] MEDS: MULTIVITAMIN TAB PO SCH (08:12)
[2021-07-24] MEDS: HEPARIN SOD 5,000 UNIT/0.5 ML VIAL SQ SCH ×2 (08:12→21:44)
[2021-07-24] MEDS: INSULIN ASPART 100 UNITS/ML 3 ML PEN SC SCH ×4 (09:21→21:47)
[2021-07-24 09:24] LABS: Estimated Average Glucose 137 mg/dl; Hemoglobin A1C 6.4 % (4.5-5.6)
--- NOTE | 2021-07-24 14:39 | Nephrology Progress Note ---
Date of Service July 24, 2021 Assessment & Plan (1) Acute kidney injury superimposed on chronic kidney disease: Plan: stage 2 nonoliguric EMILIE on CKD w/b aselien creatinine 1.0 and presenting creatinine 2.8. mild hyperkalemia; nagma as below. looks dry on exam at admission and looks better today though no improvement with IVF in creatinine -changed D5W w/ 75 mEq /L Na bic to D5W -BMP in aM (2) Metabolic acidosis with normal anion gap and bicarbonate losses: Plan: CK wnl; no reported diarrhea; cause unclear; no indication at this point for aBG. ? 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; Review of Systems Review of Systems: All systems reviewed & are unremarkable except as noted in Subjective Physical Exam Constitutional: well developed, well nourished and cooperative; no acute distress Eyes: EOM intact bilaterally ENMT: Ears: no external ear abnormality Nose: no external nose abnormality Mouth: + dry oral mucous membranes Neck: no nuchal rigidity Respiratory: normal respiratory effort Auscultation: + diminished lung sounds and + crackles (BL bases only) Cardiovascular: Rate/Rhythm: + tachycardic and + irregularly irregular Extremities: no edema Gastrointestinal (Abdomen): Inspection/Auscultation: normal bowel sounds Percussion/Palpation: abdomen soft; abdomen nontender Musculoskeletal: Extremities: strength 5/5 throughout Skin: no rashes, warm and dry Psychiatric: Orientation: oriented x 3 Results & Data ([facility]) Vital Signs (Past 12 Hours) Vital Signs Temp Pulse Resp BP Pulse Ox 07/24/21 08:00 37 C 89 18 138/80 95 07/24/21 06:22 36.5 C 86 18 136/75 99 07/24/21 03:00 36.4 C L 70 16 130/72 98 Laboratory Results 07/24/21 06:09 07/24/21 06:09
--- NOTE | 2021-07-24 15:35 | Hospitalist Progress Note ---
Date of Service July 24, 2021 Assessment & Plan (1) Acute kidney injury superimposed on chronic kidney disease: (2) Metabolic acidosis with normal anion gap and bicarbonate losses: Plan: 76-year-old female with PMH of DM II, HTN, CKD III, history of CVA, hypothy roidism and other medical problems listed below who presents with myalgias and nausea x3 days and was found to have EMILIE on CKD, non-anion gap metabolic acidosis and elevated troponin. Presented with myalgias and generalized weakness x 3 days Cr elevated at 2.83 (baseline ~1) No uropathy or hydronephrosis noted on CT abd/pelvis NAGMA Denied diarrhea Acknowledges poor po intake. Unclear etiology of NAGMA Metabolic acidosis resolved with bicarb in D5W Curriculum Development Manager recs noted Continue D5W Monitor renal function Avoid nephrotoxins (3) Elevated troponin: Plan: Troponin elevated at 4, no history of CAD. Likely due to worsened renal funciton Echo and Cardiology recs noted No further evaluation (4) Myalgia: Plan: Present for past 3 days, endorses pain in head from ongoing headache (CT head pending), back, chest and extremities Lyme serology negative, peripheral smear without evidence of inclusion bodies, anaplasma DNA pending. Covid PCR negative, flu A/B negative Myalgia improving Did well with PT (5) Diabetes mellitus, type 2: Plan: No recent a1c on file. Will obtain in AM Hold home agents SSI while in-patient BSG AC HS (6) Hypertension: Plan: Holding lisinopril in setting of EMILIE. (7) Carotid stenosis: Plan: S/p CEA in 2004 (8) Hypothyroidism: Plan: Continue levothyroxine (9) HLD (hyperlipidemia): Plan: Not on statin, history of myalgias and abd pain on previously DVT Ppx: SQ heparin Code status: FULL PCP: Adia Admission and Anticipated Discharge Date Admission Date: July 23, 2021 Subjective 76-year-old female with PMH of DM II, HTN, CKD III, history of CVA, hypothyroidism and other medical problems listed below who presents with myalgias and nausea x3 days. Patient was in normal state of health until a few days ago when she developed diffuse muscle and joint aches Being managed for EMILIE on CKD., NAGMA, elevated troponins Patient seen and examined today. Reports improvement in generalized weakness. Denies any chest pain, cough, shortness of breath Denies any palpitations, dyspnea on exertion Denies any fevers, chills, nausea, vomiting, abdominal pain, diarrhea, constipation Acknowledges poor oral intake. Reports she lives alone and sometimes she feels is too much to perform person. Performs all her ADLs. Denied dysuria, frequency, urgency, hematuria Physical Exam Constitutional: + well hydrated; no acute distress Elderly woman Eyes: PERRL, conjunctivae normal, anicteric sclerae ENMT: external ear and nose normal, oropharynx normal Respiratory: normal respiratory effort, lungs clear to auscultation Cardiovascular: Rate/Rhythm: regular rate and regular rhythm S1-S2 Gastrointestinal (Abdomen): normal bowel sounds, soft, nontender, no hepatosplenomegaly Musculoskeletal: no cyanosis or clubbing, extremities motor strength 5/5 No pedal edema Neurologic: PERRL, EOMI, accommodation nl, no face palsy, no dysarthria Psychiatric: A+Ox3, euthymic affect Results & Data Results & Data ([facility]) Vital Signs (Past 12 Hours) Vital Signs Temp Pulse Resp BP Pulse Ox 07/24/21 08:00 37 C 89 18 138/80 95 07/24/21 06:22 36.5 C 86 18 136/75 99 Laboratory Results Abnormal lab results 07/23/21 07/24/21 07/24/21 Range/Units 20:50 06:09 06:09 RBC 3.19 L (4.2-5.4) M/uL Hgb 9.6 L (12.0-16.0) g/dL Hct 29.6 L (37-47) % Chloride (98-107) mmol/L BUN (7-18) mg/dl Creatinine (0.6-1.2) mg/dl Glucose (70-99) mg/dl POC Glucose (70-99) mg/dl Hemoglobin A1c 6.4 H (4.5-5.6) % Troponin I 4.480 H* (0-0.045) ng/ml 07/24/21 07/24/21 07/24/21 Range/Units 06:09 07:36 11:23 RBC (4.2-5.4) M/uL Hgb (12.0-16.0) g/dL Hct (37-47) % Chloride 111 H (98-107) mmol/L BUN 44 H (7-18) mg/dl Creatinine 2.71 H (0.6-1.2) mg/dl Glucose 146 H (70-99) mg/dl POC Glucose 136 H 182 H (70-99) mg/dl Hemoglobin A1c (4.5-5.6) % Troponin I (0-0.045) ng/ml (1) Hypertension Hypertension type: unspecified Qualified Code(s): I10 - Essential (primary) hypertension
--- NOTE | 2021-07-24 15:46 | Cardiology Progress Note ---
Date of Service July 24, 2021 Assessment & Plan (1) Myalgia: (2) Metabolic acidosis with normal anion gap and bicarbonate losses: (3) Stroke: (4) Carotid stenosis: (5) Diabetes mellitus, type 2: (6) Acute kidney injury superimposed on chronic kidney disease: (7) Elevated troponin: Plan: I believe the patient's troponin elevation is likely to be from dehydration and renal failure. At this time I would not recommend any additional cardiac testing or treatment. Admission and Anticipated Discharge Date Admission Date: July 23, 2021 Subjective The patient feels much improved today. Review of Systems Review of Systems: Review of Systems: See HPI for pertinent positives. All other 10 point review of systems are negative. Physical Exam Physical Exam: General: no acute distress and stated age Head: normocephalic, no masses, lesions, tenderness or abnormalities Eyes: conjunctiva are pink and non-injected, sclera clear Neck: supple, no adenopathy, no bruits, normal jugular venous pulse, no hepatojugular reflux Chest: normal shape and normal respiratory effort Lungs: clear to auscultation and percussion Cardiac Exam: - regular rate & rhythm, no murmurs gallops or rubs - normal S1, normal S2 Pulses: 2(+) throughout Abdomen: abdomen soft, non-tender, no abnormal masses and no hepatosplenomegaly Musculoskeletal: no gait disturbance, no joint inflammation, no deforming arthritis Extremities: no edema and no cyanosis Neuro: grossly normal exam Results & Data ([facility]) Vital Signs (Past 12 Hours) Vital Signs Temp Pulse Resp BP Pulse Ox 07/24/21 08:00 37 C 89 18 138/80 95 07/24/21 06:22 36.5 C 86 18 136/75 99 Laboratory Results Laboratory Results - last 24 hr 07/23/21 07/23/21 07/23/21 15:08 16:46 20:08 WBC RBC Hgb Hct MCV MCH MCHC RDW Std Deviation RDW Coeff of Abebe Plt Count MPV Sodium Potassium Chloride Carbon Dioxide Anion Gap BUN Creatinine Est Cr Clr Drug Dosing Est GFR ( Amer) Est GFR (Non-Af Amer) BUN/Creatinine Ratio Glucose POC Glucose 121 H 96 Estimat Average Glucose Hemoglobin A1c Calcium Magnesium Troponin I 4.370 H* 07/23/21 07/24/21 07/24/21 20:50 06:09 06:09 WBC 8.57 RBC 3.19 L Hgb 9.6 L Hct 29.6 L MCV 92.8 MCH 30.1 MCHC 32.4 RDW Std Deviation 44.5 RDW Coeff of Abebe 13.2 Plt Count 221 MPV 10.1 Sodium Potassium Chloride Carbon Dioxide Anion Gap BUN Creatinine Est Cr Clr Drug Dosing Est GFR ( Amer) Est GFR (Non-Af Amer) BUN/Creatinine Ratio Glucose POC Glucose Estimat Average Glucose 137 Hemoglobin A1c 6.4 H Calcium Magnesium Troponin I 4.480 H* 07/24/21 07/24/21 07/24/21 06:09 07:36 11:23 WBC RBC Hgb Hct MCV MCH MCHC RDW Std Deviation RDW Coeff of Abebe Plt Count MPV Sodium 137 Potassium 4.8 Chloride 111 H Carbon Dioxide 23 Anion Gap 3.0 BUN 44 H Creatinine 2.71 H Est Cr Clr Drug Dosing 13.1 Est GFR ( Amer) 18.9 Est GFR (Non-Af Amer) 16.3 BUN/Creatinine Ratio 16.4 Glucose 146 H POC Glucose 136 H 182 H Estimat Average Glucose Hemoglobin A1c Calcium 9.0 Magnesium 2.0 Troponin I Medications Administered Current Inpatient Medications Acetaminophen (Acetaminophen 325 Mg Tab) 650 mg PO Q4H PRN PRN Reason: Pain or Fever Stop: 08/22/21 14:30 Last Admin: 07/24/21 10:41 Dose: 650 mg Documented by: Aspirin (Aspirin 81 Mg Ectab) 81 mg PO QAM BEAU Stop: 08/23/21 08:59 Last Admin: 07/24/21 08:12 Dose: 81 mg Documented by: Dextrose (Dextrose 50% 50 Ml Syringe) 25 - 50 ml IV UD PRN; Protocol PRN Reason: Hypoglycemia Protocol Stop: 08/22/21 14:30 Docusate Sodium (Docusate Sodium 100 Mg Cap) 100 mg PO PM BEAU Stop: 08/22/21 20:59 Last Admin: 07/23/21 21:54 Dose: 100 mg Documented by: Famotidine (Famotidine 20 Mg Tab) 20 mg PO PM BEAU Stop: 08/22/21 20:59 Last Admin: 07/23/21 21:54 Dose: 20 mg Documented by: Glucagon (Glucagon For Inj 1 Mg Vial) 1 mg SQ UD PRN; Protocol PRN Reason: Hypoglycemia Protocol Stop: 08/22/21 14:30 Glucose (Glucose 10 Tabs/Tube) 4 - 8 tabs PO UD PRN; Protocol PRN Reason: Hypoglycemia Protocol Stop: 08/22/21 14:30 Glucose (Glucose 40% Gel 15 Gm Tube) 15 - 30 gm PO UD PRN; Protocol PRN Reason: Hypoglycemia Protocol Stop: 08/22/21 14:30 Heparin Sodium (Porcine) (Heparin Sod 5,000 Unit/0.5 Ml Vial) 5,000 units SQ Q12 [facility]AU Stop: 08/22/21 20:59 Last Admin: 07/24/21 08:12 Dose: 5,000 units Documented by: Dextrose (D5w) 1,000 mls @ 80 mls/hr IV .[id number] [facility] Stop: 08/23/21 14:44 Insulin Aspart (Insulin Aspart 100 Units/Ml 3 Ml Pen) 0 units SC ACHS [facility] Stop: 08/22/21 16:29 Last Admin: 07/24/21 12:02 Dose: 3 units Documented by: Lactobacillus Acidoph/Casei/Rhamnos (Advanced Probiotic 1250 Mg Capsule) 2 cap PO QAM [facility] Stop: 08/23/21 08:59 Last Admin: 07/24/21 08:12 Dose: 2 cap Documented by: Levothyroxine Sodium (Levothyroxine Sodium 75 Mcg Tablet) 75 mcg PO DAILYBB [facility] Stop: 08/23/21 06:29 Last Admin: 07/24/21 06:10 Dose: 75 mcg Documented by: Meclizine HCl (Meclizine 12.5 Mg Tab) 12.5 mg PO TID PRN PRN Reason: Dizziness Stop: 08/22/21 14:30 Miscellaneous (Carbohydrates For Hypoglycemia ) 15 - 30 gm PO UD PRN PRN Reason: Hypoglycemia Protocol Stop: 08/22/21 14:30 Multivitamins (Multivitamin Tab) 1 tab PO QAM [facility] Stop: 08/23/21 08:59 Last Admin: 07/24/21 08:12 Dose: 1 tab Documented by: Ondansetron HCl (Ondansetron Inj 2 Mg/Ml 2 Ml Vial) 4 mg IV Q6H PRN PRN Reason: Nausea Stop: 08/22/21 14:30 Pantoprazole Sodium (Pantoprazole 40 Mg Tab) 40 mg PO QAM [facility] Stop: 08/23/21 08:59 Last Admin: 07/24/21 08:12 Dose: 40 mg Documented by: Polyethylene Glycol (Polyethylene (Miralax) 17 Gm Pack) 17 gm PO DAILY PRN PRN Reason: Constipation Stop: 08/22/21 14:30 Vitamin D (Cholecalciferol 1,000 Units 25 Mcg Tab) 1,000 units PO [facility] Stop: 08/23/21 08:59 Last Admin: 07/24/21 08:12 Dose: 1,000 units Documented by:
[2021-07-24] MEDS: DEXTROSE 5% 1,000 ML IV SCH (16:14)
[2021-07-24 17:35] LABS: Creatinine Urine Random 41.2 mg/dl
[2021-07-24] MEDS ORDERED: hydrALAZINE HCL 20 MG/ML VIAL IV PRN (18:34)
[2021-07-24] MEDS ORDERED: Nursing to Pharmacy Communication SCH (20:00)
[2021-07-24] MEDS: DOCUSATE SODIUM 100 MG CAP PO SCH (21:44)
[2021-07-24] MEDS: FAMOTIDINE 20 MG TAB PO SCH (21:44)
[2021-07-24] MEDS ORDERED: COUGH DROP (SUGAR FREE) LOZ 24 LOZ/1 BOX BUCCAL ONE (22:37)
[2021-07-24] MEDS ORDERED: COUGH DROP (SUGAR FREE) LOZ 24 LOZ/1 BOX BUCCAL STA (22:57)
[2021-07-25] MEDS: LEVOTHYROXINE SODIUM 75 MCG TABLET PO SCH (05:23)
[2021-07-25] MEDS: ACETAMINOPHEN 325 MG TAB PO PRN ×3 (06:02→20:02)
[2021-07-25] MEDS: DEXTROSE 5% 1,000 ML IV SCH ×2 (06:21→20:04)
[2021-07-25 07:15] LABS: Hemoglobin 10.8 g/dL (12.0-16.0); Mean Corpuscular Hemoglobin 29.7 pg (25-34); Mean Corpuscular Hgb Conc 31.8 g/dL (32-36); Mean Corpuscular Volume 93.4 fL (80-100); Mean Platelet Volume 11.1 fL (7.4-10.4); Platelet Count 247 K/uL (130-400); RDW Coefficient of Variation 13.2 % (11.5-14.5); RDW Standard Deviation 45.4 fL (36.4-46.3); Red Blood Count 3.64 M/uL (4.2-5.4); White Blood Count 8.92 K/uL (4.8-10.8)
[2021-07-25] MEDS: CHOLECALCIFEROL 1,000 UNITS 25 MCG TAB PO SCH (07:31)
[2021-07-25] MEDS: ASPIRIN 81 MG ECTAB PO SCH (07:31)
[2021-07-25] MEDS: MULTIVITAMIN TAB PO SCH (07:31)
[2021-07-25] MEDS: PANTOprazole 40 MG TAB PO SCH (07:31)
[2021-07-25] MEDS: ADVANCED PROBIOTIC 1250 MG CAPSULE PO SCH (07:32)
[2021-07-25 07:37] LABS: BUN Creatinine Ratio 14.5 (10-20); Calcium 9.5 mg/dl (8.5-10.1); Creatinine Clr Calc Pharmacy 12.5 ml/min; Est GFR (Non-African American) 15.5 ml/min; Potassium 4.7 mmol/L (3.5-5.1)
[2021-07-25] MEDS: INSULIN ASPART 100 UNITS/ML 3 ML PEN SC SCH ×4 (08:18→20:36)
[2021-07-25] MEDS ORDERED: amLODIPine BESYLATE 5 MG TAB PO ONE (09:16)
[2021-07-25] MEDS: HEPARIN SOD 5,000 UNIT/0.5 ML VIAL SQ SCH ×2 (09:54→20:18)
--- NOTE | 2021-07-25 15:42 | Hospitalist Progress Note ---
Date of Service July 25, 2021 Assessment & Plan (1) Acute kidney injury superimposed on chronic kidney disease: (2) Metabolic acidosis with normal anion gap and bicarbonate losses: Plan: 76-year-old female with PMH of DM II, HTN, CKD III, history of CVA, hypothy roidism and other medical problems listed below who presents with myalgias and nausea x3 days and was found to have EMILIE on CKD, non-anion gap metabolic acidosis and elevated troponin. Presented with myalgias and generalized weakness x 3 days Cr elevated at 2.83 (baseline ~1) No uropathy or hydronephrosis noted on CT abd/pelvis NAGMA Metabolic acidosis resolved with bicarb in D5W Denture Model Maker on board Currently on IV D5W per Nephrology Monitor renal function Avoid nephrotoxins (3) Elevated troponin: Plan: Troponin elevated at 4, no history of CAD. Likely due to worsened renal function Echo and Cardiology recs noted No further evaluation recommended by Marine Biologist (4) Myalgia: Plan: Present for past 3 days, endorses pain in head from ongoing headache (CT head pending), back, chest and extremities Lyme serology negative, peripheral smear without evidence of inclusion bodies, anaplasma DNA pending. Covid PCR negative, flu A/B negative Myalgia improving Did well with PT (5) Diabetes mellitus, type 2: Plan: No recent a1c on file. Will obtain in AM Hold home agents SSI while in-patient BSG AC HS (6) Hypertension: Plan: Holding lisinopril in setting of EMILIE. Started on amlodipine (7) Carotid stenosis: Plan: S/p CEA in 2004 (8) Hypothyroidism: Plan: Continue levothyroxine (9) HLD (hyperlipidemia): Plan: Not on statin, history of myalgias and abd pain on previously DVT Ppx: SQ heparin Code status: FULL PCP: Adia Patient worried about not spending enough time with Son visiting from [place] and asking about discharge I explained to patient the findings today, need to monitor renal function further and for continuing hospital stay She understood and agreed to stay Admission and Anticipated Discharge Date Admission Date: July 23, 2021 Subjective 76-year-old female with PMH of DM II, HTN, CKD III, history of CVA, hypothyroidism and other medical problems listed below who presents with myalgias and nausea x3 days. Patient was in normal state of health until a few days ago when she developed diffuse muscle and joint aches Being managed for EMILIE on CKD., NAGMA, elevated troponins Patient seen and examined today. Reports weakness is almost resolved Denies any chest pain, cough, shortness of breath Denies any palpitations, dyspnea on exertion Denies any fevers, chills, nausea, vomiting, abdominal pain, constipation Reported some loose stool this morning Denied dysuria, frequency, urgency, hematuria Physical Exam Constitutional: + well hydrated; no acute distress Eyes: PERRL, conjunctivae normal, anicteric sclerae ENMT: external ear and nose normal, oropharynx normal Respiratory: normal respiratory effort, lungs clear to auscultation Cardiovascular: Rate/Rhythm: regular rate and regular rhythm S1 S2 Gastrointestinal (Abdomen): normal bowel sounds, soft, nontender, no hepatosplenomegaly Musculoskeletal: no cyanosis or clubbing, extremities motor strength 5/5 Neurologic: PERRL, EOMI, accommodation nl, no face palsy, no dysarthria Psychiatric: A+Ox3, euthymic affect Results & Data Results & Data ([facility]) Vital Signs (Past 12 Hours) Vital Signs Temp Pulse Resp BP Pulse Ox 07/25/21 11:59 36.5 C 89 18 126/82 99 07/25/21 08:13 36.4 C L 95 H 18 158/78 H 98 07/25/21 05:18 36.3 C L 97 H 16 157/80 H 97 Laboratory Results Abnormal lab results 07/24/21 07/25/21 07/25/21 Range/Units 19:47 06:43 06:43 RBC 3.64 L (4.2-5.4) M/uL Hgb 10.8 L (12.0-16.0) g/dL Hct 34.0 L (37-47) % MCHC 31.8 L (32-36) g/dL MPV 11.1 H (7.4-10.4) fL BUN 41 H (7-18) mg/dl Creatinine 2.82 H (0.6-1.2) mg/dl Glucose 156 H (70-99) mg/dl POC Glucose 174 H (70-99) mg/dl 07/25/21 07/25/21 07/25/21 Range/Units 07:18 11:13 13:49 RBC (4.2-5.4) M/uL Hgb (12.0-16.0) g/dL Hct (37-47) % MCHC (32-36) g/dL MPV (7.4-10.4) fL BUN (7-18) mg/dl Creatinine (0.6-1.2) mg/dl Glucose (70-99) mg/dl POC Glucose 155 H 163 H 152 H (70-99) mg/dl 07/25/ Range/Units 16:51 RBC (4.2-5.4) M/uL Hgb (12.0-16.0) g/dL Hct (37-47) % MCHC (32-36) g/dL MPV (7.4-10.4) fL BUN (7-18) mg/dl Creatinine (0.6-1.2) mg/dl Glucose (70-99) mg/dl POC Glucose 137 H (70-99) mg/dl (1) Hypertension Hypertension type: unspecified Qualified Code(s): I10 - Essential (primary) hypertension
--- NOTE | 2021-07-25 16:32 | Nephrology Progress Note ---
Date of Service July 25, 2021 Assessment & Plan (1) Acute kidney injury superimposed on chronic kidney disease: Plan: stage 2 nonoliguric EMILIE on CKD w/b aselien creatinine 1.0 and presenting creatinine 2.8. mild hyperkalemia; nagma as below. looks dry on exam at admission and looks better today though no improvement with IVF in creatinine -changed D5W w/ 75 mEq /L Na bic to D5W -BMP in aM (2) Metabolic acidosis with normal anion gap and bicarbonate losses: Plan: CK wnl; no reported diarrhea; cause unclear; no indication at this point for aBG. ? relation to chronic pulmonary disease, to pulmonary fibrosis on imaging -resolved w/ bicarb rich fluid Admission and Anticipated Discharge Date Admission Date: July 23, 2021 Subjective no acute interval events. seen on rounds at about 11 15.had diarrhea bout this am and worriesw ie was "too new." no sob. ++anxiety > worked up her slot at office will be landmark if possible Review of Systems Review of Systems: All systems reviewed & are unremarkable except as noted in Subjective Physical Exam Constitutional: well developed, well nourished and cooperative; no acute distress Eyes: EOM intact bilaterally ENMT: Ears: no external ear abnormality Nose: no external nose abnormality Mouth: + dry oral mucous membranes Neck: no nuchal rigidity Respiratory: normal respiratory effort Auscultation: + diminished lung sounds and + crackles (BL bases only) Cardiovascular: Rate/Rhythm: + tachycardic and + irregularly irregular Extremities: no edema Gastrointestinal (Abdomen): Inspection/Auscultation: normal bowel sounds Percussion/Palpation: abdomen soft; abdomen nontender Musculoskeletal: Extremities: strength 5/5 throughout Skin: no rashes, warm and dry Psychiatric: Orientation: oriented x 3 Results & Data ([facility]) Vital Signs (Past 12 Hours) Vital Signs Temp Pulse Resp BP Pulse Ox 07/25/21 11:59 36.5 C 89 18 126/82 99 07/25/21 08:13 36.4 C L 95 H 18 158/78 H 98 07/25/21 05:18 36.3 C L 97 H 16 157/80 H 97
[2021-07-25] MEDS ORDERED: LORATADINE 10 MG TAB PO ONE (17:11)
[2021-07-25] MEDS ORDERED: traMADol HCL 50 MG TABLET PO STA (17:12)
[2021-07-25] MEDS: FAMOTIDINE 20 MG TAB PO SCH (20:18)
[2021-07-25] MEDS: DOCUSATE SODIUM 100 MG CAP PO SCH (20:18)
[2021-07-25] MEDS ORDERED: oxyCODONE HCL IR 5 MG TAB (IMMEDIATE RELEASE) PO STA (20:31)
[2021-07-26] MEDS: LEVOTHYROXINE SODIUM 75 MCG TABLET PO SCH (05:45)
[2021-07-26] MEDS: DEXTROSE 5% 1,000 ML IV SCH ×2 (05:50→19:51)
[2021-07-26 07:54] LABS: Hematocrit (blood only) 33.8 % (37-47); Hemoglobin 10.9 g/dL (12.0-16.0); Mean Corpuscular Hgb Conc 32.2 g/dL (32-36); Mean Corpuscular Volume 93.1 fL (80-100); Mean Platelet Volume 11.5 fL (7.4-10.4); Platelet Count 200 K/uL (130-400); RDW Coefficient of Variation 13.1 % (11.5-14.5); RDW Standard Deviation 44.7 fL (36.4-46.3); Red Blood Count 3.63 M/uL (4.2-5.4); White Blood Count 8.87 K/uL (4.8-10.8)
[2021-07-26 08:39] LABS: BUN Creatinine Ratio 11.6 (10-20); Calcium 9.3 mg/dl (8.5-10.1); Est GFR (African American) 17.2 ml/min; Est GFR (Non-African American) 14.8 ml/min; Potassium 4.9 mmol/L (3.5-5.1)
[2021-07-26] MEDS: amLODIPine BESYLATE 5 MG TAB PO SCH (09:32)
[2021-07-26] MEDS: ADVANCED PROBIOTIC 1250 MG CAPSULE PO SCH (09:32)
[2021-07-26] MEDS: PANTOprazole 40 MG TAB PO SCH (09:32)
[2021-07-26] MEDS: CHOLECALCIFEROL 1,000 UNITS 25 MCG TAB PO SCH (09:32)
[2021-07-26] MEDS: ASPIRIN 81 MG ECTAB PO SCH (09:32)
[2021-07-26] MEDS: LORATADINE 10 MG TAB PO SCH (09:32)
[2021-07-26] MEDS: MULTIVITAMIN TAB PO SCH (09:32)
[2021-07-26] MEDS: INSULIN ASPART 100 UNITS/ML 3 ML PEN SC SCH ×4 (09:37→20:54)
[2021-07-26] MEDS: HEPARIN SOD 5,000 UNIT/0.5 ML VIAL SQ SCH ×2 (09:38→20:53)
--- NOTE | 2021-07-26 12:34 | Nephrology Progress Note ---
Date of Service July 26, 2021 Assessment & Plan Admission and Anticipated Discharge Date Admission Date: July 23, 2021 Subjective Assessment & Plan (1) Acute kidney injury superimposed on chronic kidney disease: Plan: nonoliguric EMILIE on CKD w/baseline creatinine 1.0 and presenting creatinine 2.8. Crea has been fairly stable in he 2.7 to 2.9 range now for 4 days. no improvement with IVF in creatinine Continue IV fluid till tomorrow. However given lack of Improvement with Iv fluids and U showing epi cells and Hyaline cast there has to be some component of ATN. Lytes are fine today Subjective no acute interval events. no sob. ++anxiety . Some ?? Diarrhea. ON ivf but no improvement in labs Review of Systems Review of Systems: All systems reviewed & are unremarkable except as noted in Subjective Physical Exam Constitutional: well developed, well nourished and cooperative; no acute distress Eyes: EOM intact bilaterally ENMT: Ears: no external ear abnormality Nose: no external nose abnormality Mouth: + dry oral mucous membranes Neck: no nuchal rigidity Respiratory: normal respiratory effort Auscultation: + diminished lung sounds and + crackles (BL bases only) Cardiovascular: Rate/Rhythm: + tachycardic and + irregularly irregular Extre mities: no edema Gastrointestinal (Abdomen): Inspection/Auscultation: normal bowel sounds Percussion/Palpation: abdomen soft; abdomen nontender Musculoskeletal: Extremities: strength 5/5 throughout Skin: no rashes, warm and dry Psychiatric: Orientation: oriented x 3 Results & Data ([facility]) Vital Signs (Past 12 Hours) Vital Signs Temp Resp BP Pulse Ox 07/26/21 07:28 36.6 C 18 162/79 H 97
--- NOTE | 2021-07-26 13:46 | Hospitalist Progress Note ---
Date of Service July 26, 2021 Assessment & Plan (1) Acute kidney injury superimposed on chronic kidney disease: (2) Metabolic acidosis with normal anion gap and bicarbonate losses: Plan: 76-year-old female with PMH of DM II, HTN, CKD III, history of CVA, hypothy roidism and other medical problems listed below who presented with myalgias and nausea x3 days and was found to have EMILIE on CKD, non-anion gap metabolic acidosis and elevated troponin. -Creatinine on presentation 2.83 -> not much change with IVF, creatinine 2.9 today -No uropathy or hydronephrosis noted on CT abd/pelvis -Receiving D5W 80/hr per nephrology -Daily BMP -Home lisinopril and Metformin held on admission -Nephrology consult, input appreciated - likely some component of ATN (3) Elevated troponin: Plan: -Troponin 4.01 -> 4.37 -> 4.48 -No history of CAD -Denies chest pain, EKG nonischemic -No wall motion abnormality on echo -Likely due to underlying renal dysfunction -Cardiology consult, input appreciated (4) Bibasilar crackles: Plan: -Bibasilar crackles on exam today -No reports of shortness of breath, saturating well on room air -Start incentive spirometer (5) Diarrhea: Plan: -Patient reporting diarrhea this morning -Per RN, only a small amount -Continue to monitor (6) Myalgia: Plan: -Lyme serology negative, peripheral smear without evidence of inclusion bodies, anaplasma DNA pending. Covid PCR negative, flu A/B negative -Myalgia improving -Doing well with PT (7) Diabetes mellitus, type 2: Plan: -Hgb A1c 6.4 -Hold oral agents and utilize NovoLog per protocol while hospitalized (8) Hypertension: Plan: -BP mostly controlled -Holding lisinopril in setting of EMILIE -Started on amlodipine 5 mg daily (9) Carotid stenosis: Plan: -S/p CEA in 2004 -Continue ASA (10) Hypothyroidism: Plan: -Continue levothyroxine (11) HLD (hyperlipidemia): Plan: Not on statin, history of myalgias and abd pain on previously DVT Ppx: SQ heparin Code status: FULL PCP: Adia Admission and Anticipated Discharge Date Admission Date: July 23, 2021 Supervising Physician Co-Signing Physician Notes Patient seen and examined. Reported some diarrhea. RN reported they were very small bowel movements. Exam notable for elderly woman in no obvious distress. Creatinine still remains elevated at 2.9 EMILIE likely ATN Adjudication Specialist on board. Continue IV fluids for now. Monitor. Plan to discharge home once stable. RN to monitor bowel movement Agree with other plans as detailed by Freda DIGGS Subjective Patient seen and examined. Follow-up for EMILIE and metabolic acidosis. Patient reports she is improving. Ambulating to bathroom with minimal assistan ce. Reports she has developed diarrhea today and mild abdominal cramping. Denies nausea. Urinating without difficulty. Denies chest pain or shortness of breath. No lightheadedness or dizziness. Physical Exam Constitutional: + thin; no acute distress Vitals as above Respiratory: normal respiratory effort; no respiratory distress Auscultation: + crackles (Bilateral bases) Cardiovascular: Rate/Rhythm: regular rate and regular rhythm Vessels: normal peripheral pulses Extremities: no edema Gastrointestinal (Abdomen): Percussion/Palpation: abdomen soft; abdomen nontender Skin: no rashes, warm and dry Neurologic: no focal motor deficits Psychiatric: Orientation: alert and oriented x 3 Affect: + tearful affect (At times, eager to be discharged to spend time with her son) Results & Data Results & Data ([facility]) Vital Signs (Past 12 Hours) Vital Signs Temp Resp BP Pulse Ox 07/26/21 07:28 36.6 C 18 162/79 H 97 Laboratory Results Short CBC 07/26/21 Range/Units 07:28 WBC 8.87 (4.8-10.8) K/uL Hgb 10.9 L (12.0-16.0) g/dL Hct 33.8 L (37-47) % Plt Count 200 (130-400) K/uL BMP 07/26/21 07:28 Sodium 136 Potassium 4.9 Chloride 106 Carbon Dioxide 20 L BUN 34 H Creatinine 2.93 H Glucose 128 H Calcium 9.3 (1) Hypertension Hypertension type: unspecified Qualified Code(s): I10 - Essential (primary) hypertension
[2021-07-26] MEDS: ACETAMINOPHEN 325 MG TAB PO PRN (17:39)
[2021-07-26] MEDS: DOCUSATE SODIUM 100 MG CAP PO SCH ×2 (20:52→21:12)
[2021-07-26] MEDS: FAMOTIDINE 20 MG TAB PO SCH (21:18)
[2021-07-27] MEDS: LEVOTHYROXINE SODIUM 75 MCG TABLET PO SCH (05:55)
[2021-07-27 07:07] LABS: BUN Creatinine Ratio 10.8 (10-20); Calcium 9.7 mg/dl (8.5-10.1); Creatinine Clr Calc Pharmacy 11.1 ml/min; Est GFR (African American) 15.7 ml/min; Est GFR (Non-African American) 13.5 ml/min; Potassium 4.3 mmol/L (3.5-5.1)
[2021-07-27] MEDS: LORATADINE 10 MG TAB PO SCH (08:46)
[2021-07-27] MEDS: ADVANCED PROBIOTIC 1250 MG CAPSULE PO SCH (08:46)
[2021-07-27] MEDS: MULTIVITAMIN TAB PO SCH (08:46)
[2021-07-27] MEDS: ASPIRIN 81 MG ECTAB PO SCH (08:47)
[2021-07-27] MEDS: PANTOprazole 40 MG TAB PO SCH (08:47)
[2021-07-27] MEDS: CHOLECALCIFEROL 1,000 UNITS 25 MCG TAB PO SCH (08:47)
[2021-07-27] MEDS: amLODIPine BESYLATE 5 MG TAB PO SCH (08:47)
[2021-07-27] MEDS: HEPARIN SOD 5,000 UNIT/0.5 ML VIAL SQ SCH ×2 (08:48→20:51)
[2021-07-27] MEDS: INSULIN ASPART 100 UNITS/ML 3 ML PEN SC SCH ×4 (08:52→21:05)
[2021-07-27] MEDS: DEXTROSE 5% 1,000 ML IV SCH ×2 (10:45→21:05)
--- NOTE | 2021-07-27 13:55 | Nephrology Progress Note ---
Date of Service July 27, 2021 Assessment & Plan Admission and Anticipated Discharge Date Admission Date: July 23, 2021 Subjective Subjective Assessment & Plan (1) Acute kidney injury superimposed on chronic kidney disease: Plan: nonoliguric EMILIE on CKD w/baseline creatinine 1.0 and presenting creatinine 2.8. Creat continues to go up despite iv fluids. Continue IV fluid till tomorrow then stop However given lack of Improvement with Iv fluids and U showing epi cells and Hyaline cast there has to be some component of ATN. Creat today is > 3 which is quite high for a super tiny lady like her Subjective no acute interval events. no sob. ++anxiety and Crying . Some ?? Diarrhea. On ivf but no improvement in labs Review of Systems Review of Systems: All systems reviewed & are unremarkable except as noted in Subjective Physical Exam Constitutional: well developed, well nourished and cooperative; no acute distress Eyes: EOM intact bilaterally ENMT: Ears: no external ear abnormality Nose: no external nose abnormality Mouth: + dry oral mucous membranes Neck: no nuchal rigidity Respiratory: normal respiratory effort Auscultation: + diminished lung sounds and + crackles (BL bases only) Cardiovascular: Rate/Rhythm: + tachycardic and + irregularly irregular Extremities: no edema Gastrointestinal (Abdomen): Inspection/Auscultation: normal bowel sounds Percussion/Palpation: abdomen soft; abdomen nontender B Musculoskeletal: Extremities: strength 5/5 throughout Skin: no rashes, warm and dry Psychiatric: Orientation: oriented x 3 Results & Data ([facility]) Vital Signs (Past 12 Hours) Vital Signs Temp Pulse Resp BP Pulse Ox 07/27/21 07:16 36.5 C 73 16 151/85 H 95
--- NOTE | 2021-07-27 17:34 | Hospitalist Progress Note ---
Date of Service July 27, 2021 Assessment & Plan (1) Acute kidney injury superimposed on chronic kidney disease: (2) Metabolic acidosis with normal anion gap and bicarbonate losses: Plan: 76-year-old female with PMH of DM II, HTN, CKD III, history of CVA, hypothy roidism and other medical problems listed below who presented with myalgias and nausea x3 days and was found to have EMILIE on CKD, non-anion gap metabolic acidosis and elevated troponin. -Creatinine on presentation 2.83 -> not much change with IVF, creatinine worsening to 3.1 today -No uropathy or hydronephrosis noted on CT abd/pelvis -Receiving D5W 80/hr per nephrology -Daily BMP -Home lisinopril and Metformin held on admission -Nephrology consult, input appreciated - likely some component of ATN (3) Elevated troponin: Plan: -Troponin 4.01 -> 4.37 -> 4.48 -No history of CAD -Denies chest pain, EKG nonischemic -No wall motion abnormality on echo -Likely due to underlying renal dysfunction -Cardiology consult, input appreciated (4) Bibasilar crackles: Plan: -Bibasilar crackles on exam -No reports of shortness of breath, saturating well on room air -Started on incentive spirometer (5) Diarrhea: Plan: -Patient has small amount of diarrhea yesterday, no complaints of today -Continue to monitor (6) Myalgia: Plan: -Lyme serology negative, peripheral smear without evidence of inclusion bodies, anaplasma DNA pending. Covid PCR negative, flu A/B negative -Myalgia improving -Doing well with PT (7) Diabetes mellitus, type 2: Plan: -Hgb A1c 6.4 -Hold oral agents and utilize NovoLog per protocol while hospitalized (8) Hypertension: Plan: -BP mostly controlled -Started on amlodipine 5 mg daily in lieu of lisinopril due to EMILIE -Monitor BP for 1 more day, may need to increase amlodipine (9) Carotid stenosis: Plan: -S/p CEA in 2004 -Continue ASA (10) Hypothyroidism: Plan: -Continue levothyroxine (11) HLD (hyperlipidemia): Plan: Not on statin, history of myalgias and abd pain on previously DVT Ppx: SQ heparin Code status: FULL PCP: Adia Admission and Anticipated Discharge Date Admission Date: July 23, 2021 Supervising Physician Co-Signing Physician Notes Patient seen and examined. Reported some diarrhea. RN reported they were very small bowel movements. Denied any complaints today Exam notable for elderly woman in no obvious distress. Creatinine trended up to 3.16 today EMILIE/ATN Business Systems Developer on board. Continue IV fluids for now. Monitor. Plan to discharge home once stable. Agree with other plans as detailed by Freda DIGGS Subjective Patient seen and examined. Follow-up for EMILIE. Patient offers no complaints, eager to be discharged home. Continues to make adequate amounts of urine. Denies chest pain or shortness of breath. No abdominal pain or nausea. Physical Exam Constitutional: + thin Vitals as above Respiratory: normal respiratory effort; no respiratory distress Ausc ultation: + crackles (Bilateral bases) Cardiovascular: Rate/Rhythm: regular rate and regular rhythm Vessels: normal peripheral pulses Extremities: no edema Gastrointestinal (Abdomen): Percussion/Palpation: abdomen soft; abdomen nontender Skin: no rashes, warm and dry Neurologic: no focal motor deficits Psychiatric: Orientation: alert and oriented x 3 Affect: + tearful affect (At times) Results & Data Results & Data ([facility]) Vital Signs (Past 12 Hours) Vital Signs Temp Pulse Resp BP Pulse Ox 07/27/21 16:06 36.6 C 87 17 153/72 H 99 07/27/21 07:16 36.5 C 73 16 151/85 H 95 Laboratory Results [facility] 07/27/21 05:53 Sodium 135 L Potassium 4.3 Chloride 104 Carbon Dioxide 25 BUN 34 H Creatinine 3.16 H Glucose 188 H Calcium 9.7 (1) Hypertension Hypertension type: unspecified Qualified Code(s): I10 - Essential (primary) hypertension
[2021-07-27] MEDS: POLYETHYLENE (MIRALAX) 17 GM PACK PO PRN (20:51)
[2021-07-27] MEDS: FAMOTIDINE 20 MG TAB PO SCH (20:52)
[2021-07-27] MEDS: DOCUSATE SODIUM 100 MG CAP PO SCH (20:52)
[2021-07-27] MEDS: ACETAMINOPHEN 325 MG TAB PO PRN (20:53)
[2021-07-28] MEDS: LEVOTHYROXINE SODIUM 75 MCG TABLET PO SCH (05:33)
[2021-07-28 07:32] LABS: BUN Creatinine Ratio 10.6 (10-20); Calcium 9.3 mg/dl (8.5-10.1); Est GFR (African American) 15.4 ml/min; Est GFR (Non-African American) 13.3 ml/min; Potassium 4.1 mmol/L (3.5-5.1)
[2021-07-28] MEDS: amLODIPine BESYLATE 5 MG TAB PO SCH ×2 (09:10→21:12)
[2021-07-28] MEDS: PANTOprazole 40 MG TAB PO SCH (09:10)
[2021-07-28] MEDS: ADVANCED PROBIOTIC 1250 MG CAPSULE PO SCH (09:10)
[2021-07-28] MEDS: HEPARIN SOD 5,000 UNIT/0.5 ML VIAL SQ SCH ×2 (09:10→21:12)
[2021-07-28] MEDS: LORATADINE 10 MG TAB PO SCH (09:10)
[2021-07-28] MEDS: MULTIVITAMIN TAB PO SCH (09:10)
[2021-07-28] MEDS: CHOLECALCIFEROL 1,000 UNITS 25 MCG TAB PO SCH (09:10)
[2021-07-28] MEDS: ASPIRIN 81 MG ECTAB PO SCH (09:11)
--- NOTE | 2021-07-28 09:14 | Nephrology Progress Note ---
Date of Service July 28, 2021 Assessment & Plan Admission and Anticipated Discharge Date Admission Date: July 23, 2021 Subjective Assessment & Plan (1) Acute kidney injury superimposed on chronic kidney disease: Plan: nonoliguric EMILIE on CKD w/baseline creatinine 1.0 and presenting creatinine 2.8. Creat continues to go up despite iv fluids. etiology is most likely ATN. Stop IV fluid However given lack of Improvement with Iv fluids and U showing epi cells and Hyaline cast this is more likely ATN but have to r/o AIN and other causes of GN also. will do serology also Creat today is > 3 and still rising which is quite high for a super tiny lady like her her creat has to start coming down before we can discharge her despite her pleading to go home. Subjective no acute interval events. no sob. ++anxiety and Crying . Some ?? Diarrhea. On ivf but no improvement in labs Review of Systems Review of Systems: All systems reviewed & are unremarkable except as noted in Subjective Physical Exam Constitutional: well developed, well nourished and cooperative; no acute distress Eyes: EOM intact bilaterally ENMT: Ears: no external ear abnormality Nose: no external nose abnormality Mouth: + dry oral mucous membranes Neck: no nuchal rigidity Respiratory: normal respiratory effort Auscultation: + diminished lung sounds and + crackles (BL bases only) Cardiovascular: Rate/Rhythm: + tachycardic and + irregularly irregular Extremities: no edema Gastrointestinal (Abdomen): Inspection/Auscultation: normal bowel sounds Percussion/Palpation: abdomen soft; abdomen nontender Musculoskeletal: Extremities: strength 5/5 throughout Skin: no rashes, warm and dry Psychiatric: Orientation: oriented x 3 Results & Data ([facility]) Vital Signs (Past 12 Hours) Vital Signs Temp Pulse Resp BP Pulse Ox 07/28/21 06:07 36.6 C 94 H 16 159/81 H 94 07/27/21 22:31 36.5 C 89 16 122/73 97
[2021-07-28] MEDS: INSULIN ASPART 100 UNITS/ML 3 ML PEN SC SCH ×4 (09:47→22:47)
[2021-07-28] MEDS: POLYETHYLENE (MIRALAX) 17 GM PACK PO PRN (11:48)
[2021-07-28 12:36] LABS: Appearance Urine Clear (Clear); Bacteria Urine Automated Negative (Negative); Bilirubin Urine Negative (Negative); Blood Urine 2+ (Negative); Color Urine Yellow; Glucose Urine UA Negative (Negative); Ketones Urine Negative (Negative); Leukocyte Esterase Urine Negative (Negative); Nitrite Urine Negative (Negative); Protein Urine 2+ (Negative); Specific Gravity Urine 1.006 (1.000-1.030); Urobilinogen Urine Negative (Negative); pH Urine 5.5 (4.5-7.5)
[2021-07-28 13:16] LABS: Creatinine Urine Random 46.9 mg/dl; Protein Creatinine Ratio Urine 2.4 (0-0.2); Total Protein Urine Random 111.3 mg/dl (0-11.9)
--- NOTE | 2021-07-28 15:24 | Hospitalist Progress Note ---
Date of Service July 28, 2021 Assessment & Plan (1) ATN (acute tubular necrosis): (2) Acute kidney injury superimposed on chronic kidney disease: (3) Metabolic acidosis with normal anion gap and bicarbonate losses: Plan: 76-year-old female with PMH of DM II, HTN, CKD III, history of CVA, hypothyroidism and other medical problems listed below who presented with myalgias and nausea x3 days and was found to have EMILIE on CKD, non-anion gap metabolic acidosis and elevated troponin. -Creatinine on presentation 2.83 -> not much change with IVF, creatinine continues to worsen to 3.2. IVF DC'd by nephrology today. Urine output continues to be adequate. Mild metabolic acidosis resolved. -No uropathy or hydronephrosis noted on CT abd/pelvis -Daily BMP -Home lisinopril and Metformin held on admission -Nephrology consult, input appreciated - likely some component of ATN -Serologies ordered by nephrology today (4) Elevated troponin: Plan: -Troponin 4.01 -> 4.37 -> 4.48 -No history of CAD -Denies chest pain, EKG nonischemic -No wall motion abnormality on echo -Likely due to underlying renal dysfunction -Cardiology consulted, input appreciated (5) Bibasilar crackles: Plan: -Bibasilar crackles on exam - improved today with use of incentive spirometer. -No reports of shortness of breath, saturating well on room air -Likely due to atelectasis (6) Hypertension: Plan: -BP remaining intermittently elevated -Started on amlodipine 5 mg daily in lieu of lisinopril due to EMILIE -Will increase amlodipine to 5 mg BID (7) Diarrhea: Plan: -Patient has small amount of diarrhea on 07/26 -Resolved -Continue to monitor (8) Myalgia: Plan: -Lyme serology negative, peripheral smear without evidence of inclusion bodies, anaplasma DNA pending. Covid PCR negative, flu A/B negative -Myalgia improving -Doing well with PT, ambulating in halls independently. (9) Diabetes mellitus, type 2: Plan: -Hgb A1c 6.4 -Hold oral agents and utilize NovoLog per protocol while hospitalized (10) Carotid stenosis: Plan: -S/p CEA in 2004 -Continue ASA (11) Hypothyroidism: Plan: -Continue levothyroxine (12) HLD (hyperlipidemia): Plan: Not on statin, history of myalgias and abd pain on previously DVT Ppx: SQ heparin Code status: FULL PCP: Adia Dispo - Likely DC home once medically stable. Admission and Anticipated Discharge Date Admission Date: July 23, 2021 Supervising Physician Co-Signing Physician Notes I have seen and examined the patient and have discussed the case with the provid er above. I agree with the assessment and plan as stated with the following exceptions. 76 yo F with a recent history of migrating arthritis. She has seen Dr. Piedra, rheumatology in mid March 2021 reporting that 24/ Tylenol helps. She has notably had elevated inflammatory markers this year, a negative HAFSA and negative rheumatoid factor. She has morning stiffness for least 4 to 5 hours an d does not want to take steroids because of her blood sugar. Her sister has sarcoid arthritis as well as Raynaud's in her knees has mixed connective tissue disease. Plaquenil was offered to her, however, she declined this for now because of the autoimmune suppressive nature of the medication. She reports that she more recently had a dental procedure and had suffered aches and pains, denying taking any NSAIDs, only Tylenol for this. She was admitted with myalgias and a nonanion gap metabolic acidosis with an elevated troponin. She is on Metformin and lisinopril which have been held. Myalgias have resolved and elevation in troponin was thought by cardiology to be secondary to acute renal failure. No clinical symptoms of ACS are present. Acidosis has resolved. She has evidence of proteinuria on urinalysis. Assume that acute renal issues have something to do with this ongoing undiagnosed process. Nephrology has started a work-up and overall she clinically appears well. Continue trending daily BMP. Continue avoiding nephrotoxic substances. Monitor for any joint pain or stiffness. Exam today includes almost all her joints which are all normal and not inflamed with normal range of motion. Gagandeep, DO Subjective Patient seen and examined. Follow-up for EMILIE. Continues to be eager to be discharged. Offers no complaints. Making an adequate amount of urine. Denies chest pain and shortness of breath. No abdominal pain or nausea. Denies lightheadedness and dizziness. Ambulating in the halls independently. Review of Systems Review of Systems: All systems were reviewed and negative except as indicated above. ([facility]) Physical Exam Constitutional: + thin; no acute distress Respiratory: normal respiratory effort; no respiratory distress Auscultation: + crackles (Bilateral bases-improved from yesterday) Cardiovascular: Rate/Rhythm: regular rate and regular rhythm Vessels: normal peripheral pulses Extremities: no edema Gastrointestinal (Abdomen): Percussion/Palpation: abdomen soft; abdomen nontender Skin: no rashes, warm and dry Neurologic: no focal motor deficits Psychiatric: Orientation: alert and oriented x 3 Affect: + depressed affect Results & Data Results & Data ([facility]) Vital Signs (Past 12 Hours) Vital Signs Temp Pulse Resp BP Pulse Ox 07/28/21 06:07 36.6 C 94 H 16 159/81 H 94 Laboratory Results [facility] 07/28/21 05:48 Sodium 136 Potassium 4.1 Chloride 105 Carbon Dioxide 24 BUN 34 H Creatinine 3.21 H Glucose 169 H Calcium 9.3 Urine 07/28/21 Range/Units Unknown Urine Color Yellow Urine Appearance Clear (Clear) Urine pH 5.5 (4.5-7.5) Ur Specific [place] 1.006 (1.000-1.030) Urine Protein 2+ H (Negative) Urine Glucose (UA) Negative (Negative) (1) Hypertension Hypertension type: unspecified Qualified Code(s): I10 - Essential (primary) hypertension
[2021-07-28] MEDS: ACETAMINOPHEN 325 MG TAB PO PRN (18:12)
[2021-07-28] MEDS: FAMOTIDINE 20 MG TAB PO SCH (21:12)
[2021-07-28] MEDS: DOCUSATE SODIUM 100 MG CAP PO SCH (21:16)
[2021-07-28] MEDS ORDERED: INSULIN GLARGINE SOLOSTAR 100 UNITS/ML 3 ML PEN SC ONE (22:30)
[2021-07-29] MEDS: INSULIN ASPART 100 UNITS/ML 3 ML PEN SC SCH ×5 (00:25→21:08)
[2021-07-29] MEDS: LEVOTHYROXINE SODIUM 75 MCG TABLET PO SCH (05:51)
[2021-07-29 06:24] LABS: BUN Creatinine Ratio 11.3 (10-20); Calcium 9.1 mg/dl (8.5-10.1); Creatinine Clr Calc Pharmacy 10.8 ml/min; Est GFR (African American) 15.1 ml/min; Potassium 4.6 mmol/L (3.5-5.1)
[2021-07-29] MEDS: ACETAMINOPHEN 325 MG TAB PO PRN (07:25)
[2021-07-29] MEDS: CHOLECALCIFEROL 1,000 UNITS 25 MCG TAB PO SCH (08:42)
[2021-07-29] MEDS: LORATADINE 10 MG TAB PO SCH (08:42)
[2021-07-29] MEDS: amLODIPine BESYLATE 5 MG TAB PO SCH ×2 (08:42→20:00)
[2021-07-29] MEDS: ASPIRIN 81 MG ECTAB PO SCH (08:42)
[2021-07-29] MEDS: PANTOprazole 40 MG TAB PO SCH (08:42)
[2021-07-29] MEDS: ADVANCED PROBIOTIC 1250 MG CAPSULE PO SCH (08:42)
[2021-07-29] MEDS: MULTIVITAMIN TAB PO SCH (08:42)
[2021-07-29] MEDS: HEPARIN SOD 5,000 UNIT/0.5 ML VIAL SQ SCH ×2 (08:43→20:00)
--- NOTE | 2021-07-29 09:10 | Nephrology Progress Note ---
Date of Service July 29, 2021 Assessment & Plan Admission and Anticipated Discharge Date Admission Date: July 23, 2021 Subjective Assessment & Plan (1) Acute kidney injury superimposed on chronic kidney disease: Plan: nonoliguric EMILIE on CKD w/baseline creatinine 1.0 and presenting creatinine 2.8. Creat continues to go up despite iv fluids. However given lack of Improvement with Iv fluids and U showing epi cells and Hyaline cast this is more likely ATN but have to r/o AIN and other causes of GN also. will do serology also but they will take a very long time to come back. UA with blood and protein and about 2.4 gm proteinuria. Creat seems to have plateaued at this time in the 3.2 range which is quite high for a super tiny lady like her her creat has to start coming down before we can discharge her despite her pleading to go home. Subjective no acute interval events. no sob. ++anxiety and Crying . Review of Systems Review of Systems: All systems reviewed & are unremarkable except as noted in Subjective Physical Exam Constitutional: well developed, well nourished and cooperative; no acute distress Eyes: EOM intact bilaterally ENMT: Ears: no external ear abnormality Nose: no external nose abnormality Mouth: + dry oral mucous membranes Neck: no nuchal rigidity Respiratory: normal respiratory effort Auscultation: + diminished lung sounds and + crackles (BL bases only) Cardiovascular: Rate/Rhythm: + tachycardic and + irregularly irregular E xtremities: no edema Gastrointestinal (Abdomen): Inspection/Auscultation: normal bowel sounds Percussion/Palpation: abdomen soft; abdomen nontender Musculoskeletal: Extremities: strength 5/5 throughout Skin: no rashes, warm and dry Psychiatric: Orientation: oriented x 3 Results & Data ([facility]) Vital Signs (Past 12 Hours) Vital Signs Temp Pulse Resp BP Pulse Ox 07/29/21 07:13 36.5 C 99 H 18 123/65 97 07/28/21 21:42 36.7 C 80 16 100/52 L 96
[2021-07-29] MEDS: MECLIZINE 12.5 MG TAB PO PRN (10:21)
--- NOTE | 2021-07-29 13:22 | Hospitalist Progress Note ---
Date of Service July 29, 2021 Assessment & Plan (1) ATN (acute tubular necrosis): (2) Hypothyroidism: (3) Hypertension: (4) Diabetes mellitus, type 2: (5) Severe protein-calorie malnutrition: Plan: This is a 76-year-old female with PMH of DM II, HTN, CKD III, history of CVA, hypothyroidism and other medical problems listed below who presented with myalgias and nausea x3 days and was found to have EMILIE on CKD, non-anion gap metabolic acidosis and elevated troponin. ATN (acute tubular necrosis) Acute kidney injury superimposed on chronic kidney disease Metabolic acidosis with normal anion gap and bicarbonate losses Creatinine on presentation 2.83 -> not much change with IVF, creatinine continues to worsened to 3.21. IVF discontinued by nephrology. Urine output continues to be adequate. Mild metabolic acidosis resolved No uropathy or hydronephrosis noted on CT abd/pelvis Home lisinopril and Metformin held on admission Nephrology consulted, input appreciated - likely ATN but need to rule out AIN and other causes of GN. Serology pending Continue to monitor - okay for dc from nephro perspective once Cr downtrends to 2s Elevated troponin Troponin 4.01 -> 4.37 -> 4.48 No history of CAD Denies chest pain, EKG nonischemic No wall motion abnormality on echo Likely due to underlying renal dysfunction Cardiology consulted, input appreciated. Attributed trop elevated to acutely worsened renal disease Bibasilar crackles Bibasilar crackles on exam - improved today with use of incentive spirometer. No reports of shortness of breath, saturating well on room air Likely due to atelectasis Hypertension BP remaining intermittently elevated -started on amlodipine 5 mg daily in lieu of lisinopril due to EMILIE Will increase amlodipine to 5 mg BID Diarrhea Patient had small amount of diarrhea on 07/26 ->Resolved Myalgia Lyme serology negative, peripheral smear without evidence of inclusion bodies, anaplasma DNA pending. Covid PCR negative, flu A/B negative Myalgias improving Doing well with PT, ambulating in halls independently Diabetes mellitus, type 2 Hgb A1c 6.4 Hold oral agents and utilize NovoLog per protocol while hospitalized Carotid stenosis S/p CEA in 2004 Continue ASA Hypothyroidism Continue levothyroxine HLD (hyperlipidemia) Not on statin, history of myalgias and abd pain on previously Severe protein-calorie malnutrition BMI 19.7. Nutrition consult placed DVT Ppx: SQ heparin Code status: FULL PCP: Adia Dispo: Admitted to med/surg. Plan for dc home when medically appropriate Patient seen in collaboration with Dr. Donis. Please see addendum. Admission and Anticipated Discharge Date Admission Date: July 23, 2021 Supervising Physician Co-Signing Physician Notes I have seen and examined the patient and have discussed the case with the provider above. I agree with the assessment and plan as stated with the following exceptions. 76 yo F with a recent history of migrating arthritis. Overall doing well today-no symptoms, we just discussed her blood sugar issues. Assume that acute renal issues have something to do with this ongoing undiagnosed process. Nephrology has started a work-up with serologies pending. Continue trending daily BMP. Continue avoiding nephrotoxic substances. Monitor for any joint pain or stiffness. Physical exam reveals a cooperated patient who is mentating clearly. She is thin. Normal cardiac exam, euvolemic. Lungs clear to auscultation. Cont plan as above. DO Gagandeep Subjective Seen and examined in 384-1. Offers no new complaints other than lower blood sugar overnight. [place] better after nurse gave her apple juice. No fever, chills, chest pain, shortness of breath, nausea, vomiting, abdominal pain, dysuria, diarrhea constipation. Tolerating diet without issue. Review of Systems Review of Systems: At least ten systems reviewed and negative except as noted in the HPI. Physical Exam Physical Exam: Gen: WD/WN, NAD, sitting in bed, frail, A&Ox3, crying intermittently HEENT: Normocephalic, atraumatic, conjunctivae moist, sclerae anicteric, mucous membranes moist Lung: Coarse breath sounds bilaterally, no wheezes/rales/rhonchi Heart: Regular rate, regular rhythm, no murmurs, rubs, or gallops Abdomen: Soft, NT, ND +BS x 4 Extremities: no edema Skin: Warm, no rash Results & Data Results & Data ([facility]) Vital Signs (Past 12 Hours) Vital Signs Temp Pulse Resp BP Pulse Ox 07/29/21 07:13 36.5 C 99 H 18 123/65 97 Laboratory Results BMP 07/29/21 05:30 Sodium 138 Potassium 4.6 Chloride 108 H Carbon Dioxide 22 BUN 37 H Creatinine 3.26 H Glucose 93 Calcium 9.1 Diagnostic Findings Chest X-Ray 07/23/21 07:27 XR chest 1V portable HISTORY: 76 years-old Female weak acute weakness COMPARISON: Chest radiograph 07/28/2020 TECHNIQUE: Portable AP view of the chest FINDINGS: The cardiomediastinal and hilar silhouettes are unchanged. Unchanged blunting of the costophrenic angles with mild bibasilar ill-defined opacities. Pleural parenchymal scarring of the lung apices. No pneumothorax or overt pulmonary edema. Degenerative changes of the shoulders and spine. IMPRESSION: Mild chronic bibasilar opacities suggestive of atelectasis/scarring. ACT 112: Negative or not required by law. The above report was generated using voice recognition software. It may contain grammatical, syntax or spelling errors. Electronically signed by: Daniel Javier M.D. 07/23/2021 7:49 AM Abdomen/Pelvis CT 07/23/21 07:[address] WITHOUT CONTRAST CT DOSE: 263.58 mGy.cm HISTORY: Acute tachycardia with weakness +N tachy and weak allergic to contrast TECHNIQUE: Multiaxial CT images of the abdomen and pelvis were performed without contrast. A dose lowering technique was utilized adhering to the principles of ALARA. COMPARISON STUDY: CT abdomen and pelvis 07/25/2020, chest radiograph 07/28/2020, chest CT 02/06/2009. FINDINGS: Bibasilar groundglass and irregular consolidative opacities appear similar to 02/06/2009 study. Respiratory motion artifact, upper extremity positioning and lack of contrast limits the study. No pneumatosis or pneumoperitoneum. Moderate cardiomegaly with coronary artery calcifications. Trace pericardial effusion. Unremarkable spleen, mildly atrophic pancreas, gallbladder, adrenal glands and liver. Mild right hemidiaphragmatic elevation. Unremarkable kidneys. No hydronephrosis. Unremarkable urinary bladder. Hysterectomy. Atherosclerosis of the aorta without aneurysm. No adenopathy. No bowel obstruction and or bowel wall thickening. Mild to moderate fecal retention. Colonic diverticulosis without acute diverticulitis. Noninflamed appendix. No ascites or mesenteric inflammation. Unremarkable soft tissues. Degenerative changes of the spine, pelvis and hips. IMPRESSION: 1. No acute intra-abdominal or intrapelvic abnormality. 2. No bowel obstruction or bowel wall thickening. Normal appendix. 3. Colonic diverticulosis without acute diverticulitis. 4. Bibasilar pulmonary fibrosis is stable compared to the 02/06/2009 exam 5. Additional findings as above. ACT 112: Negative or not required by law. The above report was generated using voice recognition software. It may contain grammatical, syntax or spelling errors. Electronically signed by: Daniel Javier M.D. 07/23/2021 8:[address] 07/23/21 12:21 CT head/brain wo con CLINICAL HISTORY: 76 years-old Female with headache x few months. Subacute h eadaches TECHNIQUE: Multiple axial CT images of the head were obtained without contrast. A dose lowering technique was utilized adhering to the principles of ALARA. CT DOSE: 537.48 mGy.cm COMPARISON: 06/10/[address] FINDINGS: No acute intracranial hemorrhage, midline shift, intracranial mass, hydrocephalus, territorial ischemia or abnormal extra-axial collection. Encephalomalacia related to chronic infarct of the right parietal lobe. White matter hypodensities suggest chronic microvascular ischemic disease. Chronic lacunar infarcts of the left caudate and lentiform nuclei. Senescent calcifications of the basal ganglia with cerebral vascular calcifications. Chronic infarcts of the left cerebellar hemisphere. The calvarium is intact. The paranasal sinuses, mastoid air cells, and middle ear cavities are clear. IMPRESSION: Chronic findings as above without acute intracranial abnormality. ACT 112: Negative or not required by law. The above report was generated using voice recognition software. It may contain grammatical, syntax or spelling errors. Electronically signed by: Daniel Javier M.D. 07/23/2021 12:50 PM (1) Hypertension Hypertension type: unspecified Qualified Code(s): I10 - Essential (primary) hypertension
[2021-07-29] MEDS: DOCUSATE SODIUM 100 MG CAP PO SCH (19:58)
[2021-07-29] MEDS: FAMOTIDINE 20 MG TAB PO SCH (20:00)
[2021-07-29] MEDS: POLYETHYLENE (MIRALAX) 17 GM PACK PO PRN (20:01)
[2021-07-29] MEDS ORDERED: INSULIN GLARGINE SOLOSTAR 100 UNITS/ML 3 ML PEN SC SCH (21:00)
[2021-07-30] MEDS: LEVOTHYROXINE SODIUM 75 MCG TABLET PO SCH (06:26)
[2021-07-30 06:38] LABS: Hematocrit (blood only) 29.7 % (37-47); Hemoglobin 9.3 g/dL (12.0-16.0); Mean Corpuscular Hemoglobin 29.3 pg (25-34); Mean Corpuscular Hgb Conc 31.3 g/dL (32-36); Mean Corpuscular Volume 93.7 fL (80-100); Mean Platelet Volume 10.2 fL (7.4-10.4); Platelet Count 292 K/uL (130-400); RDW Coefficient of Variation 13.5 % (11.5-14.5); RDW Standard Deviation 46.2 fL (36.4-46.3); Red Blood Count 3.17 M/uL (4.2-5.4); White Blood Count 9.48 K/uL (4.8-10.8)
[2021-07-30 07:14] LABS: BUN Creatinine Ratio 12.2 (10-20); C Reactive Protein 2.61 mg/dl (0-0.29); Calcium 9.1 mg/dl (8.5-10.1); Creatinine Clr Calc Pharmacy 9.5 ml/min; Est GFR (African American) 12.9 ml/min; Est GFR (Non-African American) 11.1 ml/min; Potassium 4.7 mmol/L (3.5-5.1)
--- NOTE | 2021-07-30 09:10 | Nephrology Progress Note ---
Date of Service July 30, 2021 Assessment & Plan Admission and Anticipated Discharge Date Admission Date: July 23, 2021 Subjective Assessment & Plan (1) Acute kidney injury superimposed on chronic kidney disease: Plan: nonoliguric EMILIE on CKD w/baseline creatinine 1.0 and presenting creatinine 2.8. Creat went up despite iv fluids. However given lack of Improvement with Iv fluids and U showing epi cells and Hyaline cast this is likely ATN but have to r/o AIN and other causes of GN also. will do serology also but unofrtunately they will take a very long time to come back. UA with blood and protein and about 2.4 gm proteinuria. Creat went up again to 3.7 which is quite high for a super tiny lady like her Her creat has to start coming down before we can discharge her despite her pleading to go home. Possibility of renal Biopsy is there but given her frailness and Advanced age /difficulty of transfer for biopsy--no biopsy yet Subjective no acute interval events. no sob. ++anxiety and Crying . But no symptoms as such. Review of Systems Review of Systems: All systems reviewed & are unremarkable except as noted in Subjective Physical Exam Constitutional: well developed, well nourished and cooperative; no acute distress Eyes: EOM intact bilaterally ENMT: Ears: no external ear abnormality Nose: no external nose abnormality Mouth: + dry oral mucous membranes Neck: no nuchal rigidity Respiratory: normal respiratory effort Auscultation: + diminished lung sounds and + crackles (BL bases only) Cardiovascular: Rate/Rhythm: + tachycardic and + irregularly irregular Extremities: no edema Gastrointestinal (Abdomen): Inspection/Auscultation: normal bowel sounds Percussion/Palpation: abdomen soft; abdomen nontender Musculoskeletal: Extremities: strength 5/5 throughout Skin: no rashes, warm and dry Psychiatric: Orientation: oriented x 3 Results & Data ([facility]) Vital Signs (Past 12 Hours) Vital Signs Temp Pulse Resp BP Pulse Ox 07/30/21 07:24 36.9 C 86 16 125/64 95 07/29/21 22:56 36.8 C 86 18 123/64 94
[2021-07-30] MEDS: ASPIRIN 81 MG ECTAB PO SCH (10:15)
[2021-07-30] MEDS: MULTIVITAMIN TAB PO SCH (10:15)
[2021-07-30] MEDS: HEPARIN SOD 5,000 UNIT/0.5 ML VIAL SQ SCH ×2 (10:15→21:05)
[2021-07-30] MEDS: ADVANCED PROBIOTIC 1250 MG CAPSULE PO SCH (10:15)
[2021-07-30] MEDS: LORATADINE 10 MG TAB PO SCH (10:15)
[2021-07-30] MEDS: amLODIPine BESYLATE 5 MG TAB PO SCH ×2 (10:15→21:04)
[2021-07-30] MEDS: CHOLECALCIFEROL 1,000 UNITS 25 MCG TAB PO SCH (10:15)
[2021-07-30] MEDS: PANTOprazole 40 MG TAB PO SCH (10:15)
[2021-07-30] MEDS: INSULIN ASPART 100 UNITS/ML 3 ML PEN SC SCH ×4 (10:17→21:04)
[2021-07-30] MEDS: ACETAMINOPHEN 325 MG TAB PO PRN (10:20)
--- NOTE | 2021-07-30 14:42 | Hospitalist Progress Note ---
Date of Service July 30, 2021 Assessment & Plan (1) ATN (acute tubular necrosis): (2) Hypothyroidism: (3) Hypertension: (4) Diabetes mellitus, type 2: (5) Severe protein-calorie malnutrition: Plan: This is a 76-year-old female with PMH of DM II, HTN, CKD III, history of CVA, hypothyroidism and other medical problems listed below who presented with myalgias and nausea x3 days and was found to have EMILIE on CKD, non-anion gap metabolic acidosis and elevated troponin. ATN (acute tubular necrosis) Acute kidney injury superimposed on chronic kidney disease Metabolic acidosis with normal anion gap and bicarbonate losses Creatinine on presentation 2.83 (baseline Cr ~1) --> creatinine continues to worsened to 3.71. IVF discontinued by nephrology. Urine output continues to be adequate. Mild metabolic acidosis resolved No uropathy or hydronephrosis noted on CT abd/pelvis Home lisinopril and Metformin held on admission UA with blood and protein and about 2.4 gm proteinuria Nephrology consulted, input appreciated - likely ATN but need to rule out AIN and other causes of GN. Serology pending including complement, ANCA, spep Possibility of renal Biopsy discussed with Dr. Mir but still weighing option given her frailness and advanced age /difficulty of transfer for biopsy Discussed case with Dr. 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 At that time, work up revealed elevated ESR, a negative HAFSA and negative RF Was offered to start Plaquenil at that time but patient declined due to concerns immunosuppressive nature of medication During this visit: lyme serology negative, peripheral smear without evidence of inclusion bodies, anaplasma DNA negative, covid PCR negative, flu A/B negative, CK within normal limits Given elevated inflammatory markers, worsening renal function and history of arthritis, considering vasculitis - serology pending Considering starting prednisone - Dr. Mix to discuss with Dr. Mir - appreciate input Elevated troponin Troponin 4.01 -> 4.37 -> 4.48 No history of CAD Denies chest pain, EKG nonischemic No wall motion abnormality on echo Likely due to underlying renal dysfunction Cardiology consulted, input appreciated. Attributed trop elevated to acutely worsened renal disease Bibasilar crackles Bibasilar crackles on exam - improved today with use of incentive spirometer. No reports of shortness of breath, saturating well on room air Likely due to atelectasis Hypertension BP remaining intermittently elevated -started on amlodipine 5 mg daily in lieu of lisinopril due to EMILIE Will increase amlodipine to 5 mg BID Diarrhea Patient had small amount of diarrhea on 07/26 ->Resolved Diabetes mellitus, type 2 Hgb A1c 6.4 Hold oral agents and utilize NovoLog per protocol while hospitalized Carotid stenosis S/p CEA in 2004 Continue ASA Hypothyroidism Continue levothyroxine HLD (hyperlipidemia) Not on statin, history of myalgias and abd pain on previously Severe protein-calorie malnutrition BMI 19.7. Nutrition consult placed DVT Ppx: SQ heparin Code status: FULL PCP: Adia Dispo: Admitted to med/surg. Plan for dc home when medically appropriate Patient seen in collaboration with Dr. Donis. Please see addendum. (6) Inflammatory polyarthritis: Admission and Anticipated Discharge Date Admission Date: July 23, 2021 Supervising Physician Co-Signing Physician Notes I have seen and examined the patient and have discussed the case with the provider above. I agree with the assessment and plan as stated with the following exceptions. 76 yo F with a recent history of migrating arthritis. She has seen Dr. Piedra, rheumatology in mid March 2021 declining plaquenil at that time. She is on Metformin and lisinopril which have been held in setting of acute renal failure. Myalgias have resolved and elevation in troponin was thought by cardiology to be secondary to acute renal failure. No clinical symptoms of ACS are present. Acidosis has resolved. She has evidence of proteinuria on urinalysis. Assume that acute renal issues have something to do with this ongoing undiagnosed process. Nephrology has started a work-up with serologies pending. Overall she clinically appears well. Continue trending daily BMP. Continue avoiding nephrotoxic substances. Monitor for any joint pain or stiffness. Exam today includes almost all her joints which are all normal and not inflamed with normal range of motion. Physical exam reveals a cooperated patient who is mentating clearly. She is thin. Normal cardiac exam, euvolemic. Lungs clear to auscultation. Cont plan as above. DO Gagandeep Subjective Seen and examined in 384-1. Physicially feeling better today. Denies any joint pain or muscle aches. Tolerating diet without issue. No fever, chills, CP, SOB, N/V/D, abdominal pain, dysuria. Feeling anxious about being away from son. He will visit again today at 2 which she is looking forward to. Review of Systems Review of Systems: At least ten systems reviewed and negative except as noted in the HPI. Physical Exam Physical Exam: Gen: WD/WN, NAD, sitting in bed, frail, A&Ox3, crying intermittently HEENT: Normocephalic, atraumatic, conjunctivae moist, sclerae anicteric, mucous membranes moist Lung: Coarse breath sounds bilaterally, no wheezes/rales/rhonchi Heart: Regular rate, regular rhythm, no murmurs, rubs, or gallops Abdomen: Soft, NT, ND +BS x 4 Extremities: no edema Skin: Warm, no rash Results & Data Results & Data ([facility]) Vital Signs (Past 12 Hours) Vital Signs Temp Pulse Resp BP Pulse Ox 07/30/21 07:24 36.9 C 86 16 125/64 95 Laboratory Results Short CBC 07/30/21 Range/Units 05:55 WBC 9.48 (4.8-10.8) K/uL Hgb 9.3 L (12.0-16.0) g/dL Hct 29.7 L (37-47) % Plt Count 292 (130-400) K/uL BMP 07/30/21 05:55 Sodium 137 Potassium 4.7 Chloride 107 Carbon Dioxide 23 BUN 45 H Creatinine 3.71 H D Glucose 136 H Calcium 9.1 Diagnostic Findings Chest X-Ray 07/23/21 07:27 XR chest 1V portable HISTORY: 76 years-old Female weak acute weakness COMPARISON: Chest radiograph 07/28/2020 TECHNIQUE: Portable AP view of the chest FINDINGS: The cardiomediastinal and hilar silhouettes are unchanged. Unchanged blunting of the costophrenic angles with mild bibasilar ill-defined opacities. Pleural parenchymal scarring of the lung apices. No pneumothorax or overt pulmonary edema. Degenerative changes of the shoulders and spine. IMPRESSION: Mild chronic bibasilar opacities suggestive of atelectasis/scarring. ACT 112: Negative or not required by law. The above report was generated using voice recognition software. It may contain grammatical, syntax or spelling errors. Electronically signed by: Daniel Javier M.D. 07/23/2021 7:49 AM Abdomen/Pelvis CT 07/23/21 07:[address] WITHOUT CONTRAST CT DOSE: 263.58 mGy.cm HISTORY: Acute tachycardia with weakness +N tachy and weak allergic to contrast TECHNIQUE: Multiaxial CT images of the abdomen and pelvis were performed without contrast. A dose lowering technique was utilized adhering to the principles of ALARA. COMPARISON STUDY: CT abdomen and pelvis 07/25/2020, chest radiograph 07/28/2020, chest CT 02/06/2009. FINDINGS: Bibasilar groundglass and irregular consolidative opacities appear similar to 02/06/2009 study. Respiratory motion artifact, upper extremity positioning and lack of contrast limits the study. No pneumatosis or pneumoperitoneum. Moderate cardiomegaly with coronary artery calcifications. Trace pericardial effusion. Unremarkable spleen, mildly atrophic pancreas, gallbladder, adrenal glands and liver. Mild right hemidiaphragmatic elevation. Unremarkable kidneys. No hydronephrosis. Unremarkable urinary bladder. Hysterectomy. Atherosclerosis of the aorta without aneurysm. No adenopathy. No bowel obstruction and or bowel wall thickening. Mild to moderate fecal retention. Colonic diverticulosis without acute diverticulitis. Noninflamed appendix. No ascites or mesenteric inflammation. Unremarkable soft tissues. Degenerative changes of the spine, pelvis and hips. IMPRESSION: 1. No acute intra-abdominal or intrapelvic abnormality. 2. No bowel obstruction or bowel wall thickening. Normal appendix. 3. Colonic diverticulosis without acute diverticulitis. 4. Bibasilar pulmonary fibrosis is stable compared to the 02/06/2009 exam 5. Additional findings as above. ACT 112: Negative or not required by law. The above report was generated using voice recognition software. It may contain grammatical, syntax or spelling errors. Electronically signed by: Daniel Javier M.D. 07/23/2021 8:[address] 07/23/21 12:21 CT head/brain wo con CLINICAL HISTORY: 76 years-old Female with headache x few months. Subacute headaches TECHNIQUE: Multiple axial CT images of the head were obtained without contrast. A dose lowering technique was utilized adhering to the principles of ALARA. CT DOSE: 537.48 mGy.cm COMPARISON: 06/10/[address] FINDINGS: No acute intracranial hemorrhage, midline shift, intracranial mass, hydrocephalus, territorial ischemia or abnormal extra-axial collection. Encephalomalacia related to chronic infarct of the right parietal lobe. White matter hypodensities suggest chronic microvascular ischemic disease. Chronic lacunar infarcts of the left caudate and lentiform nuclei. Senescent calcifications of the basal ganglia with cerebral vascular calcifications. Chronic infarcts of the left cerebellar hemisphere. The calvarium is intact. The paranasal sinuses, mastoid air cells, and middle ear cavities are clear. IMPRESSION: Chronic findings as above without acute intracranial abnormality. ACT 112: Negative or not required by law. The above report was generated using voice recognition software. It may contain grammatical, syntax or spelling errors. Electronically signed by: Daniel Javier M.D. 07/23/2021 12:50 PM (1) Hypertension Hypertension type: unspecified Qualified Code(s): I10 - Essential (primary) hypertension
[2021-07-30] MEDS: MECLIZINE 12.5 MG TAB PO PRN (14:51)
[2021-07-30] MEDS: predniSONE 20 MG TAB PO SCH (18:21)
[2021-07-30] MEDS: FAMOTIDINE 20 MG TAB PO SCH (21:05)
[2021-07-30] MEDS: DOCUSATE SODIUM 100 MG CAP PO SCH (21:05)
[2021-07-30] MEDS: POLYETHYLENE (MIRALAX) 17 GM PACK PO PRN (21:06)
[2021-07-31] MEDS: LEVOTHYROXINE SODIUM 75 MCG TABLET PO SCH (05:35)
[2021-07-31 06:35] LABS: BUN Creatinine Ratio 14.5 (10-20); Calcium 8.9 mg/dl (8.5-10.1); Creatinine Clr Calc Pharmacy 9.3 ml/min; Est GFR (African American) 12.6 ml/min; Est GFR (Non-African American) 10.9 ml/min; Potassium 5.1 mmol/L (3.5-5.1)
[2021-07-31] MEDS: predniSONE 20 MG TAB PO SCH (07:46)
[2021-07-31] MEDS: amLODIPine BESYLATE 5 MG TAB PO SCH ×2 (07:47→21:07)
[2021-07-31] MEDS: ADVANCED PROBIOTIC 1250 MG CAPSULE PO SCH (07:47)
[2021-07-31] MEDS: MULTIVITAMIN TAB PO SCH (07:47)
[2021-07-31] MEDS: ASPIRIN 81 MG ECTAB PO SCH (07:47)
[2021-07-31] MEDS: PANTOprazole 40 MG TAB PO SCH (07:47)
[2021-07-31] MEDS: CHOLECALCIFEROL 1,000 UNITS 25 MCG TAB PO SCH (07:47)
[2021-07-31] MEDS: LORATADINE 10 MG TAB PO SCH (07:47)
[2021-07-31] MEDS: HEPARIN SOD 5,000 UNIT/0.5 ML VIAL SQ SCH ×2 (07:51→21:08)
[2021-07-31] MEDS: MECLIZINE 12.5 MG TAB PO PRN (08:11)
[2021-07-31] MEDS: INSULIN ASPART 100 UNITS/ML 3 ML PEN SC SCH ×4 (09:16→21:11)
[2021-07-31] MEDS: INSULIN GLARGINE SOLOSTAR 100 UNITS/ML 3 ML PEN SC SCH ×2 (11:19→21:11)
--- NOTE | 2021-07-31 11:55 | Nephrology Progress Note ---
Date of Service July 31, 2021 Assessment & Plan (1) Acute kidney injury superimposed on chronic kidney disease: Plan: stage 2 nonoliguric EMILIE on CKD w/b creatinine 1.0 and presenting creatinine 2.8. There is possibility of glomerulonephritis. Serologies are pending. Patient may need renal biopsy as an outpatient. creatinine today of 3.7 stable from yesterday. Patient likely leveling off and hopefully starts trending down tomorrow. -Continue empiric prednisone -Daily BMP -Monitor input output Admission and Anticipated Discharge Date Admission Date: July 23, 2021 Subjective Seen in f/u for EMILIE. She complains of dizziness this morning. No shortness of breath. No leg swelling. He is making urine. Review of Systems Review of Systems: All other systems were reviewed and negative except as noted in HPI Physical Exam Physical Exam: General exam: Appears comfortable, no acute distress HEENT: Pupils are equal and reactive to light Neck: No JVD, neck is supple trachea is midline Respiratory system: Clear breath sounds bilaterally. Gastrointestinal: Abdomen is soft, non distended, non tender, bowel sounds are present CVS: Regular rate and rhythm. No murmurs, rubs or gallops Musculoskeletal: No joint or muscle tenderness Extremities: Non tender, no edema, peripheral pulses are present Neuro: Oriented, no tremors, no focal neurological deficits Skin: No rashes Results & Data ([facility]) Vital Signs (Past 12 Hours) Vital Signs Temp Pulse Resp BP BP Pulse Ox 07/31/21 08:17 36.3 C L 74 17 143/67 H 95 07/31/21 00:05 36.8 C 91 H 17 129/75 95 Laboratory Results 07/31/21 05:30
[2021-07-31] MEDS: ACETAMINOPHEN 325 MG TAB PO PRN (19:06)
--- NOTE | 2021-07-31 19:07 | Hospitalist Progress Note ---
Date of Service July 31, 2021 Assessment & Plan (1) ATN (acute tubular necrosis): (2) Hypothyroidism: (3) Hypertension: (4) Diabetes mellitus, type 2: (5) Severe protein-calorie malnutrition: Plan: This is a 76-year-old female with PMH of DM II, HTN, CKD III, history of CVA, hypothyroidism and other medical problems listed below who presented with myalgias and nausea x3 days and was found to have EMILIE on CKD, non-anion gap metabolic acidosis and elevated troponin. ATN (acute tubular necrosis) Acute kidney injury superimposed on chronic kidney disease Metabolic acidosis with normal anion gap and bicarbonate losses Creatinine on presentation 2.83 (baseline Cr ~1) --> creatinine continues to worsened to 3.71. IVF discontinued by nephrology. Urine output continues to be adequate. Mild metabolic acidosis resolved No uropathy or hydronephrosis noted on CT abd/pelvis Home lisinopril and Metformin held on admission UA with blood and protein and about 2.4 gm proteinuria Nephrology consulted, input appreciated - likely ATN but need to rule out AIN and other causes of GN. Serology pending including complement, ANCA, spep Possibility of renal Biopsy discussed with Dr. Mir but still weighing option given her frailness and advanced age /difficulty of transfer for biopsy Discussed case with Dr. 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 At that time, work up revealed elevated ESR, a negative HAFSA and negative RF Was offered to start Plaquenil at that time but patient declined due to concerns immunosuppressive nature of medication During this visit: lyme serology negative, peripheral smear without evidence of inclusion bodies, anaplasma DNA negative, covid PCR negative, flu A/B negative, CK within normal limits Given elevated inflammatory markers, worsening renal function and history of arthritis, considering vasculitis - serology pending Considering starting prednisone - Dr. Mix to discuss with Dr. Mir - appreciate input Elevated troponin Troponin 4.01 -> 4.37 -> 4.48 No history of CAD Denies chest pain, EKG nonischemic No wall motion abnormality on echo Likely due to underlying renal dysfunction Cardiology consulted, input appreciated. Attributed trop elevated to acutely worsened renal disease Bibasilar crackles Bibasilar crackles on exam - improved today with use of incentive spirometer. No reports of shortness of breath, saturating well on room air Likely due to atelectasis Hypertension BP remaining intermittently elevated -started on amlodipine 5 mg daily in lieu of lisinopril due to EMILIE Will increase amlodipine to 5 mg BID Diarrhea Patient had small amount of diarrhea on 07/26 ->Resolved Diabetes mellitus, type 2 Hgb A1c 6.4 Hold oral agents and utilize NovoLog per protocol while hospitalized Carotid stenosis S/p CEA in 2004 Continue ASA Hypothyroidism Continue levothyroxine HLD (hyperlipidemia) Not on statin, history of myalgias and abd pain on previously Severe protein-calorie malnutrition BMI 19.7. Nutrition consult placed DVT Ppx: SQ heparin Code status: FULL PCP: Adia Dispo: Admitted to med/surg. Plan for dc home when medically appropriate Patient seen in collaboration with Dr. Donis. Please see addendum. (6) Inflammatory polyarthritis: Admission and Anticipated Discharge Date Admission Date: July 23, 2021 Results & Data Results & Data ([facility]) Vital Signs (Past 12 Hours) Vital Signs Temp Pulse Resp BP Pulse Ox 07/31/21 15:25 36.6 C 100 H 17 140/63 95 07/31/21 08:17 36.3 C L 74 17 143/67 H 95 Laboratory Results BMP 07/31/21 05:30 Sodium 138 Potassium 5.1 Chloride 109 H Carbon Dioxide 20 L BUN 55 H Creatinine 3.77 H Glucose 271 H Calcium 8.9 Medications Administered Current Inpatient Medications Acetaminophen (Acetaminophen 325 Mg Tab) 650 mg PO Q4H PRN PRN Reason: Pain or Fever Stop: 08/22/21 14:30 Last Admin: 07/31/21 19:06 Dose: 650 mg Documented by: Amlodipine Besylate (Amlodipine Besylate 5 Mg Tab) 5 mg PO BID [facility] Stop: 08/27/21 20:59 Last Admin: 07/31/21 07:47 Dose: 5 mg Documented by: Aspirin (Aspirin 81 Mg Ectab) 81 mg PO QAM [facility] Stop: 08/23/21 08:59 Last Admin: 07/31/21 07:47 Dose: 81 mg Documented by: Dextrose (Dextrose 50% 50 Ml Syringe) 25 - 50 ml IV UD PRN; Protocol PRN Reason: Hypoglycemia Protocol Stop: 08/22/21 14:30 Docusate Sodium (Docusate Sodium 100 Mg Cap) 100 mg PO PM [facility]AU Stop: 08/22/21 20:59 Last Admin: 07/30/21 21:05 Dose: Not Given Documented by: Famotidine (Famotidine 20 Mg Tab) 20 mg PO PM [facility]AU Stop: 08/22/21 20:59 Last Admin: 07/30/21 21:05 Dose: 20 mg Documented by: Glucagon (Glucagon For Inj 1 Mg Vial) 1 mg SQ UD PRN; Protocol PRN Reason: Hypoglycemia Protocol Stop: 08/22/21 14:30 Glucose (Glucose 10 Tabs/Tube) 4 - 8 tabs PO UD PRN; Protocol PRN Reason: Hypoglycemia Protocol Stop: 08/22/21 14:30 Glucose (Glucose 40% Gel 15 Gm Tube) 15 - 30 gm PO UD PRN; Protocol PRN Reason: Hypoglycemia Protocol Stop: 08/22/21 14:30 Heparin Sodium (Porcine) (Heparin Sod 5,000 Unit/0.5 Ml Vial) 5,000 units SQ Q12 [facility] Stop: 08/22/21 20:59 Last Admin: 07/31/21 07:51 Dose: 5,000 units Documented by: Hydralazine HCl (Hydralazine Hcl 20 Mg/Ml Vial) 5 mg IV Q6H PRN PRN Reason: BP >160 Last Admin: 07/25/21 17:08 Dose: 5 mg Documented by: Insulin Aspart (Insulin Aspart 100 Units/Ml 3 Ml Pen) 0 units SC ACHS [facility] Stop: 08/27/21 22:29 Last Admin: 07/31/21 17:54 Dose: 8 units Documented by: Insulin Glargine (Insulin Glargine Solostar 100 Units/Ml 3 Ml Pen) 12 units SC BID [facility] Stop: 08/30/21 10:44 Last Admin: 07/31/21 11:19 Dose: 12 units Documented by: Lactobacillus Acidoph/Casei/Rhamnos (Advanced Probiotic 1250 Mg Capsule) 2 cap PO QAM [facility] Stop: 08/23/21 08:59 Last Admin: 07/31/21 07:47 Dose: 2 cap Documented by: Levothyroxine Sodium (Levothyroxine Sodium 75 Mcg Tablet) 75 mcg PO DAILYBB [facility] Stop: 08/23/21 06:29 Last Admin: 07/31/21 05:35 Dose: 75 mcg Documented by: Loratadine (Loratadine 10 Mg Tab) 10 mg PO QAM [facility] Stop: 08/25/21 08:59 Last Admin: 07/31/21 07:47 Dose: 10 mg Documented by: Meclizine HCl (Meclizine 12.5 Mg Tab) 12.5 mg PO TID PRN PRN Reason: Dizziness Stop: 08/22/21 14:30 Last Admin: 07/31/21 08:11 Dose: 12.5 mg Documented by: Miscellaneous (Carbohydrates For Hypoglycemia ) 15 - 30 gm PO UD PRN PRN Reason: Hypoglycemia Protocol Stop: 08/22/21 14:30 Multivitamins (Multivitamin Tab) [facility] Stop: 08/23/21 08:59 Last Admin: 07/31/21 07:47 Dose: 1 tab Documented by: Ondansetron HCl (Ondansetron Inj 2 Mg/Ml 2 Ml Vial) 4 mg IV Q6H PRN PRN Reason: Nausea Stop: 08/22/21 14:30 Pantoprazole Sodium (Pantoprazole 40 Mg Tab) 40 mg PO [facility] Stop: 08/23/21 08:59 Last Admin: 07/31/21 07:47 Dose: 40 mg Documented by: Polyethylene Glycol (Polyethylene (Miralax) 17 Gm Pack) 17 gm PO DAILY PRN PRN Reason: Constipation Stop: 08/26/21 20:12 Last Admin: 07/30/21 21:06 Dose: 17 gm Documented by: Prednisone (Prednisone 20 Mg Tab) 60 mg PO DAILY [facility] Stop: 08/29/21 16:59 Last Admin: 07/31/21 07:46 Dose: 60 mg Documented by: Vitamin D (Cholecalciferol 1,000 Units 25 Mcg Tab) 1,000 units PO [facility] Stop: 08/23/21 08:59 Last Admin: 07/31/21 07:47 Dose: 1,000 units Documented by: (1) Hypertension Hypertension type: unspecified Qualified Code(s): I10 - Essential (primary) hypertension
[2021-07-31] MEDS: FAMOTIDINE 20 MG TAB PO SCH (21:07)
[2021-07-31] MEDS: DOCUSATE SODIUM 100 MG CAP PO SCH (21:08)
[2021-07-31 22:14] LABS: ANCA Screen P-ANCA POS (Negative); Complement C3 139 mg/dL (83-193); Complement Total(CH50) >60 U/mL (31-60); Free Kappa 117.5 mg/L (3.3-19.4); Free Kappa/Lambda Ratio 1.96 (0.26-1.65); Free Lambda 60.1 mg/L (5.7-26.3); Myeloperoxidase Ab 142.5 AI (<1.0); Proteinase-3 AB <1.0 AI (<1.0)
[2021-08-01] MEDS: ACETAMINOPHEN 325 MG TAB PO PRN (01:46)
[2021-08-01] MEDS: LEVOTHYROXINE SODIUM 75 MCG TABLET PO SCH (05:30)
[2021-08-01] MEDS: PANTOprazole 40 MG TAB PO SCH (08:20)
[2021-08-01] MEDS: CHOLECALCIFEROL 1,000 UNITS 25 MCG TAB PO SCH (08:20)
[2021-08-01] MEDS: ADVANCED PROBIOTIC 1250 MG CAPSULE PO SCH (08:20)
[2021-08-01] MEDS: LORATADINE 10 MG TAB PO SCH (08:20)
[2021-08-01] MEDS: ASPIRIN 81 MG ECTAB PO SCH (08:20)
[2021-08-01] MEDS: amLODIPine BESYLATE 5 MG TAB PO SCH (08:21)
[2021-08-01] MEDS: MULTIVITAMIN TAB PO SCH (08:21)
[2021-08-01] MEDS: predniSONE 20 MG TAB PO SCH (08:21)
[2021-08-01] MEDS: HEPARIN SOD 5,000 UNIT/0.5 ML VIAL SQ SCH (08:27)
[2021-08-01] MEDS ORDERED: RITUXIMAB IV ONE (08:47)
[2021-08-01] MEDS ORDERED: SODIUM CHLORIDE 0.9% IV ONE (08:47)
[2021-08-01] MEDS: INSULIN ASPART 100 UNITS/ML 3 ML PEN SC SCH ×2 (09:19→12:59)
[2021-08-01] MEDS: INSULIN GLARGINE SOLOSTAR 100 UNITS/ML 3 ML PEN SC SCH (09:21)
[2021-08-01 10:05] LABS: Hemoglobin 9.6 g/dL (12.0-16.0); Mean Corpuscular Hemoglobin 29.9 pg (25-34); Mean Corpuscular Volume 93.5 fL (80-100); Mean Platelet Volume 9.9 fL (7.4-10.4); Platelet Count 372 K/uL (130-400); RDW Coefficient of Variation 13.5 % (11.5-14.5); RDW Standard Deviation 46.2 fL (36.4-46.3); Red Blood Count 3.21 M/uL (4.2-5.4); White Blood Count 19.96 K/uL (4.8-10.8)
[2021-08-01 10:38] LABS: BUN Creatinine Ratio 18.6 (10-20); Calcium 9.8 mg/dl (8.5-10.1); Creatinine Clr Calc Pharmacy 9.9 ml/min; Est GFR (African American) 13.6 ml/min; Est GFR (Non-African American) 11.8 ml/min
--- NOTE | 2021-08-01 11:23 | Discharge Summary ---
Date of Service August 01, 2021 Admission HPI Per Admitting Provider This is a 76-year-old female with PMH of DM II, HTN, CKD III, history of CVA, hypothyroidism and other medical problems listed below who presents with myalgias and nausea x3 days. Patient was in normal state of health until a few days ago when she developed diffuse muscle and joint aches. Feels that skin is tender to touch. Son was over this morning helping her get out of bed and she was screaming with pain when he sat her up. Decided to bring her in for further evaluation. Denies any fever or chills. Has ongoing headache for the past 3 months that is unchanged. Endorsing some new nausea with 2 episodes of "gagging" clear material this morning but no tim vomiting. No hematemesis. Denies any abdominal pain or shortness of breath. No chest pain at rest but does endorse some discomfort if she walks around the block but this is not new and has been present for several months. Denies any urinary symptoms or diarrhea. Has been having normal bowel movements. Endorsing about 40 ounces of water intake daily and unchanged appetite, although does not seem to eat a lot at baseline per son at bedside. No medication changes. Has been taking Tylenol over the past few days for muscle aches with some relief. Denies any recent tick bites or new rashes. No focal neurological deficits. Admission Exam Per Admitting Provider General Appearance:WD/WN, vitals as above, NAD, sitting up in bed, frail, crying intermittently during interview Head: normocephalic, atraumatic Eyes:normal inspection, PERRL, conjunctivae normal, anicteric sclerae ENT: external ear and nose normal, oropharynx normal Neck: normal visual inspection, trachea midline, no thyromegaly Respiratory:normal respiratory effort, coarse lung sounds at bilateral bases, no wheezing. No accessory muscle use Cardiovascular: tachycardic with ectopy, no murmur appreciated, normal peripheral pulses, no BLE edema. Vessels: no JVD Chest: normal inspection of chest Abdomen/GI: normal bowel sounds, soft, nontender, no hepatosplenomegaly Extremities/Musculoskeletal: no cyanosis or clubbing, extremities motor strength 5/5. Joints TTP, painful with all movement Neurologic: PERRL, EOMI, accommodation nl, no face palsy, no dysarthria, CN's II-XI intact bilaterally and moves all extremities Psychiatric:A+Ox3, anxious Skin: no rashes, normal color, warm/dry Principal Diagnosis ANCA-associated vasculitis Acute kidney injury superimposed on chronic kidney disease with evidence of ATN, possibly glomerulonephritis Metabolic acidosis with normal anion gap and bicarbonate loss Elevated troponin Severe protein calorie malnutrition Discharge Data Allergies Allergy/AdvReac Type Severity Reaction Status Date / Time simvastatin Allergy Intermediate MUSCLE PAIN Verified 07/23/21 09:50 codeine Allergy Unknown RASH Verified 07/23/21 09:50 Iodinated Contrast Media Allergy Unknown Hives Verified 07/23/21 09:50 Sulfa (Sulfonamide AdvReac Intermediate HIVES,NAUSE Verified 07/23/21 09:50 Antibiotics) A gabapentin AdvReac Unknown NAUSEA Verified 07/23/21 09:50 pravastatin AdvReac Unknown Abdominal Verified 07/23/21 09:50 Pain Consultations 07/23/21 09:02 ED Decision to Admit Stat 07/23/21 11:37 Consult Nephrology Routine 07/23/21 12:23 Consult Cardiology Routine Ordered Studies Laboratory Results WBC 19.96 K/uL (4.8-10.8) H 08/01/21 09:55 RBC 3.21 M/uL (4.2-5.4) L 08/01/21 09:55 Hgb 9.6 g/dL (12.0-16.0) L 08/01/21 09:55 Hct 30.0 % (37-47) L 08/01/21 09:55 MCV 93.5 fL (80-100) 08/01/21 09:55 MCH 29.9 pg (25-34) 08/01/21 09:55 MCHC 32.0 g/dL (32-36) 08/01/21 09:55 RDW Std Deviation 46.2 fL (36.4-46.3) 08/01/21 09:55 RDW Coeff of Abebe 13.5 % (11.5-14.5) 08/01/21 09:55 Plt Count 372 K/uL (130-400) 08/01/21 09:55 MPV 9.9 fL (7.4-10.4) 08/01/21 09:55 Immature Gran % (Auto) 0.2 % 07/23/21 07:51 Neut % (Auto) 78.8 % 07/23/21 07:51 Lymph % (Auto) 15.9 % 07/23/21 07:51 [place] % (Auto) 3.9 % 07/23/21 07:51 Eos % (Auto) 1.0 % 07/23/21 07:51 Baso % (Auto) 0.2 % 07/23/21 07:51 Neut # (Auto) 9.78 K/uL (1.4-6.5) H 07/23/21 07:51 Lymph # (Auto) 1.97 K/uL (1.2-3.4) 07/23/21 07:51 [place] # (Auto) 0.49 K/uL (0.11-0.59) 07/23/21 07:51 Eos # (Auto) 0.13 K/uL (0-0.5) 07/23/21 07:51 Baso # (Auto) 0.02 K/uL (0-0.2) 07/23/21 07:51 Immature Gran # (Auto) 0.02 K/uL (0.00-0.02) 07/23/21 07:51 Peripher Smr Path Cons Cancelled 07/23/21 07:51 ESR 59 mm/hr (0-30) H 07/30/21 05:55 VBG pH 7.33 (7.36-7.41) L 07/23/21 11:16 VBG pCO2 38 mmHg (38-50) 07/23/21 11:16 VBG pO2 33 mmHg 07/23/21 11:16 VBG HCO3 20 mmol/L 07/23/21 11:16 VBG O2 Saturation < 60.0 % 07/23/21 11:16 VBG Base Excess -5.9 mEq/L 07/23/21 11:16 Barometric Pressure 727.9 mm/Hg 07/23/21 11:16 Sodium 139 mmol/L (136-145) 08/01/21 09:55 Potassium 4.0 mmol/L (3.5-5.1) D 08/01/21 09:55 Chloride 107 mmol/L (98-107) 08/01/21 09:55 Carbon Dioxide 21 mmol/L (21-32) 08/01/21 09:55 Anion Gap 11.0 (3-11) 08/01/21 09:55 BUN 66 mg/dl (7-18) H 08/01/21 09:55 Creatinine 3.54 mg/dl (0.6-1.2) H 08/01/21 09:55 Est Cr Clr Drug Dosing 9.9 ml/min 08/01/21 09:55 Est GFR ( Amer) 13.6 ml/min 08/01/21 09:55 Est GFR (Non-Af Amer) 11.8 ml/min 08/01/21 09:55 BUN/Creatinine Ratio 18.6 (10-20) 08/01/21 09:55 Glucose 201 mg/dl (70-99) H 08/01/21 09:55 POC Glucose 113 mg/dl (70-99) H 08/01/21 08:31 Estimat Average Glucose 137 mg/dl 07/24/21 06:09 Hemoglobin A1c 6.4 % (4.5-5.6) H 07/24/21 06:09 Osmolality 310 mOsm/kg (280-300) H 07/23/21 11:16 Lactate 1.7 mmol/L (0.4-2.0) 07/23/21 11:16 Calcium 9.8 mg/dl (8.5-10.1) 08/01/21 09:55 Magnesium 2.0 mg/dl (1.8-2.4) 07/24/21 06:09 Total Bilirubin 0.3 mg/dl (0.2-1) 07/23/21 07:51 AST 38 U/L (15-37) H 07/23/21 07:51 ALT 18 U/L (12-78) 07/23/21 07:51 Alkaline Phosphatase 60 U/L (45-117) 07/23/21 07:51 Total Creatine Kinase 117 U/L (26-192) 07/23/21 11:16 Troponin I 4.480 ng/ml (0-0.045) H* 07/23/21 20:50 C-Reactive Protein 2.61 mg/dl (0-0.29) H 07/30/21 05:55 Total Protein 8.2 gm/dl (6.4-8.2) 07/23/21 07:51 Albumin 3.5 gm/dl (3.4-5.0) 07/23/21 07:51 Globulin 4.7 gm/dl (2.5-4.0) H 07/23/21 07:51 Albumin/Globulin Ratio 0.8 (0.9-2) L 07/23/21 07:51 Lipase 582 U/L (73-393) H 07/23/21 07:51 Procalcitonin 0.08 ng/ml (0-0.5) 07/23/21 11:16 TSH 0.687 uIu/ml (0.300-4.500) 07/23/21 07:51 Specimen Hemolysis 07/26/21 07:28 Urine Color Yellow 07/28/21 Unknown Urine Appearance Clear (Clear) 07/28/21 Unknown Urine pH 5.5 (4.5-7.5) 07/28/21 Unknown Ur Specific [place] 1.006 (1.000-1.030) 07/28/21 Unknown Urine Protein 2+ (Negative) H 07/28/21 Unknown Urine Glucose (UA) Negative (Negative) 07/28/21 Unknown Urine Ketones Negative (Negative) 07/28/21 Unknown Urine Blood 2+ (Negative) H 07/28/21 Unknown Urine Nitrite Negative (Negative) 07/28/21 Unknown Urine Bilirubin Negative (Negative) 07/28/21 Unknown Urine Urobilinogen Negative (Negative) 07/28/21 Unknown Ur Leukocyte Esterase Negative (Negative) 07/28/21 Unknown Urine WBC (Auto) 1-5 /hpf (0-5) 07/28/21 Unknown Urine RBC (Auto) 10-30 /hpf (0-4) H 07/28/21 Unknown U Hyaline Cast (Auto) 1-5 /lpf (0-5) 07/28/21 Unknown U Epithel Cells (Auto) 10-20 /lpf (0-5) H 07/28/21 Unknown Urine Bacteria (Auto) Negative (Negative) 07/28/21 Unknown Ur Random Creatinine 46.9 mg/dl 07/28/21 Unknown U Random Total Protein 111.3 mg/dl (0-11.9) H 07/28/21 Unknown Ur Random Sodium 78 mmol/L 07/24/21 16:25 Protein/Creatinin Ratio 2.4 (0-0.2) H 07/28/21 Unknown Serum Immunofixation SEE NOTE 07/29/21 09:07 Anti-Proteinase 3 <1.0 AI (<1.0) 07/28/21 10:10 Anti-Myeloperoxidase 142.5 AI (<1.0) H 07/28/21 10:10 ANCA P-ANCA POS (Negative) A 07/28/21 10:10 Complement C3 139 mg/dL (83-193) 07/28/21 10:10 Complement C4 42 mg/dL (15-57) 07/28/21 10:10 Tot Complement (CH50) >60 U/mL (31-60) H 07/28/21 10:10 Free Mamers LC, Quant 117.5 mg/L (3.3-19.4) H 07/28/21 10:10 Free Lambda LC, Quant 60.1 mg/L (5.7-26.3) H 07/28/21 10:10 Free Mamers/Lambda Ratio 1.96 (0.26-1.65) H 07/28/21 10:10 Anaplasma Smear See Comment 07/23/21 07:51 A. phagocytophilum DNA Negative (Negative) 07/23/21 07:51 Lyme Disease IgG Ab Negative (Negative) 07/23/21 11:16 Lyme Disease IgM Ab Negative (Negative) 07/23/21 11:16 SARS-CoV-2 (PCR) NEGATIVE (Negative) 07/23/21 07:46 Influ A Molecular Assay Negative (Negative) 07/23/21 07:46 Influ B Molecular Assay Negative (Negative) 07/23/21 07:46 Impressions Chest X-Ray 07/23/21 07:27 XR chest 1V portable HISTORY: 76 years-old Female weak acute weakness COMPARISON: Chest radiograph 07/28/2020 TECHNIQUE: Portable AP view of the chest FINDINGS: The cardiomediastinal and hilar silhouettes are unchanged. Unchanged blunting of the costophrenic angles with mild bibasilar ill-defined opacities. Pleural parenchymal scarring of the lung apices. No pneumothorax or overt pulmonary edema. Degenerative changes of the shoulders and spine. IMPRESSION: Mild chronic bibasilar opacities suggestive of atelectasis/scarring. ACT 112: Negative or not required by law. The above report was generated using voice recognition software. It may contain grammatical, syntax or spelling errors. Electronically signed by: Daniel Javier M.D. 07/23/2021 7:49 AM Abdomen/Pelvis CT 07/23/21 07:[address] WITHOUT CONTRAST CT DOSE: 263.58 mGy.cm HISTORY: Acute tachycardia with weakness +N tachy and weak allergic to contrast TECHNIQUE: Multiaxial CT images of the abdomen and pelvis were performed without contrast. A dose lowering technique was utilized adhering to the principles of ALARA. COMPARISON STUDY: CT abdomen and pelvis 07/25/2020, chest radiograph 07/28/2020, chest CT 02/06/2009. FINDINGS: Bibasilar groundglass and irregular consolidative opacities appear similar to 02/06/2009 study. Respiratory motion artifact, upper extremity positioning and lack of contrast limits the study. No pneumatosis or pneumoperitoneum. Moderate cardiomegaly with coronary artery calcifications. Trace pericardial effusion. Unremarkable spleen, mildly atrophic pancreas, gallbladder, adrenal glands and liver. Mild right hemidiaphragmatic elevation. Unremarkable kidneys. No hydronephrosis. Unremarkable urinary bladder. Hysterectomy. Atherosclerosis of the aorta without aneurysm. No adenopathy. No bowel obstruction and or bowel wall thickening. Mild to moderate fecal retention. Colonic diverticulosis without acute diverticulitis. Noninflamed appendix. No ascites or mesenteric inflammation. Unremarkable soft tissues. Degenerative changes of the spine, pelvis and hips. IMPRESSION: 1. No acute intra-abdominal or intrapelvic abnormality. 2. No bowel obstruction or bowel wall thickening. Normal appendix. 3. Colonic diverticulosis without acute diverticulitis. 4. Bibasilar pulmonary fibrosis is stable compared to the 02/06/2009 exam 5. Additional findings as above. ACT 112: Negative or not required by law. The above report was generated using voice recognition software. It may contain grammatical, syntax or spelling errors. Electronically signed by: Daniel Javier M.D. 07/23/2021 8:[address] 07/23/21 12:21 CT head/brain wo con CLINICAL HISTORY: 76 years-old Female with headache x few months. Subacute headaches TECHNIQUE: Multiple axial CT images of the head were obtained without contrast. A dose lowering technique was utilized adhering to the principles of ALARA. CT DOSE: 537.48 mGy.cm COMPARISON: 06/10/[address] FINDINGS: No acute intracranial hemorrhage, midline shift, intracranial mass, hydrocephalus, territorial ischemia or abnormal extra-axial collection. Encephalomalacia related to chronic infarct of the right parietal lobe. White matter hypodensities suggest chronic microvascular ischemic disease. Chronic lacunar infarcts of the left caudate and lentiform nuclei. Senescent calcifications of the basal ganglia with cerebral vascular calcifications. Chronic infarcts of the left cerebellar hemisphere. The calvarium is intact. The paranasal sinuses, mastoid air cells, and middle ear cavities are clear. IMPRESSION: Chronic findings as above without acute intracranial abnormality. ACT 112: Negative or not required by law. The above report was generated using voice recognition software. It may contain grammatical, syntax or spelling errors. Electronically signed by: Daniel Javier M.D. 07/23/2021 12:50 PM Hospital Course (1) ATN (acute tubular necrosis): (2) Hypothyroidism: (3) Hypertension: (4) Diabetes mellitus, type 2: (5) Severe protein-calorie malnutrition: This is a 76-year-old female with PMH of DM II, HTN, CKD III, history of CVA, hypothyroidism and other medical problems listed below who presented with myalgias and nausea x3 days and was found to have EMILIE on CKD, non-anion gap metabolic acidosis and elevated troponin. ATN (acute tubular necrosis) Acute kidney injury superimposed on chronic kidney disease Metabolic acidosis with normal anion gap and bicarbonate losses Creatinine on presentation 2.83 (baseline Cr ~1) --> creatinine continues to worsened to 3.71. IVF discontinued by nephrology. Urine output continues to be adequate. Mild metabolic acidosis resolved No uropathy or hydronephrosis noted on CT abd/pelvis Home lisinopril and Metformin held on admission UA with blood and protein and about 2.4 gm proteinuria Nephrology consulted, input appreciated - likely ATN but need to rule out AIN and other causes of GN. Serology pending including complement, ANCA, spep Possibility of renal Biopsy discussed with Dr. Mir but still weighing option given her frailness and advanced age /difficulty of transfer for biopsy Discussed case with Dr. 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 At that time, work up revealed elevated ESR, a negative HAFSA and negative RF Was offered to start Plaquenil at that time but patient declined due to concerns immunosuppressive nature of medication During this visit: lyme serology negative, peripheral smear without evidence of inclusion bodies, anaplasma DNA negative, covid PCR negative, flu A/B negative, CK within normal limits Given elevated inflammatory markers, worsening renal function and history of arthritis, considering vasculitis - serology pending Considering starting prednisone - Dr. Mix to discuss with Dr. Mir - appreciate input Elevated troponin Troponin 4.01 -> 4.37 -> 4.48 No history of CAD Denies chest pain, EKG nonischemic No wall motion abnormality on echo Likely due to underlying renal dysfunction Cardiology consulted, input appreciated. Attributed trop elevated to acutely worsened renal disease Bibasilar crackles Bibasilar crackles on exam - improved today with use of incentive spirometer. No reports of shortness of breath, saturating well on room air Likely due to atelectasis Hypertension BP remaining intermittently elevated -started on amlodipine 5 mg daily in lieu of lisinopril due to EMILIE Will increase amlodipine to 5 mg BID Diarrhea Patient had small amount of diarrhea on 07/26 ->Resolved Diabetes mellitus, type 2 Hgb A1c 6.4 Hold oral agents and utilize NovoLog per protocol while hospitalized Carotid stenosis S/p CEA in 2004 Continue ASA Hypothyroidism Continue levothyroxine HLD (hyperlipidemia) Not on statin, history of myalgias and abd pain on previously Severe protein-calorie malnutrition BMI 19.7. Nutrition consult placed DVT Ppx: SQ heparin Code status: FULL PCP: Adia Dispo: Admitted to med/surg. Plan for dc home when medically appropriate Patient seen in collaboration with Dr. Donis. Please see addendum. (6) ANCA-associated vasculitis: Total Time Total Time Spent Total Time Spent (In Minutes): 60 Discharge Plan Discharge Items Patient Disposition: Home - Self-Care Reason For Visit: WEAKNESS,METABOLIC ACIDOSIS, EMILIE Discharge Diagnosis: ANCA-associated vasculitis Acute kidney injury superimposed on chronic kidney disease with evidence of ATN, possibly glomerulonephritis Metabolic acidosis with normal anion gap and bicarbonate loss Elevated troponin Severe protein calorie malnutrition Condition on Discharge: Good Activity: Resume your previous activity Non-emergency contact: Primary Care Provider Call non-emergency contact if: you have any medication questions, your symptoms worsen, your pain is not controlled and your pain is unusual for you Follow-up/Referrals: Dianna Robb, DO [Primary Care Provider] - Diet: Carb Consistent or DM2 Addtl Attending Provider Instructions: Please take all medications as instructed on discharge as below. You are being asked to stop Metformin in the setting of kidney dysfunction. It is dangerous for you to take it at this point. As you will be on prednisone now daily, your blood glucose will likely rise. Please double your glipizide dosage; 5 mg by mouth twice daily as your new regimen. Tonight (08/01): Take 5 mg glipizide p.o. Tomorrow morning (08/02): Take 5 mg glipizide, take 60 mg prednisone, take amlodipine 10 mg. It is advised that you follow-up with [facility] for consideration of a kidney biopsy. Someone should be in contact with you this week to set up an appointment for follow-up. It is recommended that you follow-up with your primary care doctor within 1 week of discharge from the hospital. This is to ensure your subspecialty appointments are set up appropriately and you are doing well on your new medicat ions. It is strongly recommended that you touch base with your [facility] pharmacist, [place], in the next 2 to 3 days for repeat check of your blood glucose. This will likely be somewhat elevated given the changes with stopping Metformin and adding prednisone. If you have any concern before seeing her please contact Dr. Donis at [facility] at [phone]. It was a pleasure taking care of you! Please call if you have any questions or problems. You can reach a [facility] hospitalist on duty at [facility] 24 hours a day by calling [phone]. Take care of yourself. Marissa Donis DO [facility] Hospitalist Pending Studies at Discharge: No Stand-Alone Forms: My [facility] Medications and DC Order Prescriptions: New amlodipine 10 mg tablet 10 mg PO DAILY Qty: 30 RF: 0 prednisone 20 mg Tablet 60 mg PO DAILY Qty: 90 RF: 0 glipizide 5 mg tablet 5 mg PO BID Qty: 60 RF: 0 Continued multivitamin Tablet 1 tab PO QAM RF: 0 meclizine 12.5 mg tablet 12.5 mg PO TID PRN (Reason: Dizziness) RF: 0 aspirin 81 mg Tablet,Delayed Release (Dr/Ec) 81 mg PO QAM RF: 0 levothyroxine 75 mcg tablet 75 mcg PO QAM RF: 0 famotidine 20 mg tablet 20 mg PO PM RF: 0 docusate sodium [DOK] 100 mg capsule 100 mg PO PM RF: 0 omeprazole 20 mg capsule,delayed release(DR/EC) 20 mg PO QAM RF: 0 Culturelle 10 billion cell Capsule 2 cap PO QAM RF: 0 cholecalciferol (vitamin D3) 25 mcg (1,000 unit) Tablet 25 mcg PO QAM RF: 0 diphenhydramine-acetaminophen [Tylenol PM Extra Strength] 25-500 mg Tablet 1 tab PO HS PRN (Reason: Sleep) Qty: 0 RF: 0 acetaminophen [Tylenol Extra Strength] 500 mg Tablet 500 mg PO Q6H PRN (Reason: Pain) RF: 0 Discontinued glipizide 5 mg tablet extended release 24hr 5 mg PO QAM RF: 0 lisinopril 5 mg tablet 5 mg PO QAM RF: 0 metformin 500 mg tablet extended release 24 hr 500 mg PO BIDM RF: 0 Discharge Orders: Discharge Order (Routine); Ordered 08/01/21 Ordered By: Marissa Ferrera/Other Patient Handouts: A1C, Managing Type 2 Diabetes Admission Data Admit Date/Time: 07/23/21 10:08 Attending Provider: Marissa Donis Admit Provider: Margarita Juarez I. Primary Care Provider: Dianna Robb Other Providers: Fransisco Espino ; Perez Good ; Barbara Apodaca
--- NOTE | 2021-08-01 11:25 | Nephrology Progress Note ---
Date of Service August 01, 2021 Assessment & Plan (1) Acute kidney injury superimposed on chronic kidney disease: Plan: stage 2 nonoliguric EMILIE on CKD w/b creatinine 1.0 and presenting creatinine 2.8. Creatinine is 3.5 today from 3.7 yesterday. 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 She continue prednisone 60 mg daily at least for a month. She needs to start Rituxan but this will be given outpatient. Patient will need renal biopsy as an outpatient likely interventional radiology at [facility]. Patient need to be discharged so so that renal biopsy and outpatient immunosuppression can be initiated as soon as possible -Continue empiric prednisone 60 mg daily. Patient should get a prescription at least 5-month. -She will likely need insulin -Nephrology follow-up in 2 to 3 days -Daily BMP -Monitor input output Admission and Anticipated Discharge Date Admission Date: July 23, 2021 Subjective Seen in follow-up for acute kidney injury. She denies any shortness of breath. She was dizzy with prednisone. Her blood sugar is high. Positive for p-ANCA and anti-MPO 142 Review of Systems Review of Systems: All other systems were reviewed and negative except as noted in HPI Physical Exam Physical Exam: General exam: Appears comfortable, no acute distress HEENT: Pupils are equal and reactive to light Neck: No JVD, neck is supple trachea is midline Respiratory system: Clear breath sounds bilaterally. Gastrointestinal: Abdomen is soft, non distended, non tender, bowel sounds are present CVS: Regular rate and rhythm. No murmurs, rubs or gallops Musculoskeletal: No joint or muscle tenderness Extremities: Non tender, no edema, peripheral pulses are present Neuro: Oriented, no tremors, no focal neurological deficits Skin: No rashes Results & Data ([facility]) Vital Signs (Past 12 Hours) Vital Signs Temp Pulse Resp BP Pulse Ox 08/01/21 07:37 36.5 C 79 16 135/71 98 Laboratory Results 08/01/21 09:55 08/01/21 09:55 WBC 19.96 H RBC 3.21 L MCV 93.5 MCH 29.9 MCHC 32.0 RDW Std Deviation 46.2 RDW Coeff of Abebe 13.5 Plt Count 372 MPV 9.9
[2021-08-01] MEDS: MECLIZINE 12.5 MG TAB PO PRN (12:06)
[2021-08-02 11:16] LABS: P-ANCA(Reflex Only Do Not Ord >1:640 Titer (<1:20)
== END 2021-08-01 16:08 | disposition home or self-care (01) | DRG 682 ==
LOC: ED 07:10 → SUATTDRO 10:08 → EDINP 10:08 → 2S 14:32 → 3N 07-25 10:24

== ENCOUNTER 2021-12-20 03:36 | Inpatient (IN) ==
[2021-12-20] MEDS: HYDROmorphone INJ 0.5 MG/0.5 ML SYR IV PRN ×5 (04:20→21:05)
[2021-12-20 04:43] LABS: Alanine Aminotransferase 6 U/L (7-52); Albumin Globulin Ratio 1.1 (0.9-2); Albumin Level 3.6 gm/dl (3.4-5.0); Alkaline Phosphatase 43 U/L (34-104); Anion Gap 13 (3-11); Aspartate Aminotransferase 17 U/L (13-39); BUN Creatinine Ratio 16.5 (10-20); Bilirubin,Total 0.3 mg/dl (0.2-1.0); Blood Urea Nitrogen 68 mg/dl (6-23); Calcium 11.1 mg/dl (8.5-10.1); Carbon Dioxide 20 mmol/L (21-32); Chloride 107 mmol/L (98-107); Est GFR (African American) 11.3 ml/min; Est GFR (Non-African American) 9.8 ml/min; Globulin 3.4 gm/dl (2.5-4.0); Glucose 117 mg/dl (70-99(Fasting)); Magnesium 2.1 mg/dl (1.7-2.4); Potassium 5.2 mmol/L (3.5-5.1); Sodium 140 mmol/L (136-145)
[2021-12-20 04:53] LABS: Troponin I High Sensitivity 701.4 pg/ml (0-14)
[2021-12-20 05:10] LABS: Basophils # (auto) 0.03 K/uL (0-0.2); Basophils % (auto) 0.3 %; Eosinophils # (auto) 0.12 K/uL (0-0.5); Eosinophils % (auto) 1.1 %; Hematocrit (blood only) 29.8 % (37-47); Hemoglobin 9.9 g/dL (12.0-16.0); Immature Granulocytes # (auto) 0.08 K/uL (0.00-0.02); Immature Granulocytes % (auto) 0.7 %; Lymphocytes % (auto) 7.3 %; Mean Corpuscular Hemoglobin 31.5 pg (25-34); Mean Corpuscular Hgb Conc 33.2 g/dL (32-36); Mean Corpuscular Volume 94.9 fL (80-100); Monocytes # (auto) 1.31 K/uL (0.11-0.59); Monocytes % (auto) 11.9 %; Neutrophils # (auto) 8.64 K/uL (1.4-6.5); Neutrophils % (auto) 78.7 %; Platelet Count 353 K/uL (130-400); RDW Coefficient of Variation 12.4 % (11.5-14.5); RDW Standard Deviation 42.5 fL (36.4-46.3); Red Blood Count 3.14 M/uL (4.2-5.4); White Blood Count 10.98 K/uL (4.8-10.8)
[2021-12-20 05:11] LABS: Appearance Urine Turbid (Clear); Bilirubin Urine Negative (Negative); Blood Urine 2+ (Negative); Color Urine Yellow; Epithelial Cell Urine Auto >30 /lpf (0-5); Glucose Urine UA Negative (Negative); Ketones Urine Trace (Negative); Leukocyte Esterase Urine 1+ (Negative); Nitrite Urine Negative (Negative); Protein Urine 2+ (Negative); Specific Gravity Urine 1.016 (1.000-1.030); Urobilinogen Urine Negative (Negative); pH Urine 5.5 (4.5-7.5)
[2021-12-20] MEDS ORDERED: ACETAMINOPHEN 1,000 MG/100 ML VIAL IV STA (05:24)
[2021-12-20 05:34] LABS: Bacteria Urine Automated 2+ (Negative); Calcium Oxalate Crystals Urine Present (None Prsent); RBC Urine Automated 0-4 /hpf (0-4)
--- NOTE | 2021-12-20 05:57 | Emergency Department Note ---
History of Present Illness General Chief complaint: Back Injury/Pain Stated complaint: Back Pain Time Seen by Provider: 12/20/21 03:37 Source: patient, family and EMS Mode of arrival: EMS Limitations: patient cooperation History of Present Illness Provider complaint: back pain Maximum Pain Intensity: 9 Treatments prior to arrival: other This is a 76-year-old female brought in by EMS due to concern for worsening back pain. Patient does have multiple medications at home and states she has chronic back pain. She states it has been worse over the last month. EMS noted she was mildly hypoxic on their arrival she was placed on oxygen via nasal cannula with improvement. Patient denies shortness of breath, chest pain. Patient states "everything hurts and my sciatica is acting up". Patient states she has previously had x-rays taken of her back. Patient does have a history of chronic kidney disease and states she does follow with a kidney specialist. Patient denies fevers, chills, cough or cold symptoms. She denies chest pain or SOB. Patient denies any change in her urine or bowel movements. Patient denies any accompanying numbness or tingling. Pt seen during a time of high acuity and national emergency pandemic while wearing PPE. Home Medications Medication Instructions Recorded Confirmed Type Lactobacillus rhamnosus GG 10 2 cap PO QAM 07/20/20 12/20/21 History billion cell capsule (Culturelle) aspirin 81 mg tablet,delayed 81 mg PO QAM 07/20/20 12/20/21 History release famotidine 20 mg tablet 20 mg PO PM 07/20/20 12/20/21 History multivitamin 1 tab PO QAM 07/20/20 12/20/21 History omeprazole 20 mg capsule,delayed 20 mg PO QAM 07/20/20 12/20/21 History release diphenhydramine 25 1 tab PO HS PRN #0 08/13/20 12/20/21 History mg-acetaminophen 500 mg tablet (Tylenol PM Extra Strength) acetaminophen 500 mg tablet 500 mg PO Q6H PRN 07/23/21 12/20/21 History (Tylenol Extra Strength) amlodipine 10 mg tablet 10 mg PO DAILY #30 tab 08/01/21 12/20/21 Rx docusate sodium 100 mg capsule 100 mg PO BID 12/20/21 12/20/21 History (Col-Rite) glipizide 5 mg tablet 2.5 mg PO .DAILY/UD 12/20/21 12/20/21 History hydromorphone 2 mg tablet 2 mg PO Q4H PRN 12/20/21 12/20/21 History insulin NPH isoph U-100 human 100 10 unit SUBCUT .DAILY/UD 12/20/21 12/20/21 History unit/mL (3 mL) subcutaneous pen (Humulin N NPH U-100 Insulin KwikPen) insulin NPH isoph U-100 human 100 12 unit SUBCUT UD 12/20/21 12/20/21 History unit/mL (3 mL) subcutaneous pen (Humulin N NPH U-100 Insulin KwikPen) levothyroxine 88 mcg tablet 88 mcg PO DAILYBB 12/20/21 12/20/21 History prednisone 5 mg tablet 2.5 mg PO QAM 12/20/21 12/20/21 History tizanidine 2 mg capsule 2 mg PO AMPM 12/20/21 12/20/21 History torsemide 20 mg tablet 20 mg PO DAILY 12/20/21 12/20/21 History Allergies Allergy/AdvReac Type Severity Reaction Status Date / Time simvastatin Allergy Intermediate MUSCLE PAIN Verified 07/23/21 09:50 codeine Allergy Unknown RASH Verified 07/23/21 09:50 Iodinated Contrast Media Allergy Unknown Hives Verified 07/23/21 09:50 Sulfa (Sulfonamide AdvReac Intermediate HIVES,NAUSE Verified 07/23/21 09:50 Antibiotics) A gabapentin AdvReac Unknown NAUSEA Verified 07/23/21 09:50 pravastatin AdvReac Unknown Abdominal Verified 07/23/21 09:50 Pain Past Med/Surg History Medical History (Updated 12/21/21 @ 21:49 by Hina Mason, DO) 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, 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 Elevated troponin GERD (gastroesophageal reflux disease) Hypertension Kidney stones Osteoarthritis Pyelonephritis July 2020 Surgical History (Updated 12/20/21 @ 20:52 by Barbara Apodaca MD, PhD) H/O dilation and curettage History of carotid endarterectomy Right> 2005> FOLLOWS PCP History of colonoscopy History of hysterectomy History of tonsillectomy History of tooth extraction S/P ureteral stent placement 07/2020 for L ureteral stone Family History Father Diabetes Mother Diabetes Sister Colon cancer Social History Smoking Status: Never smoker Second Hand Exposure: No; Hx Alcohol Use: No Hx Substance Use: No Preferred Language: Jamaican Communication Ability: Effective Visual Impairment: No Limitations Tube Winder Required: No Beliefs That Will Affect Care: None Current Living Situation: Family Current Living Situation Comment: Son in from [place] to take care of her at this time. Other Information That Helps Us Care for You: No Feels Safe at Home: Yes Safety Concerns: Feels Safe At This Time Assistive Devices: Cane Review of Systems A total of 10 systems reviewed and were otherwise negative All systems reviewed & are unremarkable except as noted in HPI & below Physical Exam Vital Signs Vital Signs - 24 hr 12/20/21 03:44 12/20/21 06:18 Temperature 37.8 C H Temperature Source Oral Pulse Rate 91 H Pulse Rate [Right Finger] 71 Respiratory Rate 18 18 Respiratory Effort / Characteristics Non-Labored Spontaneous Non-Labored Spontaneous Respiratory Depth Normal Normal Blood Pressure 165/89 H Blood Pressure [Right Arm] 138/58 L Blood Pressure Mean 114 Blood Pressure Mean [Right Arm] 84 Blood Pressure Position Lying Blood Pressure Position [Right Arm] Lying Pulse Oximetry 95 94 Oxygen Delivery Method Nasal Cannula Nasal Cannula Oxygen Flow Rate 3 3 Sepsis New/Unexplained Change in Mental Status No Sepsis Action Taken by Nursing No Action Required GENERAL: alert, crying, well nourished, moderate distress, non-toxic EYE EXAM: normal conjunctiva, PERRL and EOM's grossly intact OROPHARYNX: no exudate, no erythema, lips, buccal mucosa, and tongue normal and mucous membranes are moist NECK: supple, no nuchal rigidity, no adenopathy, non-tender LUNGS: Clear to auscultation. Normal chest wall mechanics, no w/r/r HEART: no murmurs, S1 normal and S2 normal ABDOMEN: abdomen soft, non-tender, normo-active bowel sounds, no masses, no rebound or guarding. BACK: Back is symmetrical on inspection and there is no deformity, no midline tenderness, no CVA tenderness. SKIN: no rashes and no bruising UPPER EXTREMITIES: upper extremities are grossly normal. FROM, nml pulses b/l. LOWER EXTREMITIES: No pitting edema. FROM, nml pulses b/l. NEURO EXAM: Normal sensorium, cranial nerves II-XII grossly intact, normal speech, no gross weakness of arms, no gross weakness of legs. Gross sensation intact. Course Course 399: Patient signed out at bedside who states she is getting worse over the last several days, refusing to allow him to check her sugar, refusing certain medications. He states they have been adjusting several of her medications to help control her ongoing pain and they do not seem to be helping. He states in the last several days she is even been refusing to get out of bed. He states she does follow with Dr. Solis of nephrology due to worsening kidney dysfunction. He states there is some concern she may eventually need dialysis. He denies fevers or chills. Denies cough/cold symptoms. Denies change in bowel or bladder function. He states he has been trying to get her in with pain management. Administered Medications Amlodipine Besylate (Amlodipine Besylate 5 Mg Tab) 5 mg PO DAILY BEAU Stop: 01/19/22 08:59 Last Admin: 12/21/21 07:39 Dose: 5 mg Documented by: [id number] Admin: 12/20/21 11:20 Dose: 5 mg Documented by: [id number] Aspirin (Aspirin 81 Mg Ectab) 81 mg PO QAM BEAU Stop: 01/19/22 09:47 Last Admin: 12/21/21 07:39 Dose: 81 mg Documented by: [id number] Admin: 12/20/21 10:36 Dose: 81 mg Documented by: [id number] Docusate Sodium (Docusate Sodium 100 Mg Cap) 100 mg PO PM BEAU Stop: 01/19/22 20:59 Last Admin: 12/21/21 20:23 Dose: 100 mg Documented by: [id number] Admin: 12/20/21 20:08 Dose: 100 mg Documented by: [id number] Famotidine (Famotidine 20 Mg Tab) 20 mg PO PM BEAU Stop: 01/19/22 20:59 Last Admin: 12/21/21 20:23 Dose: 20 mg Documented by: [id number] Admin: 12/20/21 20:08 Dose: 20 mg Documented by: [id number] Heparin Sodium (Porcine) (Heparin Sod 5,000 Unit/0.5 Ml Vial) 5,000 units SQ Q8 [facility] Stop: 01/19/22 13:59 Last Admin: 12/21/21 20:23 Dose: 5,000 units Documented by: [id number] Admin: 12/21/21 14:00 Dose: Not Given Documented by: [id number] Admin: 12/21/21 07:38 Dose: 5,000 units Documented by: [id number] Admin: 12/20/21 21:04 Dose: 5,000 units Documented by: [id number] Admin: 12/20/21 15:04 Dose: 5,000 units Documented by: [id number] Hydromorphone HCl (Hydromorphone Inj 0.5 Mg/0.5 Ml Syr) 0.5 mg IV Q3H PRN PRN Reason: Pain Stop: 01/03/22 07:16 Last Admin: 12/21/21 21:27 Dose: 0.5 mg Documented by: [id number] Admin: 12/21/21 11:13 Dose: 0.5 mg Documented by: [id number] Admin: 12/20/21 21:05 Dose: 0.5 mg Documented by: [id number] Admin: 12/20/21 17:49 Dose: 0.5 mg Documented by: [id number] Hydromorphone HCl (Hydromorphone Hcl 2 Mg Tab) 2 mg PO Q4H PRN PRN Reason: Pain Stop: 01/03/22 07:16 Last Admin: 12/20/21 20:08 Dose: 2 mg Documented by: [id number] Admin: 12/20/21 10:20 Dose: 2 mg Documented by: [id number] Promethazine HCl 6.25 mg/ (Sodium Chloride) 50.25 mls @ 201 mls/hr IV Q6H PRN PRN Reason: Nausea And Vomiting Stop: 01/19/22 07:16 Last Admin: 12/21/21 21:22 Dose: 201 mls/hr Documented by: [id number] Insulin Aspart (Insulin Aspart Per Unit) 0 units SC ACHS BEAU Stop: 01/19/22 07:29 Last Admin: 12/21/21 20:22 Dose: Not Given Documented by: [id number] Admin: 12/21/21 17:41 Dose: Not Given Documented by: [id number] Admin: 12/21/21 12:42 Dose: Not Given Documented by: [id number] Admin: 12/21/21 09:26 Dose: Not Given Documented by: [id number] Cosigned by: [id number] Admin: 12/20/21 20:26 Dose: Not Given Documented by: [id number] Admin: 12/20/21 16:52 Dose: 3 units Documented by: [id number] Cosigned by: [id number] Admin: 12/20/21 12:09 Dose: Not Given Documented by: [id number] Admin: 12/20/21 10:08 Dose: Not Given Documented by: [id number] Insulin Glargine (Insulin Glargine Solostar 100 Units/Ml 3 Ml Pen) 5 units SC HS [facility] Stop: 01/19/22 20:59 Last Admin: 12/21/21 20:23 Dose: 5 units Documented by: [id number] Cosigned by: [id number] Admin: 12/20/21 21:12 Dose: 5 units Documented by: [id number] Cosigned by: [id number] Lactobacillus Acidophilus (Advanced Probiotic 1250 Mg Capsule) 2 cap PO QAM [facility] Stop: 01/19/22 09:47 Last Admin: 12/21/21 11:03 Dose: Not Given Documented by: [id number] Admin: 12/20/21 10:36 Dose: 2 cap Documented by: [id number] Levothyroxine Sodium (Levothyroxine Sodium 88 Mcg Tablet) 88 mcg PO DAILYBB [facility] Stop: 01/19/22 06:29 Last Admin: 12/21/21 07:38 Dose: 88 mcg Documented by: [id number] Admin: 12/20/21 10:36 Dose: 88 mcg Documented by: [id number] Lidocaine (Lidocaine 5% 1 Patch) 1 patch TD QAM [facility] Stop: 01/19/22 09:47 Last Admin: 12/21/21 11:28 Dose: Not Given Documented by: [id number] Admin: 12/20/21 10:33 Dose: 1 patch Documented by: [id number] Lorazepam (Lorazepam 2 Mg/1 Ml Vial) 0.25 mg IV Q4H PRN PRN Reason: Anxiety Stop: 01/19/22 07:16 Last Admin: 12/20/21 21:06 Dose: 0.25 mg Documented by: [id number] Admin: 12/20/21 10:19 Dose: 0.25 mg Documented by: [id number] Miscellaneous (Remove Lidoderm Patch) 1 ea N/A DAILY@2100 [facility] Stop: 01/19/22 20:59 Last Admin: 12/21/21 20:24 Dose: Not Given Documented by: [id number] Admin: 12/20/21 21:05 Dose: 1 ea Documented by: [id number] Pantoprazole Sodium (Pantoprazole 40 Mg Tab) 40 mg PO QAM [facility] Stop: 01/19/22 09:47 Last Admin: 12/21/21 11:04 Dose: Not Given Documented by: [id number] Admin: 12/20/21 10:36 Dose: 40 mg Documented by: [id number] Prednisone (Prednisone 2.5 Mg Tab) 2.5 mg PO DAILY [facility] Stop: 01/19/22 09:47 Last Admin: 12/21/21 11:04 Dose: Not Given Documented by: [id number] Admin: 12/20/21 10:36 Dose: 2.5 mg Documented by: [id number] Discontinued Medications Hydromorphone HCl (Hydromorphone Inj 0.5 Mg/0.5 Ml Syr) 0.5 mg IV Q15M PRN PRN Reason: Pain Stop: 01/03/22 04:14 Last Admin: 12/20/21 06:23 Dose: 0.5 mg Documented by: [id number] Admin: 12/20/21 05:27 Dose: 0.5 mg Documented by: [id number] Admin: 12/20/21 04:20 Dose: 0.5 mg Documented by: [id number] Acetaminophen (Ofirmev) 1,000 mg in 100 mls @ 400 mls/hr IV NOW STA Stop: 12/20/21 05:38 Last Infusion: 12/20/21 05:46 Dose: 0 mls/hr Documented by: [id number] Admin: 12/20/21 05:31 Dose: 400 mls/hr Documented by: [id number] Cefepime HCl (Maxipime) 2,000 mg in 20 mls @ 5 mls/min IV NOW STA; Protocol Stop: 12/20/21 07:13 Last Admin: 12/20/21 08:36 Dose: 5 mls/min Documented by: [id number] Albumin Human (Albumin 25% 100 Ml) 25 gm in 100 mls @ 50 mls/hr IV ONE ONE Stop: 12/20/21 09:07 Last Infusion: 12/20/21 10:42 Dose: 0 mls/hr Documented by: [id number] Admin: 12/20/21 08:36 Dose: 50 mls/hr Documented by: [id number] Cefepime HCl 1,000 mg/ Syringe 11.3 mls @ 5 mls/min IV Q24H [facility]; Protocol Stop: 12/29/21 09:03 Last Admin: 12/21/21 08:49 Dose: 5 mls/min Documented by: [id number] Sodium Bicarbonate (Sodium Bicarb 8.4% Inj 50 Meq/50 Ml Syr) 50 meq IV NOW STA Stop: 12/20/21 06:23 Last Admin: 12/20/21 07:39 Dose: 50 meq Documented by: [id number] Medical Decision Making Differential Diagnosis Differential diagnoses includes but is not limited to lumbar radiculopathy, muscle strain, facture, cauda equina, mass, and disc herniation. Medical Records Attestation: I reviewed the patient's medical records. Home Medications Current Medication List: was personally reviewed by me Laboratory Data Attestation: I reviewed the patient's lab results. Result diagrams: 12/21/21 09:55 12/21/21 09:55 Lab Results 12/20/21 12/20/21 12/20/21 Range/Units 04:09 04:09 04:09 WBC 10.98 H (4.8-10.8) K/uL RBC 3.14 L (4.2-5.4) M/uL Hgb 9.9 L (12.0-16.0) g/dL Hct 29.8 L (37-47) % MCV 94.9 (80-100) fL MCH 31.5 (25-34) pg MCHC 33.2 (32-36) g/dL RDW Std Deviation 42.5 (36.4-46.3) fL RDW Coeff of Abebe 12.4 (11.5-14.5) % Plt Count 353 (130-400) K/uL Immature Gran % (Auto) 0.7 % Neut % (Auto) 78.7 % Lymph % (Auto) 7.3 % [place] % (Auto) 11.9 % Eos % (Auto) 1.1 % Baso % (Auto) 0.3 % Neut # (Auto) 8.64 H (1.4-6.5) K/uL Lymph # (Auto) 0.80 L (1.2-3.4) K/uL [place] # (Auto) 1.31 H (0.11-0.59) K/uL Eos # (Auto) 0.12 (0-0.5) K/uL Baso # (Auto) 0.03 (0-0.2) K/uL Immature Gran # (Auto) 0.08 H (0.00-0.02) K/uL Sodium 140 (136-145) mmol/L Potassium 5.2 H (3.5-5.1) mmol/L Chloride 107 (98-107) mmol/L Carbon Dioxide 20 L (21-32) mmol/L Anion Gap 13 H (3-11) BUN 68 H (6-23) mg/dl Creatinine 4.13 H (0.6-1.2) mg/dl Est Cr Clr Drug Dosing Not Reportable Est GFR ( Amer) 11.3 ml/min Est GFR (Non-Af Amer) 9.8 ml/min BUN/Creatinine Ratio 16.5 (10-20) Glucose 117 H (70-99(Fasting)) mg/dl Calcium 11.1 H (8.5-10.1) mg/dl Phosphorus 4.6 (2.5-4.9) mg/dl Magnesium 2.1 (1.7-2.4) mg/dl Total Bilirubin 0.3 (0.2-1.0) mg/dl AST 17 (13-39) U/L ALT 6 L (7-52) U/L Alkaline Phosphatase 43 (34-104) U/L Total Creatine Kinase 33 (26-192) U/L Troponin I High Sens 701.4 H* (0-14) pg/ml Total Protein 7.0 (6.0-8.3) gm/dl Albumin 3.6 (3.4-5.0) gm/dl Globulin 3.4 (2.5-4.0) gm/dl Albumin/Globulin Ratio 1.1 (0.9-2) Urine Color Urine Appearance (Clear) Urine pH (4.5-7.5) Ur Specific [place] (1.000-1.030) Urine Protein (Negative) Urine Glucose (UA) (Negative) Urine Ketones (Negative) Urine Blood (Negative) Urine Nitrite (Negative) Urine Bilirubin (Negative) Urine Urobilinogen (Negative) Ur Leukocyte Esterase (Negative) Urine WBC (Auto) (0-5) /hpf Urine RBC (Auto) (0-4) /hpf U Hyaline Cast (Auto) (0-5) /lpf U Epithel Cells (Auto) (0-5) /lpf Urine Bacteria (Auto) (Negative) Urine Crystals Calcium Oxalate Crystal (None Prsent) Urine Yeast SARS-CoV-2, RNA, NAAT (NEGATIVE) 12/20/21 12/20/21 Range/Units 04:39 06:24 WBC (4.8-10.8) K/uL RBC (4.2-5.4) M/uL Hgb (12.0-16.0) g/dL Hct (37-47) % MCV (80-100) fL MCH (25-34) pg MCHC (32-36) g/dL RDW Std Deviation (36.4-46.3) fL RDW Coeff of Abebe (11.5-14.5) % Plt Count (130-400) K/uL Immature Gran % (Auto) % Neut % (Auto) % Lymph % (Auto) % [place] % (Auto) % Eos % (Auto) % Baso % (Auto) % Neut # (Auto) (1.4-6.5) K/uL Lymph # (Auto) (1.2-3.4) K/uL [place] # (Auto) (0.11-0.59) K/uL Eos # (Auto) (0-0.5) K/uL Baso # (Auto) (0-0.2) K/uL Immature Gran # (Auto) (0.00-0.02) K/uL Sodium (136-145) mmol/L Potassium (3.5-5.1) mmol/L Chloride (98-107) mmol/L Carbon Dioxide (21-32) mmol/L Anion Gap (3-11) BUN (6-23) mg/dl Creatinine (0.6-1.2) mg/dl Est Cr Clr Drug Dosing Est GFR ( Amer) ml/min Est GFR (Non-Af Amer) ml/min BUN/Creatinine Ratio (10-20) Glucose (70-99(Fasting)) mg/dl Calcium (8.5-10.1) mg/dl Phosphorus (2.5-4.9) mg/dl Magnesium (1.7-2.4) mg/dl Total Bilirubin (0.2-1.0) mg/dl AST (13-39) U/L ALT (7-52) U/L Alkaline Phosphatase (34-104) U/L Total Creatine Kinase (26-192) U/L Troponin I High Sens (0-14) pg/ml Total Protein (6.0-8.3) gm/dl Albumin (3.4-5.0) gm/dl Globulin (2.5-4.0) gm/dl Albumin/Globulin Ratio (0.9-2) Urine Color Yellow Urine Appearance Turbid A (Clear) Urine pH 5.5 (4.5-7.5) Ur Specific [place] 1.016 (1.000-1.030) Urine Protein 2+ H (Negative) Urine Glucose (UA) Negative (Negative) Urine Ketones Trace H (Negative) Urine Blood 2+ H (Negative) Urine Nitrite Negative (Negative) Urine Bilirubin Negative (Negative) Urine Urobilinogen Negative (Negative) Ur Leukocyte Esterase 1+ H (Negative) Urine WBC (Auto) 1-5 (0-5) /hpf Urine RBC (Auto) 0-4 (0-4) /hpf U Hyaline Cast (Auto) 1-5 (0-5) /lpf U Epithel Cells (Auto) >30 H (0-5) /lpf Urine Bacteria (Auto) 2+ H (Negative) Urine Crystals Not Reportable Calcium Oxalate Crystal Present A (None Prsent) Urine Yeast Not Reportable SARS-CoV-2, RNA, NAAT NEGATIVE (NEGATIVE) Imaging Data Radiologist's Impression: Chest X-Ray 12/20/21 03:47 XR chest 1V portable CLINICAL HISTORY: hypoxia TECHNIQUE: Single frontal radiograph of the chest was obtained. Comparison: Comparison is made to chest radiograph 07/23/2021 FINDINGS: No lines and tubes are seen. The cardiomediastinal silhouette is normal. Multifocal airspace opacities are seen. There is a small left pleural effusion. Pleural calcifications are seen most prominent at the apices. IMPRESSION: Multifocal airspace opacities may represent atelectasis, pneumonia, and/or aspiration. ACT 112: Negative or not required by law. Electronically signed by: Robe Cruz M.D. 12/20/2021 7:[address] L-spine: Impression: The bones are osteopenic grade 1 L4-5 spondylolisthesis with moderate degenerative disc disease. Radiologist: Hebert Cho MD ECG Data Attestation: I personally reviewed and interpreted this ECG as follows: Indication: + back/shoulder pain Rate (beats per minute): 92 Rhythm: + normal sinus ECG Intervals/blocks: + Normal QRS and + Normal QT ECG [place]: + Normal ECG ST segments: + Nonspecific ST abnormalities MDM Narrative This is a 76 yo patient brought in due to concern for worsening back pain. Patient hx of chronic back pain. Patient takes several oral meds. Patient has been on a long steroid taper per son by nephro. Denies fever/chills. Patient difficult to obtain hx from due to persistent complaints of pain, however refuses several treatments. Patient was eventually in agreement with CT of low back. Labs obtained. VS stable and pt afebrile. Patient noted to be mildly hypoxic on RA, doesn't where home oxygen. Patient and son state no recent resp sx and pt denies SOB. CXR ordered and case discussed with hospitalist. Patient found to have EMILIE on top of CKD. Troponin elevated, however until given new test if related to renal dysfunction as it has been elevated previously due to CKD. No EKG changes. UA suboptimal with many epis. No significant leukocytosis. An order was placed for continuous cardiac monitoring. The monitor shows a rate of _72_ with _normal sinus_ rhythm. Impression & Plan Intractable low back pain, CKD (chronic kidney disease) stage 5, GFR less than 15 ml/min, Chronic lumbar radiculopathy, EMILIE (acute kidney injury), Noncompliance Discharge Plan Visit Data Chief Complaint: Back Injury/Pain Stated Complaint: Back Pain ED Provider: Hina Mason Discharge Problem: Intractable low back pain, CKD (chronic kidney disease) stage 5, GFR less than 15 ml/min, Chronic lumbar radiculopathy, EMILIE (acute kidney injury), Noncompliance Patient Disposition: Admitted As Inpatient Discharge Instructions Interventions: ED Discharge Assessment Last Done: 12/20/21 09:15
--- NOTE | 2021-12-20 06:26 | History & Physical Report ---
Date of Service December 20, 2021 Assessment & Plan (1) Sepsis: Plan: Immunocompromised patient History vasculitis on steroid taper Possible sources : Complicated UTI Spine infection Endocarditis given troponin elevation ARF on CKD, hyperkalemia, hypercalcemia secondary to illness hypertension, slight elevated history CVA/PVD DM 2 insulin requiring, reasonable control as of recent hemoglobin A1c of 7.27 November 2021 hypothyroidism, euthyroid as of recent outpatient TSH chronic anemia, hemoglobin at baseline PCU given significant troponin elevation CS, Cefepime for now Check MRSA nasal swab, add Daptomycin to regimen if MRSA positive Follow official CT lumbar spine report May need MRI to definitely rule out spine infection if CT lumbar spine unremarkable Follow troponin TTE Re: Significant troponin elevation Hypercalcemia work-up Nephrology consult Re: ARF on CKD, hypercalcemia Further management pending work-up results Basal insulin, ISS BG goal 1 10-1 40, carb count coverage DVT prophylaxis. Heparin subcu Full code Patient son requesting updates from providers. Mr. Albert Thomas, contact #[phone]. Text document was generated using [employer] voice recognition software. It may contain grammatical or spelling errors. Kindly contact undersigned for clarification of any documentation item in question. History of Present Illness Chief Complaint: Worsening back pain Primary Care Provider: Angela Cheek, History obtained from patient, family, and records. Limited history from patient secondary to discomfort. 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 Last confinement July 2021 for ARF on CKD, ANCA associated vasculitis. Patient discharged on steroid taper. 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 3 months ago, patient seen at the ER for left hip/back pain with radiation to the left lower extremity without antecedent trauma symptoms. Symptoms attributed to sciatica. Worsening left lower back discomfort over the last few months. Patient not moving as much as per son. Patient denies chest pain, SOB, abdominal pain, diarrhea, dysuria symptoms, fluid retention. Patient denies fever or chills. Poor appetite as per son. Intractable pain upon arrival at the ER. 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 Allergies Allergy/AdvReac Type Severity Reaction Status Date / Time simvastatin Allergy Intermediate MUSCLE PAIN Verified 07/23/21 09:50 codeine Allergy Unknown RASH Verified 07/23/21 09:50 Iodinated Contrast Media Allergy Unknown Hives Verified 07/23/21 09:50 Sulfa (Sulfonamide AdvReac Intermediate HIVES,NAUSE Verified 07/23/21 09:50 Antibiotics) A gabapentin AdvReac Unknown NAUSEA Verified 07/23/21 09:50 pravastatin AdvReac Unknown Abdominal Verified 07/23/21 09:50 Pain Home Medications Medication Instructions Recorded Confirmed Type Lactobacillus rhamnosus GG 10 2 cap PO QAM 07/20/20 08/21/21 History billion cell capsule (Culturelle) aspirin 81 mg tablet,delayed 81 mg PO QAM 07/20/20 08/21/21 History release cholecalciferol (vitamin D3) 25 25 mcg PO QAM 07/20/20 08/21/21 History mcg (1,000 unit) tablet docusate sodium 100 mg capsule 100 mg PO PM 07/20/20 08/21/21 History (DOK) famotidine 20 mg tablet 20 mg PO PM 07/20/20 08/21/21 History levothyroxine 75 mcg tablet 75 mcg PO QAM 07/20/20 08/21/21 History meclizine 12.5 mg tablet 12.5 mg PO TID PRN 07/20/20 08/21/21 History multivitamin 1 tab PO QAM 07/20/20 08/21/21 History omeprazole 20 mg capsule,delayed 20 mg PO QAM 07/20/20 08/21/21 History release diphenhydramine 25 1 tab PO HS PRN #0 08/13/20 08/21/21 History mg-acetaminophen 500 mg tablet (Tylenol PM Extra Strength) acetaminophen 500 mg tablet 500 mg PO Q6H PRN 07/23/21 08/21/21 History (Tylenol Extra Strength) amlodipine 10 mg tablet 10 mg PO DAILY #30 tab 08/01/21 08/21/21 Rx glipizide 5 mg tablet 5 mg PO BID #60 tab 12/05/21 12/25/21 Rx prednisone 20 mg tablet 60 mg PO DAILY #90 tab 08/01/21 08/21/21 Rx cyclobenzaprine 5 mg tablet 5 mg PO TID PRN #30 tab 08/21/21 Rx pregabalin 25 mg capsule (Lyrica) 25 mg PO Q8H #14 cap 08/21/21 Rx Past Med/Surg History Medical History Acute kidney injury superimposed on chronic kidney disease CKD (chronic kidney disease) stage 3, GFR 30-59 ml/min Elevated troponin GERD (gastroesophageal reflux disease) Hypertension Kidney stones Metabolic acidosis with normal anion gap and bicarbonate losses Osteoarthritis Pyelonephritis Recently admitted and treated with abxs Urinary incontinence JUST OCCASIONALLY Surgical History H/O dilation and curettage History of carotid endarterectomy Right> 2004> FOLLOWS PCP History of colonoscopy History of hysterectomy History of tonsillectomy History of tooth extraction Family History Father Diabetes Mother Diabetes Sister Colon cancer Social History Smoking Status: Never smoker Second Hand Exposure: No; Hx Alcohol Use: No Hx Substance Use: No Preferred Language: Divehi Communication Ability: Effective Visual Impairment: No Limitations 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 Physical Exam Physical Exam: GENERAL: uncomfortable, anxious, whining in pain, no respiratory distress SKIN: Pallor, warm HEENT: Pale palpebral conjunctivae, no ptosis, dry buccal mucosa NECK : Supple, no tenderness CHEST : CTA, no tenderness HEART : RRR, no obvious murmurs ABDOMEN: Some distention, nontender BACK : Low back tenderness, positive SLR left EXTREMITIES : No LE swelling/tenderness, no other conspicuous deformities noted NEUROLOGIC : Coherent, no facial asymmetry, gait and stance not assessed Results & Data Results & Data ([facility]) Vital Signs (Past 12 Hours) Vital Signs Temp Pulse Pulse Resp BP BP Pulse Ox 12/20/21 06:18 71 18 138/58 L 94 12/20/21 03:44 37.8 C H 91 H 18 165/89 H 95 Laboratory Results Laboratory Results WBC 10.98 K/uL (4.8-10.8) H 12/20/21 04:09 RBC 3.14 M/uL (4.2-5.4) L 12/20/21 04:09 Hgb 9.9 g/dL (12.0-16.0) L 12/20/21 04:09 Hct 29.8 % (37-47) L 12/20/21 04:09 MCV 94.9 fL (80-100) 12/20/21 04:09 MCH 31.5 pg (25-34) 12/20/21 04:09 MCHC 33.2 g/dL (32-36) 12/20/21 04:09 RDW Std Deviation 42.5 fL (36.4-46.3) 12/20/21 04:09 RDW Coeff of [place] 12.4 % (11.5-14.5) 12/20/21 04:09 Plt Count 353 K/uL (130-400) 12/20/21 04:09 Immature Gran % (Auto) 0.7 % 12/20/21 04:09 Neut % (Auto) 78.7 % 12/20/21 04:09 Lymph % (Auto) 7.3 % 12/20/21 04:09 [place] % (Auto) 11.9 % 12/20/21 04:09 Eos % (Auto) 1.1 % 12/20/21 04:09 Baso % (Auto) 0.3 % 12/20/21 04:09 Neut # (Auto) 8.64 K/uL (1.4-6.5) H 12/20/21 04:09 Lymph # (Auto) 0.80 K/uL (1.2-3.4) L 12/20/21 04:09 [place] # (Auto) 1.31 K/uL (0.11-0.59) H 12/20/21 04:09 Eos # (Auto) 0.12 K/uL (0-0.5) 12/20/21 04:09 Baso # (Auto) 0.03 K/uL (0-0.2) 12/20/21 04:09 Immature Gran # (Auto) 0.08 K/uL (0.00-0.02) H 12/20/21 04:09 Sodium 140 mmol/L (136-145) 12/20/21 04:09 Potassium 5.2 mmol/L (3.5-5.1) H 12/20/21 04:09 Chloride 107 mmol/L (98-107) 12/20/21 04:09 Carbon Dioxide 20 mmol/L (21-32) L 12/20/21 04:09 Anion Gap 13 (3-11) H 12/20/21 04:09 BUN 68 mg/dl (6-23) H 12/20/21 04:09 Creatinine 4.13 mg/dl (0.6-1.2) H 12/20/21 04:09 Est Cr Clr Drug Dosing Not Reportable 12/20/21 04:09 Est GFR ( Amer) 11.3 ml/min 12/20/21 04:09 Est GFR (Non-Af Amer) 9.8 ml/min 12/20/21 04:09 BUN/Creatinine Ratio 16.5 (10-20) 12/20/21 04:09 Glucose 117 mg/dl (70-99(Fasting)) H 12/20/21 04:09 Calcium 11.1 mg/dl (8.5-10.1) H 12/20/21 04:09 Magnesium 2.1 mg/dl (1.7-2.4) 12/20/21 04:09 Total Bilirubin 0.3 mg/dl (0.2-1.0) 12/20/21 04:09 AST 17 U/L (13-39) 12/20/21 04:09 ALT 6 U/L (7-52) L 12/20/21 04:09 Alkaline Phosphatase 43 U/L (34-104) 12/20/21 04:09 Troponin I High Sens 701.4 pg/ml (0-14) H* 12/20/21 04:09 Total Protein 7.0 gm/dl (6.0-8.3) 12/20/21 04:09 Albumin 3.6 gm/dl (3.4-5.0) 12/20/21 04:09 Globulin 3.4 gm/dl (2.5-4.0) 12/20/21 04:09 Albumin/Globulin Ratio 1.1 (0.9-2) 12/20/21 04:09 Urine Color Yellow 12/20/21 04:39 Urine Appearance Turbid (Clear) A 12/20/21 04:39 Urine pH 5.5 (4.5-7.5) 12/20/21 04:39 Ur Specific [place] 1.016 (1.000-1.030) 12/20/21 04:39 Urine Protein 2+ (Negative) H 12/20/21 04:39 Urine Glucose (UA) Negative (Negative) 12/20/21 04:39 Urine Ketones Trace (Negative) H 12/20/21 04:39 Urine Blood 2+ (Negative) H 12/20/21 04:39 Urine Nitrite Negative (Negative) 12/20/21 04:39 Urine Bilirubin Negative (Negative) 12/20/21 04:39 Urine Urobilinogen Negative (Negative) 12/20/21 04:39 Ur Leukocyte Esterase 1+ (Negative) H 12/20/21 04:39 Urine WBC (Auto) 1-5 /hpf (0-5) 12/20/21 04:39 Urine RBC (Auto) 0-4 /hpf (0-4) 12/20/21 04:39 U Hyaline Cast (Auto) 1-5 /lpf (0-5) 12/20/21 04:39 U Epithel Cells (Auto) >30 /lpf (0-5) H 12/20/21 04:39 Urine Bacteria (Auto) 2+ (Negative) H 12/20/21 04:39 Urine Crystals Not Reportable 12/20/21 04:39 Calcium Oxalate Crystal Present (None Prsent) A 12/20/21 04:39 Urine Yeast Not Reportable 12/20/21 04:[address] lumbar spine initial read: The bones are osteopenic Grade 1 L4/5 spondylolisthesiswith moderate degenerative disc diseas Chest x-ray as per my interpretation congestion EKG as per my interpretation : Rate 90, NSR, normal axis, T wave inversion inferior leads
[2021-12-20] MEDS: SODIUM BICARB 8.4% INJ 50 MEQ/50 ML SYR IV STA ×2 (06:46→07:39)
[2021-12-20 07:05] LABS: Phosphorus 4.6 mg/dl (2.5-4.9)
[2021-12-20] MEDS ORDERED: ALBUMIN 25% 100 mL 25 GM/100 ML VIAL IV ONE (07:08)
[2021-12-20] MEDS ORDERED: CEFEPIME 2,000 MG/20 ML VIAL IV STA (07:10)
[2021-12-20] MEDS ORDERED: CARBOHYDRATES FOR HYPOGLYCEMIA PO PRN (07:17)
[2021-12-20] MEDS ORDERED: PROMETHAZINE HCL 6.25 MG in SODIUM CHLORIDE 0.9% 50 ML IV PRN (07:17)
[2021-12-20] MEDS ORDERED: GLUCOSE 40% GEL 15 GM TUBE PO PRN (07:17)
[2021-12-20] MEDS ORDERED: GLUCOSE 10 TABS/TUBE PO PRN (07:17)
[2021-12-20] MEDS ORDERED: GLUCAGON FOR INJ 1 MG VIAL SQ PRN (07:17)
[2021-12-20] MEDS ORDERED: DEXTROSE 50% 50 ML SYRINGE IV PRN (07:17)
--- NOTE | 2021-12-20 07:18 | XRay Report ---
XR chest 1V portable CLINICAL HISTORY: hypoxia TECHNIQUE: Single frontal radiograph of the chest was obtained. Comparison: Comparison is made to chest radiograph 07/23/2021 FINDINGS: No lines and tubes are seen. The cardiomediastinal silhouette is normal. Multifocal airspace opacitie s are seen. There is a small left pleural effusion. Pleural calcifications are seen most prominent at the apices. IMPRESSION: Multifocal airspace opacities may represent atelectasis, pneumonia, and/or aspiration. ACT 112: Negative or not required by law. Electronically signed by: Robe Cruz M.D. 12/20/2021 7:16 AM
--- NOTE | 2021-12-20 08:54 | CT Scan Report ---
CT lumbar spine wo con CLINICAL HISTORY: Low back pain COMPARISON STUDY: No previous studies for comparison. CT DOSE: 265.19 mGy.cm TECHNIQUE: Standard CT of the Lumbar Spine was performed without IV contrast. A dose lowering techni que was utilized adhering to the principles of ALARA. FINDINGS: Bones: The bones are osteopenic. There is degenerative grade 1/4 spondylolisthesis of L4 on L5. No ac xavier abnormality is seen. Minimal old anterior wedge deformities are present involving the inferior en dplate of L4 and the superior endplate of L5. The heights of the remaining lumbar vertebral bodies ar e maintained. The remaining lumbar vertebral bodies are in anatomic alignment. Disc spaces: There is marked disc space narrowing at L1-2. Mild to moderate disc space narrowing seen throughout the remaining lumbar spine with vacuum disc phenomena at L4-5. Bulging of the annulus and 60 the ligamentum flavum is also present at this level and the findings are characteristic of mild t o moderate central canal stenosis. Facet joints: Extensive hypertrophic facet joint disease is seen at the lower 2 disc space levels. Mi ld degenerative changes are present involving the SI joints bilaterally. Soft tissues: The prevertebral soft tissues are within normal limits. IMPRESSION: 1. Osteopenia with old wedge deformities of L4 and L5. No acute abnormality. 2. Degenerative grade 1/4 spondylolisthesis of L4 on L5 with bulging annuli and thickening of ligamen kiana flavum bilaterally producing mild to moderate central canal stenosis at this level. ACT 112: Negative or not required by law. Electronically signed by: Woody Mike M.D. 12/20/2021 8:53 AM
[2021-12-20] MEDS ORDERED: ACETAMINOPHEN 325 MG TAB PO PRN (09:48)
[2021-12-20] MEDS: INSULIN ASPART PER UNIT SC SCH ×4 (10:08→20:26)
[2021-12-20] MEDS: LORazepam 2 MG/1 ML VIAL IV PRN ×2 (10:19→21:06)
[2021-12-20] MEDS: HYDROmorphone HCL 2 MG TAB PO PRN ×2 (10:20→20:08)
[2021-12-20] MEDS: LIDOCAINE 5% 1 PATCH TD SCH (10:33)
[2021-12-20] MEDS: LEVOTHYROXINE SODIUM 88 MCG TABLET PO SCH (10:36)
[2021-12-20] MEDS: PANTOprazole 40 MG TAB PO SCH (10:36)
[2021-12-20] MEDS: ASPIRIN 81 MG ECTAB PO SCH (10:36)
[2021-12-20] MEDS: ADVANCED PROBIOTIC 1250 MG CAPSULE PO SCH (10:36)
[2021-12-20] MEDS: predniSONE 2.5 MG TAB PO SCH (10:36)
[2021-12-20] MEDS: amLODIPine BESYLATE 5 MG TAB PO SCH (11:20)
[2021-12-20 11:32] LABS: Partial Thromboplastin Time 26.7 Seconds (21.0-31.0)
[2021-12-20 12:55] LABS: Base Excess VBG -1.5 mEq/L; Oxygen Saturation VBG 75.7 %; pH VBG 7.39 (7.36-7.41)
[2021-12-20 12:57] LABS: Albumin Level 3.6 gm/dl (3.4-5.0); BUN Creatinine Ratio 16.3 (10-20); Calcium 10.4 mg/dl (8.5-10.1); Creatinine Clr Calc Pharmacy 8.1 ml/min; Est GFR (African American) 11.2 ml/min; Est GFR (Non-African American) 9.7 ml/min; Phosphorus 5.1 mg/dl (2.5-4.9); Potassium 4.9 mmol/L (3.5-5.1)
[2021-12-20] MEDS ORDERED: PNEUMOCOCCAL Polysaccharide Vaccine 25mcg/0.5mL vial/Syr IM ONE (14:00)
[2021-12-20] MEDS: HEPARIN SOD 5,000 UNIT/0.5 ML VIAL SQ SCH ×2 (15:04→21:04)
--- NOTE | 2021-12-20 15:34 | Electrocardiogram Report ---
Test Reason : Blood Pressure : / mmHG Vent. Rate : 092 BPM Atrial Rate : 092 BPM P-R Int : 114 ms QRS Dur : 086 ms QT Int : 332 ms P-R-T Axes : 066 012 -36 degrees QTc Int : 410 ms Poor data quality, interpretation may be adversely affected Normal sinus rhythm with sinus arrhythmia Abnormal ECG When compared with ECG of 24-JUL-2021 06:20, Premature atrial complexes are no longer Present Criteria for Septal infarct are no longer Present QT has shortened Confirmed by Fran De La Garza ([id number]) on 12/20/2021 3:33:57 PM Referred By: REFERRED SELF Confirmed By:Fran De La Garza
--- NOTE | 2021-12-20 15:47 | Hospitalist Progress Note ---
Date of Service December 20, 2021 Assessment & Plan (1) Sepsis: Plan: Sepsis Complicated UTI Immunocompromised patient H/O vasculitis on steroid taper Blood/Urine Cultures pending Continue Cefepime Acute Kidney Injury on CKD III/IV Baseline Cr 3.5 H/O RPGN, Microscopic polyangiitis vasculitis Biopsy showed crescentic glomerulonephritis S/P Rituxan Ongoing chronic steroid therapy Cr: 4.1 Avoid nephrotoxic agents as able Nephrology consulted Degenerative Disc Disease Lumbar Spinal Stenosis CT Lumbar:Osteopenia with old wedge deformities of L4 and L5. No acute abnormality. Degenerative grade 1/4 spondylolisthesis of L4 on L5 with bulging annuli and thickening of ligamentum flavum bilaterally producing mild to moderate central canal stenosis at this level. MRI pending Fall Precautions PT/OT when appropriate Orthopedics Consulted Hyperkalemia Likely due to EMILIE Monitor Hypercalcemia Calcium:11.1>10.4 Normal vitamin D, PTH levels Parathyroid like peptide levels pending Avoid vitamin D, calcium supplements Elevated Troponin likely due to EMILIE Denies chest pain ECHO showed no wall motion abnormality H/O CVA/PVD Continue Aspirin DM II HbA1C: 7.27 November 2021 Continue Insulin Hypothyroidism Continue Levothyroxine Anemia of Kidney Disease Cr at baseline Monitor DVT Px: Heparin SQ Code Status Full code Admission and Anticipated Discharge Date Admission Date: December 20, 2021 Subjective Patient is seen and examined at bedside Reports chronic chest discomfort Also reports dizziness intermittently Poor appetite Offers no other complaints Review of Systems Review of Systems: All systems reviewed & are unremarkable except as noted in Subjective Physical Exam Physical Exam: Physical Exam: Vitals signs as noted above General Appearance:Thin, frail, no apparent distress Head: normocephalic, Atraumatic Eyes: normal inspection, EOMI Neck: supple, Trachea midline Respiratory/Chest: Decreased breath sounds, CTA, No accessory muscle use Cardiovascular: S1, S2, No murmur Abdomen/GI:Soft, Non tender, Bowel sounds present Back: Lower back tenderness Extremities/Musculoskeletal:normal inspection, no edema Neurologic/Psych:AAO, grossly no focal neurological deficits Skin: normal color, warm Results & Data Results & Data ([facility]) Vital Signs (Past 12 Hours) Vital Signs Temp Pulse Pulse Resp BP BP Pulse Ox 12/20/21 15:14 37.1 C 67 20 129/67 93 12/20/21 11:00 36.6 C 65 16 115/54 L 98 12/20/21 09:53 36.7 C 82 18 138/65 97 12/20/21 09:48 12/20/21 08:00 71 19 136/63 95 12/20/21 06:18 71 18 138/58 L 94 12/20/21 03:44 37.8 C H 91 H 18 165/89 H 95 Pulse Ox 12/20/21 15:14 12/20/21 11:00 12/20/21 09:53 12/20/21 09:48 97 12/20/21 08:00 12/20/21 06:18 12/20/21 03:44 Laboratory Results Short CBC 12/20/21 12/20/21 12/20/21 Range/Units 04:09 04:09 12:14 WBC 10.98 H (4.8-10.8) K/uL Hgb 9.9 L (12.0-16.0) g/dL Hct 29.8 L (37-47) % Plt Count 353 (130-400) K/uL Potassium 5.2 H 4.9 (3.5-5.1) mmol/L BMP 12/20/21 12/20/21 04:09 12:14 Sodium 140 140 Potassium 5.2 H 4.9 Chloride 107 106 Carbon Dioxide 20 L 23 BUN 68 H 68 H Creatinine 4.13 H 4.16 H Glucose 117 H 167 H Calcium 11.1 H 10.4 H Cardiac Enzymes 12/20/21 Range/Units 04:09 Total Creatine Kinase 33 (26-192) U/L Liver Function 12/20/21 12/20/21 Range/Units 04:09 12:14 Total Bilirubin 0.3 (0.2-1.0) mg/dl AST 17 (13-39) U/L ALT 6 L (7-52) U/L Alkaline Phosphatase 43 (34-104) U/L Albumin 3.6 3.6 (3.4-5.0) gm/dl Urine 12/20/21 Range/Units 04:39 Urine Color Yellow Urine Appearance Turbid A (Clear) Urine pH 5.5 (4.5-7.5) Ur Specific [place] 1.016 (1.000-1.030) Urine Protein 2+ H (Negative) Urine Glucose (UA) Negative (Negative)
--- NOTE | 2021-12-20 16:59 | Nephrology Consultation ---
Date of Consultation December 20, 2021 Assessment & Plan (1) Acute kidney injury superimposed on chronic kidney disease: stage one plateau'd CKD 5 w/ nephrotic range proteinuria. her hypercalcem ia resolved for now; other chemistries ok. EMILIE on CKD 5. not an emergency but may need to start dialysis at some point soon. baseline creatinien low to mid 3's -not on renal diet which is ok for now -daily bmp -strict I/O (2) History of kidney stones: given this and her back pain > reasonable to do renal u/s (3) Hypertension: bp labile but with acceptable control (4) Back pain: with her hx would rule out kidney stone (5) Anxiety: consider psych eval and / or palliative evaluation to talk about goals of care and how to discuss and possibly to start dialysis given her marked anxiety; would involve son in this discussion as well; goal is to optimize pt participation in decisions where possibls (6) CKD (chronic kidney disease) stage 5, GFR 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 PMH includes MPA/ANCA associated vasculitis diagnosed 07/2021 in the setting of CKD 5 (baseline creatinine 3.5) s/p Rituxan. Also with dm, hypothryoid, hx of stroke, PVD s/p surgery. Vasculitis was diagnosed in July 2021. 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 She had a dose of rituxan and a course of prednisone without response > her creatinine was 3.5 at hospital d/c in July 2021. When I evaluated the patient this AM she was tearful and agitated; the patient told me no one was giving her food but the RN reminded the patient that she had refused breakfast. her anxiety limited ROS but she denied sob/cough/wheeze; no chest pain; no edema or voiding sx. her CC was left lower back pain and down her L lateral leg. A TTE was obtained urgently to evaluate elevated troponin. the study was terminated early d/t pt agitation. It did not show acute change in cardiac function or severe impairment. She follows w/ Dr Mir in kidney clinic last seen 12/13/21. Notably she did n ot mention back pain at that office visit but did become very upset when he explained to her that it was time to start planning dialysis. Her creat was 3.3 that day with calcium 10.1, K 5.2. Dr Mir planned f/u clinic visit in a month's time. Allergies Allergy/AdvReac Type Severity Reaction Status Date / Time simvastatin Allergy Intermediate MUSCLE PAIN Verified 07/23/21 09:50 codeine Allergy Unknown RASH Verified 07/23/21 09:50 Iodinated Contrast Media Allergy Unknown Hives Verified 07/23/21 09:50 Sulfa (Sulfonamide AdvReac Intermediate HIVES,NAUSE Verified 07/23/21 09:50 Antibiotics) A gabapentin AdvReac Unknown NAUSEA Verified 07/23/21 09:50 pravastatin AdvReac Unknown Abdominal Verified 07/23/21 09:50 Pain Home Medications Medication Instructions Recorded Confirmed Type Lactobacillus rhamnosus GG 10 2 cap PO QAM 07/20/20 08/21/21 History billion cell capsule (Culturelle) aspirin 81 mg tablet,delayed 81 mg PO QAM 07/20/20 08/21/21 History release famotidine 20 mg tablet 20 mg PO PM 07/20/20 08/21/21 History multivitamin 1 tab PO QAM 07/20/20 08/21/21 History omeprazole 20 mg capsule,delayed 20 mg PO QAM 07/20/20 08/21/21 History release diphenhydramine 25 1 tab PO HS PRN #0 08/13/20 08/21/21 History mg-acetaminophen 500 mg tablet (Tylenol PM Extra Strength) acetaminophen 500 mg tablet 500 mg PO Q6H PRN 07/23/21 08/21/21 History (Tylenol Extra Strength) amlodipine 10 mg tablet 10 mg PO DAILY #30 tab 08/01/21 08/21/21 Rx docusate sodium 100 mg capsule 100 mg PO BID 12/20/21 12/20/21 History (Col-Rite) glipizide 5 mg tablet 2.5 mg PO .DAILY/UD 12/20/21 12/20/21 History hydromorphone 2 mg tablet 2 mg PO Q4H PRN 12/20/21 12/20/21 History insulin NPH isoph U-100 human 100 10 unit SUBCUT .DAILY/UD 12/20/21 12/20/21 History unit/mL (3 mL) subcutaneous pen (Humulin N NPH U-100 Insulin KwikPen) insulin NPH isoph U-100 human 100 12 unit SUBCUT UD 12/20/21 12/20/21 History unit/mL (3 mL) subcutaneous pen (Humulin N NPH U-100 Insulin KwikPen) levothyroxine 88 mcg tablet 88 mcg PO DAILYBB 12/20/21 12/20/21 History prednisone 5 mg tablet 2.5 mg PO QAM 12/20/21 12/20/21 History tizanidine 2 mg capsule 2 mg PO AMPM 12/20/21 12/20/21 History torsemide 20 mg tablet 20 mg PO DAILY 12/20/21 12/20/21 History Patient History Medical History (Updated 12/20/21 @ 21:03 by Barbara Apodaca MD, PhD) 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, 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 Elevated troponin GERD (gastroesophageal reflux disease) Hypertension Kidney stones Osteoarthritis Pyelonephritis July 2020 Surgical History (Updated 12/20/21 @ 20:52 by Barbara Apodaca MD, PhD) H/O dilation and curettage History of carotid endarterectomy Right> 2004> FOLLOWS PCP History of colonoscopy History of hysterectomy History of tonsillectomy History of tooth extraction S/P ureteral stent placement 07/2020 for L ureteral stone Family History Father Diabetes Mother Diabetes Sister Colon cancer Social History Smoking Status: Never smoker Second Hand Exposure: No; Hx Alcohol Use: No Hx Substance Use: No Preferred Language: Moroccan Communication Ability: Effective Visual Impairment: No Limitations Juice Tester Required: No Beliefs That Will Affect Care: None Current Living Situation: Family Current Living Situation Comment: Son in from [place] to take care of her at this time. Other Information That Helps Us Care for You: No Feels Safe at Home: Yes Safety Concerns: Feels Safe At This Time Assistive Devices: Cane Review of Systems Review of Systems: All systems reviewed & are unremarkable except as noted in HPI & below and Other (limited by pt agitation) Physical Exam Constitutional: well developed, + thin and + in distress (anxious) Eyes: EOM intact bilaterally ENMT: Ears: no external ear abnormality Nose: no external nose abnormality Mouth: + dry oral mucous membranes Neck: no nuchal rigidity Respiratory: normal respiratory effort Auscultation: + diminished lung sounds Cardiovascular: Rate/Rhythm: regular rate and regular rhythm Extremities: + edema (at most trace BLE) Gastrointestinal (Abdomen): Inspection/Auscultation: normal bowel sounds Percussion/Palpation: abdomen soft; abdomen nontender Musculoskeletal: Extremities: strength 5/5 throughout Skin: no rashes, warm and dry Neurologic: tran, fluent speech, no tremor Psychiatric: Orientation: oriented to person and oriented to place Affect: + anxious affect and + tearful affect Mood: + anxious mood Genitourinary: no coelho Results & Data ([facility]) Vital Signs (Past 12 Hours) Vital Signs Temp Pulse Resp BP Pulse Ox Pulse Ox 12/20/21 15:14 37.1 C 67 20 129/67 93 12/20/21 11:00 36.6 C 65 16 115/54 L 98 12/20/21 09:53 36.7 C 82 18 138/65 97 12/20/21 09:48 97 12/20/21 08:00 71 19 136/63 95 12/20/21 06:18 71 18 138/58 L 94 Laboratory Results 12/20/21 04:09 12/20/21 12:14 Ca 11.1>10.4 Diagnostic Findings L spine CT no con 1. Osteopenia with old wedge deformities of L4 and L5. No acute abnormality. 2. Degenerative grade 1/4 spondylolisthesis of L4 on L5 with bulging annuli and thickening of ligamentum flavum bilaterally producing mild to moderate central c anal stenosis at this level. CXR MPRESSION: Multifocal airspace opacities may represent atelectasis, pneumonia, and/or aspiration. (1) Hypertension Hypertension type: unspecified Qualified Code(s): I10 - Essential (primary) hypertension
[2021-12-20] MEDS: DOCUSATE SODIUM 100 MG CAP PO SCH (20:08)
[2021-12-20] MEDS: FAMOTIDINE 20 MG TAB PO SCH (20:08)
[2021-12-20] MEDS: INSULIN GLARGINE SOLOSTAR 100 UNITS/ML 3 ML PEN SC SCH (21:12)
[2021-12-21] MEDS: HEPARIN SOD 5,000 UNIT/0.5 ML VIAL SQ SCH ×3 (07:38→20:23)
[2021-12-21] MEDS: LEVOTHYROXINE SODIUM 88 MCG TABLET PO SCH (07:38)
[2021-12-21] MEDS: amLODIPine BESYLATE 5 MG TAB PO SCH (07:39)
[2021-12-21] MEDS: ASPIRIN 81 MG ECTAB PO SCH (07:39)
--- NOTE | 2021-12-21 08:15 | Orthopedic Consultation ---
Date of Consultation December 21, 2021 Assessment & Plan (1) Back pain: At this time MRI lumbar spine is pending. CAT scan is not diagnostic of any source of infection other than age-related arthritic type change. Make further conditions upon updated imaging. History of Present Illness Reason for Consultation: Back pain Attending Physician: Rickey Sanchez MD History of Present Illness This is a 76-year-old female who presents with multiple medical issues. There are some concern regarding back pain and possible source of infection. This morning she complains mostly of discomfort with her throat. She denies any back or leg pain. Allergies Allergy/AdvReac Type Severity Reaction Status Date / Time simvastatin Allergy Intermediate MUSCLE PAIN Verified 07/23/21 09:50 codeine Allergy Unknown RASH Verified 07/23/21 09:50 Iodinated Contrast Media Allergy Unknown Hives Verified 07/23/21 09:50 Sulfa (Sulfonamide AdvReac Intermediate HIVES,NAUSE Verified 07/23/21 09:50 Antibiotics) A gabapentin AdvReac Unknown NAUSEA Verified 07/23/21 09:50 pravastatin AdvReac Unknown Abdominal Verified 07/23/21 09:50 Pain Home Medications Medication Instructions Recorded Confirmed Type Lactobacillus rhamnosus GG 10 2 cap PO QAM 07/20/20 12/20/21 History billion cell capsule (Culturelle) aspirin 81 mg tablet,delayed 81 mg PO QAM 07/20/20 12/20/21 History release famotidine 20 mg tablet 20 mg PO PM 07/20/20 12/20/21 History multivitamin 1 tab PO QAM 07/20/20 12/20/21 History omeprazole 20 mg capsule,delayed 20 mg PO QAM 07/20/20 12/20/21 History release diphenhydramine 25 1 tab PO HS PRN #0 08/13/20 12/20/21 History mg-acetaminophen 500 mg tablet (Tylenol PM Extra Strength) acetaminophen 500 mg tablet 500 mg PO Q6H PRN 07/23/21 12/20/21 History (Tylenol Extra Strength) amlodipine 10 mg tablet 10 mg PO DAILY #30 tab 08/01/21 12/20/21 Rx docusate sodium 100 mg capsule 100 mg PO BID 12/20/21 12/20/21 History (Col-Rite) glipizide 5 mg tablet 2.5 mg PO .DAILY/UD 12/20/21 12/20/21 History hydromorphone 2 mg tablet 2 mg PO Q4H PRN 12/20/21 12/20/21 History insulin NPH isoph U-100 human 100 10 unit SUBCUT .DAILY/UD 12/20/21 12/20/21 History unit/mL (3 mL) subcutaneous pen (Humulin N NPH U-100 Insulin KwikPen) insulin NPH isoph U-100 human 100 12 unit SUBCUT UD 12/20/21 12/20/21 History unit/mL (3 mL) subcutaneous pen (Humulin N NPH U-100 Insulin KwikPen) levothyroxine 88 mcg tablet 88 mcg PO DAILYBB 12/20/21 12/20/21 History prednisone 5 mg tablet 2.5 mg PO QAM 12/20/21 12/20/21 History tizanidine 2 mg capsule 2 mg PO AMPM 12/20/21 12/20/21 History torsemide 20 mg tablet 20 mg PO DAILY 12/20/21 12/20/21 History Patient History Medical History (Updated 12/20/21 @ 21:03 by Barbara Apodaca MD, PhD) 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, 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 Elevated troponin GERD (gastroesophageal reflux disease) Hypertension Kidney stones Osteoarthritis Pyelonephritis July 2020 Surgical History (Updated 12/20/21 @ 20:52 by Barbara Apodaca MD, PhD) H/O dilation and curettage History of carotid endarterectomy Right> 2004> FOLLOWS PCP History of colonoscopy History of hysterectomy History of tonsillectomy History of tooth extraction S/P ureteral stent placement 07/2020 for L ureteral stone Family History Father Diabetes Mother Diabetes Sister Colon cancer Social History Smoking Status: Never smoker Second Hand Exposure: No; Hx Alcohol Use: No Hx Substance Use: No Preferred Language: Divehi Communication Ability: Effective Visual Impairment: No Limitations Chair Upholsterer Required: No Beliefs That Will Affect Care: None Current Living Situation: Family Current Living Situation Comment: Son in from [place] to take care of her at this time. Other Information That Helps Us Care for You: No Feels Safe at Home: Yes Safety Concerns: Feels Safe At This Time Assistive Devices: Cane Physical Exam Physical Exam: On exam she seems to be in significant distress regarding her throat pain. She does demonstrate reasonable function of lower extremities however is overall weak. Results & Data ([facility]) Vital Signs (Past 12 Hours) Vital Signs Temp Pulse Pulse Resp BP Pulse Ox 12/21/21 07:35 37.3 C 73 17 183/65 H 95 12/20/21 23:23 64 12/20/21 23:19 36.8 C 67 16 117/55 L 95
[2021-12-21] MEDS ORDERED: CEFEPIME 1,000 MG in SYRINGE 0 ML IV SCH (09:00)
[2021-12-21] MEDS: INSULIN ASPART PER UNIT SC SCH ×4 (09:26→20:22)
[2021-12-21 10:08] LABS: Basophils # (auto) 0.03 K/uL (0-0.2); Basophils % (auto) 0.3 %; Eosinophils # (auto) 0.12 K/uL (0-0.5); Eosinophils % (auto) 1.2 %; Hematocrit (blood only) 29.3 % (37-47); Hemoglobin 9.3 g/dL (12.0-16.0); Immature Granulocytes # (auto) 0.06 K/uL (0.00-0.02); Immature Granulocytes % (auto) 0.6 %; Lymphocytes # (auto) 1.24 K/uL (1.2-3.4); Lymphocytes % (auto) 11.9 %; Mean Corpuscular Hgb Conc 31.7 g/dL (32-36); Mean Corpuscular Volume 97.7 fL (80-100); Mean Platelet Volume 9.7 fL (7.4-10.4); Monocytes # (auto) 1.26 K/uL (0.11-0.59); Monocytes % (auto) 12.1 %; Neutrophils # (auto) 7.68 K/uL (1.4-6.5); Neutrophils % (auto) 73.9 %; Platelet Count 365 K/uL (130-400); RDW Coefficient of Variation 12.3 % (11.5-14.5); RDW Standard Deviation 43.8 fL (36.4-46.3); White Blood Count 10.39 K/uL (4.8-10.8)
[2021-12-21 10:35] LABS: BUN Creatinine Ratio 17.6 (10-20); Calcium 11.3 mg/dl (8.5-10.1); Creatinine Clr Calc Pharmacy 8.3 ml/min; Est GFR (African American) 11.5 ml/min; Est GFR (Non-African American) 9.9 ml/min; Potassium 5.3 mmol/L (3.5-5.1)
[2021-12-21] MEDS: ADVANCED PROBIOTIC 1250 MG CAPSULE PO SCH (11:03)
[2021-12-21] MEDS: predniSONE 2.5 MG TAB PO SCH (11:04)
[2021-12-21] MEDS: PANTOprazole 40 MG TAB PO SCH (11:04)
[2021-12-21] MEDS: HYDROmorphone INJ 0.5 MG/0.5 ML SYR IV PRN ×2 (11:13→21:27)
[2021-12-21] MEDS: LIDOCAINE 5% 1 PATCH TD SCH (11:28)
--- NOTE | 2021-12-21 11:58 | Nephrology Progress Note ---
Date of Service December 21, 2021 Assessment & Plan (1) Acute kidney injury superimposed on chronic kidney disease: Plan: stage one plateau'd CKD 5 w/ nephrotic range proteinuria. her hypercalcemia has recurred; other chemistries ok apart from mild hyperkalemia. EMILIE on CKD 5 versus progression. not an emergency but may need to start dialysis at some point soon - she is in no state to discuss this meaningfully. baseline creatinine low to mid 3's -not on renal diet which is ok for now -appreciate team efforts to avoid gadolinium/MRI w/ contrast studies -daily bmp -strict I/O -did start low K diet >>low threshold for psych and /or palliative care consult since her anxiety/pain is interfering with ability to work up her clinical issues >wean oxygen as tolerated; cont to hold torsemide for now > she was to be on 40 mg daily prior to admission but had been refusing to take it (2) History of kidney stones: Plan: given this and her back pain > reasonable to do renal u/s if she will agree to it (3) Hypertension: Plan: bp labile but with acceptable control; some may be situational (4) Back pain: Plan: Note that at 12/06 PCP visit she had lots of concern w/ back pain and was taking dilaudid for this -cont pain control efforts -with her hx would rule out kidney stone (5) Anxiety: Plan: consider psych eval and / or palliative evaluation to talk about goals of care and how to discuss and whether or how to start dialysis given her marked anxiety; would involve son in this discussion as well; goal is to optimize pt participation in decisions where possible (6) CKD (chronic kidney disease) stage 5, GFR less than 15 ml/min: 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 > preparing in outpt clinic for dialysis Admission and Anticipated Discharge Date Admission Date: December 20, 2021 Subjective pt agitated and anxious > c/o diffuse pain all over her body; c/o sore throat; denies back pain today. shouts and tearful if testing is proposed. denies sob. tells me she wants to be left alone to rest; cries that she hurts so much and all over Review of Systems Review of Systems: Other (limited by pt mental/emotional state) Physical Exam Constitutional: well developed, + thin and + in distress (anxious) lying flat Eyes: EOM intact bilaterally ENMT: Ears: no external ear abnormality Nose: no external nose abnormality Mouth: + dry oral mucous membranes Neck: no nuchal rigidity Respiratory: normal respiratory effort Auscultation: + diminished lung sounds Cardiovascular: Rate/Rhythm: regular rate and regular rhythm Extremities: no edema Gastrointestinal (Abdomen): Inspection/Auscultation: normal bowel sounds Percussion/Palpation: abdomen soft Musculoskeletal: Extremities: strength 5/5 throughout Skin: no rashes, warm and dry Neurologic: diffuse hyperesthesias; tran; fluent speech Psychiatric: Orientation: oriented to person and oriented to place Affect: + anxious affect and + tearful affect Mood: + anxious mood Genitourinary: purewick w/ ample light yelow urine Results & Data ([facility]) Vital Signs (Past 12 Hours) Vital Signs Temp Pulse Pulse Resp BP Pulse Ox 12/21/21 11:17 37.3 C 90 20 153/64 H 95 12/21/21 08:00 68 12/21/21 07:35 37.3 C 73 17 183/65 H 95 Laboratory Results 12/21/21 09:55 12/21/21 09:55 (1) Hypertension Hypertension type: unspecified Qualified Code(s): I10 - Essential (primary) hypertension
--- NOTE | 2021-12-21 17:17 | Hospitalist Progress Note ---
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 No acute abnormality. Degenerative grade 1/4 spondylolisthesis of L4 on L5 with bulging annuli and thickening of ligamentum flavum bilaterally producing mild to moderate central canal stenosis at this level. MRI pending Fall Precautions PT/OT when appropriate Appreciate orthopedics input Patient denied MRI today Hyperkalemia Likely due to EMILIE Monitor Hypercalcemia Calcium:11.3 Normal vitamin D, PTH levels Parathyroid like peptide levels pending Avoid vitamin D, calcium supplements Elevated Troponin likely due to EMILIE Denies chest pain ECHO showed no wall motion abnormality H/O CVA/PVD Continue Aspirin DM II HbA1C: 7.27 November 2021 Continue Insulin Hypothyroidism Continue Levothyroxine Anemia of Kidney Disease Cr at baseline Monitor DVT Px: Heparin SQ Code Status Full code Admission and Anticipated Discharge Date Admission Date: December 20, 2021 Subjective Patient is seen and examined at bedside Patient complains of low back pain Refused MRI lumbar spine Also reported throat discomfort to RN Poor historian Denies any chest pain, shortness of breath Review of Systems Review of Systems: Short CBC 12/21/21 Range/Units 09:55 WBC 10.39 (4.8-10.8) K/uL Hgb 9.3 L (12.0-16.0) g/dL Hct 29.3 L (37-47) % Plt Count 365 (130-400) K/uL BMP 12/21/21 09:55 Sodium 144 Potassium 5.3 H Chloride 109 H Carbon Dioxide 24 BUN 72 H Creatinine 4.09 H Glucose 106 H Calcium 11.3 H Physical Exam Physical Exam: Physical Exam: Vitals signs as noted above General Appearance:Thin, frail, no apparent distress Head: normocephalic, Atraumatic Eyes: normal inspection, EOMI Neck: supple, Trachea midline Respiratory/Chest: Decreased breath sounds, CTA, No accessory muscle use Cardiovascular: S1, S2, No murmur Abdomen/GI:Soft, Non tender, Bowel sounds present Back: Lower back tenderness Extremities/Musculoskeletal:normal inspection, no edema Neurologic/Psych:AAO, grossly no focal neurological deficits Skin: normal color, warm Results & Data Results & Data ([facility]) Vital Signs (Past 12 Hours) Vital Signs Temp Pulse Pulse Resp BP Pulse Ox 12/21/21 15:38 37.0 C 71 18 121/67 99 12/21/21 15:19 74 12/21/21 11:17 37.3 C 90 20 153/64 H 95 12/21/21 08:00 68 12/21/21 07:35 37.3 C 73 17 183/65 H 95 Laboratory Results Short CBC 12/21/21 Range/Units 09:55 WBC 10.39 (4.8-10.8) K/uL Hgb 9.3 L (12.0-16.0) g/dL Hct 29.3 L (37-47) % Plt Count 365 (130-400) K/uL BMP 12/21/21 09:55 Sodium 144 Potassium 5.3 H Chloride 109 H Carbon Dioxide 24 BUN 72 H Creatinine 4.09 H Glucose 106 H Calcium 11.3 H
[2021-12-21] MEDS: DOCUSATE SODIUM 100 MG CAP PO SCH (20:23)
[2021-12-21] MEDS: FAMOTIDINE 20 MG TAB PO SCH (20:23)
[2021-12-21] MEDS: INSULIN GLARGINE SOLOSTAR 100 UNITS/ML 3 ML PEN SC SCH (20:23)
[2021-12-22] MEDS ORDERED: METOPROLOL TARTRATE 1 MG/ML VIAL IV STA (05:06)
--- NOTE | 2021-12-22 05:06 | Communication Note ---
Date of Service: December 22, 2021 Patient with runs of SVT as per RN. SBP 120s as per RN. Patient denies chest pain, SOB. Feels that "she is going to today" as per RN. AP SVT Initiate beta-marie Cardiology consult in a.m.
[2021-12-22] MEDS ORDERED: ALBUMIN 25% 100 mL 25 GM/100 ML VIAL IV ONE (05:07)
[2021-12-22] MEDS: LEVOTHYROXINE SODIUM 88 MCG TABLET PO SCH (05:44)
[2021-12-22] MEDS: HEPARIN SOD 5,000 UNIT/0.5 ML VIAL SQ SCH ×3 (05:46→21:46)
[2021-12-22 06:14] LABS: BUN Creatinine Ratio 19.1 (10-20); Calcium 11.9 mg/dl (8.5-10.1); Creatinine Clr Calc Pharmacy 8.6 ml/min; Est GFR (African American) 12.3 ml/min; Est GFR (Non-African American) 10.6 ml/min; Magnesium 2.3 mg/dl (1.7-2.4); Potassium 4.8 mmol/L (3.5-5.1)
[2021-12-22 06:16] LABS: Hematocrit (blood only) 27.8 % (37-47); Hemoglobin 8.9 g/dL (12.0-16.0); Mean Corpuscular Hemoglobin 30.7 pg (25-34); Mean Corpuscular Volume 95.9 fL (80-100); Mean Platelet Volume 4.5 fL (7.4-10.4); Platelet Count 351 K/uL (130-400); RDW Coefficient of Variation 12.2 % (11.5-14.5); RDW Standard Deviation 43.2 fL (36.4-46.3)
[2021-12-22] MEDS: HYDROmorphone INJ 0.5 MG/0.5 ML SYR IV PRN (07:42)
[2021-12-22] MEDS: INSULIN ASPART PER UNIT SC SCH ×4 (07:45→20:39)
[2021-12-22] MEDS: amLODIPine BESYLATE 5 MG TAB PO SCH (07:46)
[2021-12-22] MEDS: PANTOprazole 40 MG TAB PO SCH (07:47)
[2021-12-22] MEDS: ASPIRIN 81 MG ECTAB PO SCH (07:47)
[2021-12-22] MEDS: predniSONE 2.5 MG TAB PO SCH ×2 (07:47→17:57)
[2021-12-22] MEDS: CEFEPIME 500 MG in SYRINGE 0 ML IV SCH (07:48)
[2021-12-22] MEDS: ADVANCED PROBIOTIC 1250 MG CAPSULE PO SCH (07:48)
[2021-12-22] MEDS: LIDOCAINE 5% 1 PATCH TD SCH (07:52)
[2021-12-22] MEDS ORDERED: METOPROLOL TARTRATE 25 MG TAB PO SCH ×2 (09:00)
[2021-12-22] MEDS ORDERED: METOPROLOL TARTRATE 25 MG TAB PO ONE (10:30)
--- NOTE | 2021-12-22 10:42 | Cardiology Consultation ---
Date of Consultation December 22, 2021 Assessment & Plan (1) PSVT (paroxysmal supraventricular tachycardia): -Agree with addition of metoprolol. Increase dose to 25 mg BID. (2) Troponin I above reference range: -HS troponin levels of 701pg/ml--> 1371 pg/mlon 12/20/21. Will add repeat on to labs from this am (spoke to phlebotomy). Pt with history of Troponin of of 4 ng/ml in 06/2021 felt to be related to renal dysfunction and volume depletion at that time. Pt ill with multiple issues, however, denies angina is is a poor candidate for invasive cardiac procedures. As noted start metoprolol, continue ASA. Starting statin therapy challenging in the setting of pre-existent pain issues. Consider reassessing the need for eternal urinary catheter, since causing pt discomfort. History of Present Illness Attending Physician: Terell Bonilla MD History of Present Illness Carlene Thomas is a 76 year old female seen in cardiology consultation per the request of Dr Lacey for the evaluation of paroxysmal supraventricular tachycardia (SVT). 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 She was admitted with progressive weakness and intractable back and leg pain. At the time of my assessment patient was tearful and concerned of discomfort form her external urinary catheter. At 5:35 this patient was observed to have onset of a narrow complex tachycardia at 150 bpm that was intermitted for next 5 minutes. Has since had an additional short episode at 740 am. It is difficult to determine if patient was symptomatic as she feels poorly overall. Allergies Allergy/AdvReac Type Severity Reaction Status Date / Time simvastatin Allergy Intermediate MUSCLE PAIN Verified 07/23/21 09:50 codeine Allergy Unknown RASH Verified 07/23/21 09:50 Iodinated Contrast Media Allergy Unknown Hives Verified 07/23/21 09:50 Sulfa (Sulfonamide AdvReac Intermediate HIVES,NAUSE Verified 07/23/21 09:50 Antibiotics) A gabapentin AdvReac Unknown NAUSEA Verified 07/23/21 09:50 pravastatin AdvReac Unknown Abdominal Verified 07/23/21 09:50 Pain Home Medications Medication Instructions Recorded Confirmed Type Lactobacillus rhamnosus GG 10 2 cap PO QAM 07/20/20 12/20/21 History billion cell capsule (Culturelle) aspirin 81 mg tablet,delayed 81 mg PO QAM 07/20/20 12/20/21 History release famotidine 20 mg tablet 20 mg PO PM 07/20/20 12/20/21 History multivitamin 1 tab PO QAM 07/20/20 12/20/21 History omeprazole 20 mg capsule,delayed 20 mg PO QAM 07/20/20 12/20/21 History release diphenhydramine 25 1 tab PO HS PRN #0 08/13/20 12/20/21 History mg-acetaminophen 500 mg tablet (Tylenol PM Extra Strength) acetaminophen 500 mg tablet 500 mg PO Q6H PRN 07/23/21 12/20/21 History (Tylenol Extra Strength) amlodipine 10 mg tablet 10 mg PO DAILY #30 tab 08/01/21 12/20/21 Rx docusate sodium 100 mg capsule 100 mg PO BID 12/20/21 12/20/21 History (Col-Rite) glipizide 5 mg tablet 2.5 mg PO .DAILY/UD 12/20/21 12/20/21 History hydromorphone 2 mg tablet 2 mg PO Q4H PRN 12/20/21 12/20/21 History insulin NPH isoph U-100 human 100 10 unit SUBCUT .DAILY/UD 12/20/21 12/20/21 History unit/mL (3 mL) subcutaneous pen (Humulin N NPH U-100 Insulin KwikPen) insulin NPH isoph U-100 human 100 12 unit SUBCUT UD 12/20/21 12/20/21 History unit/mL (3 mL) subcutaneous pen (Humulin N NPH U-100 Insulin KwikPen) levothyroxine 88 mcg tablet 88 mcg PO DAILYBB 12/20/21 12/20/21 History prednisone 5 mg tablet 2.5 mg PO QAM 12/20/21 12/20/21 History tizanidine 2 mg capsule 2 mg PO AMPM 12/20/21 12/20/21 History torsemide 20 mg tablet 20 mg PO DAILY 12/20/21 12/20/21 History Patient History Medical History 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, 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 Elevated troponin GERD (gastroesophageal reflux disease) Hypertension Kidney stones Osteoarthritis Pyelonephritis July 2020 Surgical History (Updated 12/20/21 @ 20:52 by Barbara Apodaca MD, PhD) H/O dilation and curettage History of carotid endarterectomy Right> 2005> FOLLOWS PCP History of colonoscopy History of hysterectomy History of tonsillectomy History of tooth extraction S/P ureteral stent placement 07/2020 for L ureteral stone Family History Father Diabetes Mother Diabetes Sister Colon cancer Social History Smoking Status: Never smoker Second Hand Exposure: No; Hx Alcohol Use: No Hx Substance Use: No Preferred Language: Jamaican Communication Ability: Effective Visual Impairment: No Limitations Artist Model Required: No Beliefs That Will Affect Care: None Current Living Situation: Family Current Living Situation Comment: Son in from [place] to take care of her at this time. Other Information That Helps Us Care for You: No Feels Safe at Home: Yes Safety Concerns: Feels Safe At This Time Assistive Devices: Cane Review of Systems Review of Systems: Other (ROS unobtainable, as pt tearful unable to discuss systems) Physical Exam Constitutional: + acute distress and + cachectic Respiratory: normal respiratory effort, lungs clear to auscultation Cardiovascular: RRR, no murmur, no edema Gastrointestinal (Abdomen): normal bowel sounds, soft, nontender, no hepatosplenomegaly Neurologic: PERRL, EOMI, accommodation nl, no face palsy, no dysarthria Results & Data ([facility]) Vital Signs (Past 12 Hours) Vital Signs Temp Pulse Pulse Resp BP BP Pulse Ox 12/22/21 07:30 36.8 C 83 18 160/61 H 96 12/22/21 05:40 134 H 126/56 L 12/22/21 05:38 94 H 126/56 L 12/22/21 03:53 36.8 C 86 18 146/61 H 92 12/21/21 23:47 36.5 C 71 18 159/64 H 100 Laboratory Results CBC 12/22/21 Range/Units 05:33 WBC 10.00 (4.8-10.8) K/uL RBC 2.90 L (4.2-5.4) M/uL Hgb 8.9 L (12.0-16.0) g/dL Hct 27.8 L (37-47) % Plt Count 351 (130-400) K/uL Comprehensive Metabolic Panel 12/22/21 Range/Units 05:34 Sodium 143 (136-145) mmol/L Potassium 4.8 (3.5-5.1) mmol/L Chloride 109 H (98-107) mmol/L Carbon Dioxide 22 (21-32) mmol/L BUN 74 H (6-23) mg/dl Creatinine 3.87 H (0.6-1.2) mg/dl Glucose 96 (70-99(Fasting)) mg/dl Calcium 11.9 H (8.5-10.1) mg/dl Intake and Output 12/21/21 12/22/21 12/22/21 22:59 06:59 14:59 Intake Total 150.25 / 217.75 67.5 / 67.5 Output Total 500 / 700 200 / 700 Balance -349.75 / -482.25 -200 / -482.25 67.5 / 67.5 Intake: IV 50.25 / 117.75 67.5 / 67.5 ALBUMIN 25% 100 mL 25 gm In 100 67.5 / 67.5 ml @ 50 mls/hr IV ONE ONE Rx#: [id number] Promethazine HCl 6.25 mg In 50.25 / 50.25 Sodium Chloride 0.9% 50 ml @ 201 mls/hr IV Q6H PRN Rx#: [id number] Oral 100 / 100 Output: Urine 100 / 100 Urine Amount (Catheter) 400 / 600 200 / 600 External 400 / 600 200 / 600 # Bowel Movements 0 / 0 Other: Other Intake Source Patient has taken sips of water. # Unmeasured Voids 1 Weight 44.6 kg Weight Measurement Method Built in [facility] Diagnostic Findings EKG performed this morning 12/20/2021 reveals sinus rhythm at 92 bpm, inferior T wave inversions in leads III and aVF,non specific lateral T wave flattening. -compared to the prior tracing performed 07/24/21, interval improvement in the diffusis inferior and lateral T wave inversions notede at that time. -Episodes of SVT, and SR with PACs on telemetry Limited echo 12/20/21, study terminated prematurely due to patient agitation inability to cooperate. LVEF [id number]%, Normal wall motion. Mild concentric LVH.
--- NOTE | 2021-12-22 11:42 | Nephrology Progress Note ---
Date of Service December 22, 2021 Assessment & Plan (1) Acute kidney injury superimposed on chronic kidney disease: Plan: stage one slightly improved CKD 5 w/ nephrotic range proteinuria. her hypercalcemia has recurred and is worsening; other chemistries ok. EMILIE on CKD 5 versus progression. not an emergency but may need to start dialysis at some point soon - she is in no mental/emotional state to discuss this meaningfully. baseline creatinine low to mid 3's -not on renal diet which is ok for now -consider D5W versus NS depending on -daily bmp -strict I/O -did start low K diet >>low threshold for psych and /or palliative care consult since her anxiety/pain is interfering with ability to work up her clinical issues >wean oxygen as tolerated; LOW threshold for CT chest given hypoxia, admission CXR, hypercalcemia -cont to hold torsemide for now > she was to be on 40 mg daily prior to admission but had been refusing to take it will coordinate w/ hospitalist (2) Hypercalcemia: Plan: worsening today and new this admission; calcium was 10.1 on 12/13 as OP. PTH appropriately suppressed; 25 OH D levels in mid 40s; PTHrp pending. up to 11.9 today. >f/u PTHrp >will get 1, 25 dihydroxy D, TSH, spep, upep, Beta 2 microglobulin and kappa/lambda ratio -will give calcitonin -will d/w primary service > possible low rate of fluids if CT chest permits versus very low dose of zometa over 60 min (6 units/kg q8hr x 48 hr) or both (3) History of kidney stones: Plan: given this and her back pain > reasonable to do renal u/s or abd CT if she will agree to it (4) Hypertension: Plan: bp labile but with acceptable control; some may be situational; metoprolol just upped (5) Back pain: Plan: Note that at 12/06 PCP visit she had lots of concern w/ back pain and was taking dilaudid for this -cont pain control efforts -with her hx would rule out kidney stone (6) Anxiety: Plan: consider psych eval and / or palliative evaluation to talk about goals of care and how to discuss and whether or how to start dialysis given her marked anxiety; would involve son in this discussion as well; goal is to optimize pt participation in decisions where possible (7) CKD (chronic kidney disease) stage 5, GFR less than 15 ml/min: 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 > preparing in outpt clinic for dialysis if feasible which it may not be (8) PSVT (paroxysmal supraventricular tachycardia): Plan: -metoprolol upped; cardiology following (9) Troponin I above reference range: Plan: per cardiology; likeliest for med mgt Admission and Anticipated Discharge Date Admission Date: December 20, 2021 Subjective had SVT ON > cardiology consulted/ upped metoprolol and not a candidate for invasive cardiac procedures. her agitation and anxiety continue. c/o thirst and stiff neck w/ me. Review of Systems Review of Systems: Unobtainable due to mental health condition limited by anxiety/tears Physical Exam Constitutional: well developed, + thin and + in distress (anxious, tearful) Eyes: EOM intact bilaterally ENMT: Ears: no external ear abnormality Nose: no external nose abnormality Mouth: + dry oral mucous membranes Neck: no nuchal rigidity Respiratory: normal respiratory effort Auscultation: + diminished lung sounds Cardiovascular: Rate/Rhythm: regular rate and regular rhythm Extremities: no edema Gastrointestinal (Abdomen): Inspection/Auscultation: normal bowel sounds Percussion/Palpation: abdomen soft Musculoskeletal: Extremities: strength 5/5 throughout Skin: no rashes, warm and dry Neurologic: tran, fluent speech, no tremor Psychiatric: Orientation: oriented to person and oriented to place Affect: + anxious affect and + tearful affect Mood: + anxious mood Results & Data ([facility]) Vital Signs (Past 12 Hours) Vital Signs Temp Pulse Pulse Resp BP BP Pulse Ox 12/22/21 11:19 36.7 C 72 21 148/50 H 95 12/22/21 07:30 36.8 C 83 18 160/61 H 96 12/22/21 05:40 134 H 126/56 L 12/22/21 05:38 94 H 126/56 L 12/22/21 03:53 36.8 C 86 18 146/61 H 92 12/21/21 23:47 36.5 C 71 18 159/64 H 100 Laboratory Results 12/22/21 05:33 12/22/21 05:34 Calcium 11.9; iCa 1.49 repeat troponin 663 this am/downtrend (1) Hypertension Hypertension type: unspecified Qualified Code(s): I10 - Essential (primary) hypertension
[2021-12-22] MEDS ORDERED: CALCITONIN SALMON 400 UNITS/2 ML SQ SCH (15:15)
[2021-12-22] MEDS: DEXTROSE 5% 1,000 ML IV SCH (15:33)
--- NOTE | 2021-12-22 17:00 | Hospitalist Progress Note ---
Date of Service December 22, 2021 delayed entry date of service noted above Assessment & Plan (1) Sepsis: Plan: per Dr. 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 No acute abnormality. Degenerative grade 1/4 spondylolisthesis of L4 on L5 with bulging annuli and thickening of ligamentum flavum bilaterally producing mild to moderate central canal stenosis at this level. MRI pending Fall Precautions PT/OT when appropriate --Pain management consulted Hypercalcemia Calcium:11.9 Normal vitamin D, PTH levels On calcitonin Monitor closely Elevated Troponin likely due to EMILIE Denies chest pain ECHO showed no wall motion abnormality H/O CVA/PVD Continue Aspirin DM II HbA1C: 7.27 November 2021 Continue Insulin Pharmacy glycemic consulted Hypothyroidism Continue Levothyroxine Anemia of Kidney Disease Cr at baseline Monitor DVT Px: Heparin SQ Code Status Full code DVT Px: Heparin SQ Code Status Full code plan of care discussed with patient;s son Albert in detail and at length all questions answered he is understanding, agreeable, comfortable with the plan of care (2) EMILIE (acute kidney injury): Plan: Acute Kidney Injury on CKD 5 Encephalopathy--likely Multifactorial Hypercalcemia Possible underlying pneumonia Possible component of hospital delirium Degenerative Disc Disease Lumbar Spinal Stenosis Elevated Troponin Episode of SVT H/O CVA/PVD DM II Hypothyroidism Anemia of Kidney Disease Patient is on comfort measures Palliative Care following Noted to cease breathing at 12:14 PM on 12/31/21 Family updated at bedside. Answered all questions and concerns. Admission and Anticipated Discharge Date Admission Date: December 20, 2021 Subjective ff up for acute renal failure on CKD, etc seen resting in bed, awake but very irritable confused screams frequently states she needs to void reports significant back pain no chest pain, dyspnea, palpitations, dizziness no other symptoms Review of Systems Review of Systems: all noted and negative except for above Physical Exam Physical Exam: General- oriented x 1, not in distress, speaks in sentences with no effort or accessory muscle use frail, very anxious Head- atraumatic Eyes- PERRL, EOMI, anicteric ENT- oropharynx clear Neck- supple, no JVD, no adenopathy, no thyromegaly; carotids +2/2, no bruits appreciated Lungs- clear to auscultation bilaterally, no rales/wheezes Heart- normal rate, regular rhythm; no murmur, no gallop, no rub appreciated Abdomen- normal bowel sounds, nondistended, soft, nontender, no masses or hepatosplenomegaly Extremities- no pretibial edema, no calf tenderness; peripheral pulses intact Neuro- alert, oriented x 1; CN 2-12 grossly intact; motor 5/5 bilaterally;sensation 100% on all extremities; no other gross focal neurologic deficits Skin- warm & dry Results & Data Results & Data ([facility]) Vital Signs (Past 12 Hours) Vital Signs Temp Pulse Pulse Resp BP BP Pulse Ox 12/22/21 15:54 36.6 C 71 17 149/63 H 99 12/22/21 11:19 36.7 C 72 21 148/50 H 95 12/22/21 07:30 36.8 C 83 18 160/61 H 96 12/22/21 05:40 134 H 126/56 L 12/22/21 05:38 94 H 126/56 L all noted and reviewed including below
[2021-12-22] MEDS: ACETAMINOPHEN 325 MG TAB PO SCH ×4 (17:42→20:39)
[2021-12-22] MEDS: CALCITONIN SALMON 200 UNITS in SYRINGE 0 ML SQ SCH (17:42)
[2021-12-22] MEDS: predniSONE 10 MG TABLET PO SCH (17:42)
[2021-12-22] MEDS: METOPROLOL TARTRATE 25 MG TAB PO SCH ×2 (20:04→20:41)
[2021-12-22] MEDS: DOCUSATE SODIUM 100 MG CAP PO SCH (20:05)
[2021-12-22] MEDS: FAMOTIDINE 20 MG TAB PO SCH ×2 (20:07→20:41)
[2021-12-22] MEDS: INSULIN GLARGINE SOLOSTAR 100 UNITS/ML 3 ML PEN SC SCH (20:39)
[2021-12-22] MEDS: LORazepam 2 MG/1 ML VIAL IV PRN (23:08)
[2021-12-23] MEDS ORDERED: HYDROmorphone INJ 0.5 MG/0.5 ML SYR IV STA (03:12)
[2021-12-23] MEDS: CALCITONIN SALMON 200 UNITS in SYRINGE 0 ML SQ SCH (04:54)
[2021-12-23] MEDS: HEPARIN SOD 5,000 UNIT/0.5 ML VIAL SQ SCH ×3 (05:00→23:02)
[2021-12-23] MEDS: LEVOTHYROXINE SODIUM 88 MCG TABLET PO SCH (09:10)
[2021-12-23] MEDS: INSULIN ASPART PER UNIT SC SCH ×4 (09:11→20:56)
[2021-12-23] MEDS: amLODIPine BESYLATE 5 MG TAB PO SCH (09:13)
[2021-12-23] MEDS: ACETAMINOPHEN 325 MG TAB PO SCH ×5 (09:13→21:44)
[2021-12-23] MEDS: METOPROLOL TARTRATE 25 MG TAB PO SCH ×3 (09:14→21:52)
[2021-12-23] MEDS: ADVANCED PROBIOTIC 1250 MG CAPSULE PO SCH (09:14)
[2021-12-23] MEDS: LIDOCAINE 5% 1 PATCH TD SCH (09:14)
[2021-12-23] MEDS: PANTOprazole 40 MG TAB PO SCH (09:14)
[2021-12-23] MEDS: ASPIRIN 81 MG ECTAB PO SCH (09:14)
[2021-12-23] MEDS ORDERED: predniSONE 2.5 MG TAB PO SCH (09:15)
[2021-12-23] MEDS: CEFEPIME 500 MG in SYRINGE 0 ML IV SCH (09:17)
--- NOTE | 2021-12-23 09:29 | Pain Management Consultation ---
Date of Consultation December 23, 2021 Assessment & Plan (1) Chronic lumbar radiculopathy: (2) Sepsis: (3) CKD (chronic kidney disease) stage 5, GFR less than 15 ml/min: (4) Acute kidney injury superimposed on chronic kidney disease: Patient is drowsy and difficult to awake. Staff in the room state that she was up most of the night and sleeping most of the morning. I find the IV and oral Dilaudid medication regimen to be appropriate. On previous notes she has described an all over body pain where she may benefit from Duloxetine 30mg daily to slightly diminish pain but given drowsiness when trying to speak to her this morning I will not start this medication for now. Would not offer anything interventionally at this time. Thank you for the consultation. Please contact with any questions or concerns. History of Present Illness Attending Physician: Terell Bonilla MD History of Present Illness This is a 76 year old female that has been admitted to [facility] for sepsis secondary to complicated UTI, acute kidney injury, and lumbar pain. She has also mentioned an all over body pain. Patient is drowsy and difficult to wake up and falls back asleep shortly after. Unable to provide history. Lumbar MRI was refused by patient. She is currently receiving lidocaine patch, Dilaudid 2 mg p.o. every 4 hours, and Dilaudid 0.5 mg IV every 3 hours if needed. She has used the oral Dilaudid twice yesterday and the IV Dilaudid once yesterday. Case discussed with Dr. Belinda Siegel Allergies Allergy/AdvReac Type Severity Reaction Status Date / Time simvastatin Allergy Intermediate MUSCLE PAIN Verified 07/23/21 09:50 codeine Allergy Unknown RASH Verified 07/23/21 09:50 Iodinated Contrast Media Allergy Unknown Hives Verified 07/23/21 09:50 Sulfa (Sulfonamide AdvReac Intermediate HIVES,NAUSE Verified 07/23/21 09:50 Antibiotics) A gabapentin AdvReac Unknown NAUSEA Verified 07/23/21 09:50 pravastatin AdvReac Unknown Abdominal Verified 07/23/21 09:50 Pain Home Medications Medication Instructions Recorded Confirmed Type Lactobacillus rhamnosus GG 10 2 cap PO QAM 07/20/20 12/20/21 History billion cell capsule (Culturelle) aspirin 81 mg tablet,delayed 81 mg PO QAM 07/20/20 12/20/21 History release famotidine 20 mg tablet 20 mg PO PM 07/20/20 12/20/21 History multivitamin 1 tab PO QAM 07/20/20 12/20/21 History omeprazole 20 mg capsule,delayed 20 mg PO QAM 07/20/20 12/20/21 History release diphenhydramine 25 1 tab PO HS PRN #0 08/13/20 12/20/21 History mg-acetaminophen 500 mg tablet (Tylenol PM Extra Strength) acetaminophen 500 mg tablet 500 mg PO Q6H PRN 07/23/21 12/20/21 History (Tylenol Extra Strength) amlodipine 10 mg tablet 10 mg PO DAILY #30 tab 08/01/21 12/20/21 Rx docusate sodium 100 mg capsule 100 mg PO BID 12/20/21 12/20/21 History (Col-Rite) glipizide 5 mg tablet 2.5 mg PO .DAILY/UD 12/20/21 12/20/21 History hydromorphone 2 mg tablet 2 mg PO Q4H PRN 12/20/21 12/20/21 History insulin NPH isoph U-100 human 100 10 unit SUBCUT .DAILY/UD 12/20/21 12/20/21 History unit/mL (3 mL) subcutaneous pen (Humulin N NPH U-100 Insulin KwikPen) insulin NPH isoph U-100 human 100 12 unit SUBCUT UD 12/20/21 12/20/21 History unit/mL (3 mL) subcutaneous pen (Humulin N NPH U-100 Insulin KwikPen) levothyroxine 88 mcg tablet 88 mcg PO DAILYBB 12/20/21 12/20/21 History prednisone 5 mg tablet 2.5 mg PO QAM 12/20/21 12/20/21 History tizanidine 2 mg capsule 2 mg PO AMPM 12/20/21 12/20/21 History torsemide 20 mg tablet 20 mg PO DAILY 12/20/21 12/20/21 History Patient History Medical History 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, 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 Elevated troponin GERD (gastroesophageal reflux disease) Hypertension Kidney stones Osteoarthritis Pyelonephritis July 2020 Surgical History H/O dilation and curettage History of carotid endarterectomy Right> 2005> FOLLOWS PCP History of colonoscopy History of hysterectomy History of tonsillectomy History of tooth extraction S/P ureteral stent placement 07/2020 for L ureteral stone Family History Father Diabetes Mother Diabetes Sister Colon cancer Social History Smoking Status: Never smoker Second Hand Exposure: No; Hx Alcohol Use: No Hx Substance Use: No Preferred Language: Latvian Communication Ability: Effective Visual Impairment: No Limitations Lehr Loader Required: No Beliefs That Will Affect Care: None Current Living Situation: Family Current Living Situation Comment: Son in from [place] to take care of her at this time. Other Information That Helps Us Care for You: No Feels Safe at Home: Yes Safety Concerns: Feels Safe At This Time Assistive Devices: Cane Physical Exam Physical Exam: GENERAL: This is a thin and frail appearing 76 year old female. In no acute distress. Drowsy and difficult to awake. HEAD/FACE: Normocephalic and atraumatic. EYES: No drainage or conjunctival injection. ENT: Nose without bleeding or discharge. Oral mucosa dry. NECK: Full ROM without apparent pain. No swelling or masses noted. RESPIRATORY: Patient with unlabored breathing. No signs of respiratory distress. CHEST/AXILLA: Chest movement symmetrical. No deformities noted. BACK: Moves without difficulty SKIN: [place], warm and dry. No rash noted. MS/EXTREMITY: No swelling, no deformities. Moving extremities appropriately. NEURO: Unable to stay awake for conversation. Results ([facility]) Diagnostic Review CT Findings: CT lumbar spine wo con CLINICAL HISTORY: Low back pain COMPARISON STUDY: No previous studies for comparison. CT DOSE: 265.19 mGy.cm TECHNIQUE: Standard CT of the Lumbar Spine was performed without IV contrast. A dose lowering technique was utilized adhering to the principles of ALARA. FINDINGS: Bones: The bones are osteopenic. There is degenerative grade 1/4 spondylolisthesis of L4 on L5. No acute abnormality is seen. Minimal old anterior wedge deformities are present involving the inferior endplate of L4 and the superior endplate of L5. The heights of the remaining lumbar vertebral bodies are maintained. The remaining lumbar vertebral bodies are in anatomic alignment. Disc spaces: There is marked disc space narrowing at L1-2. Mild to moderate disc space narrowing seen throughout the remaining lumbar spine with vacuum disc phenomena at L4-5. Bulging of the annulus and 60 the ligamentum flavum is also present at this level and the findings are characteristic of mild to moderate central canal stenosis. Facet joints: Extensive hypertrophic facet joint disease is seen at the lower 2 disc space levels. Mild degenerative changes are present involving the SI joints bilaterally. Soft tissues: The prevertebral soft tissues are within normal limits. IMPRESSION: 1. Osteopenia with old wedge deformities of L4 and L5. No acute abnormality. 2. Degenerative grade 1/4 spondylolisthesis of L4 on L5 with bulging annuli and thickening of ligamentum flavum bilaterally producing mild to moderate central canal stenosis at this level. ACT 112: Negative or not required by law. Electronically signed by: Woody Mike M.D. 12/20/2021 8:53 AM
[2021-12-23] MEDS ORDERED: OLANZapine 10 MG/2.1 ML SDV IM PRN (09:36)
[2021-12-23 10:00] LABS: BUN Creatinine Ratio 20.7 (10-20); Calcium 11.4 mg/dl (8.5-10.1); Creatinine Clr Calc Pharmacy 8.9 ml/min; Est GFR (African American) 13.1 ml/min; Est GFR (Non-African American) 11.3 ml/min; Potassium 4.8 mmol/L (3.5-5.1)
[2021-12-23] MEDS ORDERED: ZOLEDRONIC ACID IV ONE (10:04)
[2021-12-23] MEDS ORDERED: SODIUM CHLORIDE 0.9% IV ONE (10:04)
--- NOTE | 2021-12-23 10:05 | Nephrology Progress Note ---
Date of Service December 23, 2021 Assessment & Plan (1) Acute kidney injury superimposed on chronic kidney disease: Plan: stage one slightly improved CKD 5 w/ nephrotic range proteinuria. her hypercalcemia has recurred and is significant/may be contributing to MS changes; other chemistries ok. EMILIE on CKD 5 versus progression. not an emergency but may need to start dialysis at some point soon - she is in no mental/emotional state to discuss this meaningfully. baseline creatinine low to mid 3's -not on renal diet which is ok for now -continue D5W at 50 ml hourly for now ; might consider NS if 02 needs stabilize -daily bmp -strict I/O -continue low K diet; she's hardly eating >>low threshold for psych and /or palliative care consult since her anxiety/pain is interfering with ability to work up her clinical issues >> pending eval of and tx for encephalopathy >wean oxygen as tolerated; f/u pending CT scans given hypoxia, admission CXR, hypercalcemia -cont to hold torsemide for now > she was to be on 40 mg daily prior to admission but had been refusing to take it coordinated w/ hospitalist (2) Hypercalcemia: Plan: worsening yesterday and waiting on labs today and new this admission; calcium was 10.1 on 12/13 as OP. PTH appropriately suppressed; 25 OH D levels in mid 40s; PTHrp pending. up to 11.9 yesterday. >f/u PTHrp >f/u pending 1, 25 dihydroxy D, TSH, spep, upep, Beta 2 microglobulin and kappa/lambda ratio -cont calcitonin x 48 hr total >> today I increased to max dose for remaining doses since we've not moved her so far >could consider low dose zometa though her calcium levels are not severely elevated; will observe for now -will d/w primary service > cont low rate of fluids if CT chest permits but some concern about increasing hypoxia (3) History of kidney stones: Plan: given this and her back pain > reasonable to do abd CT if she will agree to it (4) Hypertension: Plan: bp labile but with acceptable control; some may be situational; metoprolol just upped (5) Back pain: Plan: Note that at 12/06 PCP visit she had lots of concern w/ back pain and was taking dilaudid for this -cont pain control efforts and f/u pain mgt recs -with her hx would rule out kidney stone (6) Anxiety: Plan: versus delirium; consider psych eval and / or palliative evaluation to talk about goals of care and how to discuss and whether or how to start dialysis given her marked anxiety; would involve son in this discussion as well; goal is to optimize pt participation in decisions where possible (7) CKD (chronic kidney disease) stage 5, GFR less than 15 ml/min: 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 > preparing in outpt clinic for dialysis if feasible which it may not be (8) PSVT (paroxysmal supraventricular tachycardia): Plan: -metoprolol upped; cardiology following (9) Troponin I above reference range: Plan: per cardiology; likeliest for med mgt Admission and Anticipated Discharge Date Admission Date: December 20, 2021 Subjective PAIN mgt saw pt this am and proposed duloxetine plus current dilaudid > to start duloxetine when she wakens more; CT c/a/p and head ordered this am but pt refu sed/became combative; ripped her IV out; seen on pm rounds;has sitter now; on oxymask Review of Systems Review of Systems: Unobtainable due to reduced consciousness Physical Exam Constitutional: well developed, + thin and + lethargic; no acute distress Eyes: EOM intact bilaterally ENMT: Ears: no external ear abnormality Nose: no external nose abnormality Mouth: + dry oral mucous membranes Neck: no nuchal rigidity Respiratory: normal respiratory effort Auscultation: + diminished lung sounds Cardiovascular: Rate/Rhythm: regular rate and regular rhythm Extremities: no edema Gastrointestinal (Abdomen): Inspection/Auscultation: normal bowel sounds Percussion/Palpation: abdomen soft Musculoskeletal: Extremities: + abnormal strength Skin: no rashes, warm and dry Neurologic: slight tremor; does not speak Results & Data ([place]) Vital Signs (Past 12 Hours) Vital Signs Temp Pulse Pulse Resp BP Pulse Ox 12/23/21 07:31 73 12/23/21 06:59 37.1 C 91 H 20 167/80 H 92 12/23/21 04:24 36.4 C L 91 H 16 151/70 H 92 12/22/21 23:22 36.5 C 85 20 139/69 94 Laboratory Results 12/22/21 05:33 12/23/21 05:48 Diagnostic Findings none new (1) Hypertension Hypertension type: unspecified Qualified Code(s): I10 - Essential (primary) hypertension
[2021-12-23] MEDS ORDERED: PHARMACY GLYCEMIC MGMT CONSULT PRN (10:14)
[2021-12-23] MEDS: LORazepam 2 MG/1 ML VIAL IV PRN ×2 (10:14→20:47)
[2021-12-23] MEDS: predniSONE 2.5 MG TAB PO SCH ×2 (10:16→10:36)
[2021-12-23] MEDS: DOXYCYCLINE HYCLATE 100 MG CAP PO SCH ×2 (10:16→21:44)
[2021-12-23] MEDS: predniSONE 10 MG TABLET PO SCH ×2 (10:16→10:36)
[2021-12-23] MEDS ORDERED: INSULIN GLARGINE SOLOSTAR 100 UNITS/ML 3 ML PEN SC ONE (10:45)
[2021-12-23] MEDS ORDERED: methylPREDNISolone 10 MG in SYRINGE 0.25 ML IV ONE (10:45)
--- NOTE | 2021-12-23 11:27 | Cardiology Progress Note ---
Date of Service December 23, 2021 Assessment & Plan (1) PSVT (paroxysmal supraventricular tachycardia): Plan: -Brief run of self-limited SVT noted on telemetry 12/22/2021. This morning at 7:53 AM, episode of irregular narrow complex tachycardia noted, rhythm strip concerning for possible atrial fibrillation or SVT. -Patient has refused oral metoprolol treatment from yesterday, with nursing notes of agitation. -Patient is not a candidate for systemic anticoagulation (2) Troponin I above reference range: Plan: -HS troponin levels of 701pg/ml--> 1371 pg/ml -->662 pg/ml. Pt ill with multiple issues, however, denies angina is is a poor candidate for invasive cardiac procedures. Recommend metoprolol, and aspirin when willing/able to take oral medications. Patient poor candidate for statin th erapy given baseline pain issues. Prognosis poor. Admission and Anticipated Discharge Date Admission Date: December 20, 2021 Subjective Patient resting comfortably with recent issues with regards to agitation and pain noted per review of her chart. One-to-one supervision in place. Results & Data ([facility]) Vital Signs (Past 12 Hours) Vital Signs Temp Pulse Pulse Resp BP Pulse Ox Pulse Ox 12/23/21 09:00 97 12/23/21 07:31 73 12/23/21 06:59 37.1 C 91 H 20 167/80 H 92 12/23/21 04:24 36.4 C L 91 H 16 151/70 H 92
--- NOTE | 2021-12-23 12:44 | Hospitalist Progress Note ---
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 No acute abnormality. Degenerative grade 1/4 spondylolisthesis of L4 on L5 with bulging annuli and thickening of ligamentum flavum bilaterally producing mild to moderate central canal stenosis at this level. 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 H/O CVA/PVD Continue Aspirin DM II HbA1C: 7.27 November 2021 Continue Insulin Pharmacy glycemic consulted Hypothyroidism Continue Levothyroxine Anemia of Kidney Disease Cr at baseline Monitor DVT Px: Heparin SQ Code Status Full code Admission and Anticipated Discharge Date Admission Date: December 20, 2021 Subjective ff for acute renal failure, etc seen resting in bed, sleeping not in distress 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 occasionally opens eyes reports pain on her back no shortness of breath did not have breakfast confused, combative this morning, hitting the manager mechanical of Systems Review of Systems: all noted and negative except for above Physical Exam Physical Exam: General- oriented x 0, not in distress, speaks in few words with no effort or accessory muscle use Eyes- anicteric Neck- no JVD Lungs- clear breath sounds bilaterally, no rales/wheezes Heart- normal rate, regular rhythm; no murmurs Abdomen- normal bowel sounds, nondistended, soft, nontender Extremities- no pretibial edema, no calf tenderness Neuro- alert, drowsy; no new gross focal neurologic deficits Skin- warm & dry Results & Data Results & Data ([place]) Vital Signs (Past 12 Hours) Vital Signs Temp Pulse Pulse Resp BP Pulse Ox Pulse Ox 12/23/21 09:00 97 12/23/21 07:31 73 12/23/21 06:59 37.1 C 91 H 20 167/80 H 92 12/23/21 04:24 36.4 C L 91 H 16 151/70 H 92 all noted and reviewed including below
[2021-12-23] MEDS: HYDROmorphone INJ 1 MG/ML SYRINGE IV PRN (13:15)
[2021-12-23] MEDS: DEXTROSE 5% 1,000 ML IV SCH (13:16)
--- NOTE | 2021-12-23 14:14 | Pharmacy Report ---
Pharmacy Glycemic Short Note 2 - Date of Service December 23, 2021 - Glycemic Short BSG Results (Last 24 hours): 12/22/21 12/22/21 12/23/21 16:15 20:28 05:48 Glucose 206 H POC Glucose 142 H 163 H 12/23/21 12/23/21 07:15 11:19 Glucose POC Glucose 238 H 259 H OUTPATIENT ANTIDIABETIC REGIMEN: * NPH 10-12 units SQ daily * Glipizide 2.5mg PO daily * pt takes prednisone 2.5mg PO daily * HbA1c: unreliable in the setting of significant CKD ASSESSMENT: * Pt with significant encephalopathy during admission. She has been very agitated/confused and has been refusing many of her insulin doses. * As a result, patient is hyperglycemic today. * Glycemic mgmt consult received this afternoon. Pharmacy will follow for now, but ultimately glycemic control will be dependent upon patient's willingness to receive insulin doses. * Pt received 10mg IV SoluMedrol today. Resume PO prednisone tomorrow, assuming that patient's mental status allows for PO med administration. PLAN FOR INPATIENT GLYCEMIC CONTROL: * Hold outpatient oral diabetes medications * Basal insulin * Lantus 5 units SQ qPM * 5 units ordered for this afternoon as well, as patient did not receive dose yesterday (okay if patient receives 10 units total today) * Bolus insulin * NovoLog per scale ACHS or Q6hrs while NPO * Goal Range: Low 110 mg/dL - High 140 mg/dL * Correction Factor: 25 mg/dL/unit * Nutritional / Prandial insulin per carb ratio of 1 unit per 15 grams CHO consumed
[2021-12-23] MEDS: CALCITONIN SALMON SQ SCH (16:39)
[2021-12-23] MEDS: INSULIN GLARGINE SOLOSTAR 100 UNITS/ML 3 ML PEN SC SCH (20:56)
[2021-12-23] MEDS ORDERED: METOPROLOL TARTRATE 1 MG/ML VIAL IV STA (21:07)
[2021-12-23] MEDS ORDERED: METOPROLOL TARTRATE 1 MG/ML VIAL IV ONE (21:09)
[2021-12-23] MEDS: DOCUSATE SODIUM 100 MG CAP PO SCH (21:44)
[2021-12-23] MEDS: FAMOTIDINE 20 MG TAB PO SCH (21:44)
[2021-12-24] MEDS: HYDROmorphone INJ 1 MG/ML SYRINGE IV PRN ×3 (03:15→20:47)
[2021-12-24] MEDS: CALCITONIN SALMON SQ SCH ×2 (04:58→17:25)
[2021-12-24] MEDS: HEPARIN SOD 5,000 UNIT/0.5 ML VIAL SQ SCH ×3 (05:00→23:04)
[2021-12-24] MEDS: LEVOTHYROXINE SODIUM 88 MCG TABLET PO SCH (07:26)
[2021-12-24] MEDS: INSULIN ASPART PER UNIT SC SCH ×4 (07:40→20:59)
[2021-12-24] MEDS ORDERED: predniSONE 2.5 MG TAB PO SCH (09:00)
[2021-12-24] MEDS ORDERED: INSULIN GLARGINE SOLOSTAR 100 UNITS/ML 3 ML PEN SC SCH (09:00)
--- NOTE | 2021-12-24 09:39 | Nephrology Progress Note ---
Date of Service December 24, 2021 Assessment & Plan (1) Acute kidney injury superimposed on chronic kidney disease: Plan: stage one slightly improved CKD 5 w/ nephrotic range proteinuria. her hypercalcemia has recurred and is significant/may be contributing to MS changes; other chemistries ok. EMILIE on CKD 5 versus progression. not an emergency but may need to start dialysis at some point soon - she is in no mental/emotional state to discuss this meaningfully. baseline creatinine low to mid 3's -not on renal diet w -continue D5W at 50 ml hourly for now ; might consider NS if 02 needs stabilize -daily bmp -strict I/O -continue low K diet; she's hardly eating >>low threshold for psych and /or palliative care consult since her anxiety/pain is interfering with ability to work up her clinical issues >> pending eval of and tx for encephalopathy >wean oxygen as tolerated; f/u pending CT scans given hypoxia, admission CXR, hypercalcemia -cont to hold torsemide for now > she was to be on 40 mg daily prior to admission but had been refusing to take it -overall poor prognosis (2) Hypercalcemia: Plan: calcium was 10.1 on 12/13 as OP. PTH appropriately suppressed; 25 OH D levels in mid 40s; PTHrp pending- No LABS FROM TODAY. >f/u PTHrp >f/u pending 1, 25 dihydroxy D, TSH, spep, upep, Beta 2 microglobulin and kappa/lambda ratio -cont calcitonin x 48 hr total >could consider low dose zometa/ Prolia though her calcium levels are not severely elevated; will observe for now -will d/w primary service > cont low rate of fluids if CT chest permits (3) History of kidney stones: Plan: given this and her back pain > reasonable to do abd CT if she will agree to it (4) Hypertension: Plan: bp labile but with acceptable control; some may be situational (5) Back pain: Plan: Note that at 12/06 PCP visit she had lots of concern w/ back pain and was taking dilaudid for this -cont pain control efforts and f/u pain mgt recs -with her hx would rule out kidney stone (6) Anxiety: Plan: versus delirium; consider psych eval and / or palliative evaluation to talk about goals of care and how to discuss and whether or how to start dialysis given her marked anxiety; would involve son in this discussion as well; goal is to optimize pt participation in decisions where possible (7) CKD (chronic kidney disease) stage 5, GFR less than 15 ml/min: 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 Review of Systems Review of Systems: limited by Patinet mental state Physical Exam Physical Exam: Constitutio nal: well develop ed, + thin and + l ethargic; no acute distress B Eyes: EOM intact b ilaterally ENMT: Ears: no ext ernal ear abnormal ity Nose: no exte rnal nose abnormal ity Mouth: + dr y oral mucous memb ranes Neck: no nuchal ri gidity Respiratory : normal respira tory effort Aus cultation: + dimin ished lung sounds Cardiovascu lar: Rate/Rhythm: regular rate and regular rhythm Ex tremities: no aaron a Gastrointes tinal (Abdomen): Inspection/Aus cultation: leodan l bowel sounds Pe rcussion/Palpation : abdomen soft Musculoskel etal: Extremities: + abnormal streng th Skin: no rashes, w arm and dry Neurologic: slight tremo r; does not speak Results & Data ([facility]) Vital Signs (Past 12 Hours) Vital Signs Temp Pulse Pulse Resp BP BP Pulse Ox 12/24/21 07:32 37.1 C 74 17 154/70 H 99 12/24/21 03:28 37.3 C 80 18 99/63 L 99 12/23/21 23:51 89 17 164/69 H 99 Laboratory Results 12/22/21 05:33 12/23/21 05:48 (1) Hypertension Hypertension type: unspecified Qualified Code(s): I10 - Essential (primary) hypertension
[2021-12-24] MEDS: amLODIPine BESYLATE 5 MG TAB PO SCH (10:11)
[2021-12-24] MEDS: DEXTROSE 5% 1,000 ML IV SCH (10:11)
[2021-12-24] MEDS: CEFEPIME 500 MG in SYRINGE 0 ML IV SCH (10:11)
[2021-12-24] MEDS: ASPIRIN 81 MG ECTAB PO SCH (10:11)
[2021-12-24] MEDS: ACETAMINOPHEN 325 MG TAB PO SCH ×4 (10:11→22:51)
[2021-12-24] MEDS: ADVANCED PROBIOTIC 1250 MG CAPSULE PO SCH (10:12)
[2021-12-24] MEDS: DOXYCYCLINE HYCLATE 100 MG CAP PO SCH (10:12)
[2021-12-24] MEDS: PANTOprazole 40 MG TAB PO SCH (10:13)
[2021-12-24] MEDS: LIDOCAINE 5% 1 PATCH TD SCH (10:13)
[2021-12-24] MEDS: predniSONE 2.5 MG TAB PO SCH (10:14)
[2021-12-24] MEDS: predniSONE 10 MG TABLET PO SCH (10:14)
[2021-12-24] MEDS: METOPROLOL TARTRATE 1 MG/ML VIAL IV SCH ×3 (12:14→23:08)
--- NOTE | 2021-12-24 13:02 | Pharmacy Report ---
Pharmacy Glycemic Short Note 2 - Date of Service December 24, 2021 - Glycemic Short BSG Results (Last 24 hours): 12/23/21 12/23/21 12/24/21 16:07 20:08 07:12 POC Glucose 248 H 232 H 228 H 12/24/21 11:51 POC Glucose 142 H OUTPATIENT ANTIDIABETIC REGIMEN: * NPH 10-12 units SQ daily * Glipizide 2.5mg PO daily * pt takes prednisone 2.5mg PO daily * HbA1c: unreliable in the setting of significant CKD ASSESSMENT: 12/24/21 * BSGs elevated yesterday, 238, 259, 248, and 232 mg/dL, fasting BSG of 228 mg/dL today * Received 19 units of insulin (10 units of basal and 9 units of pran dial/correctional bolus) * Continues on D5 @50 mL/hr * Patient refused prednisone today, will receive 10 mg IV Solu-medrol this afternoon * Gave yesterday's full basal dose all at once this morning in light of dextrose fluids, elevated fasting BSG, and prednisone (subsequently switched to methylprednisolone) - will likely need to scale back tomorrow 12/23/21 * Pt with significant encephalopathy during admission. She has been very agitated/confused and has been refusing many of her insulin doses. * As a result, patient is hyperglycemic today. * Glycemic mgmt consult received this afternoon. Pharmacy will follow for now, but ultimately glycemic control will be dependent upon patient's willingness to receive insulin doses. * Pt received 10mg IV SoluMedrol today. Resume PO prednisone tomorrow, assuming that patient's mental status allows for PO med administration. PLAN FOR INPATIENT GLYCEMIC CONTROL: * Hold outpatient oral diabetes medications * Basal insulin * Lantus 10 units SC x 1 this morning * Reassess basal in AM * Bolus insulin * NovoLog per scale ACHS or Q6hrs while NPO * Goal Range: Low 110 mg/dL - High 140 mg/dL * Correction Factor: 25 mg/dL/unit * Nutritional / Prandial insulin per carb ratio of 1 unit per 15 grams CHO consumed
[2021-12-24] MEDS ORDERED: methylPREDNISolone 10 MG in SYRINGE 0.25 ML IV ONE (13:15)
--- NOTE | 2021-12-24 13:29 | Electrocardiogram Report ---
Test Reason : Blood Pressure : / mmHG Vent. Rate : 109 BPM Atrial Rate : 109 BPM P-R Int : 100 ms QRS Dur : 078 ms QT Int : 282 ms P-R-T Axes : 076 044 106 degrees QTc Int : 379 ms Sinus tachycardia with short ND with Premature atrial complexes in a pattern of bigeminy Possible Left atrial enlargement Nonspecific ST and T wave abnormality Abnormal ECG When compared with ECG of 20-DEC-2021 05:42, Premature atrial complexes are now Present Non-specific change in ST segment in Inferior leads ST less depressed in Lateral leads T wave inversion no longer evident in Inferior leads Nonspecific T wave abnormality, worse in Lateral leads Confirmed by Fran De La Garza ([id number]) on 12/24/2021 1:29:12 PM Referred By: REFERRED SELF Confirmed By:Fran De La Garza
--- NOTE | 2021-12-24 13:30 | Electrocardiogram Report ---
Test Reason : Blood Pressure : / mmHG Vent. Rate : 153 BPM Atrial Rate : 147 BPM P-R Int : 000 ms QRS Dur : 082 ms QT Int : 292 ms P-R-T Axes : 000 033 164 degrees QTc Int : 466 ms Probable Atrial fibrillation with rapid ventricular response Septal infarct , age undetermined Abnormal ECG When compared with ECG of 23-DEC-2021 21:11, (unconfirmed) Atrial fibrillation has replaced Sinus rhythm ST more depressed Lateral leads Inverted T waves have replaced nonspecific T wave abnormality in Lateral leads Confirmed by Fran De La Garza ([id number]) on 12/24/2021 1:29:40 PM Referred By: REFERRED SELF Confirmed By:Fran De La Garza
[2021-12-24 14:43] LABS: BUN Creatinine Ratio 19.2 (10-20); Calcium 11.3 mg/dl (8.5-10.1); Creatinine Clr Calc Pharmacy 8.2 ml/min; Est GFR (Non-African American) 10.3 ml/min; Potassium 4.8 mmol/L (3.5-5.1)
--- NOTE | 2021-12-24 15:28 | Cardiology Progress Note ---
Date of Service December 24, 2021 Assessment & Plan (1) PSVT (paroxysmal supraventricular tachycardia): Plan: -76-year-old female with history of stage 5 chronic kidney disease with MPA /ANCA vasculitis diagnosed July,. Cardiology initially consulted due to episode of self-limited SVT. On review of telemetry today 12/24/2021, patient had an additional episode of supraventricular tachycardia, rate 150 bpm (less likely atrial flutter) that persisted from 12:11 PM until 1:18 PM. She has been unable or unwilling to take oral metoprolol, now on IV metoprolol 2.5 mg IV every 6 hours. Will continue IV metoprolol. Transition back to oral when able to tolerate. (2) Troponin I above reference range: Plan: -HS troponin levels of 701pg/ml--> 1371 pg/ml -->662 pg/ml. Pt ill with multiple issues, however, denies angina is is a poor candidate for invasive cardiac procedures. Recommend metoprolol, and aspirin when willing/able to take oral medications. Patient poor candidate for statin th erapy given baseline pain issues. Prognosis poor. Dr Villatoro is rounding this weekend. Please contact with questions or concerns. Admission and Anticipated Discharge Date Admission Date: December 20, 2021 Subjective Patient seen in cardiology follow-up. Somnolent. Physical Exam Constitutional: + acute distress and + cachectic Respiratory: normal respiratory effort, lungs clear to auscultation Cardiovascular: RRR, no murmur, no edema Gastrointestinal (Abdomen): normal bowel sounds, soft, nontender, no hepatosplenomegaly Neurologic: PERRL, EOMI, accommodation nl, no face palsy, no dysarthria Results & Data ([facility]) Vital Signs (Past 12 Hours) Vital Signs Temp Pulse Pulse Pulse Resp BP Pulse Ox 12/24/21 14:54 36.7 C 72 16 99/60 L 100 12/24/21 12:14 150 H 12/24/21 12:00 36.9 C 92 H 18 155/92 H 98 12/24/21 09:00 12/24/21 08:00 80 12/24/21 07:32 37.1 C 74 17 154/70 H 99 12/24/21 03:28 37.3 C 80 18 99/63 L 99 Pulse Ox 12/24/21 14:54 12/24/21 12:14 12/24/21 12:00 12/24/21 09:00 97 12/24/21 08:00 12/24/21 07:32 12/24/21 03:28
[2021-12-24 16:35] LABS: Albumin 3.5 g/dL (3.8-4.8); Alpha 1 Globulin 0.6 g/dL (0.2-0.3); Alpha 2 Globulin 1.3 g/dL (0.5-0.9); Beta-1-Globulin 0.2 g/dL (0.4-0.6); Beta-2-Globulin 0.4 g/dL (0.2-0.5); Gamma Globulin 0.4 g/dL (0.8-1.7); Monoclonal Protein Band 1 DNR g/dL (NONE DETECTED); Monoclonal Protein Band 2 DNR g/dL (NONE DETECTED); Monoclonal Protein Band 3 DNR g/dL (NONE DETECTED); Total Protein 6.4 g/dL (6.1-8.1)
[2021-12-24] MEDS: DOXYCYCLINE HYCLATE 100 MG in DEXTROSE 5% 100 ML IV SCH (17:55)
--- NOTE | 2021-12-24 18:58 | Hospitalist Progress Note ---
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 Ongoing chronic steroid therapy Cr: 4.09--> 3.6 -->3.9 continue D5W Encephalopathy likely Multifactorial Narcotics-currently necessary to control severe back pain, will use lowest dose possible Acute renal failure-with hypercalcemia, management per above Possible underlying pneumonia-on cefepime, and doxycycline Blood cultures negative Urine culture negative Possible component of hospital delirium-delirium prevention strategies -- seems to be improving slightly today continue to monitor Degenerative Disc Disease Lumbar Spinal Stenosis CT Lumbar:Osteopenia with old wedge deformities of L4 and L5. No acute abnormality. Degenerative grade 1/4 spondylolisthesis of L4 on L5 with bulging annuli and thickening of ligamentum flavum bilaterally producing mild to moderate central canal stenosis at this level. 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 H/O CVA/PVD Continue Aspirin DM II HbA1C: 7.27 November 2021 Continue Insulin Pharmacy glycemic consulted Hypothyroidism Continue Levothyroxine Anemia of Kidney Disease Cr at baseline Monitor DVT Px: Heparin SQ Code Status Full code Admission and Anticipated Discharge Date Admission Date: December 20, 2021 Subjective ff up for acute renal failure, encephalopathy, etc seen resting in bed, comfortable sleeping drowsy tries to open eyes to verbal commands tries to shake head with all questions as per RN, patient seemed less confused today able to verbalize needs better today but still disoriented pain seems to be improved, required 1 dose of Dilaudid so far did not eat today no other issues Review of Systems Review of Systems: all noted and negative except for above Physical Exam Physical Exam: General- oriented x 0, not in distress,breathing with no effort or accessory muscle use appears weak Eyes- anicteric Neck- no JVD Lungs- clear BS bilaterally, no rales/wheezes Heart- normal rate, regular rhythm; no murmurs Abdomen- normal bowel sounds, nondistended, soft, nontender Extremities- no pretibial edema, no calf tenderness Neuro- alert, oriented x 3; no gross focal neurologic deficits Skin- warm & dry Results & Data Results & Data ([facility]) Vital Signs (Past 12 Hours) Vital Signs Temp Pulse Pulse Resp BP Pulse Ox Pulse Ox 12/24/21 14:54 36.7 C 72 16 99/60 L 100 12/24/21 12:14 150 H 12/24/21 12:00 36.9 C 92 H 18 155/92 H 98 12/24/21 09:00 97 12/24/21 08:00 80 12/24/21 07:32 37.1 C 74 17 154/70 H 99 all noted and reviewed including below
[2021-12-24] MEDS: DOCUSATE SODIUM 100 MG CAP PO SCH (22:52)
[2021-12-24] MEDS: FAMOTIDINE 20 MG TAB PO SCH (22:53)
[2021-12-24] MEDS: SODIUM CHLORIDE 0.9% 1000ML 1,000 ML IV SCH (23:05)
[2021-12-25] MEDS: LORazepam 2 MG/1 ML VIAL IV PRN ×2 (01:33→16:40)
[2021-12-25] MEDS: DOXYCYCLINE HYCLATE 100 MG in DEXTROSE 5% 100 ML IV SCH ×2 (04:35→17:35)
[2021-12-25] MEDS: CALCITONIN SALMON SQ SCH (05:00)
[2021-12-25] MEDS: HEPARIN SOD 5,000 UNIT/0.5 ML VIAL SQ SCH ×3 (05:01→21:07)
[2021-12-25] MEDS: METOPROLOL TARTRATE 1 MG/ML VIAL IV SCH ×4 (06:04→23:59)
[2021-12-25] MEDS: LEVOTHYROXINE SODIUM 88 MCG TABLET PO SCH (06:47)
[2021-12-25] MEDS: HYDROmorphone INJ 1 MG/ML SYRINGE IV PRN ×2 (07:46→16:40)
[2021-12-25] MEDS: INSULIN ASPART PER UNIT SC SCH ×4 (07:49→21:06)
[2021-12-25 08:17] LABS: Anion Gap 11 (3-11); BUN Creatinine Ratio 21.6 (10-20); Blood Urea Nitrogen 85 mg/dl (6-23); Calcium 11.8 mg/dl (8.5-10.1); Carbon Dioxide 20 mmol/L (21-32); Chloride 106 mmol/L (98-107); Est GFR (Non-African American) 10.3 ml/min; Glucose 193 mg/dl (70-99(Fasting)); Sodium 137 mmol/L (136-145)
[2021-12-25] MEDS: CEFEPIME 500 MG in SYRINGE 0 ML IV SCH (08:25)
[2021-12-25] MEDS: ASPIRIN 81 MG ECTAB PO SCH (08:27)
[2021-12-25] MEDS: LIDOCAINE 5% 1 PATCH TD SCH (08:27)
[2021-12-25] MEDS: ACETAMINOPHEN 325 MG TAB PO SCH ×4 (08:27→19:21)
[2021-12-25] MEDS: ADVANCED PROBIOTIC 1250 MG CAPSULE PO SCH (08:27)
[2021-12-25] MEDS: amLODIPine BESYLATE 5 MG TAB PO SCH ×2 (08:27→19:21)
[2021-12-25] MEDS: PANTOprazole 40 MG TAB PO SCH (08:27)
[2021-12-25] MEDS: predniSONE 2.5 MG TAB PO SCH (08:28)
[2021-12-25] MEDS: predniSONE 10 MG TABLET PO SCH (08:28)
[2021-12-25] MEDS: INSULIN GLARGINE SOLOSTAR 100 UNITS/ML 3 ML PEN SC SCH (10:03)
--- NOTE | 2021-12-25 10:36 | Nephrology Progress Note ---
Date of Service December 25, 2021 Assessment & Plan (1) Acute kidney injury superimposed on chronic kidney disease: Plan: Patient with advanced CKD 5 and nephrotic range proteinuria. her hypercalcemia has recurred and is significant/may be contributing to MS changes; other chemistries ok. EMILIE on CKD 5 versus progression. not an emergency but may need to start dialysis at some point soon - she is in no mental/emotional state to discuss this meaningfully. baseline creatinine low to mid 3's -continue D5W at 50 ml hourly for now ; might consider NS if 02 needs stabilize -daily bmp -strict I/O -We will stop Dilaudid and lorazepam given advanced CKD and altered mental status (2) History of kidney stones: Plan: given this and her back pain > reasonable to do abd CT if she will agree to it (3) Hypertension: Plan: BP is high. 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 Patient is drowsy and unable to give history. She is on oxygen nasal cannula. Creatinine and BUN of 3.9 and 85 respectively Review of Systems Review of Systems: Unable to obtain due to altered mental status Physical Exam Physical Exam: General exam: Appears comfortable, no acute distress. On oxygen nasal cannula HEENT: Pupils are equal and reactive to light Neck: No JVD, neck is supple trachea is midline Respiratory system: Clear breath sounds bilaterally. Gastrointestinal: Abdomen is soft, non distended, non tender, bowel sounds are present CVS: Regular rate and rhythm. No murmurs, rubs or gallops Musculoskeletal: No joint or muscle tenderness Extremities: Non tender, no edema, peripheral pulses are present Neuro: Drowsy, no tremors, no focal neurological deficits Skin: No rashes Results & Data ([facility]) Vital Signs (Past 12 Hours) Vital Signs Temp Pulse Pulse Resp BP BP Pulse Ox 12/25/21 09:40 75 12/25/21 09:00 12/25/21 07:38 36.9 C 86 19 161/88 H 100 12/25/21 06:04 91 H 164/71 H 12/25/21 04:21 36.3 C L 83 18 138/76 99 12/24/21 23:08 78 145/68 H 12/24/21 23:03 110 H Pulse Ox 12/25/21 09:40 12/25/21 09:00 97 12/25/21 07:38 12/25/21 06:04 12/25/21 04:21 12/24/21 23:08 12/24/21 23:03 Laboratory Results 12/25/21 08:42 (1) Hypertension Hypertension type: unspecified Qualified Code(s): I10 - Essential (primary) hypertension
[2021-12-25] MEDS ORDERED: methylPREDNISolone 10 MG in SYRINGE 0 ML IV STA (14:57)
[2021-12-25] MEDS ORDERED: LEVOTHYROXINE SODIUM IV SCH (16:00)
[2021-12-25] MEDS ORDERED: INSULIN GLARGINE SOLOSTAR 100 UNITS/ML 3 ML PEN SC ONE (16:00)
--- NOTE | 2021-12-25 17:30 | Hospitalist Progress Note ---
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 Ongoing chronic steroid therapy Cr: 4.09--> 3.6 -->3.9 continue D5W Encephalopathy likely Multifactorial Narcotics-currently necessary to control severe back pain, will use lowest dose possible Acute renal failure-with hypercalcemia, management per above Possible underlying pneumonia-on cefepime, and doxycycline Blood cultures negative Urine culture negative Possible component of hospital delirium-delirium prevention strategies -- Mental status worse again today Discuss goals of cares with patient's son At this point, he would like to continue with IV hydration, possible TPN, in the hopes that patient will be able to speak with palliative care service on Monday regarding comfort measures only continue to monitor Degenerative Disc Disease Lumbar Spinal Stenosis CT Lumbar:Osteopenia with old wedge deformities of L4 and L5. No acute abnormality. Degenerative grade 1/4 spondylolisthesis of L4 on L5 with bulging annuli and thickening of ligamentum flavum bilaterally producing mild to moderate central canal stenosis at this level. MRI pending Fall Precautions PT/OT when appropriate --Pain management consulted, agree with current pain regimen Continue IV Solu-Medrol, Dilaudid to control excruciating pain Hypercalcemia Calcium:11.8 Normal vitamin D, PTH levels Given calcitonin Nephrology following Monitor closely work up for multiple myeloma pending Elevated Troponin likely due to EMILIE Denies chest pain ECHO showed no wall motion abnormality Episode of SVT Metoprolol 25 mg twice daily added--> changed to Metoprolol 2.5mg IV q6h [employer] on board H/O CVA/PVD Continue Aspirin DM II HbA1C: 7.27 November 2021 Continue Insulin Pharmacy glycemic consulted Hypothyroidism Continue Levothyroxine Anemia of Kidney Disease Cr at baseline Monitor DVT Px: Heparin SQ Code Status Full code Admission and Anticipated Discharge Date Admission Date: December 20, 2021 Subjective Follow-up for acute renal failure, intractable back pain, etc. Seen with family at the bedside Patient sleeping occasionally awakens, yelling out in pain Oriented to place and person, but also confused, not answering questions appropriately Review of Systems Review of Systems: Unobtainable due to cognitive status Physical Exam Physical Exam: General- oriented x 2, not in distress, breathing with no effort or accessory muscle use weak, frail Eyes- anicteric Neck- no JVD Lungs- clear breath sounds bilaterally, no rales/wheezes Heart- normal rate, regular rhythm; no murmurs Abdomen- normal bowel sounds, nondistended, soft, nontender Extremities- no pretibial edema, no calf tenderness Neuro- alert, oriented x 2; no gross focal neurologic deficits Skin- warm & dry Results & Data Results & Data ([facility]) Vital Signs (Past 12 Hours) Vital Signs Temp Pulse Pulse Pulse Resp BP BP 12/25/21 15:34 81 12/25/21 15:14 36.7 C 70 16 149/72 H 12/25/21 12:00 12/25/21 11:33 36.5 C 84 17 180/74 H 12/25/21 09:40 75 12/25/21 09:00 12/25/21 07:38 36.9 C 86 19 161/88 H 12/25/21 06:04 91 H 164/71 H Pulse Ox Pulse Ox 12/25/21 15:34 12/25/21 15:14 100 12/25/21 12:00 100 12/25/21 11:33 100 12/25/21 09:40 12/25/21 09:00 97 12/25/21 07:38 100 12/25/21 06:04 all noted and reviewed including below
[2021-12-25] MEDS: FAMOTIDINE 20 MG TAB PO SCH (19:21)
[2021-12-25] MEDS: DOCUSATE SODIUM 100 MG CAP PO SCH (19:21)
[2021-12-25] MEDS: SODIUM CHLORIDE 0.9% 1000ML 1,000 ML IV SCH (19:31)
[2021-12-26] MEDS: HYDROmorphone INJ 1 MG/ML SYRINGE IV PRN ×4 (00:02→21:12)
[2021-12-26] MEDS: HEPARIN SOD 5,000 UNIT/0.5 ML VIAL SQ SCH ×3 (04:48→21:11)
[2021-12-26] MEDS: METOPROLOL TARTRATE 1 MG/ML VIAL IV SCH ×4 (04:52→23:31)
[2021-12-26] MEDS: DOXYCYCLINE HYCLATE 100 MG in DEXTROSE 5% 100 ML IV SCH ×2 (04:53→17:15)
[2021-12-26 06:17] LABS: BUN Creatinine Ratio 24.9 (10-20); Calcium 11.6 mg/dl (8.5-10.1); Creatinine Clr Calc Pharmacy 8.3 ml/min; Est GFR (African American) 12.8 ml/min; Est GFR (Non-African American) 11.1 ml/min; Potassium 5.7 mmol/L (3.5-5.1)
[2021-12-26] MEDS: INSULIN ASPART PER UNIT SC SCH ×4 (08:05→21:10)
[2021-12-26] MEDS: ASPIRIN 81 MG ECTAB PO SCH (08:16)
[2021-12-26] MEDS: ACETAMINOPHEN 325 MG TAB PO SCH ×4 (08:16→20:21)
[2021-12-26] MEDS: amLODIPine BESYLATE 5 MG TAB PO SCH ×2 (08:16→20:22)
[2021-12-26] MEDS: PANTOprazole 40 MG TAB PO SCH (08:17)
[2021-12-26] MEDS: LIDOCAINE 5% 1 PATCH TD SCH (08:17)
[2021-12-26] MEDS: ADVANCED PROBIOTIC 1250 MG CAPSULE PO SCH (08:17)
[2021-12-26] MEDS: CEFEPIME 500 MG in SYRINGE 0 ML IV SCH (08:17)
[2021-12-26] MEDS: INSULIN GLARGINE SOLOSTAR 100 UNITS/ML 3 ML PEN SC SCH (08:17)
[2021-12-26] MEDS: predniSONE 2.5 MG TAB PO SCH (08:18)
[2021-12-26] MEDS: predniSONE 10 MG TABLET PO SCH (08:18)
--- NOTE | 2021-12-26 10:04 | Nephrology Progress Note ---
Date of Service December 26, 2021 Assessment & Plan (1) Acute kidney injury superimposed on chronic kidney disease: Plan: Patient with advanced CKD 5 and nephrotic range proteinuria. her hypercalcemia has recurred and is significant/may be contributing to MS changes; other chemistries ok. EMILIE on CKD 5 versus progression. not an emergency but may need to start dialysis soon - she is in no mental/emotional state to discuss this meaningfully. baseline creatinine low to mid 3's. Given hyperkalemia and worsening renal function, patient will need to start dialysis likely tomorrow if family decides to go that route. It appears family is leaning towards comfort measures only. Palliative medicine has been consulted -continue D5W at 50 ml hourly for now ; -daily bmp -strict I/O (2) Hypertension: Plan: BP is high. 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 Patient is drowsy and unable to give history. She opens eyes to voice. She is not making urine and potassium uptrending Review of Systems Review of Systems: Unable to obtain due to altered mental status Physical Exam Physical Exam: General exam: Drowsy but arousable appears comfortable, no acute distress HEENT: Pupils are equal and reactive to light Neck: No JVD, neck is supple trachea is midline Respiratory system: Clear breath sounds bilaterally. Gastrointestinal: Abdomen is soft, non distended, non tender, bowel sounds are present CVS: Regular rate and rhythm. No murmurs, rubs or gallops Musculoskeletal: No joint or muscle tenderness Extremities: Non tender, no edema, peripheral pulses are present Neuro:no tremors, no focal neurological deficits Skin: No rashes Results & Data ([facility]) Vital Signs (Past 12 Hours) Vital Signs Temp Pulse Pulse Resp BP BP BP 12/26/21 09:00 12/26/21 08:01 36.5 C 70 16 137/69 12/26/21 07:32 71 12/26/21 04:52 75 161/53 H 12/26/21 03:00 36.9 C 75 14 161/53 H 12/25/21 23:59 98 H 169/82 H 12/25/21 23:00 36.8 C 98 H 12 169/82 H 12/25/21 22:20 91 H Pulse Ox Pulse Ox 12/26/21 09:00 97 12/26/21 08:01 100 12/26/21 07:32 12/26/21 04:52 12/26/21 03:00 99 12/25/21 23:59 12/25/21 23:00 95 12/25/21 22:20 Laboratory Results 12/26/21 05:38 (1) Hypertension Hypertension type: unspecified Qualified Code(s): I10 - Essential (primary) hypertension
--- NOTE | 2021-12-26 10:35 | Pharmacy Report ---
Pharmacy Glycemic Short Note 2 - Date of Service December 26, 2021 - Glycemic Short BSG Results (Last 24 hours): 12/25/21 12/25/21 12/25/21 11:34 16:34 19:47 Glucose POC Glucose 171 H 152 H 212 H 12/26/21 12/26/21 05:38 07:29 Glucose 160 H POC Glucose 167 H OUTPATIENT ANTIDIABETIC REGIMEN: * NPH 10-12 units SQ daily * Glipizide 2.5mg PO daily * pt takes prednisone 2.5mg PO daily * HbA1c: unreliable in the setting of significant CKD ASSESSMENT: 12/26/21: * Ms Thomas has refused nearly all of her insulin doses for the past 24 hours. * Pt has been intermittently hyperglycemic. * Pt has also been refusing her dose of daily prednisone. IV SoluMedrol has been supplemented. * No further pharmacy interventions indicated at this time. 12/24 * BSGs elevated yesterday, 238, 259, 248, and 232 mg/dL, fasting BSG of 228 mg/dL today * Received 19 units of insulin (10 units of basal and 9 units of prandial/correctional bolus) * Continues on D5 @50 mL/hr * Patient refused prednisone today, will receive 10 mg IV Solu-medrol this afternoon * Gave yesterday's full basal dose all at once this morning in light of dextrose fluids, elevated fasting BSG, and prednisone (subsequently switched to methylprednisolone) - will likely need to scale back tomorrow 12/23 * Pt with significant encephalopathy during admission. She has been very agitated/confused and has been refusing many of her insulin doses. * As a result, patient is hyperglycemic today. * Glycemic mgmt consult received this afternoon. Pharmacy will follow for now, but ultimately glycemic control will be dependent upon patient's willingness to receive insulin doses. * Pt received 10mg IV SoluMedrol today. Resume PO prednisone tomorrow, assuming that patient's mental status allows for PO med administration. PLAN FOR INPATIENT GLYCEMIC CONTROL: * Hold outpatient oral diabetes medications * Basal insulin * Lantus 8 units SQ daily -- pt has been refusing * Bolus insulin * NovoLog per scale ACHS or Q6hrs while NPO * Goal Range: Low 110 mg/dL - High 140 mg/dL * Correction Factor: 25 mg/dL/unit * Nutritional / Prandial insulin per carb ratio of 1 unit per 15 grams CHO consumed
--- NOTE | 2021-12-26 10:53 | Hospitalist Progress Note ---
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 Ongoing chronic steroid therapy Cr: 4.09--> 3.6 -->3.9-->3.7 continue D5W Encephalopathy likely Multifactorial Narcotics-currently necessary to control severe back pain, will use lowest dose possible Acute renal failure-with hypercalcemia, management per above Possible underlying pneumonia-on cefepime, and doxycycline Blood cultures negative Urine culture negative Possible component of hospital delirium-delirium prevention strategies -- sleeping today, but confused again this morning per RN Discuss goals of cares with patient's son At this point, he would like to continue with IV hydration, possible TPN, in the hopes that patient will be able to speak with palliative care service on Monday regarding comfort measures only continue to monitor Degenerative Disc Disease Lumbar Spinal Stenosis CT Lumbar:Osteopenia with old wedge deformities of L4 and L5. No acute abnormality. Degenerative grade 1/4 spondylolisthesis of L4 on L5 with bulging annuli and thickening of ligamentum flavum bilaterally producing mild to moderate central canal stenosis at this level. MRI pending Fall Precautions PT/OT when appropriate --Pain management consulted, agree with current pain regimen Continue IV Solu-Medrol, Dilaudid to control excruciating pain patient's son accepting of side effects including sedation, as long as his mother's pain is effectively controlled Hypercalcemia Calcium:11.6 Normal vitamin D, PTH levels Given calcitonin Nephrology following Monitor closely work up for multiple myeloma pending Elevated Troponin likely due to EMILIE Denies chest pain ECHO showed no wall motion abnormality Episode of SVT Metoprolol 25 mg twice daily added--> changed to Metoprolol 2.5mg IV q6h [employer] on board H/O CVA/PVD Continue Aspirin DM II HbA1C: 7.27 November 2021 Continue Insulin Pharmacy glycemic consulted Hypothyroidism Continue Levothyroxine Anemia of Kidney Disease Cr at baseline Monitor DVT Px: Heparin SQ Code Status Full code Admission and Anticipated Discharge Date Admission Date: December 20, 2021 Subjective ff up for acute renal failure on CKD, intractable back pain, spinal stenosis, etc seen resting in bed, sleeping comfortably as per RN, patient was having severe pain this morning, screaming when woken up still not eating her meals no other new issues Review of Systems Review of Systems: all noted and negative except for above Physical Exam Physical Exam: General- sleeping, breathing with no effort or accessory muscle use Eyes- anicteric Neck- no JVD Lungs- clear breath sounds bilaterally, no rales/wheezes Heart- normal rate, regular rhythm; no murmurs Abdomen- normal bowel sounds, nondistended, soft, nontender Extremities- no pretibial edema, no calf tenderness Neuro- sleeping Skin- warm & dry Results & Data Results & Data ([facility]) Vital Signs (Past 12 Hours) Vital Signs Temp Pulse Pulse Resp BP BP BP 12/26/21 09:00 12/26/21 08:01 36.5 C 70 16 137/69 12/26/21 07:32 71 12/26/21 04:52 75 161/53 H 12/26/21 03:00 36.9 C 75 14 161/53 H 12/25/21 23:59 98 H 169/82 H 12/25/21 23:00 36.8 C 98 H 12 169/82 H Pulse Ox Pulse Ox 12/26/21 09:00 97 12/26/21 08:01 100 12/26/21 07:32 12/26/21 04:52 12/26/21 03:00 99 12/25/21 23:59 12/25/21 23:00 95 all noted and reviewed including below
[2021-12-26] MEDS ORDERED: methylPREDNISolone 10 MG in SYRINGE 0.25 ML IV ONE (11:15)
[2021-12-26] MEDS: LORazepam 2 MG/1 ML VIAL IV PRN ×2 (12:47→23:45)
[2021-12-26] MEDS: SODIUM CHLORIDE 0.9% 1000ML 1,000 ML IV SCH (16:37)
[2021-12-26] MEDS: FAMOTIDINE 20 MG TAB PO SCH (20:22)
[2021-12-26] MEDS: DOCUSATE SODIUM 100 MG CAP PO SCH (20:22)
[2021-12-27] MEDS: HYDROmorphone INJ 1 MG/ML SYRINGE IV PRN ×7 (05:51→22:27)
[2021-12-27] MEDS: DOXYCYCLINE HYCLATE 100 MG in DEXTROSE 5% 100 ML IV SCH (05:51)
[2021-12-27] MEDS: HEPARIN SOD 5,000 UNIT/0.5 ML VIAL SQ SCH (05:52)
[2021-12-27] MEDS: METOPROLOL TARTRATE 1 MG/ML VIAL IV SCH (05:59)
[2021-12-27] MEDS: ACETAMINOPHEN 325 MG TAB PO SCH (09:02)
[2021-12-27] MEDS: amLODIPine BESYLATE 5 MG TAB PO SCH (09:02)
[2021-12-27] MEDS: ADVANCED PROBIOTIC 1250 MG CAPSULE PO SCH (09:03)
[2021-12-27] MEDS: LIDOCAINE 5% 1 PATCH TD SCH (09:03)
[2021-12-27] MEDS: CEFEPIME 500 MG in SYRINGE 0 ML IV SCH (09:03)
[2021-12-27] MEDS: ASPIRIN 81 MG ECTAB PO SCH (09:03)
[2021-12-27] MEDS: predniSONE 2.5 MG TAB PO SCH (09:03)
[2021-12-27] MEDS: PANTOprazole 40 MG TAB PO SCH (09:03)
[2021-12-27] MEDS: predniSONE 10 MG TABLET PO SCH (09:04)
--- NOTE | 2021-12-27 09:05 | Palliative Care Consultation ---
Date of Consultation December 27, 2021 Assessment & Plan (1) Palliative care encounter: Ms. Carlene Thomas presented to the [facility] with back pain and sepsis secondary to a UTI. She had a recent admission in July 2021 for acute renal failure and an outpatient renal biopsy was performed and results indicated a glomerulonephritis. Her calcium levels were quite high on admission as well, which may have been contributing to her altered mental status. Additional PMH includes: HTN, CVA, DM2, CRI, MPA vasculitis s/p Rituxan, and a right carotidectomy. Nephrology was consulted and has determined this individual is not a candidate for hemodiaysis. Palliative medicine was consulted to discuss overall goals of care. Carlene was unresponsive and not responding to verbal or tactile stimuli during my encounter. There have been numerous conversations with the patients family from the hospitalist regarding overall goals of care. I was able to talk with the pt's son, Albert, at [phone] at length. He was quite tearful on the phone and had just gotten off of the phone with the Third Cook. He is an only child but indicates that him and his mother have had conversations about end of life a few months ago. She was clear to him at that time that she would not want any overly heroic measures taken in her care. The patients brother and sister were able to visit over the weekend and were in support of a full comfort measures transition. I did set the expectation that she is likely in the last few days of life. He has been cleared visitation at the front end specialist and a bereavement cart is ordered. Patients son has concerns regarding hydration. We discussed shifting to more prevention of mucus membranes being dry. The patient has been using Dilaudid 1 mg IV Q2 PRN (FOUR doses over the past 24 hours) and Ativan 0.5 mg IV Q8 PRN (TWO doses over the past 24 hours). Will increase frequency of Ativan and also ordered Atropine gtts for oral secretions. The above has been discussed with the hospitalist, RN< and onsite case manager. Palliative will follow. (2) Chronic lumbar radiculopathy: (3) CKD (chronic kidney disease) stage 5, GFR less than 15 ml/min: (4) Sepsis: History of Present Illness Reason for Consultation: Goals of care Requesting Physician: Dr. Bonilla Attending Physician: Terell Bonilla MD History of Present Illness Ms. Carlene Thomas presented to the [facility] with back pain and sepsis secondary to a UTI. She had a recent admission in July 2021 for acute renal failure and an outpatient renal biopsy was performed and results indicated a glomerulonephritis. Her calcium levels were quite high on admission as well, which may have been contributing to her altered mental status. Additional PMH includes: HTN, CVA, DM2, CRI, MPA vasculitis s/p Rituxan, and a right carotidectomy. Nephrology was consulted and has determined this individual is n ot a candidate for hemodiaysis. Palliative medicine was consulted to discuss overall goals of care. Please see A/P for further details. Thanks for involving palliative medicine with this patient. Allergies Allergy/AdvReac Type Severity Reaction Status Date / Time simvastatin Allergy Intermediate MUSCLE PAIN Verified 07/23/21 09:50 codeine Allergy Unknown RASH Verified 07/23/21 09:50 Iodinated Contrast Media Allergy Unknown Hives Verified 07/23/21 09:50 Sulfa (Sulfonamide AdvReac Intermediate HIVES,NAUSE Verified 07/23/21 09:50 Antibiotics) A gabapentin AdvReac Unknown NAUSEA Verified 07/23/21 09:50 pravastatin AdvReac Unknown Abdominal Verified 07/23/21 09:50 Pain Home Medications Medication Instructions Recorded Confirmed Type Lactobacillus rhamnosus GG 10 2 cap PO QAM 07/20/20 12/20/21 History billion cell capsule (Culturelle) aspirin 81 mg tablet,delayed 81 mg PO QAM 07/20/20 12/20/21 History release famotidine 20 mg tablet 20 mg PO PM 07/20/20 12/20/21 History multivitamin 1 tab PO QAM 07/20/20 12/20/21 History omeprazole 20 mg capsule,delayed 20 mg PO QAM 07/20/20 12/20/21 History release diphenhydramine 25 1 tab PO HS PRN #0 08/13/20 12/20/21 History mg-acetaminophen 500 mg tablet (Tylenol PM Extra Strength) acetaminophen 500 mg tablet 500 mg PO Q6H PRN 07/23/21 12/20/21 History (Tylenol Extra Strength) amlodipine 10 mg tablet 10 mg PO DAILY #30 tab 08/01/21 12/20/21 Rx docusate sodium 100 mg capsule 100 mg PO BID 12/20/21 12/20/21 History (Col-Rite) glipizide 5 mg tablet 2.5 mg PO .DAILY/UD 12/20/21 12/20/21 History hydromorphone 2 mg tablet 2 mg PO Q4H PRN 12/20/21 12/20/21 History insulin NPH isoph U-100 human 100 10 unit SUBCUT .DAILY/UD 12/20/21 12/20/21 History unit/mL (3 mL) subcutaneous pen (Humulin N NPH U-100 Insulin KwikPen) insulin NPH isoph U-100 human 100 12 unit SUBCUT UD 12/20/21 12/20/21 History unit/mL (3 mL) subcutaneous pen (Humulin N NPH U-100 Insulin KwikPen) levothyroxine 88 mcg tablet 88 mcg PO DAILYBB 12/20/21 12/20/21 History prednisone 5 mg tablet 2.5 mg PO QAM 12/20/21 12/20/21 History tizanidine 2 mg capsule 2 mg PO AMPM 12/20/21 12/20/21 History torsemide 20 mg tablet 20 mg PO DAILY 12/20/21 12/20/21 History Patient History Medical History (Updated 12/27/21 @ 10:22 by DONTAE Portillo) 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, 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 Elevated troponin GERD (gastroesophageal reflux disease) Hypertension Kidney stones Osteoarthritis Palliative care encounter Pyelonephritis July 2020 Surgical History H/O dilation and curettage History of carotid endarterectomy Right> 2004> FOLLOWS PCP History of colonoscopy History of hysterectomy History of tonsillectomy History of tooth extraction S/P ureteral stent placement 07/2020 for L ureteral stone Family History Father Diabetes Mother Diabetes Sister Colon cancer Social History Smoking Status: Never smoker Second Hand Exposure: No; Hx Alcohol Use: No Hx Substance Use: No Preferred Language: Kazakh Communication Ability: Effective Visual Impairment: No Limitations Regional Cra Required: No Beliefs That Will Affect Care: None Current Living Situation: Family Current Living Situation Comment: Son in from [place] to take care of her at this time. Other Information That Helps Us Care for You: No Feels Safe at Home: Yes Safety Concerns: Feels Safe At This Time Assistive Devices: Cane Review of Systems Review of Systems: Unobtainable due to cognitive status and Unobtainable due to reduced consciousness Physical Exam Constitutional: + ill appearing, + frail appearing and comfortable ENMT: Mouth: + dry oral mucous membranes Respiratory: normal respiratory effort (shallow breathing) and + uses accessory muscles Cardiovascular: Rate/Rhythm: regular rate and regular rhythm Extremities: normal capillary refill Gastrointestinal (Abdomen): Inspection/Auscultation: abdomen normal to inspection Percussion/Palpation: abdomen soft Skin: normal turgor and + pallor Psychiatric: Insight: + severely impaired insight Judgement: + severely impaired judgement Results & Data ([facility]) Vital Signs (Past 12 Hours) Vital Signs Temp Pulse Pulse Pulse Resp BP BP 12/27/21 08:10 36.6 C 91 H 18 151/62 H 12/27/21 05:59 102 H 157/74 H 12/27/21 03:30 36.9 C 109 H 18 151/62 H 12/26/21 23:41 36.4 C L 109 H 21 136/47 L 12/26/21 23:31 80 136/68 12/26/21 22:18 82 Pulse Ox 12/27/21 08:10 91 12/27/21 05:59 12/27/21 03:30 99 12/26/21 23:41 100 12/26/21 23:31 12/26/21 22:18 PG Care Time/CCT Total # of Minutes Spent Total Time Spent with Patient: Total time spent is greater than 50% in coordination of care (as documented) at patient's floor/unit and/or counseling patient: 70 minutes Coding Level of Care Code 24425 Initial Inpt Care Lvl 3 Diagnoses Palliative care encounter Z51.5 Chronic lumbar radiculopathy M54.16 CKD (chronic kidney disease) stage 5, GFR less than 15 ml/min N18.5 Sepsis A41.9 Time Spent (min) 70
[2021-12-27] MEDS: INSULIN ASPART PER UNIT SC SCH ×2 (09:07→15:32)
--- NOTE | 2021-12-27 09:34 | Nephrology Progress Note ---
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 She has reached CKD5 based on Both Cystatin C and Creat based formula giving GFR of around 12. However extremely weak and severe Anxiety/Psych Issue. For all practical purpose not a candidate for Chronic maintenance Dialysis. Spoke with son Albert and update him regarding that. He is in agreement. keep her comfortable. Palliative consult pending. Subjective Seen in follow-up for acute renal failure and hypercalcemia. Patient is drowsy and unable to give history. Review of Systems Review of Systems: Unable to obtain due to altered mental status Physical Exam Physical Exam: General exam: Appears comfortable, no acute distress. On oxygen nasal cannula HEENT: Pupils are equal and reactive to light Neck: No JVD, neck is supple trachea is midline Respiratory system: Clear breath sounds bilaterally. Gastrointestinal: Abdomen is soft, non distended, non tender, bowel sounds are present CVS: Regular rate and rhythm. No murmurs, rubs or gallops Musculoskeletal: No joint or muscle tenderness Extremities: Non tender, no edema, peripheral pulses are present Neuro: Drowsy, no tremors, no focal neurological deficits Skin: No rashes Results & Data ([facility]) Vital Signs (Past 12 Hours) Vital Signs Temp Pulse Pulse Pulse Resp BP BP 12/27/21 08:10 36.6 C 91 H 18 151/62 H 12/27/21 05:59 102 H 157/74 H 12/27/21 03:30 36.9 C 109 H 18 151/62 H 12/26/21 23:41 36.4 C L 109 H 21 136/47 L 12/26/21 23:31 80 136/68 12/26/21 22:18 82 Pulse Ox 12/27/21 08:10 91 12/27/21 05:59 12/27/21 03:30 99 12/26/21 23:41 100 12/26/21 23:31 12/26/21 22:18
[2021-12-27] MEDS ORDERED: ATROPINE SULFATE 1% OP SOLN 5 ML BTL OP PRN (09:59)
[2021-12-27 14:32] LABS: Beta-2-Microglobulin 17.28 mg/L (< OR = 2.51); Kappa 85 mg/dL (176-443); Kappa Lambda Ratio 1.73 (1.29-2.55); Lambda 49 mg/dL (91-240); Vitamin D 1,25 107 pg/mL (18-72); Vitamin D3,1,25 107 pg/mL
--- NOTE | 2021-12-27 17:33 | Hospitalist Progress Note ---
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 Ongoing chronic steroid therapy Cr: 4.09--> 3.6 -->3.9-->3.7 given D5W Encephalopathy likely Multifactorial Narcotics-currently necessary to control severe back pain, will use lowest dose possible Acute renal failure-with hypercalcemia, management per above Possible underlying pneumonia-on cefepime, and doxycycline Blood cultures negative Urine culture negative Possible component of hospital delirium-delirium prevention strategies -- sleeping today, but confused again this morning per RN Discuss goals of cares with patient's son At this point, he would like to continue with IV hydration, possible TPN, in the hopes that patient will be able to speak with palliative care service on Monday regarding comfort measures only continue to monitor -- palliative care consulted -- patient's family has decided to transition to comfort measures Degenerative Disc Disease Lumbar Spinal Stenosis CT Lumbar:Osteopenia with old wedge deformities of L4 and L5. No acute abnormality. Degenerative grade 1/4 spondylolisthesis of L4 on L5 with bulging annuli and thickening of ligamentum flavum bilaterally producing mild to moderate central canal stenosis at this level. MRI pending Fall Precautions PT/OT when appropriate --Pain management consulted, agree with current pain regimen Continue IV Solu-Medrol, Dilaudid to control excruciating pain patient's son accepting of side effects including sedation, as long as his mother's pain is effectively controlled Hypercalcemia Calcium:11.6 Normal vitamin D, PTH levels Given calcitonin Nephrology following Monitor closely work up for multiple myeloma pending Elevated Troponin likely due to EMILIE Denies chest pain ECHO showed no wall motion abnormality Episode of SVT Metoprolol 25 mg twice daily added--> changed to Metoprolol 2.5mg IV q6h Computer Training Specialist on board H/O CVA/PVD Continue Aspirin DM II HbA1C: 7.27 November 2021 Continue Insulin Pharmacy glycemic consulted Hypothyroidism Continue Levothyroxine Anemia of Kidney Disease Cr at baseline Monitor DVT Px: Heparin SQ Code Status Full code Admission and Anticipated Discharge Date Admission Date: December 20, 2021 Subjective ff up for acute renal failure, etc seen resting in bed, comfortable lethargic not in distress no tachypnea no signs of pain no other symptoms Review of Systems Review of Systems: Unobtainable due to cognitive status Physical Exam Physical Exam: General- lethargic, breathing with no effort or accessory muscle use Eyes- anicteric Neck- no JVD Lungs- clear breath sounds bilaterally Heart- normal rate, regular rhythm; no murmurs Abdomen- normal bowel sounds, nondistended, soft, nontender Extremities- no pretibial edema, no calf tenderness Neuro-drowsy; no new gross focal neurologic deficits Skin- warm & dry Results & Data Results & Data ([facility]) Vital Signs (Past 12 Hours) Vital Signs Temp Pulse Pulse Resp BP BP Pulse Ox 12/27/21 08:10 36.6 C 91 H 18 151/62 H 91 12/27/21 05:59 102 H 157/74 H all noted and reviewed including below
[2021-12-27] MEDS: LORazepam 2 MG/1 ML VIAL IV PRN (23:18)
[2021-12-28] MEDS: HYDROmorphone INJ 1 MG/ML SYRINGE IV PRN ×7 (05:47→22:33)
[2021-12-28] MEDS: LORazepam 2 MG/1 ML VIAL IV PRN (06:29)
[2021-12-28] MEDS: OLANZapine ZYDIS 5 MG ORALLY DIS. TAB PO PRN ×2 (09:23→18:08)
--- NOTE | 2021-12-28 10:26 | Palliative Care Progress Note ---
Date of Service December 28, 2021 Assessment & Plan (1) Palliative care encounter: Plan: Pt remains on comfort measures. Albert, patients son, is at her bedside. We discussed what to expect nearing end of life. Patient continues to make some urine; however, this is slowing down. Life expectancy remains hours to a few days. No nutrition for 6 days thus far. Educated pt son on how to keep her mucus membranes moist with swabs. He asked if he could use diet Coke (her favorite) with the swab, which is appropriate. Palliative will follow. (2) Restlessness and agitation: Plan: Pt with increased restlessness and discomfort with touching/turning. Pt was actively swinging and having terminal agitation. Was on Ativan 0.5 mg IV Q6 PRN. Will schedule Ativan 0.5 mg IV Q4. Pt son on board with this plan. Also ordered Zyprexa 5 mg SL Q8 PRN for additional agitation as necessary. IV infiltrated, new one placed. (3) CKD (chronic kidney disease) stage 5, GFR less than 15 ml/min: (4) Sepsis: Admission and Anticipated Discharge Date Admission Date: December 20, 2021 Subjective Pt IV infiltrated this AM. Patient still receiving IV Dilaudid and Ativan. Had some terminal agitation today. See A/P for additional details. Review of Systems Review of Systems: Unobtainable due to reduced consciousness Physical Exam Constitutional: + ill appearing, + frail appearing and comfortable ENMT: Mouth: + dry oral mucous membranes Respiratory: normal respiratory effort (shallow breathing) and + uses accessory muscles Cardiovascular: Rate/Rhythm: regular rate and regular rhythm Extremities: normal capillary refill Gastrointestinal (Abdomen): Inspection/Auscultation: abdomen normal to inspection Percussion/Palpation: abdomen soft Skin: normal turgor and + pallor Psychiatric: Insight: + severely impaired insight Judgement: + severely impaired judgement PG Care Time/CCT Total # of Minutes Spent Total Time Spent with Patient: Total time spent is greater than 50% in coordination of care (as documented) at patient's floor/unit and/or counseling patient: 45 mintues Coding Level of Care Code 96269 Subseq Hosp Care Lvl 3 Diagnoses Palliative care encounter Z51.5 CKD (chronic kidney disease) stage 5, GFR less than 15 ml/min N18.5 Sepsis A41.9 Restlessness and agitation R45.1 Time Spent (min) 45
[2021-12-28] MEDS: LORazepam 2 MG/1 ML VIAL IV SCH ×4 (11:01→22:33)
[2021-12-28] MEDS ORDERED: LORazepam 2 MG/1 ML VIAL IV SCH (13:00)
--- NOTE | 2021-12-28 18:14 | Hospitalist Progress Note ---
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 Ongoing chronic steroid therapy Cr: 4.09--> 3.6 -->3.9-->3.7 given D5W Encephalopathy likely Multifactorial Narcotics-currently necessary to control severe back pain, will use lowest dose possible Acute renal failure-with hypercalcemia, management per above Possible underlying pneumonia-on cefepime, and doxycycline Blood cultures negative Urine culture negative Possible component of hospital delirium-delirium prevention strategies -- sleeping today, but confused again this morning per RN Discuss goals of cares with patient's son At this point, he would like to continue with IV hydration, possible TPN, in the hopes that patient will be able to speak with palliative care service on Monday regarding comfort measures only continue to monitor -- palliative care consulted -- patient's family has decided to transition to comfort measures -- currently comfortable on Dilaudid IV, Ativan IV Degenerative Disc Disease Lumbar Spinal Stenosis CT Lumbar:Osteopenia with old wedge deformities of L4 and L5. No acute abnormality. Degenerative grade 1/4 spondylolisthesis of L4 on L5 with bulging annuli and thickening of ligamentum flavum bilaterally producing mild to moderate central canal stenosis at this level. MRI pending Fall Precautions PT/OT when appropriate --Pain management consulted, agree with current pain regimen given IV Solu-Medrol, Dilaudid to control excruciating pain patient's son accepting of side effects including sedation, as long as his mother's pain is effectively controlled Hypercalcemia Calcium:11.6 Normal vitamin D, PTH levels Given calcitonin Nephrology following Elevated Troponin likely due to EMILIE Denies chest pain ECHO showed no wall motion abnormality Episode of SVT Metoprolol 25 mg twice daily added--> changed to Metoprolol 2.5mg IV q6h Training And Development Specialist on board H/O CVA/PVD Continue Aspirin DM II Hypothyroidism Anemia of Kidney Disease DNR Admission and Anticipated Discharge Date Admission Date: December 20, 2021 Subjective ff up for acute renal failure, etc seen resting in bed, very lethargic not in distress, pain appears peaceful Review of Systems Review of Systems: All systems reviewed & are unremarkable except as noted in HPI & below Physical Exam Physical Exam: General-breathing with no effort or accessory muscle use Eyes- anicteric Neck- no JVD Lungs- clear breath sounds BL Heart- normal rate, regular rhythm; no murmurs Abdomen- normal bowel sounds, nondistended, soft, nontender Extremities- no pretibial edema, no calf tenderness Neuro- lethargic Skin- warm & dry
[2021-12-29] MEDS: LORazepam 2 MG/1 ML VIAL IV SCH ×6 (02:38→22:22)
[2021-12-29] MEDS: HYDROmorphone INJ 1 MG/ML SYRINGE IV PRN ×8 (02:42→22:23)
--- NOTE | 2021-12-29 18:13 | Hospitalist Progress Note ---
Date of Service December 29, 2021 Assessment & Plan (1) EMILIE (acute kidney injury): Plan: Acute Kidney Injury on CKD 5 Encephalopathy--likely Multifactorial Hypercalcemia Possible underlying pneumonia Possible component of hospital delirium Degenerative Disc Disease Lumbar Spinal Stenosis Elevated Troponin Episode of SVT H/O CVA/PVD DM II Hypothyroidism Anemia of Kidney Disease Continue comfort measures Family updated, aware of current management Appreciate palliative care input Admission and Anticipated Discharge Date Admission Date: December 20, 2021 Subjective Patient is seen and examined at bedside Currently on comfort measures only Discussed with patient's son at bedside No distress on exam during my encounter Review of Systems Review of Systems: Unobtainable due to reduced consciousness Physical Exam Physical Exam: Physical Exam: Vitals signs as noted above General Appearance:Thin, Frail, Ill appearing, Obtunded Head: normocephalic, Atraumatic Eyes: normal inspection Neck: supple, Trachea midline Respiratory/Chest: Normal breath sounds, CTA, No accessory muscle use Cardiovascular: S1, S2, No murmur Abdomen/GI:Soft, Non tender, Bowel sounds present Extremities/Musculoskeletal:normal inspection, no edema Neurologic/Psych:Obtunded Skin: normal color, warm
[2021-12-30] MEDS: HYDROmorphone INJ 1 MG/ML SYRINGE IV PRN ×8 (00:13→21:06)
[2021-12-30] MEDS: LORazepam 2 MG/1 ML VIAL IV SCH ×6 (02:48→23:26)
[2021-12-30] MEDS: OLANZapine ZYDIS 5 MG ORALLY DIS. TAB PO PRN (07:47)
--- NOTE | 2021-12-30 17:46 | Hospitalist Progress Note ---
Date of Service December 30, 2021 Assessment & Plan (1) EMILIE (acute kidney injury): Plan: Acute Kidney Injury on CKD 5 Encephalopathy--likely Multifactorial Hypercalcemia Possible underlying pneumonia Possible component of hospital delirium Degenerative Disc Disease Lumbar Spinal Stenosis Elevated Troponin Episode of SVT H/O CVA/PVD DM II Hypothyroidism Anemia of Kidney Disease On comfort measures Family updated, aware of current management Appreciate palliative care input Continue current care Admission and Anticipated Discharge Date Admission Date: December 20, 2021 Subjective Patient is seen and examined at bedside No distress on exam on comfort measures only Updated patient's son at bedside Review of Systems Review of Systems: Unobtainable due to reduced consciousness Physical Exam Physical Exam: Physical Exam: Vitals signs as noted above General Appearance:Thin, Frail, Ill appearing, Obtunded Head: normocephalic, Atraumatic Eyes: normal inspection Neck: supple, Trachea midline Respiratory/Chest: Normal breath sounds, CTA, No accessory muscle use Cardiovascular: S1, S2, No murmur Abdomen/GI:Soft, Non tender, Bowel sounds present Extremities/Musculoskeletal:normal inspection, no edema Neurologic/Psych:Obtunded Skin: normal color, warm
[2021-12-31] MEDS: LORazepam 2 MG/1 ML VIAL IV SCH ×3 (03:13→10:38)
[2021-12-31] MEDS: HYDROmorphone INJ 1 MG/ML SYRINGE IV PRN ×3 (03:13→10:05)
[2021-12-31] MEDS ORDERED: STAT IV Infusion **Titration per Protocol STA (11:22)
--- NOTE | 2021-12-31 11:22 | Palliative Care Progress Note ---
Date of Service December 31, 2021 Assessment & Plan (1) Palliative care encounter: Plan: Pt remains on comfort measures. Albert, patients son, is at her bedside. We discussed what to expect nearing end of life. Pt becoming more aneuric. Life expectancy remains hours to a few days; however, I do anticipate that she will pass in the next day or two. Pt has received numerous doses of Dilaudid IV. Discussed Dilaudid infusion due to her intermittent moaning and discomfort with turning. Pt son continues to appreciate her still being turned. Hospitalist aware. (2) Restlessness and agitation: Plan: Pt with increased restlessness and discomfort with touching/turning. Pt continues to have intermittent agitation and moaning. Tolerating routine Ativan. Also ordered Zyprexa 5 mg SL Q8 PRN for additional agitation as necessary. (3) CKD (chronic kidney disease) stage 5, GFR less than 15 ml/min: (4) Sepsis: Admission and Anticipated Discharge Date Admission Date: December 20, 2021 Subjective Patient is seen and examined at bedside No distress on exam on comfort measures only Updated patient's son at bedside Review of Systems Review of Systems: Unobtainable due to reduced consciousness Physical Exam Constitutional: + ill appearing, + frail appearing and comfortable ENMT: Mouth: + dry oral mucous membranes Respiratory: normal respiratory effort (shallow breathing) Auscultation: + diminished lung sounds Cardiovascular: Rate/Rhythm: regular rate and regular rhythm Extremities: normal capillary refill Gastrointestinal (Abdomen): Inspection/Auscultation: abdomen normal to inspection Percussion/Palpation: abdomen soft Skin: normal turgor and + pallor Psychiatric: Insight: + severely impaired insight Judgement: + severely impaired judgement PG Care Time/CCT Total # of Minutes Spent Total Time Spent with Patient: Total time spent is greater than 50% in coordination of care (as documented) at patient's floor/unit and/or counseling patient: 35 minutes Coding Level of Care Code 01503 Subseq Hosp Care Lvl 3 Diagnoses Palliative care encounter Z51.5 Restlessness and agitation R45.1 CKD (chronic kidney disease) stage 5, GFR less than 15 ml/min N18.5 Sepsis A41.9 Time Spent (min) 35
[2021-12-31] MEDS ORDERED: HYDROmorphone/NSS 100 MG/100 ML BAG IV SCH (11:30)
--- NOTE | 2021-12-31 14:03 | Discharge Summary ---
Date of Service December 31, 2021 Admission HPI Per Admitting Provider History obtained from patient, family, and records. Limited history from patient secondary to discomfort. 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 Last confinement July 2021 for ARF on CKD, ANCA associated vasculitis. Patient discharged on steroid taper. 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 3 months ago, patient seen at the ER for left hip/back pain with radiation to the left lower extremity without antecedent trauma symptoms. Symptoms attributed to sciatica. Worsening left lower back discomfort over the last few months. Patient not moving as much as per son. Patient denies chest pain, SOB, abdominal pain, diarrhea, dysuria symptoms, fluid retention. Patient denies fever or chills. Poor appetite as per son. Intractable pain upon arrival at the ER. 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 Admission Exam Per Admitting Provider Physical Exam Physical Exam: GENERAL: uncomfortable, anxious, whining in pain, no respiratory distress SKIN: Pallor, warm HEENT: Pale palpebral conjunctivae, no ptosis, dry buccal mucosa NECK : Supple, no tenderness CHEST : CTA, no tenderness HEART : RRR, no obvious murmurs ABDOMEN: Some distention, nontender BACK : Low back tenderness, positive SLR left EXTREMITIES : No LE swelling/tenderness, no other conspicuous deformities noted NEUROLOGIC : Coherent, no facial asymmetry, gait and stance not assessed Principal Diagnosis Acute renal failure on CKD 5 Acute metabolic encephalopathy Hypercalcemia Possible underlying pneumonia Possible component of hospital delirium Degenerative Disc Disease Lumbar Spinal Stenosis Episode of SVT H/O CVA/PVD DM II Hypothyroidism Anemia of Kidney Disease Discharge Exam Physical Exam: General Appearance:Thin, Frail, Ill appearing Head: normocephalic, Atraumatic Eyes: Dilated Neck: supple, Trachea midline Respiratory/Chest: No breath sounds Cardiovascular: No heart sounds Extremities/Musculoskeletal:normal inspection, no edema Neurologic/Psych: Discharge Data Allergies Allergy/AdvReac Type Severity Reaction Status Date / Time simvastatin Allergy Intermediate MUSCLE PAIN Verified 07/23/21 09:50 codeine Allergy Unknown RASH Verified 07/23/21 09:50 Iodinated Contrast Media Allergy Unknown Hives Verified 07/23/21 09:50 Sulfa (Sulfonamide AdvReac Intermediate HIVES,NAUSE Verified 07/23/21 09:50 Antibiotics) A gabapentin AdvReac Unknown NAUSEA Verified 07/23/21 09:50 pravastatin AdvReac Unknown Abdominal Verified 07/23/21 09:50 Pain Consultations 12/20/21 06:18 ED Decision to Admit Stat 12/20/21 09:48 Consult Nephrology Routine 12/20/21 11:20 Consult Orthopedic Surgery Routine 12/21/21 11:48 Consult Palliative Care Routine 12/22/21 05:54 Consult Cardiology Routine 12/22/21 16:39 Consult Pain Management Routine 12/24/21 07:26 Consult Palliative Care Routine Ordered Studies 12/20/21 03:47 CT lumbar spine wo con Urgent Hospital Course (1) EMILIE (acute kidney injury): Acute Kidney Injury on CKD 5 Encephalopathy--likely Multifactorial Hypercalcemia Possible underlying pneumonia Possible component of hospital delirium Degenerative Disc Disease Lumbar Spinal Stenosis Elevated Troponin Episode of SVT H/O CVA/PVD DM II Hypothyroidism Anemia of Kidney Disease Patient is on comfort measures Palliative Care following Noted to cease breathing at 12:14 PM on 12/31/21 Family updated at bedside. Answered all questions and concerns. Total Time Total Time Spent Total Time Spent (In Minutes): 35 minutes Discharge Plan Discharge Items Patient Disposition: Discharge Diagnosis: Acute renal failure on CKD 5 Acute metabolic encephalopathy Hypercalcemia Possible underlying pneumonia Possible component of hospital delirium Degenerative Disc Disease Lumbar Spinal Stenosis Episode of SVT H/O CVA/PVD DM II Hypothyroidism Anemia of Kidney Disease Other Date/Time: 12/31/21 12:14
--- NOTE | 2022-01-06 10:06 | Coding Query ---
PRESENT ON ADMISSION QUERY To promote full compliance with coding requirements relating to pateint care, physician participation is requested in all cases of professor of literature uncertainty. Please assist us with the question(s) below: Please place an X within the parenthesis (x). The following diagnosis listed in this patient's medical record require physician assistance to determine if they were present on admission (POA) or not. Please advise for each diagnosis whether it was present on admission, not present on admission, or if it was clinically undetermined. 1. POSSIBLE PNEUMONIA (documentation begins on the 12/22 Progress Note through Discharge Summary) ( ) Present On Admission ( x) Not Present On Admission ( ) Clinically Undetermined Thank you Kinjal Lawson *Definition of the present on admission (POA)-Present on admission is defined as present at the time the order for inpatient admission occurs. Conditions that develop during an outpatient encounter prior to a written order for inpatient admission (including emergency department, observation, or outpatient surgery) are considered present on admission. MTDD
--- NOTE | 2022-01-06 10:10 | Coding Query ---
To promote full compliance with coding requirements relating to patient care, provider participation is requested in all cases of inpatient coder uncertainty. Please assist us with the question(s) below: Coding Question(s): The diagnosis(es) below was documented in the H&P through Progress Notes 12/21, 12/22, then subsequently fell off all further documentation. Please indicate if it is still a possible diagnosis or ruled out. Physician's Response(s): SEPSIS ( ) Diagnosed and POA ( ) Diagnosed and not POA ( x ) Ruled out ( ) Other (please specify) COMPLICATED UTI ( ) Diagnosed and POA ( ) Diagnosed and not POA ( x ) Ruled out ( ) Other (please specify) MTDD
== END 2021-12-31 16:06 | disposition expired | DRG 682 ==
LOC: ED 03:36 → 2S 07:08 → SUATTDRO 07:08 → 2S 09:15 → 3E 12-27 15:23
DX: D63.1 Anemia in chronic kidney disease; Z79.899 Other long term (current) drug therapy; Z86.73 Personal history of transient ischemic attack (TIA), and cerebral infarction without residual deficits; F41.9 Anxiety disorder, unspecified; E87.5 Hyperkalemia; M48.061 Spinal stenosis, lumbar region without neurogenic claudication; E03.9 Hypothyroidism, unspecified; R09.02 Hypoxemia; I47.1 Supraventricular tachycardia; Z79.890 Hormone replacement therapy; Z79.84 Long term (current) use of oral hypoglycemic drugs; Z79.82 Long term (current) use of aspirin; Z91.14 Patient's other noncompliance with medication regimen; Z51.5 Encounter for palliative care; M19.90 Unspecified osteoarthritis, unspecified site; I77.6 Arteritis, unspecified; Z88.8 Allergy status to other drugs, medicaments and biological substances; Z79.52 Long term (current) use of systemic steroids; F05 Delirium due to known physiological condition; M54.59 Other low back pain; Z91.041 Radiographic dye allergy status; Z83.3 Family history of diabetes mellitus; M54.16 Radiculopathy, lumbar region; G93.41 Metabolic encephalopathy; N18.5 Chronic kidney disease, stage 5; G92.8 Other toxic encephalopathy; D84.9 Immunodeficiency, unspecified; Z79.4 Long term (current) use of insulin; Z88.5 Allergy status to narcotic agent; N05.7 Unspecified nephritic syndrome with diffuse crescentic glomerulonephritis; J18.9 Pneumonia, unspecified organism; Z88.2 Allergy status to sulfonamides; E11.22 Type 2 diabetes mellitus with diabetic chronic kidney disease; Z87.442 Personal history of urinary calculi; E83.52 Hypercalcemia; K21.9 Gastro-esophageal reflux disease without esophagitis; T40.605A Adverse effect of unspecified narcotics, initial encounter; N17.9 Acute kidney failure, unspecified; I12.0 Hypertensive chronic kidney disease with stage 5 chronic kidney disease or end stage renal disease